=== PATIENT | female | born 1935 | race Caucasian/White ===

== ENCOUNTER 2020-08-14 08:55 | Emergency (ER) | payer MEDICARE, SELFPAY ==
[2020-08-14] VITALS (10 sets, daily range): BP systolic 125–174; BP diastolic 54–71; PULSE 57–78; RESP 16–18; TEMP 36.9; O2SAT 95–98; BMI 18.5
--- NOTE | 2020-08-14 | XR_ITS ---
EXAMINATION: XR CHEST CLINICAL INFORMATION: Weakness. COMPARISON: Chest x-ray dated 12/05/2019 and older exams. TECHNIQUE: 2 views of the chest were obtained. FINDINGS: EKG leads overlie the chest. The cardiomediastinal silhouette is within normal limits in size. Lungs bilaterally are symmetrically hyperinflated. No focal consolidation, effusion or pneumothorax is seen. Density calcified granuloma in the left lower lung is again noted. S-shaped thoracolumbar scoliosis and multilevel vertebral spondylosis seen. Osteopenia noted. IMPRESSION: No acute cardiopulmonary process. Chronic left lower lobe granuloma.
--- NOTE | 2020-08-14 | ECG_ITS ---
Test Reason : DIZZINESS Blood Pressure : / mmHG Vent. Rate : 071 BPM Atrial Rate : 071 BPM P-R Int : 180 ms QRS Dur : 082 ms QT Int : 384 ms P-R-T Axes : 070 018 -17 degrees QTc Int : 417 ms Sinus rhythm with marked sinus arrhythmia with occasional Premature ventricular complexes Nonspecific T wave abnormality Abnormal ECG When compared with ECG of 05-DEC-2019 12:32, Sinus rhythm has replaced Junctional rhythm Referred By: Mike Alvarado Electronically Signed By:RENA CISNEROS
--- NOTE | 2020-08-14 10:51 | ED_ITS ---
HPI - General Adult General Chief complaint: Dizziness <Mike Alvarado NP - Last Filed: 08/14/20 17:11> Stated complaint: syncope <Mike Alvarado NP - Last Filed: 08/14/20 17:11> Time Seen by Provider: 08/14/20 10:08 <Mike Alvarado NP - Last Filed: 08/14/20 17:11> Source: patient and family <Mike Alvarado NP - Last Filed: 08/14/20 17:11> History of Present Illness HPI narrative: 85-year-old female primarily Kyrgyz-speaking presents via EMS from home she has a history of hypertension, asthma, gastroesophageal reflux disease, nephrolithiasis and surgical history of cholecystectomy, back surgery and lith otripsy for kidney stones presents with complaint of feeling generalized weak today. States she took her medications as she usually does and did not get a chance to eat today and was feeling weak and like she is going to pass out. She denies any falling episodes. No dizziness. Per daughter she has had similar complaints in the past when she is generally not feeling well. Patient denies any pain complaints. No chest pain, headache, shortness of breath. No lower extremity pain or discomfort. No falls. <Mike Alvarado NP - Last Filed: 08/14/20 17:11> Onset (ago): day(s) (1) <Mike Alvarado NP - Last Filed: 08/14/20 17:11> Treatments prior to arrival: none <Mike Alvarado NP - Last Filed: 08/14/20 17:11> Related Data Allergies/adverse reactions: Allergies Allergy/AdvReac Type Severity Reaction Status Date / Time lisinopril [LISINOPRIL] Allergy Mild CHEST PAIN Verified 08/14/20 08:55 codeine [CODEINE] AdvReac Unknown AGITATION Verified 08/14/20 08:55 <Mike Alvarado NP - Last Filed: 08/14/20 17:11> Review of Systems Review of Systems: Constitutional: No Weight loss, No Fever, No Chills, No Night Sweats, No Fatigue, No Malaise ENT/Mouth: No Hearing loss, No Ear Pain, No Nasal Congestion, No Sinus Pain, No Hoarseness, No sore throat, No Rhinorrhea, No Swallowing Difficulty Eyes: No Eye Pain, No Swelling, No Redness, No Foreign Body, No Discharge, No Vision Changes Cardiovascular: No Chest Pain, No SOB, No Dyspnea on Exertion, No Orthopnea, No Edema, No Palpitations Respiratory: No Cough, No Sputum, No Wheezing, No Smoke Exposure, No Dyspnea Gastrointestinal: No Nausea, No Vomiting, No Diarrhea, No Constipation, No abdominal Pain, No Hematochezia, No Melena Genitourinary: no irregular bleeding, No Dysuria, No Urinary Frequency, No Hematuria, No Urinary Incontinence, No Urgency, No Flank Pain, No Urinary Flow Changes, No Hesitancy Musculoskeletal: No joint pain, No Myalgias, No Joint Swelling Skin: No Skin Lesions, No rash Neuro: No Weakness, No Numbness, No Paresthesias, No Loss of Consciousness, No Dizziness, No Headache Psych: No Anxiety/Panic, No Depression, No SI/HI/AH/VH, No Social Issues, Heme/Lymph: No Bruising, No Bleeding,No Lymphadenopathy Endocrine: No Polyuria, No Polydipsia, No Temperature Intolerance <Mike Alvarado NP - Last Filed: 08/14/20 17:11> [facility] Social History Social History: Social History Smoked in Last 30 Days: No Use of substances other than those prescribed or required for medical reasons: No Advance Directives: No Advance Directives Information Provided: No <Mike Alvarado NP - Last Filed: 08/14/20 17:11> Physical Exam Vital Signs and I&O and Narrative: Vital Signs and I&O: Vital Signs Temp 98.5 F 08/14/20 17:04 Pulse 62 08/14/20 17:10 Resp 17 08/14/20 17:04 BP 149/62 H 08/14/20 17:10 Pulse Ox 97 08/14/20 17:04 Intake & Output 08/14/20 08/14/20 08/15/20 06:59 18:59 06:59 Weight 46 kg Body Mass Index 18.5 <Mike Alvarado NP - Last Filed: 08/14/20 17:11> Vital Signs and I&O: Vital Signs Temp 98.5 F 08/14/20 17:04 Pulse 62 08/14/20 17:10 Resp 17 08/14/20 17:04 BP 149/62 H 08/14/20 17:10 Pulse Ox 97 08/14/20 17:04 Intake & Output 08/14/20 08/14/20 08/15/20 06:59 18:59 06:59 Weight 46 kg Body Mass Index 18.5 <Lopez Bhardwaj DO - Last Filed: 08/14/20 22:18> Const: General: cooperative and healthy appearing; No acute distress or intoxicated appearing <[facility] CODIE Alvarado - Last Filed: 08/14/20 17:11> Nutritional Appearance: average body habitus <[facility] CODIE Alvarado - Last Filed: 08/14/20 17:11> Orientation/consciousness: patient oriented x3 <[facility] CODIE Alvarado - Last Filed: 08/14/20 17:11> Limitations: language barrier ( Kyrgyz-speaking, prefer daughters cleaner and polisher who is present) <[facility] CODIE Alvarado - Last Filed: 08/14/20 17:11> HENMT: Head: Yes normal to inspection <[facility] CODIE Alvarado - Last Filed: 01/29 17:11> Ears: hearing grossly normal bilaterally <[facility] CODIE Alvarado - Last Filed: 08/14/20 17:11> Eyes: General: appearance normal, both eyes and all related structures <[facility] CODIE Alvarado - Last Filed: 08/14/20 17:11> Visual Velasco: normal visual velasco by confrontation <[facility] CODIE Alvarado - Last Filed: 08/14/20 17:11> Neck: Neck: Yes normal visual inspection, Yes no meningeal signs, No positive Brudzinski's sign, No positive Kernig's sign and No tender <[facility] CODIE Alvarado - Last Filed: 08/14/20 17:11> Thyroid: Thyroid normal <[facility] CODIE Alvarado - Last Filed: 08/14/20 17:11> Chest: Chest palpation & inspection: normal inspection of the chest <[facility] CODIE Alvarado - Last Filed: 08/14/20 17:11> Resp: Effort & Inspection: normal respiratory effort <[facility] CODIE Alvarado - Last Filed: 08/14/20 17:11> Cardio: Jugular venous distension: no JVD <[facility] CODIE Alvarado - Last Filed: 08/14/20 17:11> GI: Inspection: Yes normal to inspection <Mike FernandesCODIE fischer - Last Filed: 08/14/20 17:11> Percussion: Yes normal to percussion <Mike CODIE Alvarado - Last Filed: 08/14/20 17:11> Auscultation: normal bowel sounds <Mike FernandesCODIE fischer - Last Filed: 08/14/20 17:11> : General: Yes no CVA tenderness <Mike CODIE Alvarado - Last Filed: 08/14/20 17:11> Back/Spine/Pelvis: Back: no CVA tenderness <Mike CODIE Alvarado - Last Filed: 08/14/20 17:11> Skin: General skin exam: no rashes or lesions noted <Mike CODIE Alvarado - Last Filed: 08/14/20 17:11> Neuro: General: patient oriented x3, moves all extremities, Normal light touch and pain sensation, no meningeal signs and no focal motor deficits <Mike CODIE Alvarado - Last Filed: 08/14/20 17:11> Cranial nerves: Yes CN's II-XII intact bilaterally and Yes Normal accommodation reflex present <Mike CODIE Alvarado - Last Filed: 08/14/20 17:11> Gait exam (Neuro): Normal gait present <Mike CODIE Alvarado - Last Filed: 08/14/20 17:11> Extrem: General: Yes normal to inspection <Mike CODIE Alvarado - Last Filed: 08/14/20 17:11> Left upper extremity: full ROM <Mike CODIE Alvarado - Last Filed: 08/14/20 17:11> Course Course Hospital Course: In review a 5-year-old female with above history presenting with nonspecific generalized weakness since this morning. No chest pain or shortness of breath. No headache. Very vague historian history limited by the fact that she is primarily Kyrgyz-speaking senior interior designer present as well as her daughter who is interpreting. She goes to [facility] pharmacy and has seen primary care as well as Cardiology there and has been on blood pressure medication for some time now with poor control. plan for labs, EKG chest x-ray rapid COVID. will treat with gradual IV fluids. Did not eat break fast will go ahead and let her eat. <Mike Alvarado NP - Last Filed: 08/14/20 17:11> Reevaluation(s) Reevaluation #1: Labs overall stable EKG normal sinus rhythm at 71 beats per minute with occasional PVC. Nonspecific T-wave changes in the lateral leads more pronounced on this EKG. This was compared to 12/05/2019. Initial troponin 7.3- Given the nonspecific symptoms plan for repeat troponin to make sure is no delta and re-evaluate. Her daughter does question some component of anxiety has an appointment coming up with her primary care doctor for recheck on her blood pressure in 1 week. <Mike Alvarado NP - Last Filed: 08/14/20 17:11> Reevaluation #2: repeat troponin shows positive delta> 7.3 to 13.6. Page placed to Cardiology Dr. Gracia; She remains pain and discomfort free. Resting comfortably. Did eat lunch. <Mike Alvarado NP - Last Filed: 08/14/20 17:11> Reevaluation #3: Awaiting consultation from Cardiology. in the meantime called over to bedside by patient daughter feeling anxious wanting to leave. I did have discussion with her and aware that I will follow cardiology recommendations. She initially wanted to leave and now agreeable to staying to follow cardiology recommendation. <Mike Alvarado NP - Last Filed: 08/14/20 17:11> Additional Reevaluation(s): Case discussed with cardiology Dr. Gracia -- Findings nonspecific given that she has no pain or discomfort to repeat troponin at 03:00 hours and if no delta can be discharged home. repeat troponin at 3 hours from 13.6 to now 16. No delta. Patient remains pain discomfort free. Has appointment with her primary care doctor and Cardiology. Requesting discharge. Does not want to stay in hospital. She will be disch arged with clear precaution return follow-up instructions. Stable for discharge. <Mike Alvarado NP - Last Filed: 08/14/20 17:11> Consultations Consultation #1: Dr. Gracia cardiology <Mike Alvarado NP - Last Filed: 08/14/20 17:11> Medical Decision Making MDM Narrative Medical decision making narrative: has been here several times for this same. She is admission here in 2016 specifically 03/06/2016 for abdominal pain. Prior to this she was admitted 2012. She has had a visit in November 2019 with similar complaint of general weakness and malaise. Per daughter she typically states this when she does not feel well. Unsure if it is related to the fact that she took her routine medication without eating breakfast. <Mike Alvarado NP - Last Filed: 08/14/20 17:11> Differential Diagnosis Differential Diagnosis: Hypoglycemia,electrolyte derangement,infectious pathology, viral syndrome <Mike Alvarado NP - Last Filed: 08/14/20 17:11> Lab Data Result diagrams: : 08/14/20 10:33 08/14/20 10:32 <Mike Alvarado NP - Last Filed: 08/14/20 17:11> Labs: Lab Results 08/14/20 08/14/20 08/14/20 Range/Units 10:28 10:32 10:33 WBC 7.4 (4.8-10.8) X10*3/uL RBC 4.50 (4.20-5.50) X10*6/uL Hgb 12.5 (12.0-16.0) g/dl Hct 38.3 (37-47) % MCV 85.1 (80-98) fL MCH 27.8 (27.0-33.0) pg MCHC 32.6 (31.0-35.0) g/dl RDW 14.3 (11.0-16.0) % Plt Count 262 (160-400) X10*3/uL MPV 10.8 (9.4-12.3) fL Immature Gran % (Auto) 0.4 (0.0-0.4) % Neut % (Auto) 77.8 H (45-73) % Lymph % (Auto) 12.8 L (20-40) % [place] % (Auto) 7.7 (2-11) % Eos % (Auto) 0.5 (0-4) % Baso % (Auto) 0.8 (0-2) % Neut # (Auto) 5.7 (2.0-8.3) X10*3/uL Lymph # (Auto) 0.9 L (1.2-4.9) X10*3/uL [place] # (Auto) 0.6 (0.1-1.2) X10*3/uL Eos # (Auto) 0.0 (0.0-0.4) X10*3/uL Baso # (Auto) 0.1 (0.0-0.2) X10*3/uL Abs Immat Gran (auto) 0.03 (0.00-0.03) X10*3/uL Absolute Nucleated RBC 0.000 (0.0-0.012) X10*3/uL Nucleated RBC % (auto) 0.0 (0.0-0.2) /100WBC PT (10.8-13.0) SEC INR (0.9-1.1) APTT (24.1-38.0) SEC Sodium 137 (135-145) mmol/L Potassium 3.9 (3.3-5.1) mmol/l Chloride 102 (96-108) mmol/L Carbon Dioxide 28 (22-29) mmol/L Anion Gap 11 L (12-20) BUN 21 H (9-16) mg/dL Creatinine 0.80 (0.5-1.4) mg/dL Estim Creat Clear Calc 37.3 Estimated GFR > 60 Random Glucose 126 H (60-115) mg/dL Calcium 9.8 (8.4-10.2) mg/dL Total Bilirubin 0.4 (0.0-1.0) mg/dL Direct Bilirubin 0.2 (0.0-0.5) mg/dL AST 25 (5-31) U/L ALT 18 (0-31) U/L Alkaline Phosphatase 61 (39-117) U/L Troponin I High Sens (<3.5-17.0) ng/L B-Natriuretic Peptide (<100) pg/mL Total Protein 7.8 (6.5-8.0) g/dL Albumin 4.0 (3.5-5.0) g/dL Lipase 33 (8-78) U/L Urine Color YELLOW Urine Appearance CLEAR Urine pH 7.5 (5.0-8.0) Ur Specific [place] 1.015 (1.005-1.025) Urine Protein NEG (NEG-TRACE) MG/DL Urine Glucose (UA) NEG (NEG) MG/DL Urine Ketones NEG (NEG) MG/DL Urine Blood 1+ H (NEG) Urine Nitrite NEG (NEG) Ur Leukocyte Esterase NEG (NEG) Urine RBC 1-4 (0) /HPF Urine WBC 0 (0-4) /HPF Ur Squamous Epith Cells NONE /LPF Ur Renal Epithelial Cell TRACE /LPF Urine Bacteria NONE /LPF Coronavirus (PCR) (Negative) 08/14/20 08/14/20 08/14/20 Range/Units 10:33 10:33 10:33 WBC (4.8-10.8) X10*3/uL RBC (4.20-5.50) X10*6/uL Hgb (12.0-16.0) g/dl Hct (37-47) % MCV (80-98) fL MCH (27.0-33.0) pg MCHC (31.0-35.0) g/dl RDW (11.0-16.0) % Plt Count (160-400) X10*3/uL MPV (9.4-12.3) fL Immature Gran % (Auto) (0.0-0.4) % Neut % (Auto) (45-73) % Lymph % (Auto) (20-40) % [place] % (Auto) (2-11) % Eos % (Auto) (0-4) % Baso % (Auto) (0-2) % Neut # (Auto) (2.0-8.3) X10*3/uL Lymph # (Auto) (1.2-4.9) X10*3/uL [place] # (Auto) (0.1-1.2) X10*3/uL Eos # (Auto) (0.0-0.4) X10*3/uL Baso # (Auto) (0.0-0.2) X10*3/uL Abs Immat Gran (auto) (0.00-0.03) X10*3/uL Absolute Nucleated RBC (0.0-0.012) X10*3/uL Nucleated RBC % (auto) (0.0-0.2) /100WBC PT 12.4 (10.8-13.0) SEC INR 1.0 (0.9-1.1) APTT 32.9 (24.1-38.0) SEC Sodium (135-145) mmol/L Potassium (3.3-5.1) mmol/l Chloride (96-108) mmol/L Carbon Dioxide (22-29) mmol/L Anion Gap (12-20) BUN (9-16) mg/dL Creatinine (0.5-1.4) mg/dL Estim Creat Clear Calc Estimated GFR Random Glucose (60-115) mg/dL Calcium (8.4-10.2) mg/dL Total Bilirubin (0.0-1.0) mg/dL Direct Bilirubin (0.0-0.5) mg/dL AST (5-31) U/L ALT (0-31) U/L Alkaline Phosphatase (39-117) U/L Troponin I High Sens 7.3 (<3.5-17.0) ng/L B-Natriuretic Peptide 78 (<100) pg/mL Total Protein (6.5-8.0) g/dL Albumin (3.5-5.0) g/dL Lipase (8-78) U/L Urine Color Urine Appearance Urine pH (5.0-8.0) Ur Specific [place] (1.005-1.025) Urine Protein (NEG-TRACE) MG/DL Urine Glucose (UA) (NEG) MG/DL Urine Ketones (NEG) MG/DL Urine Blood (NEG) Urine Nitrite (NEG) Ur Leukocyte Esterase (NEG) Urine RBC (0) /HPF Urine WBC (0-4) /HPF Ur Squamous Epith Cells /LPF Ur Renal Epithelial Cell /LPF Urine Bacteria /LPF Coronavirus (PCR) NEGATIVE (Negative) 08/14/20 08/14/20 Range/Units 12:33 16:22 WBC (4.8-10.8) X10*3/uL RBC (4.20-5.50) X10*6/uL Hgb (12.0-16.0) g/dl Hct (37-47) % MCV (80-98) fL MCH (27.0-33.0) pg MCHC (31.0-35.0) g/dl RDW (11.0-16.0) % Plt Count (160-400) X10*3/uL MPV (9.4-12.3) fL Immature Gran % (Auto) (0.0-0.4) % Neut % (Auto) (45-73) % Lymph % (Auto) (20-40) % [place] % (Auto) (2-11) % Eos % (Auto) (0-4) % Baso % (Auto) (0-2) % Neut # (Auto) (2.0-8.3) X10*3/uL Lymph # (Auto) (1.2-4.9) X10*3/uL [place] # (Auto) (0.1-1.2) X10*3/uL Eos # (Auto) (0.0-0.4) X10*3/uL Baso # (Auto) (0.0-0.2) X10*3/uL Abs Immat Gran (auto) (0.00-0.03) X10*3/uL Absolute Nucleated RBC (0.0-0.012) X10*3/uL Nucleated RBC % (auto) (0.0-0.2) /100WBC PT (10.8-13.0) SEC INR (0.9-1.1) APTT (24.1-38.0) SEC Sodium (135-145) mmol/L Potassium (3.3-5.1) mmol/l Chloride (96-108) mmol/L Carbon Dioxide (22-29) mmol/L Anion Gap (12-20) BUN (9-16) mg/dL Creatinine (0.5-1.4) mg/dL Estim Creat Clear Calc Estimated GFR Random Glucose (60-115) mg/dL Calcium (8.4-10.2) mg/dL Total Bilirubin (0.0-1.0) mg/dL Direct Bilirubin (0.0-0.5) mg/dL AST (5-31) U/L ALT (0-31) U/L Alkaline Phosphatase (39-117) U/L Troponin I High Sens 13.6 D 16.0 (<3.5-17.0) ng/L B-Natriuretic Peptide (<100) pg/mL Total Protein (6.5-8.0) g/dL Albumin (3.5-5.0) g/dL Lipase (8-78) U/L Urine Color Urine Appearance Urine pH (5.0-8.0) Ur Specific [place] (1.005-1.025) Urine Protein (NEG-TRACE) MG/DL Urine Glucose (UA) (NEG) MG/DL Urine Ketones (NEG) MG/DL Urine Blood (NEG) Urine Nitrite (NEG) Ur Leukocyte Esterase (NEG) Urine RBC (0) /HPF Urine WBC (0-4) /HPF Ur Squamous Epith Cells /LPF Ur Renal Epithelial Cell /LPF Urine Bacteria /LPF Coronavirus (PCR) (Negative) <Mike AlvaradoCODIE - Last Filed: 08/14/20 17:11> Lab Results 08/14/20 08/14/20 08/14/20 Range/Units 10:28 10:32 10:33 WBC 7.4 (4.8-10.8) X10*3/uL RBC 4.50 (4.20-5.50) X10*6/uL Hgb 12.5 (12.0-16.0) g/dl Hct 38.3 (37-47) % MCV 85.1 (80-98) fL MCH 27.8 (27.0-33.0) pg MCHC 32.6 (31.0-35.0) g/dl RDW 14.3 (11.0-16.0) % Plt Count 262 (160-400) X10*3/uL MPV 10.8 (9.4-12.3) fL Immature Gran % (Auto) 0.4 (0.0-0.4) % Neut % (Auto) 77.8 H (45-73) % Lymph % (Auto) 12.8 L (20-40) % [place] % (Auto) 7.7 (2-11) % Eos % (Auto) 0.5 (0-4) % Baso % (Auto) 0.8 (0-2) % Neut # (Auto) 5.7 (2.0-8.3) X10*3/uL Lymph # (Auto) 0.9 L (1.2-4.9) X10*3/uL [place] # (Auto) 0.6 (0.1-1.2) X10*3/uL Eos # (Auto) 0.0 (0.0-0.4) X10*3/uL Baso # (Auto) 0.1 (0.0-0.2) X10*3/uL Abs Immat Gran (auto) 0.03 (0.00-0.03) X10*3/uL Absolute Nucleated RBC 0.000 (0.0-0.012) X10*3/uL Nucleated RBC % (auto) 0.0 (0.0-0.2) /100WBC PT (10.8-13.0) SEC INR (0.9-1.1) APTT (24.1-38.0) SEC Sodium 137 (135-145) mmol/L Potassium 3.9 (3.3-5.1) mmol/l Chloride 102 (96-108) mmol/L Carbon Dioxide 28 (22-29) mmol/L Anion Gap 11 L (12-20) BUN 21 H (9-16) mg/dL Creatinine 0.80 (0.5-1.4) mg/dL Estim Creat Clear Calc 37.3 Estimated GFR > 60 Random Glucose 126 H (60-115) mg/dL Calcium 9.8 (8.4-10.2) mg/dL Total Bilirubin 0.4 (0.0-1.0) mg/dL Direct Bilirubin 0.2 (0.0-0.5) mg/dL AST 25 (5-31) U/L ALT 18 (0-31) U/L Alkaline Phosphatase 61 (39-117) U/L Troponin I High Sens (<3.5-17.0) ng/L B-Natriuretic Peptide (<100) pg/mL Total Protein 7.8 (6.5-8.0) g/dL Albumin 4.0 (3.5-5.0) g/dL Lipase 33 (8-78) U/L Urine Color YELLOW Urine Appearance CLEAR Urine pH 7.5 (5.0-8.0) Ur Specific [place] 1.015 (1.005-1.025) Urine Protein NEG (NEG-TRACE) MG/DL Urine Glucose (UA) NEG (NEG) MG/DL Urine Ketones NEG (NEG) MG/DL Urine Blood 1+ H (NEG) Urine Nitrite NEG (NEG) Ur Leukocyte Esterase NEG (NEG) Urine RBC 1-4 (0) /HPF Urine WBC 0 (0-4) /HPF Ur Squamous Epith Cells NONE /LPF Ur Renal Epithelial Cell TRACE /LPF Urine Bacteria NONE /LPF Coronavirus (PCR) (Negative) 08/14/20 08/14/20 08/14/20 Range/Units 10:33 10:33 10:33 WBC (4.8-10.8) X10*3/uL RBC (4.20-5.50) X10*6/uL Hgb (12.0-16.0) g/dl Hct (37-47) % MCV (80-98) fL MCH (27.0-33.0) pg MCHC (31.0-35.0) g/dl RDW (11.0-16.0) % Plt Count (160-400) X10*3/uL MPV (9.4-12.3) fL Immature Gran % (Auto) (0.0-0.4) % Neut % (Auto) (45-73) % Lymph % (Auto) (20-40) % [place] % (Auto) (2-11) % Eos % (Auto) (0-4) % Baso % (Auto) (0-2) % Neut # (Auto) (2.0-8.3) X10*3/uL Lymph # (Auto) (1.2-4.9) X10*3/uL [place] # (Auto) (0.1-1.2) X10*3/uL Eos # (Auto) (0.0-0.4) X10*3/uL Baso # (Auto) (0.0-0.2) X10*3/uL Abs Immat Gran (auto) (0.00-0.03) X10*3/uL Absolute Nucleated RBC (0.0-0.012) X10*3/uL Nucleated RBC % (auto) (0.0-0.2) /100WBC PT 12.4 (10.8-13.0) SEC INR 1.0 (0.9-1.1) APTT 32.9 (24.1-38.0) SEC Sodium (135-145) mmol/L Potassium (3.3-5.1) mmol/l Chloride (96-108) mmol/L Carbon Dioxide (22-29) mmol/L Anion Gap (12-20) BUN (9-16) mg/dL Creatinine (0.5-1.4) mg/dL Estim Creat Clear Calc Estimated GFR Random Glucose (60-115) mg/dL Calcium (8.4-10.2) mg/dL Total Bilirubin (0.0-1.0) mg/dL Direct Bilirubin (0.0-0.5) mg/dL AST (5-31) U/L ALT (0-31) U/L Alkaline Phosphatase (39-117) U/L Troponin I High Sens 7.3 (<3.5-17.0) ng/L B-Natriuretic Peptide 78 (<100) pg/mL Total Protein (6.5-8.0) g/dL Albumin (3.5-5.0) g/dL Lipase (8-78) U/L Urine Color Urine Appearance Urine pH (5.0-8.0) Ur Specific [place] (1.005-1.025) Urine Protein (NEG-TRACE) MG/DL Urine Glucose (UA) (NEG) MG/DL Urine Ketones (NEG) MG/DL Urine Blood (NEG) Urine Nitrite (NEG) Ur Leukocyte Esterase (NEG) Urine RBC (0) /HPF Urine WBC (0-4) /HPF Ur Squamous Epith Cells /LPF Ur Renal Epithelial Cell /LPF Urine Bacteria /LPF Coronavirus (PCR) NEGATIVE (Negative) 08/14/20 08/14/20 Range/Units 12:33 16:22 WBC (4.8-10.8) X10*3/uL RBC (4.20-5.50) X10*6/uL Hgb (12.0-16.0) g/dl Hct (37-47) % MCV (80-98) fL MCH (27.0-33.0) pg MCHC (31.0-35.0) g/dl RDW (11.0-16.0) % Plt Count (160-400) X10*3/uL MPV (9.4-12.3) fL Immature Gran % (Auto) (0.0-0.4) % Neut % (Auto) (45-73) % Lymph % (Auto) (20-40) % [place] % (Auto) (2-11) % Eos % (Auto) (0-4) % Baso % (Auto) (0-2) % Neut # (Auto) (2.0-8.3) X10*3/uL Lymph # (Auto) (1.2-4.9) X10*3/uL [place] # (Auto) (0.1-1.2) X10*3/uL Eos # (Auto) (0.0-0.4) X10*3/uL Baso # (Auto) (0.0-0.2) X10*3/uL Abs Immat Gran (auto) (0.00-0.03) X10*3/uL Absolute Nucleated RBC (0.0-0.012) X10*3/uL Nucleated RBC % (auto) (0.0-0.2) /100WBC PT (10.8-13.0) SEC INR (0.9-1.1) APTT (24.1-38.0) SEC Sodium (135-145) mmol/L Potassium (3.3-5.1) mmol/l Chloride (96-108) mmol/L Carbon Dioxide (22-29) mmol/L Anion Gap (12-20) BUN (9-16) mg/dL Creatinine (0.5-1.4) mg/dL Estim Creat Clear Calc Estimated GFR Random Glucose (60-115) mg/dL Calcium (8.4-10.2) mg/dL Total Bilirubin (0.0-1.0) mg/dL Direct Bilirubin (0.0-0.5) mg/dL AST (5-31) U/L ALT (0-31) U/L Alkaline Phosphatase (39-117) U/L Troponin I High Sens 13.6 D 16.0 (<3.5-17.0) ng/L B-Natriuretic Peptide (<100) pg/mL Total Protein (6.5-8.0) g/dL Albumin (3.5-5.0) g/dL Lipase (8-78) U/L Urine Color Urine Appearance Urine pH (5.0-8.0) Ur Specific [place] (1.005-1.025) Urine Protein (NEG-TRACE) MG/DL Urine Glucose (UA) (NEG) MG/DL Urine Ketones (NEG) MG/DL Urine Blood (NEG) Urine Nitrite (NEG) Ur Leukocyte Esterase (NEG) Urine RBC (0) /HPF Urine WBC (0-4) /HPF Ur Squamous Epith Cells /LPF Ur Renal Epithelial Cell /LPF Urine Bacteria /LPF Coronavirus (PCR) (Negative) <Lopez Bhardwaj, DO - Last Filed: 08/14/20 22:18> Imaging Data [place] [address] XRay Report Signed Patient: Margaret NoadMR#: [id number] : 5Acct:[id number] Age/Sex: 85 / FADM Date: 08/14/20 Loc: HO.ED Attending Dr: Ordering Physician: Mike Alvarado [employer] Date of Service: 08/14/20 Procedure(s): XR chest 2V Accession Number(s): [id number] cc: ~ EXAMINATION: XR CHEST CLINICAL INFORMATION: Weakness. COMPARISON: Chest x-ray dated 12/05/2019 and older exams. TECHNIQUE: 2 views of the chest were obtained. FINDINGS: EKG leads overlie the chest. The cardiomediastinal silhouette is within normal limits in size. Lungs bilaterally are symmetrically hyperinflated. No focal consolidation, effusion or pneumothorax is seen. Density calcified granuloma in the left lower lung is again noted. S-shaped thoracolumbar scoliosis and multilevel vertebral spondylosis seen. Osteopenia noted. IMPRESSION: No acute cardiopulmonary pr ocess. Chronic left lower lobe granuloma. Dictated By:RUSTY ACUÑA MD Signed By:<Electronically signed by RUSTY ACUÑA MD in [place]>08/14/20 1106 DD/ 0944 TD/TT: Global Marketing Intern: LUZ MARIA: My impression: [address] [address] XRay Report Signed Patient: Margaret NoadMR#: [id number] : 5Acct:[id number] Age/Sex: 85 / FADM Date: 08/14/20 Loc: HO.ED Attending Dr: Ordering Physician: Mike Alvarado [employer] Date of Service: 08/14/20 Procedure(s): XR chest 2V Accession Number(s): [id number] cc: ~ EXAMINATION: XR CHEST CLINICAL INFORMATION: Weakness. COMPARISON: Chest x-ray dated 12/05/2019 and older exams. TECHNIQUE: 2 views of the chest were obtained. FINDINGS: EKG leads overlie the chest. The cardiomediastinal silhouette is within normal limits in size. Lungs bilaterally are symmetrically hyperinflated. No focal consolidation, effusion or pneumothorax is seen. Density calcified granuloma in the left lower lung is again noted. S-shaped thoracolumbar scoliosis and multilevel vertebral spondylosis seen. Osteopenia noted. IMPRESSION: No acute cardiopulmonary process. Chronic left lower lobe granuloma. Dictated By:RUSTY ACUÑA MD Signed By:<Electronically signed by RUSTY ACUÑA MD in [place]>08/14/20 1106 DD/ 0944 TD/TT: Global Marketing Intern: LUZ MARIA <Mike Alvarado NP - Last Filed: 08/14/20 17:11> ECG Data Attestation: I personally reviewed and interpreted this ECG as follows: <Mike Alvarado NP - Last Filed: 08/14/20 17:11> Prior ECG tracings: available for review <Mike Alvarado NP - Last Filed: 08/14/20 17:11> Interpretation: Normal sinus rhythm, rate 71, no ST elevation, nonspecific changes in the T-wave in lead 4 5 and 6. EKG compared to 12/05/2019. <Mike Alvarado NP - Last Filed: 08/14/20 17:11> Discharge Plan Discharge Clinical Impression: Weakness generalized <Mike Alvarado NP - Last Filed: 08/14/20 17:11> Patient Disposition: Home, Self-Care <Mike Alvarado NP - Last Filed: 08/14/20 17:11> Instructions: Weakness (ED) <Mike Alvarado NP - Last Filed: 08/14/20 17:11> Additional Instructions: Please follow up with her primary care doctor as planned Please follow up with Cardiology as discussed A copy of your workup was provided to you today Return if any concerns or worsening symptoms otherwise follow up as planned and taking medication prescribed Thank you <Mike Alvarado NP - Last Filed: 08/14/20 17:11> Referrals: Guillermina Vann MD [Primary Care Provider] - 2 days <Mike Alvarado NP - Last Filed: 08/14/20 17:11> Interventions: ED Discharge Assessment Last Done: 08/14/20 17:29 <Mike Alvarado NP - Last Filed: 08/14/20 17:11> Discharge Date/Time: 08/14/20 17:30 <Mike Alvarado, [employer] - Last Filed: 08/14/20 17:11>
[2020-08-14 10:54] LABS: MANUAL DIFF FLAG NO
[2020-08-14 10:55] LABS: Basophils Absolute Auto 0.1 X10*3/uL (0.0-0.2); Basophils Percent Auto 0.8 % (0-2); Eosinophils Percent Auto 0.5 % (0-4); Hematocrit 38.3 % (37-47); Hemoglobin 12.5 g/dl (12.0-16.0); Imm Gran Abs Auto 0.03 X10*3/uL (0.00-0.03); Imm Gran Pct Auto 0.4 % (0.0-0.4); Lymphocytes Absolute Auto 0.9 X10*3/uL (1.2-4.9); Lymphocytes Percent Auto 12.8 % (20-40); Mean Corpuscular HGB Conc 32.6 g/dl (31.0-35.0); Mean Corpuscular Hemoglobin 27.8 pg (27.0-33.0); Mean Corpuscular Volume 85.1 fL (80-98); Mean Platelet Volume 10.8 fL (9.4-12.3); Monocytes Absolute Auto 0.6 X10*3/uL (0.1-1.2); Monocytes Percent Auto 7.7 % (2-11); Neutrophils Absolute Auto 5.7 X10*3/uL (2.0-8.3); Neutrophils Percent Auto 77.8 % (45-73); Platelet Count 262 X10*3/uL (160-400); Red Cell Distribution Width 14.3 % (11.0-16.0); White Blood Count 7.4 X10*3/uL (4.8-10.8)
[2020-08-14 11:08] LABS: Glucose Urine UA NEG (NEG); Leukocyte Esterase Urine NEG (NEG); Nitrite Urine NEG (NEG); PH 7.5 (5.0-8.0); Specific Gravity - Urine 1.015 (1.005-1.025); Urine Blood 1+ (NEG); Urine Ketones NEG (NEG); Urine Protein NEG (NEG-TRACE)
[2020-08-14 11:11] LABS: Appearance Urine CLEAR; Color Urine YELLOW
[2020-08-14 11:17] LABS: Alanine Aminotransferase 18 U/L (0-31); Alkaline Phosphatase 61 U/L (39-117); Anion Gap 11 (12-20); Aspartate Amino Transferase 25 U/L (5-31); Bilirubin Direct 0.2 mg/dL (0.0-0.5); Bilirubin Total 0.4 mg/dL (0.0-1.0); Blood Urea Nitrogen 21 mg/dL (9-16); Calcium 9.8 mg/dL (8.4-10.2); Carbon Dioxide 28 mmol/L (22-29); Chloride 102 mmol/L (96-108); Creatinine Clr Calc Pharmacy 37.3; Estimated Glomerular Filt Rate > 60; Glucose Random 126 mg/dL (60-115); Lipase 33 U/L (8-78); Potassium 3.9 mmol/l (3.3-5.1); Sodium 137 mmol/L (135-145); Total Protein 7.8 g/dL (6.5-8.0)
[2020-08-14 11:17] LABS: Prothrombin Time 12.4 SEC (10.8-13.0)
[2020-08-14 11:19] LABS: Partial Thromboplastin Time 32.9 SEC (24.1-38.0)
[2020-08-14 11:20] LABS: B Type Natriuretic Peptide 78 pg/mL (<100); Troponin-I High Sensitivity 7.3 ng/L (<3.5-17.0)
[2020-08-14 11:39] LABS: Renal Epithelial Cells Urine TRACE /LPF; WBC Urine 0 /HPF (0-4)
[2020-08-14 12:02] LABS: SARS COV2 PCR INHOUSE NEGATIVE (Negative)
[2020-08-14 13:26] LABS: Troponin-I High Sensitivity 13.6 ng/L (<3.5-17.0)
== END 2020-08-14 17:30 | disposition home or self-care (01) ==
PROVIDERS: Nurse Practitioner Primary Care; Emergency Provider Emergency Medicine; PCP Internal Medicine
DX: R53.1 Weakness (principal); Z20.828 Contact with and (suspected) exposure to other viral communicable diseases
CPT/HCPCS: 36415; 71046; 80053; 80076; 81001; 81003; 83690; 83880; 84484; 85025; 85610; 85730; 87635; 93005; 93010; 99283; 99284

== ENCOUNTER 2020-12-19 11:21 | Inpatient (IN) | payer MEDICARE, SELFPAY ==
--- NOTE | ~2020-12-19 | CT_ITS ---
EXAMINATION: CT HEAD WITHOUT CONTRAST CLINICAL INFORMATION: Generalized weakness, rule out intracranial abnormality. COMPARISON: 05/08/[address] scan. TECHNIQUE: Contiguous axial imaging was performed from the skull base to vertex without intravenous administration of contrast. Coronal and sagittal reformatted images were obtained. This CT examination was performed using dose optimization techniques as appropriate, variously including the following: *Automated exposure control *Adjustment of mA and/or kV according to patient size (this includes techniques or standardized protocols for targeted exams where dose is matched to indication/reason for exam; i.e. extremities or head) *Use of iterative reconstruction technique DLP: 587 mGy-cm FINDINGS: There is no evidence of acute intracranial hemorrhage or territorial infarction. No abnormal mass effect or midline shift is seen. Rand to white matter differentiation is well preserved. No extra-axial fluid collections are identified. The ventricles are normal in size. There is no abnormal attenuation within the brain parenchyma. The osseous structures and soft tissues are normal. The mastoid air cells and visualized portions of the paranasal sinuses are well aerated. CT/CT head/brain wo con IMPRESSION: No acute intracranial pathology.
--- NOTE | ~2020-12-19 | XR_ITS ---
EXAMINATION: XR CHEST CLINICAL INFORMATION: Generalized weakness. COMPARISON: 08/14/2020 chest radiographs. TECHNIQUE: 2 views of the chest were obtained. FINDINGS: The lungs are clear. A calcified granuloma in the left lower lobe is stable. The heart and mediastinal structures are unremarkable. XR/XR chest 2V IMPRESSION: Stable chest. No acute cardiopulmonary process.
[2020-12-19 11:37] VITALS: BP 171/72; PULSE 62; RESP 16; TEMP 36.8; O2SAT 98; BMI 26.4
--- NOTE | 2020-12-19 11:59 | ECG_ITS ---
Test Reason : WEAKNESS Blood Pressure : / mmHG Vent. Rate : 048 BPM Atrial Rate : 048 BPM P-R Int : 178 ms QRS Dur : 080 ms QT Int : 404 ms P-R-T Axes : 081 041 074 degrees QTc Int : 360 ms Sinus bradycardia with sinus arrhythmia Nonspecific ST and T wave abnormality Abnormal ECG When compared with ECG of 14-AUG-2020 09:18, No significant changes seen Referred By: Nicolasa Huffman Electronically Signed By:ALPESH FERRIS
--- NOTE | 2020-12-19 12:34 | ED_ITS ---
HPI - General Adult General Chief complaint: General Medical Stated complaint: anxiety Time Seen by Provider: 12/19/20 11:47 Source: patient and EMS Mode of arrival: EMS Limitations: language barrier (Congolese-speaking) History of Present Illness HPI narrative: 85-year-old female who is Congolese-speaking c PMHx of hyp ertension, hyperlipidemia, renal failure, pancreatitis, asthma and GERD presenting to the ED via EMS with complaints of generalized weakness that started after eating a cracker and drinking some coffee this morning therefore she had to lie down due to she reports she felt like she was going to pass out. Her neighbor who comes over every day called EMS and patient was brought here. Patient reports generalized weakness ?not feeling well. Denies any dizziness, headaches, lightheadedness, changes in vision, nausea/vomiting, jaw pain, nasal congestion, cough, shortness of breath, dyspnea on exertion, orthopnea, back pain, palpitations, extremity edema, chest pain, abdominal pain, diarrhea, con stipation, dysuria, hematuria or any other symptoms complaints or concerns at this time. Denies recent travel or sick contacts. MD complaint: Generalized weakness Onset (ago): hour(s) (Started around 11:30 prior to arrival) Pain Consistency: constant Relieving factors: none Exacerbating factors: none Associated symptoms: denies other symptoms Treatments prior to arrival: none Related Data Allergies Allergy/AdvReac Type Severity Reaction Status Date / Time lisinopril [LISINOPRIL] Allergy Mild CHEST PAIN Verified 08/14/20 08:55 codeine [CODEINE] AdvReac Unknown AGITATION Verified 08/14/20 08:55 Review of Systems Review of Systems: Constitutional : No Weight loss, No Fever, No Chills, No Night Sweats, No Fatigue, No Malaise ENT/Mouth : No Hearing loss, No Ear Pain, No Nasal Congestion, No Sinus Pain, No Hoarseness, No sore throat, No Rhinorrhea, No Swallowing Difficulty Eyes: No Eye Pain, No Swelling, No Redness, No Foreign Body, No Discharge, No Vision Changes Cardiovascular : No Chest Pain, No SOB, No Dyspnea on Exertion, No Orthopnea, No Edema, No Palpitations Respiratory : No Cough, No Sputum, No Wheezing, No Smoke Exposure, No Dyspnea Gastrointestinal : No Nausea, No Vomiting, No Diarrhea, No Constipation, No abdominal Pain, No Hematochezia, No Melena Genitourinary : no irregular bleeding, No Dysuria, No Urinary Frequency, No Hematuria, No Urinary Incontinence, No Urgency, No Flank Pain, No Urinary Flow Changes, No Hesitancy Musculoskeletal : No joint pain, No Myalgias, No Joint Swelling Skin : No Skin Lesions, No rash Neuro : + Weakness, No Numbness, No Paresthesias, No Loss of Consciousness, No Dizziness, No Headache Psych : No Anxiety/Panic, No Depression, No SI/HI/AH/VH, No Social Issues, Heme/Lymph: No Bruising, No Bleeding,No Lymphadenopathy Endocrine : No Polyuria, No Polydipsia, No Temperature Intolerance Yes all other systems are reviewed and are negative [facility] Past Medical History Attestation statement: The following information was validated with the patient. Social History Social History Alcohol intake: never Smoking Status: Never smoker Use of substances other than those prescribed or required for medical reasons: No Advance Directives: No Advance Directives Information Provided: No Physical Exam Vital Signs: Vital Signs: Last Vital Signs Temp 98.0 F 12/19/20 15:50 Pulse 52 12/19/20 15:50 Resp 16 12/19/20 15:50 BP 155/65 H 12/19/20 15:50 Pulse Ox 99 12/19/20 15:50 Body Mass Index 26.4 Vital signs have been reviewed as normal and appeared to be correct. Blood pr essure hypertensive. Heart rate normal. Respiration rate normal. Temperature normal. Oxygen saturation normal. Appearance: Alert. Oriented X3. No acute distress. Head: Normal external exam. Normocephalic. Atraumatic. Able to rotate head bilaterally. Eyes: PERRLA. EOMI. No nystagmus noted. Conjunctiva and sclera normal. Eyelids normal. Corneal reflex normal. ENT: EAC normal. TM's Normal. Hearing normal. Pharynx normal. Uvula midline. tongue midline. Moist mucous membranes. No trismus noted. No drooling noted. No muffled voice noted. No nystagmus noted. Neck: Normal inspection. Neck supple. FROM. No adenopathy. Trachea midline. Thyroid Normal. No meningeal signs. No neck mass noted. CVS: Normal heart rate and rhythm. Heart sound normal. No murmurs noted. Pulses normal throughout. Respiratory: No respiratory distress. Painless inspiration. Breath sounds normal. No wheezes/rales/rhonchi noted. Chest nontender. No accessory muscle usage noted or decreased air movement noted. Abdomen: Soft and nontender. Bowel sounds normal in all 4 quadrants. No dist ention noted. No organomegaly noted. No visible injury noted. Back: No CVA tenderness. Full range of motion noted. Skin: Skin warm and dry. Normal skin color. Normal skin turgor. No rashes/lesion s/lacerations noted. Extremities: No lower extremity edema. Extremities exhibit normal range of checo on. Extremities nontender. Able to shrug shoulders bilaterally and keep up against resistance. Neuro: Oriented X 3. No motor deficit. No sensory deficit. Reflexes normal. Moving all extremities. No focal motor deficits. Cranial nerves II-XI intact bilaterally. Facial strength normal. Normal cognition. Speech normal. Gait normal. Strength 5/5 throughout. No pronator drift. No tremor noted. No fasciculations noted. No rigidity noted. Muscle tone normal throughout. No asterixis noted. Yhynne-iq-uhnu test normal. Heel to pozo test normal. Tandem gait normal. Does not sway with eyes open. Romberg test negative. Rapid alternating movement upper extremity normal. Rapid alternating movement lower extremity normal. Hand drop from overhead Misses face. NIHSS score 0. NIH Stroke Scale Internal: Initial- Upon Arrival Time: 12:00 Level of Consciousness: Alert Level of Consciousness Questions: Answers both questions correctly Level of Consciousness Commands: Performs both tasks correctly Best Gaze: Normal Visual: No visual loss Facial Palsy: Normal Motor Arm (Right): No drift Motor Arm (Left): No drift Motor Leg (Right): No drift Motor Leg (Left): No drift Limb Ataxia: Absent Sensory: Normal Best Language: No aphasia Dysarthia: Normal Extinction and Inattention: No abnormality Score: 0 Course Course Course Narrative: 12pm - 85-year-old female who is Congolese-speaking c PMHx of hypertension, hyperlipidemia, renal failure, pancreatitis, asthma and GERD presenting to the ED via EMS with complaints of generalized weakness that started after eating a cracker and drinking some coffee this morning therefore she had to lie down due to she reports she felt like she was going to pass out. - on exam patient is alert and oriented x3. Not in any acute distress. Patient noted to be hypertensive otherwise all other vitals are within normal limits. No focal neuro deficits noted. Patient has a normal steady gait. NIH SS score is 0 at this time no tPA indicated as patient has non disabling symptoms at this time. - Concern fro CVA vs ACS vs electrolyte abnormality - Plan: Labs, CXR, EKG, CT scan of brain, COVID/RSV/flu swab. Provide a L of IV fluids then re-evaluate Reevaluation(s) Reevaluation #1: - magnesium 1.5 - CRP 0.85 - troponin 7.7 - all other labs are within normal limits. - UA within normal limits no evidence of UTI patient only noted to have some blood - ETOH level negative. - COVID/flu/RSV negative. - CT scan of brain WNL no acute processes noted.. - CXR WNL no acute processes noted. - EKG sinus bradycardia with sinus arrhythmia with nonspecific ST and T-wave abnormality similar when compared to prior EKG on 08/14/2020 no acute ischemic changes noted. - patient has been up walking with a normal steady gait to the bathroom multiple times without any acute distress and no focal neuro deficits. - patient receiving IV magnesium 2 g at this time due to hypo magnesium. Will repeat the patient's troponin. Patient reports she is hungry and is requesting to go home I told her that I will order her a tray although we need a repeat troponin and if the repeat troponin is negative I will discharge her. Patient understands agrees the plan. Time: 15:10 Reevaluation #2: - Repeat Trop 26.5 therefore it has almost tripled therefore a 3rd repeat troponin ordered and pending at this time - repeat EKG sinus bradycardia with ventricular rate of [address] abnormalities no acute ischemic changes noted and similar compared to prior EKG earlier today. - patient reports she feels much better denies any symptoms at this time including chest pain, shortness of breath, palpitations, dizziness or any symptoms is actually requesting to be discharged. - awaiting repeat troponin. - Sign out to MAZIN [place] at this time pending 3rd Trop ? admit vs DC Time: 18:55 Medical Decision Making Medical Records Medical records reviewed: Yes I reviewed the patient's medical records. Lab Data Lab results reviewed: Yes I reviewed the patient's lab results. Result diagrams: 12/19/20 13:21 12/19/20 13:21 Labs: Lab Results 12/19/20 12/19/20 12/19/20 Range/Units 12:41 13:21 13:21 WBC 8.1 (4.8-10.8) X10*3/uL RBC 4.28 (4.20-5.50) X10*6/uL Hgb 11.7 L (12.0-16.0) g/dl Hct 36.4 L (37-47) % MCV 85.0 (80-98) fL MCH 27.3 (27.0-33.0) pg MCHC 32.1 (31.0-35.0) g/dl RDW 14.3 (11.0-16.0) % Plt Count 231 (160-400) X10*3/uL MPV 10.8 (9.4-12.3) fL Immature Gran % (Auto) 0.1 (0.0-0.4) % Neut % (Auto) 65.3 (45-73) % Lymph % (Auto) 24.5 (20-40) % [place] % (Auto) 8.8 (2-11) % Eos % (Auto) 0.6 (0-4) % Baso % (Auto) 0.7 (0-2) % Lymph # (Auto) 2.0 (1.2-4.9) X10*3/uL [place] # (Auto) 0.7 (0.1-1.2) X10*3/uL Eos # (Auto) 0.1 (0.0-0.4) X10*3/uL Baso # (Auto) 0.1 (0.0-0.2) X10*3/uL Abs Immat Gran (auto) 0.01 (0.00-0.03) X10*3/uL Absolute Neuts (auto) 5.3 (2.0-8.3) X10*3/uL Absolute Nucleated RBC 0.000 (0.0-0.012) X10*3/uL Nucleated RBC % (auto) 0.0 (0.0-0.2) /100WBC PT 13.7 H (10.8-13.0) SEC INR 1.2 H (0.9-1.1) APTT 36.9 (24.1-38.0) SEC Sodium (135-145) mmol/L Potassium (3.3-5.1) mmol/L Chloride (96-108) mmol/L Carbon Dioxide (22-29) mmol/L Anion Gap (12-20) BUN (9-16) mg/dL Creatinine (0.5-1.4) mg/dL Estim Creat Clear Calc Estimated GFR Random Glucose (60-115) mg/dL Calcium (8.4-10.2) mg/dL Magnesium (1.6-2.6) mg/dL Ferritin (10-250) ng/mL Total Bilirubin (0.0-1.0) mg/dL Direct Bilirubin (0.0-0.5) mg/dL AST (5-31) U/L ALT (0-31) U/L Alkaline Phosphatase (39-117) U/L Lactate Dehydrogenase (122-220) U/L Troponin I High Sens (<3.5-17.0) ng/L C-Reactive Protein (< or = 0.50) mg/dL B-Natriuretic Peptide (<100) pg/mL Total Protein (6.5-8.0) g/dL Albumin (3.5-5.0) g/dL Lipase (8-78) U/L Procalcitonin ng/mL Urine Color YELLOW Urine Appearance CLEAR Urine pH 7.0 (5.0-8.0) Ur Specific [place] 1.010 (1.005-1.025) Urine Protein NEG (NEG-TRACE) MG/DL Urine Glucose (UA) NEG (NEG) MG/DL Urine Ketones NEG (NEG) MG/DL Urine Blood 2+ H (NEG) Urine Nitrite NEG (NEG) Ur Leukocyte Esterase NEG (NEG) Urine RBC 10-14 H (0) /HPF Urine WBC 0 (0-4) /HPF Ur Squamous Epith Cells TRACE /LPF Urine Bacteria NONE /LPF Urine Opiates Screen (Not Detect) Ur Barbiturates Screen (Not Detect) Ur Phencyclidine Scrn (Not Detect) Ur Amphetamines Screen (Not Detect) U Benzodiazepines Scrn (Not Detect) Urine Cocaine Screen (Not Detect) U Marijuana (THC) Screen (Not Detect) Ethyl Alcohol mg/dL Coronavirus (PCR) (Negative) Influenza Type A (PCR) (Negative) Influenza Type B (PCR) (Negative) RSV RNA Qual (PCR) (Negative) 12/19/20 12/19/20 12/19/20 Range/Units 13:21 13:21 13:21 WBC (4.8-10.8) X10*3/uL RBC (4.20-5.50) X10*6/uL Hgb (12.0-16.0) g/dl Hct (37-47) % MCV (80-98) fL MCH (27.0-33.0) pg MCHC (31.0-35.0) g/dl RDW (11.0-16.0) % Plt Count (160-400) X10*3/uL MPV (9.4-12.3) fL Immature Gran % (Auto) (0.0-0.4) % Neut % (Auto) (45-73) % Lymph % (Auto) (20-40) % [place] % (Auto) (2-11) % Eos % (Auto) (0-4) % Baso % (Auto) (0-2) % Lymph # (Auto) (1.2-4.9) X10*3/uL [place] # (Auto) (0.1-1.2) X10*3/uL Eos # (Auto) (0.0-0.4) X10*3/uL Baso # (Auto) (0.0-0.2) X10*3/uL Abs Immat Gran (auto) (0.00-0.03) X10*3/uL Absolute Neuts (auto) (2.0-8.3) X10*3/uL Absolute Nucleated RBC (0.0-0.012) X10*3/uL Nucleated RBC % (auto) (0.0-0.2) /100WBC PT (10.8-13.0) SEC INR (0.9-1.1) APTT (24.1-38.0) SEC Sodium 140 (135-145) mmol/L Potassium 3.7 (3.3-5.1) mmol/L Chloride 103 (96-108) mmol/L Carbon Dioxide 28 (22-29) mmol/L Anion Gap 13 (12-20) BUN 14 (9-16) mg/dL Creatinine 0.76 (0.5-1.4) mg/dL Estim Creat Clear Calc 53.8 Estimated GFR > 60 Random Glucose 113 (60-115) mg/dL Calcium 9.7 (8.4-10.2) mg/dL Magnesium 1.5 L (1.6-2.6) mg/dL Ferritin (10-250) ng/mL Total Bilirubin 0.3 (0.0-1.0) mg/dL Direct Bilirubin < 0.2 (0.0-0.5) mg/dL AST 21 (5-31) U/L ALT 13 (0-31) U/L Alkaline Phosphatase 61 (39-117) U/L Lactate Dehydrogenase 130 (122-220) U/L Troponin I High Sens 7.7 D (<3.5-17.0) ng/L C-Reactive Protein 0.85 H (< or = 0.50) mg/dL B-Natriuretic Peptide 77 (<100) pg/mL Total Protein 7.6 (6.5-8.0) g/dL Albumin 3.6 (3.5-5.0) g/dL Lipase (8-78) U/L Procalcitonin ng/mL Urine Color Urine Appearance Urine pH (5.0-8.0) Ur Specific [place] (1.005-1.025) Urine Protein (NEG-TRACE) MG/DL Urine Glucose (UA) (NEG) MG/DL Urine Ketones (NEG) MG/DL Urine Blood (NEG) Urine Nitrite (NEG) Ur Leukocyte Esterase (NEG) Urine RBC (0) /HPF Urine WBC (0-4) /HPF Ur Squamous Epith Cells /LPF Urine Bacteria /LPF Urine Opiates Screen (Not Detect) Ur Barbiturates Screen (Not Detect) Ur Phencyclidine Scrn (Not Detect) Ur Amphetamines Screen (Not Detect) U Benzodiazepines Scrn (Not Detect) Urine Cocaine Screen (Not Detect) U Marijuana (THC) Screen (Not Detect) Ethyl Alcohol < 10 mg/dL Coronavirus (PCR) (Negative) Influenza Type A (PCR) (Negative) Influenza Type B (PCR) (Negative) RSV RNA Qual (PCR) (Negative) 12/19/20 12/19/20 12/19/20 Range/Units 13:21 13:21 13:23 WBC (4.8-10.8) X10*3/uL RBC (4.20-5.50) X10*6/uL Hgb (12.0-16.0) g/dl Hct (37-47) % MCV (80-98) fL MCH (27.0-33.0) pg MCHC (31.0-35.0) g/dl RDW (11.0-16.0) % Plt Count (160-400) X10*3/uL MPV (9.4-12.3) fL Immature Gran % (Auto) (0.0-0.4) % Neut % (Auto) (45-73) % Lymph % (Auto) (20-40) % [place] % (Auto) (2-11) % Eos % (Auto) (0-4) % Baso % (Auto) (0-2) % Lymph # (Auto) (1.2-4.9) X10*3/uL [place] # (Auto) (0.1-1.2) X10*3/uL Eos # (Auto) (0.0-0.4) X10*3/uL Baso # (Auto) (0.0-0.2) X10*3/uL Abs Immat Gran (auto) (0.00-0.03) X10*3/uL Absolute Neuts (auto) (2.0-8.3) X10*3/uL Absolute Nucleated RBC (0.0-0.012) X10*3/uL Nucleated RBC % (auto) (0.0-0.2) /100WBC PT (10.8-13.0) SEC INR (0.9-1.1) APTT (24.1-38.0) SEC Sodium (135-145) mmol/L Potassium (3.3-5.1) mmol/L Chloride (96-108) mmol/L Carbon Dioxide (22-29) mmol/L Anion Gap (12-20) BUN (9-16) mg/dL Creatinine (0.5-1.4) mg/dL Estim Creat Clear Calc Estimated GFR Random Glucose (60-115) mg/dL Calcium (8.4-10.2) mg/dL Magnesium (1.6-2.6) mg/dL Ferritin 101 (10-250) ng/mL Total Bilirubin (0.0-1.0) mg/dL Direct Bilirubin (0.0-0.5) mg/dL AST (5-31) U/L ALT (0-31) U/L Alkaline Phosphatase (39-117) U/L Lactate Dehydrogenase (122-220) U/L Troponin I High Sens (<3.5-17.0) ng/L C-Reactive Protein (< or = 0.50) mg/dL B-Natriuretic Peptide (<100) pg/mL Total Protein (6.5-8.0) g/dL Albumin (3.5-5.0) g/dL Lipase 28 (8-78) U/L Procalcitonin 0.02 ng/mL Urine Color Urine Appearance Urine pH (5.0-8.0) Ur Specific [place] (1.005-1.025) Urine Protein (NEG-TRACE) MG/DL Urine Glucose (UA) (NEG) MG/DL Urine Ketones (NEG) MG/DL Urine Blood (NEG) Urine Nitrite (NEG) Ur Leukocyte Esterase (NEG) Urine RBC (0) /HPF Urine WBC (0-4) /HPF Ur Squamous Epith Cells /LPF Urine Bacteria /LPF Urine Opiates Screen (Not Detect) Ur Barbiturates Screen (Not Detect) Ur Phencyclidine Scrn (Not Detect) Ur Amphetamines Screen (Not Detect) U Benzodiazepines Scrn (Not Detect) Urine Cocaine Screen (Not Detect) U Marijuana (THC) Screen (Not Detect) Ethyl Alcohol mg/dL Coronavirus (PCR) NEGATIVE (Negative) Influenza Type A (PCR) NEGATIVE (Negative) Influenza Type B (PCR) NEGATIVE (Negative) RSV RNA Qual (PCR) NEGATIVE (Negative) 12/19/20 12/19/20 Range/Units 15:42 15:45 WBC (4.8-10.8) X10*3/uL RBC (4.20-5.50) X10*6/uL Hgb (12.0-16.0) g/dl Hct (37-47) % MCV (80-98) fL MCH (27.0-33.0) pg MCHC (31.0-35.0) g/dl RDW (11.0-16.0) % Plt Count (160-400) X10*3/uL MPV (9.4-12.3) fL Immature Gran % (Auto) (0.0-0.4) % Neut % (Auto) (45-73) % Lymph % (Auto) (20-40) % [place] % (Auto) (2-11) % Eos % (Auto) (0-4) % Baso % (Auto) (0-2) % Lymph # (Auto) (1.2-4.9) X10*3/uL [place] # (Auto) (0.1-1.2) X10*3/uL Eos # (Auto) (0.0-0.4) X10*3/uL Baso # (Auto) (0.0-0.2) X10*3/uL Abs Immat Gran (auto) (0.00-0.03) X10*3/uL Absolute Neuts (auto) (2.0-8.3) X10*3/uL Absolute Nucleated RBC (0.0-0.012) X10*3/uL Nucleated RBC % (auto) (0.0-0.2) /100WBC PT (10.8-13.0) SEC INR (0.9-1.1) APTT (24.1-38.0) SEC Sodium (135-145) mmol/L Potassium (3.3-5.1) mmol/L Chloride (96-108) mmol/L Carbon Dioxide (22-29) mmol/L Anion Gap (12-20) BUN (9-16) mg/dL Creatinine (0.5-1.4) mg/dL Estim Creat Clear Calc Estimated GFR Random Glucose (60-115) mg/dL Calcium (8.4-10.2) mg/dL Magnesium (1.6-2.6) mg/dL Ferritin (10-250) ng/mL Total Bilirubin (0.0-1.0) mg/dL Direct Bilirubin (0.0-0.5) mg/dL AST (5-31) U/L ALT (0-31) U/L Alkaline Phosphatase (39-117) U/L Lactate Dehydrogenase (122-220) U/L Troponin I High Sens 26.5 H D (<3.5-17.0) ng/L C-Reactive Protein (< or = 0.50) mg/dL B-Natriuretic Peptide (<100) pg/mL Total Protein (6.5-8.0) g/dL Albumin (3.5-5.0) g/dL Lipase (8-78) U/L Procalcitonin ng/mL Urine Color Urine Appearance Urine pH (5.0-8.0) Ur Specific [place] (1.005-1.025) Urine Protein (NEG-TRACE) MG/DL Urine Glucose (UA) (NEG) MG/DL Urine Ketones (NEG) MG/DL Urine Blood (NEG) Urine Nitrite (NEG) Ur Leukocyte Esterase (NEG) Urine RBC (0) /HPF Urine WBC (0-4) /HPF Ur Squamous Epith Cells /LPF Urine Bacteria /LPF Urine Opiates Screen Not Detected (Not Detect) Ur Barbiturates Screen Not Detected (Not Detect) Ur Phencyclidine Scrn Not Detected (Not Detect) Ur Amphetamines Screen Not Detected (Not Detect) U Benzodiazepines Scrn Not Detected (Not Detect) Urine Cocaine Screen Not Detected (Not Detect) U Marijuana (THC) Screen Not Detected (Not Detect) Ethyl Alcohol mg/dL Coronavirus (PCR) (Negative) Influenza Type A (PCR) (Negative) Influenza Type B (PCR) (Negative) RSV RNA Qual (PCR) (Negative) Imaging Data Chest x-ray: Attestation: I personally reviewed and interpreted this imaging study as follows: Radiologist's impression: FINDINGS: EKG leads overlie the chest. The cardiomediastinal silhouette is within normal limits in size. Lungs bilaterally are symmetrically hyperinflated. No focal consolidation, effusion or pneumothorax is seen. Density calcified granuloma in the left lower lung is again noted. S-shaped thoracolumbar scoliosis and multilevel vertebral spondylosis seen. Osteopenia noted. IMPRESSION: No acute cardiopulmonary process. Chronic left lower lobe granuloma. CT scan of brain: Attestation: I personally reviewed and interpreted this imaging study as follows: Radiologist's impression: FINDINGS: There is no evidence of acute intracranial hemorrhage or territorial infarction. No abnormal mass effect or midline shift is seen. Rand to white matter differentiation is well preserved. No extra-axial fluid collections are identified. The ventricles are normal in size. There is no abnormal attenuation within the brain parenchyma. The osseous structures and soft tissues are normal. The mastoid air cells and visualized portions of the paranasal sinuses are well aerated. CT/CT head/brain wo con IMPRESSION: No acute intracranial pathology. ECG Data Attestation: I personally reviewed and interpreted this ECG as follows: Prior ECG tracings: available for review Interpretation: - 1st EKG at 12:23 Sinus bradycardia with sinus arrhythmia with ventricular rate of [address] and T-wave abnormalities no acute ischemic changes noted.Compared to prior EKG on 08/14/2020 - 2nd EKG at 18:41 revealed sinus bradycardia with a ventricular rate of [address] abnormalities no acute ischemic changes noted and similar when compared to prior EKG earlier today. Pacemaker function: other Critical Care Time Critical Care Time Critical Care Time: Yes Total Critical Care Time: 60 Attestation: I personally attest to this time spent taking care of the patient Discharge Plan Discharge Clinical Impression: Hypertension, Elevated troponin, Generalized weakness, Low blood magnesium Instructions: Hypomagnesemia (ED) Referrals: Guillermina Vann MD [Primary Care Provider] - 2 days Print Language: Congolese
[2020-12-19 12:50] LABS: Glucose Urine UA NEG (NEG); Leukocyte Esterase Urine NEG (NEG); Nitrite Urine NEG (NEG); Urine Blood 2+ (NEG); Urine Ketones NEG (NEG); Urine Protein NEG (NEG-TRACE)
[2020-12-19 12:51] LABS: Appearance Urine CLEAR; Color Urine YELLOW
[2020-12-19 12:57] LABS: Squamous Epithelial Cell Urine TRACE /LPF; WBC Urine 0 /HPF (0-4)
[2020-12-19] MEDS: 0.9 % Sodium Chloride 1,000 ML 999 ML IVCONT (13:15)
[2020-12-19 13:30] VITALS: BP 180/61; PULSE 52; RESP 16; TEMP 36.8; O2SAT 99
[2020-12-19 13:31] LABS: MANUAL DIFF FLAG NO
[2020-12-19 13:42] LABS: Basophils Absolute Auto 0.1 X10*3/uL (0.0-0.2); Basophils Percent Auto 0.7 % (0-2); Eosinophils Absolute Auto 0.1 X10*3/uL (0.0-0.4); Eosinophils Percent Auto 0.6 % (0-4); Hematocrit 36.4 % (37-47); Hemoglobin 11.7 g/dl (12.0-16.0); Imm Gran Abs Auto 0.01 X10*3/uL (0.00-0.03); Imm Gran Pct Auto 0.1 % (0.0-0.4); Lymphocytes Percent Auto 24.5 % (20-40); Mean Corpuscular HGB Conc 32.1 g/dl (31.0-35.0); Mean Corpuscular Hemoglobin 27.3 pg (27.0-33.0); Mean Platelet Volume 10.8 fL (9.4-12.3); Monocytes Absolute Auto 0.7 X10*3/uL (0.1-1.2); Monocytes Percent Auto 8.8 % (2-11); Neutrophils Absolute Auto 5.3 X10*3/uL (2.0-8.3); Neutrophils Percent Auto 65.3 % (45-73); Platelet Count 231 X10*3/uL (160-400); Red Blood Count 4.28 X10*6/uL (4.20-5.50); Red Cell Distribution Width 14.3 % (11.0-16.0); White Blood Count 8.1 X10*3/uL (4.8-10.8)
[2020-12-19 13:54] LABS: Ethanol < 10 mg/dL
[2020-12-19 13:56] LABS: Lipase 28 U/L (8-78)
[2020-12-19 13:58] LABS: Alanine Aminotransferase 13 U/L (0-31); Albumin Level 3.6 g/dL (3.5-5.0); Alkaline Phosphatase 61 U/L (39-117); Anion Gap 13 (12-20); Aspartate Amino Transferase 21 U/L (5-31); Bilirubin Direct < 0.2 mg/dL (0.0-0.5); Bilirubin Total 0.3 mg/dL (0.0-1.0); Blood Urea Nitrogen 14 mg/dL (9-16); C Reactive Protein 0.85 mg/dL (< or = 0.50); Calcium 9.7 mg/dL (8.4-10.2); Carbon Dioxide 28 mmol/L (22-29); Chloride 103 mmol/L (96-108); Creatinine Clr Calc Pharmacy 53.8; Estimated Glomerular Filt Rate > 60; Glucose Random 113 mg/dL (60-115); Lactate Dehydrogenase 130 U/L (122-220); Magnesium 1.5 mg/dL (1.6-2.6); Potassium 3.7 mmol/L (3.3-5.1); Sodium 140 mmol/L (135-145); Total Protein 7.6 g/dL (6.5-8.0)
[2020-12-19 14:03] LABS: B Type Natriuretic Peptide 77 pg/mL (<100); Troponin-I High Sensitivity 7.7 ng/L (<3.5-17.0)
[2020-12-19 14:09] LABS: INTERNATIONAL NORM RATIO 1.2 (0.9-1.1); Prothrombin Time 13.7 SEC (10.8-13.0)
[2020-12-19 14:12] LABS: Partial Thromboplastin Time 36.9 SEC (24.1-38.0)
[2020-12-19 14:16] LABS: Procalcitonin 0.02 ng/mL
[2020-12-19 14:17] LABS: Ferritin 101 ng/mL (10-250)
[2020-12-19] MEDS: Magnesium Sulfate/H2O 2 GM/50 ML PIGGYBACK IV (14:56)
[2020-12-19 15:08] LABS: Influenza A PCR NEGATIVE (Negative); Influenza B PCR NEGATIVE (Negative); Resp Syncy Virus RNA Qual PCR NEGATIVE (Negative); SARS COV2 PCR INHOUSE NEGATIVE (Negative)
[2020-12-19 15:50] VITALS: BP 155/65; PULSE 52; RESP 16; TEMP 36.7; O2SAT 99
--- NOTE | 2020-12-19 15:54 | PC.NURSE ---
pt is a/o x 3. states no pain, but is very hungry. Resp even, NAD. VS as charted. Abdomen soft, nontender, with (+) BS x 4.
[2020-12-19 16:24] LABS: Amphetamine Screen Urine Not Detected (Not Detect); Barbiturates, Urine Not Detected (Not Detect); Benzodiazepines Screen Urine Not Detected (Not Detect); Cannabinoid Screen Urine Not Detected (Not Detect); Cocaine Screen Urine Not Detected (Not Detect); Opiate Screen Urine Not Detected (Not Detect); Phencyclidine Screen Urine Not Detected (Not Detect)
[2020-12-19 16:47] LABS: Troponin-I High Sensitivity 26.5 ng/L (<3.5-17.0)
--- NOTE | 2020-12-19 16:59 | ECG_ITS ---
Test Reason : REPEAT Blood Pressure : / mmHG Vent. Rate : 056 BPM Atrial Rate : 056 BPM P-R Int : 188 ms QRS Dur : 080 ms QT Int : 438 ms P-R-T Axes : 066 040 056 degrees QTc Int : 422 ms Sinus bradycardia Nonspecific ST abnormality Abnormal ECG When compared with ECG of 19-DEC-2020 12:23, No significant changes seen Referred By: Nicolasa Huffman Electronically Signed By:ALPESH FERRIS
[2020-12-19 19:58] LABS: D Dimer 200 NG/ML
[2020-12-19 20:35] VITALS: BP 164/61; PULSE 70; RESP 16; TEMP 36.6; O2SAT 95
--- NOTE | 2020-12-19 20:39 | PM.IMHP ---
History of Present Illness Date of Service: 12/19/20 Chief Complaint: Gen Weakness 85-year-old female with a past medical history of hypertension, hyperlipidemia, asthma, GERD presented to the hospital with a chief complaint of generalized weakness. Mentions that she felt dizzy and lightheaded and she is going to pass out but did not lose consciousness. Mentioned that she was not feeling right. Subsequently her neighbor came in and called the EMS. Denies any falls. Denies any chest pain palpitations. Denies any fever chills cough. Denies any GI or symptoms. Review of all other systems is negative except mentioned above ER course: For ER team patient's exam was nonfocal, EKG was nonischemic, troponins are elevated 7.7 followed by 26.5 followed by 70; this spoke to on-call pail bailer who suggested admission to [facility] and no heparin drip. [facility] Social History Alcohol intake: never Smoking Status: Never smoker Use of substances other than those prescribed or required for medical reasons: No Advance Directives: No Advance Directives Information Provided: No Meds Allergies Allergy/AdvReac Type Severity Reaction Status Date / Time lisinopril [LISINOPRIL] Allergy Mild CHEST PAIN Verified 08/14/20 08:55 codeine [CODEINE] AdvReac Unknown AGITATION Verified 08/14/20 08:55 Home Medications Medication Instructions Recorded Confirmed Type aspirin 81 mg PO DAILY 12/19/20 12/19/20 History calcium carbonate-vitamin D3 1 tab PO DAILY 12/19/20 12/19/20 History [Oyster Shell + D3] cetirizine 10 mg PO DAILY 12/19/20 12/19/20 History famotidine 20 mg PO DAILY 12/19/20 12/19/20 History valsartan [Diovan] 12/19/20 History Physical Exam Vital Signs and Narrative: Vital Signs: Last Vital Signs Temp 97.8 F 12/19/20 20:35 Pulse 70 12/19/20 20:35 Resp 16 12/19/20 20:35 BP 164/61 H 12/19/20 20:35 Pulse Ox 95 12/19/20 20:35 Body Mass Index 26.4 Gen: Appears be in no acute distress HEENT: NCAT, Moist mucosa. Pulmonary: Vesicular breath sounds, fair air entry CVS: Normal S1-S2 Abdomen: BS+, Soft, Nontender Extremities: Warm well perfused Neuro: Alert and awake. Results Labs CBC and Chem 7: 12/19/20 13:21 12/19/20 13:21 Labs: Laboratory Results - last 24 hr 12/19/20 12/19/20 12/19/20 12:41 13:21 13:21 MCV 85.0 MCH 27.3 MCHC 32.1 RDW 14.3 Plt Count 231 MPV 10.8 Immature Gran % (Auto) 0.1 Neut % (Auto) 65.3 Lymph % (Auto) 24.5 [place] % (Auto) 8.8 Eos % (Auto) 0.6 Baso % (Auto) 0.7 Lymph # (Auto) 2.0 [place] # (Auto) 0.7 Eos # (Auto) 0.1 Baso # (Auto) 0.1 Abs Immat Gran (auto) 0.01 Absolute Neuts (auto) 5.3 Absolute Nucleated RBC 0.000 Nucleated RBC % (auto) 0.0 PT 13.7 H INR 1.2 H APTT 36.9 D-Dimer 200 Anion Gap Estim Creat Clear Calc Estimated GFR Random Glucose Calcium Magnesium Ferritin Total Bilirubin Direct Bilirubin AST ALT Alkaline Phosphatase Lactate Dehydrogenase Total Creatine Kinase Troponin I High Sens C-Reactive Protein B-Natriuretic Peptide Total Protein Albumin Lipase Procalcitonin Urine Color YELLOW Urine Appearance CLEAR Urine pH 7.0 Ur Specific [place] 1.010 Urine Protein NEG Urine Glucose (UA) NEG Urine Ketones NEG Urine Blood 2+ H Urine Nitrite NEG Ur Leukocyte Esterase NEG Urine RBC 10-14 H Urine WBC 0 Ur Squamous Epith Cells TRACE Urine Bacteria NONE Urine Opiates Screen Ur Barbiturates Screen Ur Phencyclidine Scrn Ur Amphetamines Screen U Benzodiazepines Scrn Urine Cocaine Screen U Marijuana (THC) Screen Ethyl Alcohol Coronavirus (PCR) Influenza Type A (PCR) Influenza Type B (PCR) RSV RNA Qual (PCR) 12/19/20 12/19/20 12/19/20 13:21 13:21 13:21 MCV MCH MCHC RDW Plt Count MPV Immature Gran % (Auto) Neut % (Auto) Lymph % (Auto) [place] % (Auto) Eos % (Auto) Baso % (Auto) Lymph # (Auto) [place] # (Auto) Eos # (Auto) Baso # (Auto) Abs Immat Gran (auto) Absolute Neuts (auto) Absolute Nucleated RBC Nucleated RBC % (auto) PT INR APTT D-Dimer Anion Gap 13 Estim Creat Clear Calc 53.8 Estimated GFR > 60 Random Glucose 113 Calcium 9.7 Magnesium 1.5 L Ferritin Total Bilirubin 0.3 Direct Bilirubin < 0.2 AST 21 ALT 13 Alkaline Phosphatase 61 Lactate Dehydrogenase 130 Total Creatine Kinase 41 Troponin I High Sens 7.7 D C-Reactive Protein 0.85 H B-Natriuretic Peptide 77 Total Protein 7.6 Albumin 3.6 Lipase Procalcitonin Urine Color Urine Appearance Urine pH Ur Specific [place] Urine Protein Urine Glucose (UA) Urine Ketones Urine Blood Urine Nitrite Ur Leukocyte Esterase Urine RBC Urine WBC Ur Squamous Epith Cells Urine Bacteria Urine Opiates Screen Ur Barbiturates Screen Ur Phencyclidine Scrn Ur Amphetamines Screen U Benzodiazepines Scrn Urine Cocaine Screen U Marijuana (THC) Screen Ethyl Alcohol < 10 Coronavirus (PCR) Influenza Type A (PCR) Influenza Type B (PCR) RSV RNA Qual (PCR) 12/19/20 12/19/20 12/19/20 13:21 13:21 13:23 MCV MCH MCHC RDW Plt Count MPV Immature Gran % (Auto) Neut % (Auto) Lymph % (Auto) [place] % (Auto) Eos % (Auto) Baso % (Auto) Lymph # (Auto) [place] # (Auto) Eos # (Auto) Baso # (Auto) Abs Immat Gran (auto) Absolute Neuts (auto) Absolute Nucleated RBC Nucleated RBC % (auto) PT INR APTT D-Dimer Anion Gap Estim Creat Clear Calc Estimated GFR Random Glucose Calcium Magnesium Ferritin 101 Total Bilirubin Direct Bilirubin AST ALT Alkaline Phosphatase Lactate Dehydrogenase Total Creatine Kinase Troponin I High Sens C-Reactive Protein B-Natriuretic Peptide Total Protein Albumin Lipase 28 Procalcitonin 0.02 Urine Color Urine Appearance Urine pH Ur Specific [place] Urine Protein Urine Glucose (UA) Urine Ketones Urine Blood Urine Nitrite Ur Leukocyte Esterase Urine RBC Urine WBC Ur Squamous Epith Cells Urine Bacteria Urine Opiates Screen Ur Barbiturates Screen Ur Phencyclidine Scrn Ur Amphetamines Screen U Benzodiazepines Scrn Urine Cocaine Screen U Marijuana (THC) Screen Ethyl Alcohol Coronavirus (PCR) NEGATIVE Influenza Type A (PCR) NEGATIVE Influenza Type B (PCR) NEGATIVE RSV RNA Qual (PCR) NEGATIVE 12/19/20 12/19/20 12/19/20 15:42 15:45 18:35 MCV MCH MCHC RDW Plt Count MPV Immature Gran % (Auto) Neut % (Auto) Lymph % (Auto) [place] % (Auto) Eos % (Auto) Baso % (Auto) Lymph # (Auto) [place] # (Auto) Eos # (Auto) Baso # (Auto) Abs Immat Gran (auto) Absolute Neuts (auto) Absolute Nucleated RBC Nucleated RBC % (auto) PT INR APTT D-Dimer Anion Gap Estim Creat Clear Calc Estimated GFR Random Glucose Calcium Magnesium Ferritin Total Bilirubin Direct Bilirubin AST ALT Alkaline Phosphatase Lactate Dehydrogenase Total Creatine Kinase Troponin I High Sens 26.5 H D 70.0 H D C-Reactive Protein B-Natriuretic Peptide Total Protein Albumin Lipase Procalcitonin Urine Color Urine Appearance Urine pH Ur Specific [place] Urine Protein Urine Glucose (UA) Urine Ketones Urine Blood Urine Nitrite Ur Leukocyte Esterase Urine RBC Urine WBC Ur Squamous Epith Cells Urine Bacteria Urine Opiates Screen Not Detected Ur Barbiturates Screen Not Detected Ur Phencyclidine Scrn Not Detected Ur Amphetamines Screen Not Detected U Benzodiazepines Scrn Not Detected Urine Cocaine Screen Not Detected U Marijuana (THC) Screen Not Detected Ethyl Alcohol Coronavirus (PCR) Influenza Type A (PCR) Influenza Type B (PCR) RSV RNA Qual (PCR) Imaging Radiologist's Impressions: Impressions Chest X-Ray 12/19/20 11:59 IMPRESSION: Stable chest. No acute cardiopulmonary process. Head CT 12/19/20 11:59 IMPRESSION: No acute intracranial pathology. Assessment and Plan (1) Elevated troponin: Status: Acute 85-year-old female with past medical history of hypertension, hyperlipidemia, GERD presented to the hospital with a chief complaint of generalized weakness/do lightheadedness. Improved symptomatically. EKG nonischemic. But noted elevated troponin. Admitted to the hospital for further management. Elevated troponin: Patient denies any chest pain. EKG nonischemic. On-call cardiology was notified who mentioned no heparin drip and can be admitted to [facility] as per the ER team. Monitor on telemetry Continue aspirin statin Cardiology consult for further recommendations Echocardiogram Hypertension/hyperlipidemia: Continue home medications Generalized weakness: Exam nonfocal; CT head showed no acute findings. Fall precautions. PT/OT.. Urinalysis negative for infection. COVID-19 negative at a Microscopic hematuria: Noted incidentally on the urinalysis. Patient had similar microscopic hematuria in November of 2019. Recommended outpatient follow-up with Urology. DVT prophylaxis: Lovenox Full code
--- NOTE | 2020-12-19 20:48 | PC.NURSE ---
report from hernán judd at 19:00. pt is awake and alert, pending admission for elevated trop. pt currently denies pain. both pt and daughter aware of plans for admission. daughters number [phone]. pt offered soda and crackers.
--- NOTE | 2020-12-19 21:04 | PC.NURSE ---
pt given meal, understands that she may not have room assignment until tmrw.
[2020-12-19 21:14] LABS: COVID-19 Test Negative (Negative); IDNOW Serial# 9DD0AD1C
[2020-12-19] MEDS: Aspirin 81 MG TAB.CHEW 162 MG PO (21:31)
[2020-12-19] MEDS: Enoxaparin Sodium 40 MG/0.4 ML SYRINGE SUBCUT (21:31)
--- NOTE | 2020-12-19 22:29 | PC.NURSE ---
spoke with hospitalist about labetalol, which was ordered 8 hours ago on previous shift. hospitalist does not want medication administered.
[2020-12-20] VITALS (8 sets, daily range): BP systolic 128–171; BP diastolic 51–81; PULSE 51–61; RESP 15–20; TEMP 36–37.1; O2SAT 96–99
[2020-12-20] MEDS: 0.9 % Sodium Chloride Flush 3 ML SYRINGE IVFLUSH ×4 (01:23→23:11)
--- NOTE | 2020-12-20 03:31 | PC.NURSE ---
Pt ambulatory to bathroom with steady gait. Pt denies pain when prompted. pt offers no complaints/concerns.
[2020-12-20 06:04] LABS: Basophils Absolute Auto 0.1 X10*3/uL (0.0-0.2); Basophils Percent Auto 0.7 % (0-2); Eosinophils Absolute Auto 0.3 X10*3/uL (0.0-0.4); Eosinophils Percent Auto 3.4 % (0-4); Hematocrit 36.8 % (37-47); Imm Gran Abs Auto 0.02 X10*3/uL (0.00-0.03); Imm Gran Pct Auto 0.2 % (0.0-0.4); Lymphocytes Absolute Auto 2.9 X10*3/uL (1.2-4.9); Lymphocytes Percent Auto 33.9 % (20-40); MANUAL DIFF FLAG NO; Mean Corpuscular HGB Conc 32.6 g/dl (31.0-35.0); Mean Corpuscular Hemoglobin 27.6 pg (27.0-33.0); Mean Corpuscular Volume 84.6 fL (80-98); Mean Platelet Volume 10.8 fL (9.4-12.3); Monocytes Absolute Auto 0.9 X10*3/uL (0.1-1.2); Monocytes Percent Auto 10.1 % (2-11); Neutrophils Absolute Auto 4.4 X10*3/uL (2.0-8.3); Neutrophils Percent Auto 51.7 % (45-73); Platelet Count 217 X10*3/uL (160-400); Red Blood Count 4.35 X10*6/uL (4.20-5.50); Red Cell Distribution Width 14.2 % (11.0-16.0); White Blood Count 8.4 X10*3/uL (4.8-10.8)
[2020-12-20 06:39] LABS: Anion Gap 14 (12-20); Blood Urea Nitrogen 16 mg/dL (9-16); Calcium 8.7 mg/dL (8.4-10.2); Carbon Dioxide 25 mmol/L (22-29); Chloride 106 mmol/L (96-108); Creatinine Clr Calc Pharmacy 54.5; Estimated Glomerular Filt Rate > 60; Glucose Random 112 mg/dL (60-115); Potassium 3.6 mmol/L (3.3-5.1); Sodium 141 mmol/L (135-145)
--- NOTE | 2020-12-20 07:35 | CA_ITS ---
Transthoracic Echocardiogram Patient (Last, First, Middle): Evette No, Gender: Female Date of : 1935 Age: 85 Procedure Date: 12/20/2020 Procedure Type: Transthoracic Echocardiogram Location[place] [facility] [place] Height: 165.1 cm Weight: 71.67 kg BSA: 1.79 m2 Heart Rate: bpm BP: 160 / 51 mmHg Candy Roller: Referring MD: Nash Paulson MD Symptoms: high troponin Study Quality: Good ECG Rhythm: Sinus Conclusions: - The left ventricular systolic function is normal. The visually estimated ejection fraction is between 55-60%. - E/E prime ratio is >15, consistent with elevated filling pressures. Evidence suggests grade I (mild) diastolic dysfunction. - There is mild mitral valve regurgitation. - There is mild tricuspid valve regurgitation. - Small plaque is seen in the ascending aorta. Findings Left Ventricle Normal left ventricular cavity size. There is mildly increased left ventricular wall thickness. The left ventricular systolic function is normal. The visually estimated ejection fraction is between 55-60%. There is no evidence of regional wall motion abnormalities. E/E prime ratio is >15, consistent with elevated filling pressures. Evidence suggests grade I (mild) diastolic dysfunction. Right Ventricle Normal right ventricular cavity size and systolic function. Atria The left atrium is normal in size. The right atrium is normal in size. Aortic Valve There is a normal trileaflet aortic valve. There is mild calcification of the aortic valve. There is no aortic valve stenosis. There is no aortic valve regurgitation. Mitral Valve The mitral valve appears normal. There is mild mitral valve regurgitation. There is no mitral valve stenosis. Pulmonic Valve The pulmonic valve was not well visualized. Tricuspid Valve Normal tricuspid valve structure. There is mild tricuspid valve regurgitation. The pulmonary artery systolic pressure is normal. Great Vessels The aortic annulus, sinuses of valsalva, and asc aorta are normal in size. Small plaque is seen in the ascending aorta. Venous The inferior vena cava is normal in size and collapses greater than 50% with inspiration. Pericardium/Pleural There is no evidence of pericardial effusion. Prior Study Comparison No prior study available for comparison. Measurements 2D Linear Measurements IVSd: 1.12 0.6-0.9/0.6-1.0 cm LVIDd: 4.16 3.9-5.3/4.2-5.9 cm LVIDd Index: 2.32 2.4-3.2/2.2-3.1 cm/m2 LVIDs: 2.97 2.0-3.6 cm LVPWd: 1.11 0.7-1.1 cm Ao Root: 3.00 2.1-3.5 cm LA Diam: 3.60 2.7-3.8/3.0-4.0 cm LAIDs Index: 2.01 1.5-2.3 cm/m2 LV Mass: 196.48 67-162/88-224 g LV Mass Index: 109.77 43-95/49-115 g/m2 LVOT Diam: 2.00 3.0+(-)1.3 cm 2D Systolic Function EF 4C: 48.90 >55% EF 2C: 55.30 >55% Mitral Valve MV Pk E: 0.91 MV PK A: 0.91 MV Decel Time: 296.00 E/A: 1.00 E'Lateral: 7.06 E'Medial: 5.13 E/E' Med: 17.70 E/E' Lat: 12.80 PHT: 87.00 MVA PHT: 2.53 Decel Patrick: 3.07 Aortic Valve AoV Pk Mike: 1.70 AoV Mn Mike: 1.09 AoV VTI: 0.42 AoV Pk Grad: 12.00 Aov Mn Grad: 6.00 DESIRAE Cont.VTI: 2.24 LVOT LVOT Pk Mike: 1.08 LVOT Mn Mike: 0.76 LVOT VTI: 0.30 LVOT Pk Grad: 5.00 LVOT Mn Grad: 3.00 LVOT Diam: 2.00 LVOT Area: 3.14 Diastolic Function MV Pk E: 0.91 MV Pk A: 0.91 E/A: 1.00 E'Medial: 5.13 E/E' Med: 17.70 E' Laterial: 7.06 E/E' Lat: 12.80 Tricuspid Valve TR Pk Mike: 2.36 TR Pk Grad: 22.00 Great Vessels Aorta Ao Root-2D: 3.00 2.0-3.7 cm Ao Asc: 3.20 2.1-3.4 cm Pulmonary Valve PV Pk Mike: 1.10 Peak PV Grad: 5.00 Updated in Other Vendor System with Status of Final Sanjay Garduno MD electronically signed on 12/20/2020 5:00:25 PM with status of Final
--- NOTE | 2020-12-20 09:59 | MHC.CM.PN ---
IMM 12/20/20, EMR reviewed, pt admitted with generalized weakness/dizziness and elevated troponin, CM met with patient who is alert and oriented, pt reports she lives alone and denies use of any DME, pt does report she has a [employer] for four hours a week for help with cooking and cleaning, pt does reports she does her own bathing/ADL's. Pt reports her PCP is Anders Erickson and her pharmacy is [facility] or [facility]. Pt denies having HCP, CM offered to assist, pt reports CM may contact daughter Kathy Garcia at [phone]. Pt does not anticipate increased need for services at home and is asking to discharge today, pt was reminded she was inpatient even though she is still in ED.
--- NOTE | 2020-12-20 10:14 | MHC.CM.PN ---
CM called daughter Kathy Garcia [phone] to verify information and pt's daughter Fariba reported pt has [employer] and meals on wheels through [facility], pt's daughter reports pt's [employer] is only twice weekly on Tuesdays and and assists pt with cleaning only. Daughter does verify pt does her all of her own ADL's/bathing, pt's daughter brings her to do her grocery shopping and to doctors appointments, medications are packed together for am and pm meds by [facility] pharmacy. Pt's daughter has no current concerns about pt living alone other than she gets a little forgetful at times and will call her to find out the date or time, pt does have cell phone but does not know how to use it. Loong term plan for pt is to move in with eldest daughter Juliette Suarez in [facility]. Discharge PLan: Home w/resump of [employer] vs Home w/[facility] for med management and resump of [employer].
[2020-12-20] MEDS: Famotidine 20 MG TABLET PO (10:15)
[2020-12-20] MEDS: Atorvastatin Calcium 80 MG TABLET PO ×2 (10:15→23:11)
[2020-12-20] MEDS: Aspirin Enteric Coated 81 MG TABLET.DR PO (10:16)
[2020-12-20] MEDS: Loratadine 10 MG TABLET PO (10:16)
--- NOTE | 2020-12-20 11:08 | P.CONCA_ITS ---
History of Present Illness History of Present Illness Date of Service: 12/20/20 Consult reason: troponin elevation Chief complaint: Generalized weakness Narrative: This is a cardiology consultation regarding elevated troponins. Patient herself denies any specific cardiac symptoms like angina or shortness of breath or palpitations. She states that she was just feeling weak and that led to the hospitalization. In this setting, she had elevated troponins and hence we have been asked to see her. Patient denies any history of coronary disease, myocardial infarction any other cardiac issues in the past. Otherwise, she is not able to say much. Review of Systems Review of Systems: Yes all other systems are reviewed and are negative Constitutional: Constitutional: Reports fatigue, Reports malaise and Reports weakness Cardiovascular: Cardiovascular: Reports as per HPI, Reports no additional cardiovascular complaints, Denies acrocyanosis, Denies cool extremities, Denies painful fingertips, Denies chest pain, Denies chest pain at rest, Denies diaphoresis, Denies syncope, Denies irregular heart rhythm, Denies claudication, Denies leg edema, Denies lightheadedness, Denies palpitations and Denies dyspnea Respiratory: Respiratory: Denies dyspnea Neurologic: Denies syncope and Reports weakness Endocrine: Endocrine: Reports fatigue and Denies palpitations [facility] Past Medical History Medical History (Updated 12/20/20 @ 11:16 by Sanjay Garduno MD) Essential hypertension Family History Pertinent family history: Patient unable to provide information. Social History Social History Alcohol intake: never Smoking Status: Never smoker Use of substances other than those prescribed or required for medical reasons: No Advance Directives: No Advance Directives Information Provided: No service: No Current occupational status: unemployed Meds Allergies Allergy/AdvReac Type Severity Reaction Status Date / Time lisinopril [LISINOPRIL] Allergy Mild CHEST PAIN Verified 08/14/20 08:55 codeine [CODEINE] AdvReac Unknown AGITATION Verified 08/14/20 08:55 Home Medications Medication Instructions Recorded Confirmed Type cetirizine 10 mg PO DAILY 12/19/20 12/19/20 History famotidine 20 mg PO BID 12/19/20 12/20/20 History albuterol sulfate 2 puff INHALATION Q4-6H PRN 12/20/20 12/20/20 History aspirin 81 mg PO DAILY 12/20/20 12/20/20 History calcium carbonate-vitamin D3 1 tab PO BID 12/20/20 12/20/20 History [Oyster Shell Calcium-Vit D3] fluticasone propionate [Flonase] 2 spray INTRANASAL DAILY PRN 12/20/20 12/20/20 History fluticasone propionate [Flovent] 2 puff INHALATION BID 12/20/20 12/20/20 History valsartan-hydrochlorothiazide 1 tab PO DAILY 12/20/20 12/20/20 History Physical Exam Vital Signs: Vital Signs: Last Vital Signs Temp 97.8 F 12/19/20 20:35 Pulse 61 12/20/20 05:47 Resp 19 12/20/20 05:47 BP 160/51 H 12/20/20 05:47 Pulse Ox 96 12/20/20 05:47 Body Mass Index 26.4 Const: General: cooperative, comfortable and no acute distress Orientation/consciousness: patient oriented x3 HENMT: Other: Unremarkable Neck: Neck: Yes normal visual inspection Chest: Chest palpation & inspection: normal inspection of the chest Resp: Auscultation: clear to auscultation bilaterally, no crackles and no wheezes Cardio: Jugular venous distension: no JVD Palpation: normal PMI Heart sounds: S1 normal heart sound present, S2 normal heart sound present, no gallops, Murmur heart sound present systolic II/ and at the right sternal border and no rubs GI: Palpation (GI): Soft to palpation Back/Spine/Pelvis: Other: unremarkable Skin: General skin exam: no rashes or lesions noted Neuro: General: patient oriented x3 Extrem: General: Yes no clubbing, cyanosis or edema Psych: Mental Status: mental status grossly normal Results Labs and Meds Result diagrams: 12/20/20 05:59 12/20/20 05:59 Lab results: Laboratory Results - last 24 hr 12/19/20 12/19/20 12/19/20 12:41 13:21 13:21 WBC 8.1 RBC 4.28 Hgb 11.7 L Hct 36.4 L MCV 85.0 MCH 27.3 MCHC 32.1 RDW 14.3 Plt Count 231 MPV 10.8 Immature Gran % (Auto) 0.1 Neut % (Auto) 65.3 Lymph % (Auto) 24.5 [place] % (Auto) 8.8 Eos % (Auto) 0.6 Baso % (Auto) 0.7 Lymph # (Auto) 2.0 [place] # (Auto) 0.7 Eos # (Auto) 0.1 Baso # (Auto) 0.1 Abs Immat Gran (auto) 0.01 Absolute Neuts (auto) 5.3 Absolute Nucleated RBC 0.000 Nucleated RBC % (auto) 0.0 PT 13.7 H INR 1.2 H APTT 36.9 D-Dimer 200 Sodium Potassium Chloride Carbon Dioxide Anion Gap BUN Creatinine Estim Creat Clear Calc Estimated GFR Random Glucose Calcium Magnesium Ferritin Total Bilirubin Direct Bilirubin AST ALT Alkaline Phosphatase Lactate Dehydrogenase Total Creatine Kinase Troponin I High Sens C-Reactive Protein B-Natriuretic Peptide Total Protein Albumin Lipase Procalcitonin Urine Color YELLOW Urine Appearance CLEAR Urine pH 7.0 Ur Specific [place] 1.010 Urine Protein NEG Urine Glucose (UA) NEG Urine Ketones NEG Urine Blood 2+ H Urine Nitrite NEG Ur Leukocyte Esterase NEG Urine RBC 10-14 H Urine WBC 0 Ur Squamous Epith Cells TRACE Urine Bacteria NONE Urine Opiates Screen Ur Barbiturates Screen Ur Phencyclidine Scrn Ur Amphetamines Screen U Benzodiazepines Scrn Urine Cocaine Screen U Marijuana (THC) Screen Ethyl Alcohol Coronavirus (PCR) COVID-19 (LOVE) COVID-19 Clin Com Influenza Type A (PCR) Influenza Type B (PCR) RSV RNA Qual (PCR) 12/19/20 12/19/20 12/19/20 13:21 13:21 13:21 WBC RBC Hgb Hct MCV MCH MCHC RDW Plt Count MPV Immature Gran % (Auto) Neut % (Auto) Lymph % (Auto) [place] % (Auto) Eos % (Auto) Baso % (Auto) Lymph # (Auto) [place] # (Auto) Eos # (Auto) Baso # (Auto) Abs Immat Gran (auto) Absolute Neuts (auto) Absolute Nucleated RBC Nucleated RBC % (auto) PT INR APTT D-Dimer Sodium 140 Potassium 3.7 Chloride 103 Carbon Dioxide 28 Anion Gap 13 BUN 14 Creatinine 0.76 Estim Creat Clear Calc 53.8 Estimated GFR > 60 Random Glucose 113 Calcium 9.7 Magnesium 1.5 L Ferritin Total Bilirubin 0.3 Direct Bilirubin < 0.2 AST 21 ALT 13 Alkaline Phosphatase 61 Lactate Dehydrogenase 130 Total Creatine Kinase 41 Troponin I High Sens 7.7 D C-Reactive Protein 0.85 H B-Natriuretic Peptide 77 Total Protein 7.6 Albumin 3.6 Lipase Procalcitonin Urine Color Urine Appearance Urine pH Ur Specific [place] Urine Protein Urine Glucose (UA) Urine Ketones Urine Blood Urine Nitrite Ur Leukocyte Esterase Urine RBC Urine WBC Ur Squamous Epith Cells Urine Bacteria Urine Opiates Screen Ur Barbiturates Screen Ur Phencyclidine Scrn Ur Amphetamines Screen U Benzodiazepines Scrn Urine Cocaine Screen U Marijuana (THC) Screen Ethyl Alcohol < 10 Coronavirus (PCR) COVID-19 (LOVE) COVID-19 Clin Com Influenza Type A (PCR) Influenza Type B (PCR) RSV RNA Qual (PCR) 12/19/20 12/19/20 12/19/20 13:21 13:21 13:23 WBC RBC Hgb Hct MCV MCH MCHC RDW Plt Count MPV Immature Gran % (Auto) Neut % (Auto) Lymph % (Auto) [place] % (Auto) Eos % (Auto) Baso % (Auto) Lymph # (Auto) [place] # (Auto) Eos # (Auto) Baso # (Auto) Abs Immat Gran (auto) Absolute Neuts (auto) Absolute Nucleated RBC Nucleated RBC % (auto) PT INR APTT D-Dimer Sodium Potassium Chloride Carbon Dioxide Anion Gap BUN Creatinine Estim Creat Clear Calc Estimated GFR Random Glucose Calcium Magnesium Ferritin 101 Total Bilirubin Direct Bilirubin AST ALT Alkaline Phosphatase Lactate Dehydrogenase Total Creatine Kinase Troponin I High Sens C-Reactive Protein B-Natriuretic Peptide Total Protein Albumin Lipase 28 Procalcitonin 0.02 Urine Color Urine Appearance Urine pH Ur Specific [place] Urine Protein Urine Glucose (UA) Urine Ketones Urine Blood Urine Nitrite Ur Leukocyte Esterase Urine RBC Urine WBC Ur Squamous Epith Cells Urine Bacteria Urine Opiates Screen Ur Barbiturates Screen Ur Phencyclidine Scrn Ur Amphetamines Screen U Benzodiazepines Scrn Urine Cocaine Screen U Marijuana (THC) Screen Ethyl Alcohol Coronavirus (PCR) NEGATIVE COVID-19 (LOVE) COVID-19 Clin Com Influenza Type A (PCR) NEGATIVE Influenza Type B (PCR) NEGATIVE RSV RNA Qual (PCR) NEGATIVE 12/19/20 12/19/20 12/19/20 15:42 15:45 18:35 WBC RBC Hgb Hct MCV MCH MCHC RDW Plt Count MPV Immature Gran % (Auto) Neut % (Auto) Lymph % (Auto) [place] % (Auto) Eos % (Auto) Baso % (Auto) Lymph # (Auto) [place] # (Auto) Eos # (Auto) Baso # (Auto) Abs Immat Gran (auto) Absolute Neuts (auto) Absolute Nucleated RBC Nucleated RBC % (auto) PT INR APTT D-Dimer Sodium Potassium Chloride Carbon Dioxide Anion Gap BUN Creatinine Estim Creat Clear Calc Estimated GFR Random Glucose Calcium Magnesium Ferritin Total Bilirubin Direct Bilirubin AST ALT Alkaline Phosphatase Lactate Dehydrogenase Total Creatine Kinase Troponin I High Sens 26.5 H D 70.0 H D C-Reactive Protein B-Natriuretic Peptide Total Protein Albumin Lipase Procalcitonin Urine Color Urine Appearance Urine pH Ur Specific [place] Urine Protein Urine Glucose (UA) Urine Ketones Urine Blood Urine Nitrite Ur Leukocyte Esterase Urine RBC Urine WBC Ur Squamous Epith Cells Urine Bacteria Urine Opiates Screen Not Detected Ur Barbiturates Screen Not Detected Ur Phencyclidine Scrn Not Detected Ur Amphetamines Screen Not Detected U Benzodiazepines Scrn Not Detected Urine Cocaine Screen Not Detected U Marijuana (THC) Screen Not Detected Ethyl Alcohol Coronavirus (PCR) COVID-19 (LOVE) COVID-19 Clin Com Influenza Type A (PCR) Influenza Type B (PCR) RSV RNA Qual (PCR) 12/19/20 12/20/20 12/20/20 20:53 05:59 05:59 WBC 8.4 RBC 4.35 Hgb 12.0 Hct 36.8 L MCV 84.6 MCH 27.6 MCHC 32.6 RDW 14.2 Plt Count 217 MPV 10.8 Immature Gran % (Auto) 0.2 Neut % (Auto) 51.7 Lymph % (Auto) 33.9 [place] % (Auto) 10.1 Eos % (Auto) 3.4 Baso % (Auto) 0.7 Lymph # (Auto) 2.9 [place] # (Auto) 0.9 Eos # (Auto) 0.3 Baso # (Auto) 0.1 Abs Immat Gran (auto) 0.02 Absolute Neuts (auto) 4.4 Absolute Nucleated RBC 0.000 Nucleated RBC % (auto) 0.0 PT INR APTT D-Dimer Sodium 141 Potassium 3.6 Chloride 106 Carbon Dioxide 25 Anion Gap 14 BUN 16 Creatinine 0.75 Estim Creat Clear Calc 54.5 Estimated GFR > 60 Random Glucose 112 Calcium 8.7 D Magnesium Ferritin Total Bilirubin Direct Bilirubin AST ALT Alkaline Phosphatase Lactate Dehydrogenase Total Creatine Kinase Troponin I High Sens C-Reactive Protein B-Natriuretic Peptide Total Protein Albumin Lipase Procalcitonin Urine Color Urine Appearance Urine pH Ur Specific [place] Urine Protein Urine Glucose (UA) Urine Ketones Urine Blood Urine Nitrite Ur Leukocyte Esterase Urine RBC Urine WBC Ur Squamous Epith Cells Urine Bacteria Urine Opiates Screen Ur Barbiturates Screen Ur Phencyclidine Scrn Ur Amphetamines Screen U Benzodiazepines Scrn Urine Cocaine Screen U Marijuana (THC) Screen Ethyl Alcohol Coronavirus (PCR) COVID-19 ([facility]OVE) Negative COVID-19 Clin Com See Note Influenza Type A (PCR) Influenza Type B (PCR) RSV RNA Qual (PCR) ECG Attestation: I personally reviewed and interpreted this ECG as follows: Interpretation: EKG with sinus bradycardia at 56/Min with nonspecific ST-T changes. Overall unchanged from prior. Imaging Radiologist's impression: Impressions Chest X-Ray 12/19/20 11:59 IMPRESSION: Stable chest. No acute cardiopulmonary process. Head CT 12/19/20 11:59 IMPRESSION: No acute intracranial pathology. Assessment and Plan (1) NSTEMI (non-ST elevated myocardial infarction): Status: Acute (2) Essential hypertension: Status: Acute (3) Generalized weakness: Status: Acute She has nonspecific symptoms but no angina. EKG is not showing anything acute. Low-grade troponin elevation noted. Could have underlying CAD but this does not look like an ACS presentation. ? Type 2 NSTEMI. We can start with an e chocardiogram for LVEF and wall motion. Otherwise need to see if there is anything like a systemic infection. Her blood pressure is running on the higher side. May remain on valsartan/HCTZ. If the blood pressure is still high, then may add amlodipine. As she is relatively bradycardic, hold beta-blockers. Continue aspirin and statins. No need for heparin drip. Will discuss with hospitalist. Laboratory Tests 12/19/20 12/19/20 12/19/20 13:21 15:45 18:35 Troponin I High Sens 7.7 D 26.5 H D 70.0 H D
[2020-12-20 12:07] LABS: Magnesium 1.9 mg/dL (1.6-2.6)
--- NOTE | 2020-12-20 12:10 | PC.NURSE ---
report given to [facility] RN
[2020-12-20] MEDS: Valsartan 320 MG TABLET PO (13:19)
--- NOTE | 2020-12-20 13:50 | HO.PM.IMPN ---
Subjective Subjective Date of Service: 12/20/20 Interval History: denies chest pain, palpitations, lightheadedness, or dizziness she's not sure why she came to the hospital Physical Exam Vital Signs: Vital Signs: Last Vital Signs Temp 98.0 F 12/20/20 12:00 Pulse 51 12/20/20 13:19 Resp 18 12/20/20 12:00 BP 167/72 H 12/20/20 13:19 Pulse Ox 99 12/20/20 12:00 Body Mass Index 26.4 Gen: in no acute distress HEENT: sclera anicteric, moist mucus membranes Neck: supple Lungs: clear to auscultation bilaterally Heart: regular rate and rhythm, no murmurs Abd: soft, non-tender, non-distended Ext: no edema Skin: warm/well-perfused Neuro: alert and oriented x3, no focal findings Psych: appropriate affect Objective Data Current Medications Generic Name Dose Route Start Last Admin Trade Name Freq PRN Reason Stop Dose Admin Albuterol Sulfate 2 puff 12/20/20 11:53 Albuterol Sulfate 90 Mcg 8 Gm Inhaler INHALE Q4H PRN Shortness Of Breath Aspirin 81 mg 12/20/20 09:00 12/20/20 10:16 Aspirin Enteric Coated 81 Mg Tablet.Dr PO 81 mg DAILY BARBY Administration Atorvastatin Calcium 80 mg 12/20/20 08:30 12/20/20 10:15 Atorvastatin Calcium 80 Mg Tablet PO 80 mg BEDTIME BARBY Administration Enoxaparin Sodium 40 mg 12/19/20 21:00 12/19/20 21:31 Enoxaparin Sodium 40 Mg/0.4 Ml Syringe SUBCUT 40 mg Q24H BARBY Administration Famotidine 20 mg 12/20/20 09:00 12/20/20 10:15 Famotidine 20 Mg Tablet PO 20 mg DAILY BARBY Administration Fluticasone Propionate 2 spray 12/20/20 11:53 Fluticasone Propionate Nasal 16 Gm [place] NOSTRIL-B DAILY PRN Allergic Symptoms Fluticasone Propionate 1 puff 12/20/20 20:00 Fluticasone Propionate 100 Mcg Blst.W.Dev INHALE RBID [facility] Hydrochlorothiazide 25 mg 12/21/20 09:00 Hydrochlorothiazide 25 Mg Tablet PO DAILY [facility] Protocol Loratadine 10 mg 12/20/20 09:00 12/20/20 10:16 Loratadine 10 Mg Tablet PO 10 mg DAILY BARBY Administration Nitroglycerin 0.4 mg 12/20/20 08:34 Nitroglycerin 0.4 Mg Tab.Subl SUBLINGUAL Q5M PRN Chest Pain Pharmacy Consult 1 each 12/19/20 19:19 Consult Rx Perform Med Rec MISCELLANE ONCE PRN Consult order Sodium Chloride 3 ml 12/20/20 00:00 12/20/20 10:16 0.9 % Sodium Chloride Flush 3 Ml Syringe IVFLUSH 3 ml QSHIFT BARBY Administration Valsartan 320 mg 12/20/20 12:00 12/20/20 13:19 Valsartan 320 Mg Tablet PO 320 mg DAILY BARBY Administration Protocol Labs CBC & Chem 7: 12/20/20 05:59 12/20/20 05:59 Labs: Laboratory Results - last 24 hr 12/19/20 12/19/20 12/19/20 13:21 13:21 13:21 WBC RBC Hgb Hct MCV MCH MCHC RDW Plt Count MPV Immature Gran % (Auto) Neut % (Auto) Lymph % (Auto) [place] % (Auto) Eos % (Auto) Baso % (Auto) Lymph # (Auto) [place] # (Auto) Eos # (Auto) Baso # (Auto) Abs Immat Gran (auto) Absolute Neuts (auto) Absolute Nucleated RBC Nucleated RBC % (auto) PT 13.7 H INR 1.2 H APTT 36.9 D-Dimer 200 Sodium 140 Potassium 3.7 Chloride 103 Carbon Dioxide 28 Anion Gap 13 BUN 14 Creatinine 0.76 Estim Creat Clear Calc 53.8 Estimated GFR > 60 Random Glucose 113 Calcium 9.7 Magnesium 1.5 L Ferritin Total Bilirubin 0.3 Direct Bilirubin < 0.2 AST 21 ALT 13 Alkaline Phosphatase 61 Lactate Dehydrogenase 130 Total Creatine Kinase 41 Troponin I High Sens 7.7 D C-Reactive Protein 0.85 H B-Natriuretic Peptide 77 Total Protein 7.6 Albumin 3.6 Lipase Procalcitonin Urine Opiates Screen Ur Barbiturates Screen Ur Phencyclidine Scrn Ur Amphetamines Screen U Benzodiazepines Scrn Urine Cocaine Screen U Marijuana (THC) Screen Ethyl Alcohol Coronavirus (PCR) COVID-19 ([facility]) COVID-19 Clin Com Influenza Type A (PCR) Influenza Type B (PCR) RSV RNA Qual (PCR) 12/19/20 12/19/20 12/19/20 13:21 13:21 13:21 WBC RBC Hgb Hct MCV MCH MCHC RDW Plt Count MPV Immature Gran % (Auto) Neut % (Auto) Lymph % (Auto) [place] % (Auto) Eos % (Auto) Baso % (Auto) Lymph # (Auto) [place] # (Auto) Eos # (Auto) Baso # (Auto) Abs Immat Gran (auto) Absolute Neuts (auto) Absolute Nucleated RBC Nucleated RBC % (auto) PT INR APTT D-Dimer Sodium Potassium Chloride Carbon Dioxide Anion Gap BUN Creatinine Estim Creat Clear Calc Estimated GFR Random Glucose Calcium Magnesium Ferritin 101 Total Bilirubin Direct Bilirubin AST ALT Alkaline Phosphatase Lactate Dehydrogenase Total Creatine Kinase Troponin I High Sens C-Reactive Protein B-Natriuretic Peptide Total Protein Albumin Lipase 28 Procalcitonin 0.02 Urine Opiates Screen Ur Barbiturates Screen Ur Phencyclidine Scrn Ur Amphetamines Screen U Benzodiazepines Scrn Urine Cocaine Screen U Marijuana (THC) Screen Ethyl Alcohol < 10 Coronavirus (PCR) COVID-19 ([facility]OVE) COVID-19 Clin Com Influenza Type A (PCR) Influenza Type B (PCR) RSV RNA Qual (PCR) 12/19/20 12/19/20 12/19/20 13:23 15:42 15:45 WBC RBC Hgb Hct MCV MCH MCHC RDW Plt Count MPV Immature Gran % (Auto) Neut % (Auto) Lymph % (Auto) [place] % (Auto) Eos % (Auto) Baso % (Auto) Lymph # (Auto) [place] # (Auto) Eos # (Auto) Baso # (Auto) Abs Immat Gran (auto) Absolute Neuts (auto) Absolute Nucleated RBC Nucleated RBC % (auto) PT INR APTT D-Dimer Sodium Potassium Chloride Carbon Dioxide Anion Gap BUN Creatinine Estim Creat Clear Calc Estimated GFR Random Glucose Calcium Magnesium Ferritin Total Bilirubin Direct Bilirubin AST ALT Alkaline Phosphatase Lactate Dehydrogenase Total Creatine Kinase Troponin I High Sens 26.5 H D C-Reactive Protein B-Natriuretic Peptide Total Protein Albumin Lipase Procalcitonin Urine Opiates Screen Not Detected Ur Barbiturates Screen Not Detected Ur Phencyclidine Scrn Not Detected Ur Amphetamines Screen Not Detected U Benzodiazepines Scrn Not Detected Urine Cocaine Screen Not Detected U Marijuana (THC) Screen Not Detected Ethyl Alcohol Coronavirus (PCR) NEGATIVE COVID-19 ([facility]OVE) COVID-19 Clin Com Influenza Type A (PCR) NEGATIVE Influenza Type B (PCR) NEGATIVE RSV RNA Qual (PCR) NEGATIVE 12/19/20 12/19/20 12/20/20 18:35 20:53 05:59 WBC 8.4 RBC 4.35 Hgb 12.0 Hct 36.8 L MCV 84.6 MCH 27.6 MCHC 32.6 RDW 14.2 Plt Count 217 MPV 10.8 Immature Gran % (Auto) 0.2 Neut % (Auto) 51.7 Lymph % (Auto) 33.9 [place] % (Auto) 10.1 Eos % (Auto) 3.4 Baso % (Auto) 0.7 Lymph # (Auto) 2.9 [place] # (Auto) 0.9 Eos # (Auto) 0.3 Baso # (Auto) 0.1 Abs Immat Gran (auto) 0.02 Absolute Neuts (auto) 4.4 Absolute Nucleated RBC 0.000 Nucleated RBC % (auto) 0.0 PT INR APTT D-Dimer Sodium Potassium Chloride Carbon Dioxide Anion Gap BUN Creatinine Estim Creat Clear Calc Estimated GFR Random Glucose Calcium Magnesium Ferritin Total Bilirubin Direct Bilirubin AST ALT Alkaline Phosphatase Lactate Dehydrogenase Total Creatine Kinase Troponin I High Sens 70.0 H D C-Reactive Protein B-Natriuretic Peptide Total Protein Albumin Lipase Procalcitonin Urine Opiates Screen Ur Barbiturates Screen Ur Phencyclidine Scrn Ur Amphetamines Screen U Benzodiazepines Scrn Urine Cocaine Screen U Marijuana (THC) Screen Ethyl Alcohol Coronavirus (PCR) COVID-19 ([facility]OVE) Negative COVID-19 Clin Com See Note Influenza Type A (PCR) Influenza Type B (PCR) RSV RNA Qual (PCR) 12/20/20 05:59 WBC RBC Hgb Hct MCV MCH MCHC RDW Plt Count MPV Immature Gran % (Auto) Neut % (Auto) Lymph % (Auto) [place] % (Auto) Eos % (Auto) Baso % (Auto) Lymph # (Auto) [place] # (Auto) Eos # (Auto) Baso # (Auto) Abs Immat Gran (auto) Absolute Neuts (auto) Absolute Nucleated RBC Nucleated RBC % (auto) PT INR APTT D-Dimer Sodium 141 Potassium 3.6 Chloride 106 Carbon Dioxide 25 Anion Gap 14 BUN 16 Creatinine 0.75 Estim Creat Clear Calc 54.5 Estimated GFR > 60 Random Glucose 112 Calcium 8.7 D Magnesium 1.9 Ferritin Total Bilirubin Direct Bilirubin AST ALT Alkaline Phosphatase Lactate Dehydrogenase Total Creatine Kinase Troponin I High Sens C-Reactive Protein B-Natriuretic Peptide Total Protein Albumin Lipase Procalcitonin Urine Opiates Screen Ur Barbiturates Screen Ur Phencyclidine Scrn Ur Amphetamines Screen U Benzodiazepines Scrn Urine Cocaine Screen U Marijuana (THC) Screen Ethyl Alcohol Coronavirus (PCR) COVID-19 ([facility]OVE) COVID-19 Clin Com Influenza Type A (PCR) Influenza Type B (PCR) RSV RNA Qual (PCR) Assessment and Plan (1) NSTEMI (non-ST elevated myocardial infarction): Status: Acute (2) Elevated troponin: Status: Acute (3) Generalized weakness: Status: Acute (4) Low blood magnesium: Status: Acute Assessment and Plan: 85yo F with PMHx HTN, HLD, asthma admitted for troponin elevation # troponin elevation - doubt ACS: no symptoms or EKG changes. Cardiology consulted, TTE pending. continue ASA/statin. # hypoMg, mild - repleted # HTN - continue valsartan + HCTZ # asthma, not in acute exacerbation - continue ICS + prn INDIRA # GERD - continue H2RA # VTE ppx - LMWH # dispo - anticipate home with VNA after workup complete updated pt's Kathy by telephone
[2020-12-20] MEDS: Enoxaparin Sodium 40 MG/0.4 ML SYRINGE SUBCUT (23:11)
[2020-12-21 03:47] VITALS: BP 110/58; PULSE 57; RESP 18; TEMP 36.1; O2SAT 97
[2020-12-21 07:43] VITALS: BP 143/80; PULSE 62; RESP 18; TEMP 36.7; O2SAT 100
[2020-12-21] MEDS: Fluticasone Propionate 100 MCG BLST.W.DEV 1 PUFF INHALE (08:09)
[2020-12-21 08:10] VITALS: PULSE 80; O2SAT 96
[2020-12-21] MEDS: Famotidine 20 MG TABLET PO (08:11)
[2020-12-21] MEDS: Loratadine 10 MG TABLET PO (08:11)
[2020-12-21] MEDS: hydroCHLOROthiazide 25 MG TABLET PO (08:11)
[2020-12-21] MEDS: 0.9 % Sodium Chloride Flush 3 ML SYRINGE IVFLUSH (08:11)
[2020-12-21] MEDS: Valsartan 320 MG TABLET PO (08:11)
[2020-12-21] MEDS: Aspirin Enteric Coated 81 MG TABLET.DR PO (08:11)
--- NOTE | 2020-12-21 10:43 | PM.PNCARD ---
Subjective Subjective Date of Service: 12/21/20 Interval history: She does not have any anginal-type complaints. She really does not know why she is even here. Review of Systems Review of Systems Yes all other systems are reviewed and are negative Constitutional: Reports fatigue, Reports malaise and Reports weakness Cardiovascular: Reports as per HPI, Reports no additional cardiovascular complaints, Denies acrocyanosis, Denies cool extremities, Denies painful fingertips, Denies chest pain, Denies chest pain at rest, Denies diaphoresis, Denies syncope, Denies irregular heart rhythm, Denies claudication, Denies leg edema, Denies lightheadedness, Denies palpitations and Denies dyspnea Respiratory: Denies dyspnea Denies syncope and Reports weakness Endocrine: Reports fatigue and Denies palpitations Physical Exam Vital Signs: Last Vital Signs Temp 98.0 F 12/21/20 07:43 Pulse 80 12/21/20 08:10 Resp 18 12/21/20 07:43 BP 143/80 H 12/21/20 07:43 Pulse Ox 100 12/21/20 07:43 Body Mass Index 26.4 Const General: cooperative, comfortable and no acute distress Orientation/consciousness: patient oriented x3 HENMT Other: Unremarkable Neck Neck: Yes normal visual inspection Chest Chest palpation & inspection: normal inspection of the chest Resp Auscultation: clear to auscultation bilaterally, no crackles and no wheezes Cardio Jugular venous distension: no JVD Palpation: normal PMI Heart sounds: S1 normal heart sound present, S2 normal heart sound present, no gallops, Murmur heart sound present systolic II/ and at the right sternal border and no rubs GI Palpation (GI): Soft to palpation Back/Spine/Pelvis Other: unremarkable Skin General skin exam: no rashes or lesions noted Neuro General: patient oriented x3 Extrem General: Yes no clubbing, cyanosis or edema Psych Mental Status: mental status grossly normal Results Labs and Meds Result diagrams: 12/20/20 05:59 12/20/20 05:59 Lab results: Laboratory Results - last 24 hr 12/20/20 12/20/20 05:59 13:33 Magnesium 1.9 Troponin I High Sens 32.0 H D Progress Note: A&P Assessment and plan (1) NSTEMI (non-ST elevated myocardial infarction): Status: Acute (2) Essential hypertension: Status: Acute (3) Generalized weakness: Status: Acute Assessment and Plan: She has nonspecific symptoms but no angina. EKG is not showing anything acute. Low-grade troponin elevation noted. Echocardiogram with normal LVEF and wall motion. Could have underlying CAD but this does not look like an ACS presentation. ? Type 2 NSTEMI. ?related to infection but nothing obvious. Aspirin/statins. Continue BP meds. At her age and with probably underlying dementia and poor comprehension, would not recommend any further workup at this time. May be discharged home. Laboratory Tests 12/19/20 12/19/20 12/19/20 13:21 15:45 18:35 Troponin I High Sens 7.7 D 26.5 H D 70.0 H D Fall Risk Details Current Medications: Current Medications Generic Name Dose Route Start Last Admin Trade Name Freq PRN Reason Stop Dose Admin Albuterol Sulfate 2 puff 12/20/20 11:53 Albuterol Sulfate 90 Mcg 8 Gm Inhaler INHALE Q4H PRN Shortness Of Breath Aspirin 81 mg 12/20/20 09:00 12/21/20 08:11 Aspirin Enteric Coated 81 Mg Tablet.Dr PO 81 mg DAILY BARBY Administration Atorvastatin Calcium 80 mg 12/20/20 08:30 12/20/20 23:11 Atorvastatin Calcium 80 Mg Tablet PO 80 mg BEDTIME BARBY Administration Enoxaparin Sodium 40 mg 12/19/20 21:00 12/20/20 23:11 Enoxaparin Sodium 40 Mg/0.4 Ml Syringe SUBCUT 40 mg Q24H BARBY Administration Famotidine 20 mg 12/20/20 09:00 12/21/20 08:11 Famotidine 20 Mg Tablet PO 20 mg DAILY BARBY Administration Fluticasone Propionate 2 spray 12/20/20 11:53 Fluticasone Propionate Nasal 16 Gm [place] NOSTRIL-B DAILY PRN Allergic Symptoms Fluticasone Propionate 1 puff 12/20/20 20:00 12/21/20 08:09 Fluticasone Propionate 100 Mcg Blst.W.Dev INHALE 1 puff RBID BARBY Administration Hydrochlorothiazide 25 mg 12/21/20 09:00 12/21/20 08:11 Hydrochlorothiazide 25 Mg Tablet PO 25 mg DAILY BARBY Administration Protocol Loratadine 10 mg 12/20/20 09:00 12/21/20 08:11 Loratadine 10 Mg Tablet PO 10 mg DAILY BARBY Administration Nitroglycerin 0.4 mg 12/20/20 08:34 Nitroglycerin 0.4 Mg Tab.Subl SUBLINGUAL Q5M PRN Chest Pain Pharmacy Consult 1 each 12/19/20 19:19 Consult Rx Perform Med Rec MISCELLANE ONCE PRN Consult order Sodium Chloride 3 ml 12/20/20 00:00 12/21/20 08:11 0.9 % Sodium Chloride Flush 3 Ml Syringe IVFLUSH 3 ml QSHIFT BARBY Administration Valsartan 320 mg 12/20/20 12:00 12/21/20 08:11 Valsartan 320 Mg Tablet PO 320 mg DAILY BARBY Administration Protocol Time Spent With Patient Time: Total time spent is greater than 50% in coordination of care (as documented) at patient's floor/unit and/or counseling patient: Time with patient: less than 15 minutes
[2020-12-21 11:29] VITALS: BP 117/62; PULSE 59; RESP 18; TEMP 36.6; O2SAT 98
--- NOTE | 2020-12-21 13:03 | MHC.CM.PN ---
Patient has been medically cleared for dc to home today, no services.IMM addressed yesterday.
--- NOTE | 2020-12-21 13:39 | P.DS_ITS ---
DS: Providers Provider Date of Service: 12/21/20 Date of admission: 12/19/20 20:33 Primary care physician: Guillermina Vann MD Consults: 12/19/20 20:33 Consult to Cardiology Stat Consulting Provider: aSnjay Garduno Reason for consultation: elevated troponin DS: Diagnosis Discharge Diagnosis (1) Essential hypertension: Status: Acute (2) Generalized weakness: Status: Acute (3) Elevated troponin: Status: Acute (4) Low blood magnesium: Status: Acute DS: Medications Discharge Medications Home Medications: Home Medications Medication Instructions Recorded Confirmed cetirizine 10 mg PO DAILY 12/19/20 12/19/20 famotidine 20 mg PO BID 12/19/20 12/20/20 albuterol sulfate 2 puff INHALATION Q4-6H PRN 12/20/20 12/20/20 aspirin 81 mg PO DAILY 12/20/20 12/20/20 calcium carbonate-vitamin D3 1 tab PO BID 12/20/20 12/20/20 [[place]yster Shell Calcium-Vit D3] fluticasone propionate 2 puff INHALATION BID 12/20/20 12/20/20 fluticasone propionate 2 spray INTRANASAL DAILY PRN 12/20/20 12/20/20 valsartan-hydrochlorothiazide 1 tab PO DAILY 12/20/20 12/20/20 Previous Rx's Medication Instructions Recorded aspirin 81 mg PO DAILY #30 tab 12/21/20 atorvastatin 80 mg PO BEDTIME #30 tab 12/21/20 DS: Summary Hospital Course Hospital Course: From the admission history and physical by hospitalist Nash Paulson, 12/19/20: 85-year-old female with a past medical history of hypertension, hyperlipidemia, asthma, GERD presented to the hospital with a chief complaint of generalized weakness. Mentions that she felt dizzy and lightheaded and she is going to pass out but did not lose consciousness. Mentioned that she was not feeling right. Subsequently her neighbor came in and called the EMS. Denies any falls. Denies any chest pain palpitations. Denies any fever chills cough. Denies any GI or symptoms. Review of all other systems is negative except mentioned above ER course: For ER team patient's exam was nonfocal, EKG was nonischemic, troponins are elevated 7.7 followed by 26.5 followed by 70; this spoke to on- call sales merchandiser who suggested admission to [facility] and no heparin drip. The patient was admitted to the [facility]. Troponin came down. She had no EKG changes of ischemia and no chest pain or equivocal in anginal symptoms. Cardiology was consulted and echocardiogram performed. No regional wall motion abnormalities. She was treated with aspirin and statin. Mild hypomagnesemia was repleted. She was not septic and she tested negative for COVID by molecular test twice. Further invasive workup for underlying coronary artery disease was not recommended by Cardiology due to her advanced age. She was discharged home in good condition and should follow up with her primary care doctor in 1-2 weeks and could consider following up with Cardiology in 2-4 weeks. Time Spent with Patient Time attestation: Total time spent providing and/or coordinating discharge services: 30 Discharge coordination time: Less than 30 minutes Physical Exam Vital Signs: Vital Signs: Last Vital Signs Temp 97.9 F 12/21/20 11:29 Pulse 59 12/21/20 11:29 Resp 18 12/21/20 11:29 BP 117/62 12/21/20 11:29 Pulse Ox 98 12/21/20 11:29 Body Mass Index 26.4 Gen: in no acute distress HEENT: sclera anicteric, moist mucus membranes Neck: supple Lungs: clear to auscultation bilaterally Heart: regular rate and rhythm, no murmurs Abd: soft, non-tender, non-distended Ext: no edema Skin: warm/well-perfused Neuro: alert and oriented x3, no focal findings Psych: appropriate affect DS: Data Data Completed and Pending Labs on day of discharge: Laboratory Tests 12/19/20 12/19/20 12/19/20 12:41 13:21 13:21 WBC 8.1 RBC 4.28 Hgb 11.7 L Hct 36.4 L MCV 85.0 MCH 27.3 MCHC 32.1 RDW 14.3 Plt Count 231 MPV 10.8 Immature Gran % (Auto) 0.1 Neut % (Auto) 65.3 Lymph % (Auto) 24.5 [place] % (Auto) 8.8 Eos % (Auto) 0.6 Baso % (Auto) 0.7 Lymph # (Auto) 2.0 [place] # (Auto) 0.7 Eos # (Auto) 0.1 Baso # (Auto) 0.1 Abs Immat Gran (auto) 0.01 Absolute Neuts (auto) 5.3 Absolute Nucleated RBC 0.000 Nucleated RBC % (auto) 0.0 PT 13.7 H INR 1.2 H APTT 36.9 D-Dimer 200 Sodium Potassium Chloride Carbon Dioxide Anion Gap BUN Creatinine Estim Creat Clear Calc Estimated GFR Random Glucose Calcium Magnesium Ferritin Total Bilirubin Direct Bilirubin AST ALT Alkaline Phosphatase Lactate Dehydrogenase Total Creatine Kinase Troponin I High Sens C-Reactive Protein B-Natriuretic Peptide Total Protein Albumin Lipase Procalcitonin Urine Color YELLOW Urine Appearance CLEAR Urine pH 7.0 Ur Specific [place] 1.010 Urine Protein NEG Urine Glucose (UA) NEG Urine Ketones NEG Urine Blood 2+ H Urine Nitrite NEG Ur Leukocyte Esterase NEG Urine RBC 10-14 H Urine WBC 0 Ur Squamous Epith Cells TRACE Urine Bacteria NONE Urine Opiates Screen Ur Barbiturates Screen Ur Phencyclidine Scrn Ur Amphetamines Screen U Benzodiazepines Scrn Urine Cocaine Screen U Marijuana (THC) Screen Ethyl Alcohol Coronavirus (PCR) COVID-19 (LOVE) COVID-19 Clin Com Influenza Type A (PCR) Influenza Type B (PCR) RSV RNA Qual (PCR) 12/19/20 12/19/20 12/19/20 13:21 13:21 13:21 WBC RBC Hgb Hct MCV MCH MCHC RDW Plt Count MPV Immature Gran % (Auto) Neut % (Auto) Lymph % (Auto) [place] % (Auto) Eos % (Auto) Baso % (Auto) Lymph # (Auto) [place] # (Auto) Eos # (Auto) Baso # (Auto) Abs Immat Gran (auto) Absolute Neuts (auto) Absolute Nucleated RBC Nucleated RBC % (auto) PT INR APTT D-Dimer Sodium 140 Potassium 3.7 Chloride 103 Carbon Dioxide 28 Anion Gap 13 BUN 14 Creatinine 0.76 Estim Creat Clear Calc 53.8 Estimated GFR > 60 Random Glucose 113 Calcium 9.7 Magnesium 1.5 L Ferritin Total Bilirubin 0.3 Direct Bilirubin < 0.2 AST 21 ALT 13 Alkaline Phosphatase 61 Lactate Dehydrogenase 130 Total Creatine Kinase 41 Troponin I High Sens 7.7 D C-Reactive Protein 0.85 H B-Natriuretic Peptide 77 Total Protein 7.6 Albumin 3.6 Lipase Procalcitonin Urine Color Urine Appearance Urine pH Ur Specific [place] Urine Protein Urine Glucose (UA) Urine Ketones Urine Blood Urine Nitrite Ur Leukocyte Esterase Urine RBC Urine WBC Ur Squamous Epith Cells Urine Bacteria Urine Opiates Screen Ur Barbiturates Screen Ur Phencyclidine Scrn Ur Amphetamines Screen U Benzodiazepines Scrn Urine Cocaine Screen U Marijuana (THC) Screen Ethyl Alcohol < 10 Coronavirus (PCR) COVID-19 (LOVE) COVID-19 Clin Com Influenza Type A (PCR) Influenza Type B (PCR) RSV RNA Qual (PCR) 12/19/20 12/19/20 12/19/20 13:21 13:21 13:23 WBC RBC Hgb Hct MCV MCH MCHC RDW Plt Count MPV Immature Gran % (Auto) Neut % (Auto) Lymph % (Auto) [place] % (Auto) Eos % (Auto) Baso % (Auto) Lymph # (Auto) [place] # (Auto) Eos # (Auto) Baso # (Auto) Abs Immat Gran (auto) Absolute Neuts (auto) Absolute Nucleated RBC Nucleated RBC % (auto) PT INR APTT D-Dimer Sodium Potassium Chloride Carbon Dioxide Anion Gap BUN Creatinine Estim Creat Clear Calc Estimated GFR Random Glucose Calcium Magnesium Ferritin 101 Total Bilirubin Direct Bilirubin AST ALT Alkaline Phosphatase Lactate Dehydrogenase Total Creatine Kinase Troponin I High Sens C-Reactive Protein B-Natriuretic Peptide Total Protein Albumin Lipase 28 Procalcitonin 0.02 Urine Color Urine Appearance Urine pH Ur Specific [place] Urine Protein Urine Glucose (UA) Urine Ketones Urine Blood Urine Nitrite Ur Leukocyte Esterase Urine RBC Urine WBC Ur Squamous Epith Cells Urine Bacteria Urine Opiates Screen Ur Barbiturates Screen Ur Phencyclidine Scrn Ur Amphetamines Screen U Benzodiazepines Scrn Urine Cocaine Screen U Marijuana (THC) Screen Ethyl Alcohol Coronavirus (PCR) NEGATIVE COVID-19 (LOVE) COVID-19 Clin Com Influenza Type A (PCR) NEGATIVE Influenza Type B (PCR) NEGATIVE RSV RNA Qual (PCR) NEGATIVE 12/19/20 12/19/20 12/19/20 15:42 15:45 18:35 WBC RBC Hgb Hct MCV MCH MCHC RDW Plt Count MPV Immature Gran % (Auto) Neut % (Auto) Lymph % (Auto) [place] % (Auto) Eos % (Auto) Baso % (Auto) Lymph # (Auto) [place] # (Auto) Eos # (Auto) Baso # (Auto) Abs Immat Gran (auto) Absolute Neuts (auto) Absolute Nucleated RBC Nucleated RBC % (auto) PT INR APTT D-Dimer Sodium Potassium Chloride Carbon Dioxide Anion Gap BUN Creatinine Estim Creat Clear Calc Estimated GFR Random Glucose Calcium Magnesium Ferritin Total Bilirubin Direct Bilirubin AST ALT Alkaline Phosphatase Lactate Dehydrogenase Total Creatine Kinase Troponin I High Sens 26.5 H D 70.0 H D C-Reactive Protein B-Natriuretic Peptide Total Protein Albumin Lipase Procalcitonin Urine Color Urine Appearance Urine pH Ur Specific [place] Urine Protein Urine Glucose (UA) Urine Ketones Urine Blood Urine Nitrite Ur Leukocyte Esterase Urine RBC Urine WBC Ur Squamous Epith Cells Urine Bacteria Urine Opiates Screen Not Detected Ur Barbiturates Screen Not Detected Ur Phencyclidine Scrn Not Detected Ur Amphetamines Screen Not Detected U Benzodiazepines Scrn Not Detected Urine Cocaine Screen Not Detected U Marijuana (THC) Screen Not Detected Ethyl Alcohol Coronavirus (PCR) COVID-19 (LOVE) COVID-19 Clin Com Influenza Type A (PCR) Influenza Type B (PCR) RSV RNA Qual (PCR) 12/19/20 12/20/20 12/20/20 20:53 05:59 05:59 WBC 8.4 RBC 4.35 Hgb 12.0 Hct 36.8 L MCV 84.6 MCH 27.6 MCHC 32.6 RDW 14.2 Plt Count 217 MPV 10.8 Immature Gran % (Auto) 0.2 Neut % (Auto) 51.7 Lymph % (Auto) 33.9 [place] % (Auto) 10.1 Eos % (Auto) 3.4 Baso % (Auto) 0.7 Lymph # (Auto) 2.9 [place] # (Auto) 0.9 Eos # (Auto) 0.3 Baso # (Auto) 0.1 Abs Immat Gran (auto) 0.02 Absolute Neuts (auto) 4.4 Absolute Nucleated RBC 0.000 Nucleated RBC % (auto) 0.0 PT INR APTT D-Dimer Sodium 141 Potassium 3.6 Chloride 106 Carbon Dioxide 25 Anion Gap 14 BUN 16 Creatinine 0.75 Estim Creat Clear Calc 54.5 Estimated GFR > 60 Random Glucose 112 Calcium 8.7 D Magnesium 1.9 Ferritin Total Bilirubin Direct Bilirubin AST ALT Alkaline Phosphatase Lactate Dehydrogenase Total Creatine Kinase Troponin I High Sens C-Reactive Protein B-Natriuretic Peptide Total Protein Albumin Lipase Procalcitonin Urine Color Urine Appearance Urine pH Ur Specific [place] Urine Protein Urine Glucose (UA) Urine Ketones Urine Blood Urine Nitrite Ur Leukocyte Esterase Urine RBC Urine WBC Ur Squamous Epith Cells Urine Bacteria Urine Opiates Screen Ur Barbiturates Screen Ur Phencyclidine Scrn Ur Amphetamines Screen U Benzodiazepines Scrn Urine Cocaine Screen U Marijuana (THC) Screen Ethyl Alcohol Coronavirus (PCR) COVID-19 (LOVE) Negative COVID-19 Clin Com See Note Influenza Type A (PCR) Influenza Type B (PCR) RSV RNA Qual (PCR) 12/20/20 13:33 WBC RBC Hgb Hct MCV MCH MCHC RDW Plt Count MPV Immature Gran % (Auto) Neut % (Auto) Lymph % (Auto) [place] % (Auto) Eos % (Auto) Baso % (Auto) Lymph # (Auto) [place] # (Auto) Eos # (Auto) Baso # (Auto) Abs Immat Gran (auto) Absolute Neuts (auto) Absolute Nucleated RBC Nucleated RBC % (auto) PT INR APTT D-Dimer Sodium Potassium Chloride Carbon Dioxide Anion Gap BUN Creatinine Estim Creat Clear Calc Estimated GFR Random Glucose Calcium Magnesium Ferritin Total Bilirubin Direct Bilirubin AST ALT Alkaline Phosphatase Lactate Dehydrogenase Total Creatine Kinase Troponin I High Sens 32.0 H D C-Reactive Protein B-Natriuretic Peptide Total Protein Albumin Lipase Procalcitonin Urine Color Urine Appearance Urine pH Ur Specific [place] Urine Protein Urine Glucose (UA) Urine Ketones Urine Blood Urine Nitrite Ur Leukocyte Esterase Urine RBC Urine WBC Ur Squamous Epith Cells Urine Bacteria Urine Opiates Screen Ur Barbiturates Screen Ur Phencyclidine Scrn Ur Amphetamines Screen U Benzodiazepines Scrn Urine Cocaine Screen U Marijuana (THC) Screen Ethyl Alcohol Coronavirus (PCR) COVID-19 (LOVE) COVID-19 Clin Com Influenza Type A (PCR) Influenza Type B (PCR) RSV RNA Qual (PCR) ITS Impressions Chest X-Ray 12/19/20 11:59 IMPRESSION: Stable chest. No acute cardiopulmonary process. Head CT 12/19/20 11:59 IMPRESSION: No acute intracranial pathology. TTE 12/20/20 - The left ventricular systolic function is normal. The visually estimated ejection fraction is between 55-60%. - E/E prime ratio is >15, consistent with elevated filling pressures. Evidence suggests grade I (mild) diastolic dysfunction. - There is mild mitral valve regurgitation. - There is mild tricuspid valve regurgitation. - Small plaque is seen in the ascending aorta. Discharge Plan Discharge Patient Disposition: Home, Self-Care Referrals: Guillermina Vann MD [Primary Care Provider] - 2 days Sanjay Garduno MD [Physician] - Discharge Medications: New atorvastatin 80 mg Tablet 80 mg PO BEDTIME Qty: 30 RF: 0 aspirin 81 mg Tablet,Delayed Release (Dr/Ec) 81 mg PO DAILY Qty: 30 RF: 0 Continued cetirizine 10 mg Tablet 10 mg PO DAILY RF: 0 famotidine 20 mg Tablet 20 mg PO BID RF: 0 aspirin 81 mg Tablet,Delayed Release (Dr/Ec) 81 mg PO DAILY RF: 0 albuterol sulfate 90 mcg/actuation Hfa Aerosol Inhaler 2 puff INHALATION Q4-6H PRN (Reason: Shortness Of Breath) RF: 0 fluticasone propionate 50 mcg/actuation [place],Suspension 2 spray INTRANASAL DAILY PRN (Reason: Allergic Symptoms) RF: 0 fluticasone propionate 110 mcg/actuation Hfa Aerosol Inhaler 2 puff INHALATION BID RF: 0 calcium carbonate-vitamin D3 [[place]yster [place] Calcium-Vit D3] 500 mg(1,250mg) - 200 unit Tablet 1 tab PO BID RF: 0 valsartan-hydrochlorothiazide 320-25 mg Tablet 1 tab PO DAILY RF: 0 Discharge Orders: Discharge Order (Routine); Ordered 12/21/20 Ordered By: Yolis Montes Activity on Discharge: As tolerated Stand Alone Forms: Patient Portal Discharge page Print Language: Luxembourger Visit Report Forms: Patient Portal Discharge page Care Plan Goals: prevention of heart attacks/strokes Health Concerns: elevated troponin generalized weakness Plan of Treatment: take aspirin 81 mg daily plus atorvastatin 80 mg daily follow up with your primary care doctor and with cardiology [facility] [address] [place] [address], [facility] [address] [place] [address] Patient Instructions: Hypomagnesemia (ED)
== END 2020-12-21 14:11 | disposition home or self-care (01) | DRG 641 ==
LOC: HO.ED 11:58 → HO.EDOVER 20:47 → HO.IMC 12-20 11:22
PROVIDERS: Physician Assistant; Physician Assistant Medical; Admitting Provider Hospitalist; Emergency Provider Emergency Medicine; PCP Internal Medicine; Visit Provider Family Medicine
DX: E83.42 Hypomagnesemia (principal); E78.5 Hyperlipidemia, unspecified; K21.9 Gastro-esophageal reflux disease without esophagitis; I10 Essential (primary) hypertension; R31.29 Other microscopic hematuria; Z20.822 Contact with and (suspected) exposure to COVID-19; Z88.5 Allergy status to narcotic agent; Z79.51 Long term (current) use of inhaled steroids; Z79.82 Long term (current) use of aspirin; Z79.899 Other long term (current) drug therapy
CPT/HCPCS: 0241U; 36415; 70450; 71046; 80048; 80076; 80307; 80320; 81001; 82550; 82728; 83615; 83690; 83735; 83880; 84145; 84484; 85025; 85379; 85610; 85730; 86140; 87635; 93005; 93306; 96361; 96365; 96367; 96375; 97161; 97165; 99285; 99291; J1650; J3475

== ENCOUNTER 2021-06-19 17:39 | Emergency (ER) | payer MEDICARE, SELFPAY ==
--- NOTE | ~2021-06-19 | XR_ITS ---
EXAMINATION: XR ANKLE, RIGHT CLINICAL INFORMATION: Pain COMPARISON: X-ray the left foot June 2017 TECHNIQUE: AP, lateral, and mortise views of the right ankle. FINDINGS: There are small calcaneal spurs. There is arterial calcification. The bone and joints appear intact without fracture. XR/XR ankle RT min 3V IMPRESSION: No acute abnormality
[2021-06-19 19:37] VITALS: BP 148/50; PULSE 62; RESP 18; TEMP 37.2; O2SAT 98; BMI 25.7
--- NOTE | 2021-06-19 20:26 | PC.NURSE ---
XRay at bedside.
--- NOTE | 2021-06-19 20:34 | PC.NURSE ---
control technician at bedside for labs.
--- NOTE | 2021-06-19 20:40 | PC.NURSE ---
Venous U/S ordered. U/S calling this RN. U/S stated Per Nigel, we were told we would not be called in for anything other than testicular torsion. U/S states, Per Nigel, to start Lovenox if DVT is suspected and schedule U/S @ 0800. squaring shear operator aware.
--- NOTE | 2021-06-19 21:03 | ED_ITS ---
HPI - Extremity Problem General Chief complaint: Extremity Problem Stated complaint: ankle swelling Time Seen by Provider: 06/19/21 20:20 Source: patient and family Mode of arrival: ambulatory Limitations: no limitations and language barrier History of Present Illness HPI Narrative: Patient with no prior history of gout no skin breakdown noticed pain in the right ankle right leg area for last 2 days slightly erythematous and tender to touch no fever or chills no nausea no vomiting no shortness of breath no history of cellulitis in the past Related Data Home Medications Medication Instructions Recorded Confirmed cetirizine 10 mg tablet 10 mg PO DAILY 12/19/20 12/19/20 famotidine 20 mg tablet 20 mg PO BID 12/19/20 12/20/20 albuterol sulfate 90 mcg/actuation 2 puff INHALATION Q4-6H PRN 12/20/20 12/20/20 aerosol inhaler aspirin 81 mg tablet,delayed 81 mg PO DAILY 12/20/20 12/20/20 release calcium carbonate 500 mg (1,250 1 tab PO BID 12/20/20 12/20/20 mg)-vitamin D3 200 unit tablet (Oyster Shell Calcium-Vit D3) fluticasone propionate 110 2 puff INHALATION BID 12/20/20 12/20/20 mcg/actuation HFA aerosol inhaler fluticasone propionate 50 2 spray INTRANASAL DAILY PRN 12/20/20 12/20/20 mcg/actuation nasal spray,suspension valsartan 320 1 tab PO DAILY 12/20/20 12/20/20 mg-hydrochlorothiazide 25 mg tablet Previous Rx's Medication Instructions Recorded aspirin 81 mg tablet,delayed 81 mg PO DAILY #30 tab 12/21/20 release atorvastatin 80 mg tablet 80 mg PO BEDTIME #30 tab 12/21/20 cephalexin 500 mg capsule 500 mg PO QID 10 Days #40 cap 06/19/21 doxycycline hyclate 100 mg tablet 100 mg PO BID #20 tab 06/19/21 ibuprofen 600 mg tablet 600 mg PO Q6H PRN #20 tab 06/19/21 Allergies Allergy/AdvReac Type Severity Reaction Status Date / Time lisinopril [LISINOPRIL] Allergy Mild CHEST PAIN Verified 06/19/21 19:37 codeine [CODEINE] AdvReac Unknown AGITATION Verified 06/19/21 19:37 Review of Systems Review of Systems: Yes all other systems are reviewed and are negative PMFSH Past Medical History Medical History Essential hypertension Hypertension Social History Social History Household Members: None Housing: Apartment 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 Oriented X3. No acute distress. Eyes: PERRLA, No Nystagmus ENT: Pharynx normal. Oral Mucosa moist Neck: Normal inspection. Neck supple. CVS: Normal heart rate and rhythm. Pulses normal. Respiratory: No respiratory distress. Equal air entry bilateral, no wheezing/rales/rhonchi Abdomen: Soft and nontender. Bowel sounds are present, no mass palpable, no CVA tenderness Skin: Skin warm and dry. Normal skin color. Normal skin turgor. Extremities: Right leg is erythematous lower 2/3 with ankle swelling skin is intact good range of movement of the joint but is painful No calf tenderness Neuro: Oriented X 3. MDM - Extremity (Nontraumatic) Lab Data Result diagrams: 06/19/21 21:51 06/19/21 20:48 Labs: Lab Results 06/19/21 06/19/21 06/19/21 Range/Units 20:48 20:48 21:16 WBC (4.8-10.8) X10*3/uL RBC (4.20-5.50) X10*6/uL Hgb (12.0-16.0) g/dl Hct (37-47) % MCV (80-98) fL MCH (27.0-33.0) pg MCHC (31.0-35.0) g/dl RDW (11.0-16.0) % Plt Count (160-400) X10*3/uL MPV (9.4-12.3) fL Absolute Nucleated RBC (0.0-0.012) X10*3/uL Nucleated RBC % (auto) (0.0-0.2) /100WBC PT 12.5 (9.9-13.0) SEC INR 1.1 (0.9-1.1) D-Dimer 270 NG/ML Sodium 138 (135-145) mmol/L Potassium 4.0 (3.3-5.1) mmol/L Chloride 102 (96-108) mmol/L Carbon Dioxide 28 (22-29) mmol/L Anion Gap 12 (12-20) BUN 14 (9-16) mg/dL Creatinine 0.86 (0.5-1.4) mg/dL Estim Creat Clear Calc 45.3 Estimated GFR > 60 Random Glucose 110 (60-115) mg/dL Lactic Acid 0.9 (0.5-2.0) mmol/L Calcium 9.7 D (8.4-10.2) mg/dL Total Bilirubin 0.5 (0.0-1.0) mg/dL AST 28 (5-31) U/L ALT 22 (0-31) U/L Alkaline Phosphatase 66 (39-117) U/L Total Protein 8.0 (6.5-8.0) g/dL Albumin 3.8 (3.5-5.0) g/dL /07/02 Range/Units 21:51 WBC 12.9 H (4.8-10.8) X10*3/uL RBC 4.26 (4.20-5.50) X10*6/uL Hgb 11.8 L (12.0-16.0) g/dl Hct 36.2 L (37-47) % MCV 85.0 (80-98) fL MCH 27.7 (27.0-33.0) pg MCHC 32.6 (31.0-35.0) g/dl RDW 14.3 (11.0-16.0) % Plt Count 212 (160-400) X10*3/uL MPV 10.3 (9.4-12.3) fL Absolute Nucleated RBC 0.000 (0.0-0.012) X10*3/uL Nucleated RBC % (auto) 0.0 (0.0-0.2) /100WBC PT (9.9-13.0) SEC INR (0.9-1.1) D-Dimer NG/ML Sodium (135-145) mmol/L Potassium (3.3-5.1) mmol/L Chloride (96-108) mmol/L Carbon Dioxide (22-29) mmol/L Anion Gap (12-20) BUN (9-16) mg/dL Creatinine (0.5-1.4) mg/dL Estim Creat Clear Calc Estimated GFR Random Glucose (60-115) mg/dL Lactic Acid (0.5-2.0) mmol/L Calcium (8.4-10.2) mg/dL Total Bilirubin (0.0-1.0) mg/dL AST (5-31) U/L ALT (0-31) U/L Alkaline Phosphatase (39-117) U/L Total Protein (6.5-8.0) g/dL Albumin (3.5-5.0) g/dL Discharge Plan Discharge Clinical Impression: Cellulitis Qualifiers: Site of cellulitis: extremity Site of cellulitis of extremity: lower extremity Laterality: right Qualified Code(s): L03.115 - Cellulitis of right lower limb Patient Disposition: Home, Self-Care Instructions: Cellulitis (ED) Additional Instructions: Keep right foot elevated Take antibiotic as prescribed, ibuprofen for pain Report to the ER/PCP if increased redness or fever or pain Prescriptions: New cephalexin 500 mg capsule 500 mg PO QID 10 Days Qty: 40 RF: 0 ibuprofen 600 mg tablet 600 mg PO Q6H PRN (Reason: pain) Qty: 20 RF: 0 doxycycline hyclate 100 mg tablet 100 mg PO BID Qty: 20 RF: 0 No Action cetirizine 10 mg Tablet 10 mg PO DAILY RF: 0 famotidine 20 mg Tablet 20 mg PO BID RF: 0 aspirin 81 mg Tablet,Delayed Release (Dr/Ec) 81 mg PO DAILY RF: 0 albuterol sulfate 90 mcg/actuation Hfa Aerosol Inhaler 2 puff INHALATION Q4-6H PRN (Reason: Shortness Of Breath) RF: 0 fluticasone propionate 50 mcg/actuation [place],Suspension 2 spray INTRANASAL DAILY PRN (Reason: Allergic Symptoms) RF: 0 fluticasone propionate 110 mcg/actuation Hfa Aerosol Inhaler 2 puff INHALATION BID RF: 0 calcium carbonate-vitamin D3 [Oyster Shell Calcium-Vit D3] 500 mg(1,250mg) - 200 unit Tablet 1 tab PO BID RF: 0 valsartan-hydrochlorothiazide 320-25 mg Tablet 1 tab PO DAILY RF: 0 atorvastatin 80 mg Tablet 80 mg PO BEDTIME Qty: 30 RF: 0 aspirin 81 mg Tablet,Delayed Release (Dr/Ec) 81 mg PO DAILY Qty: 30 RF: 0
[2021-06-19 21:05] LABS: INTERNATIONAL NORM RATIO 1.1 (0.9-1.1); Prothrombin Time 12.5 SEC (9.9-13.0)
[2021-06-19 21:16] LABS: Alanine Aminotransferase 22 U/L (0-31); Albumin Level 3.8 g/dL (3.5-5.0); Alkaline Phosphatase 66 U/L (39-117); Anion Gap 12 (12-20); Aspartate Amino Transferase 28 U/L (5-31); Bilirubin Total 0.5 mg/dL (0.0-1.0); Blood Urea Nitrogen 14 mg/dL (9-16); Calcium 9.7 mg/dL (8.4-10.2); Carbon Dioxide 28 mmol/L (22-29); Chloride 102 mmol/L (96-108); Creatinine Clr Calc Pharmacy 45.3; Estimated Glomerular Filt Rate > 60; Glucose Random 110 mg/dL (60-115); Sodium 138 mmol/L (135-145)
[2021-06-19 21:40] LABS: Lactic Acid 0.9 mmol/L (0.5-2.0)
[2021-06-19 21:52] LABS: D Dimer 270 NG/ML
[2021-06-19 21:56] LABS: Hematocrit 36.2 % (37-47); Hemoglobin 11.8 g/dl (12.0-16.0); Mean Corpuscular HGB Conc 32.6 g/dl (31.0-35.0); Mean Corpuscular Hemoglobin 27.7 pg (27.0-33.0); Mean Platelet Volume 10.3 fL (9.4-12.3); Platelet Count 212 X10*3/uL (160-400); Red Blood Count 4.26 X10*6/uL (4.20-5.50); Red Cell Distribution Width 14.3 % (11.0-16.0); White Blood Count 12.9 X10*3/uL (4.8-10.8)
--- NOTE | 2021-06-19 22:00 | PC.NURSE ---
BCX x 2 and lactic obtained and sent. Pt medicated per JAN. Continue to monitor.
[2021-06-19 22:59] VITALS: BP 129/51; PULSE 56; RESP 18; TEMP 37.3; O2SAT 97
[2021-06-19] MEDS: Ketorolac Tromethamine 15 MG/ML VIAL IVPUSH (23:22)
--- NOTE | 2021-06-19 23:22 | PC.NURSE ---
Pt was medicated with Toradol but float MILTON Garcia.
== END 2021-06-20 | disposition home or self-care (01) ==
PROVIDERS: Emergency Provider Internal Medicine
DX: L03.115 Cellulitis of right lower limb (principal); M25.579 Pain in unspecified ankle and joints of unspecified foot; I10 Essential (primary) hypertension; Z90.49 Acquired absence of other specified parts of digestive tract; Z87.440 Personal history of urinary (tract) infections; Z79.899 Other long term (current) drug therapy
CPT/HCPCS: 36415; 73610; 80053; 83605; 85027; 85379; 85610; 87040; 96365; 96375; 99284; J0690; J1885

== ENCOUNTER 2021-07-19 16:07 | Outpatient (REF) | payer MEDICARE, SELFPAY ==
[2021-07-19 17:18] LABS: Alanine Aminotransferase 27 U/L (0-31); Albumin Level 3.7 g/dL (3.5-5.0); Alkaline Phosphatase 60 U/L (39-117); Anion Gap 11 (12-20); Aspartate Amino Transferase 30 U/L (5-31); Bilirubin Total 0.3 mg/dL (0.0-1.0); Blood Urea Nitrogen 24 mg/dL (9-16); Calcium 10.3 mg/dL (8.4-10.2); Carbon Dioxide 29 mmol/L (22-29); Chloride 102 mmol/L (96-108); Estimated Glomerular Filt Rate > 60; Glucose Random 110 mg/dL (60-115); Potassium 4.2 mmol/L (3.3-5.1); Sodium 138 mmol/L (135-145)
[2021-07-19 17:40] LABS: T4 Thyroxine 7.4 ug/dL (4.5-12.0); Thyroid Stimulating Hormone 0.41 uIU/mL (0.32-4.0)
[2021-07-19 17:52] LABS: Folate > 20.0 ng/mL (> or = 4.0); Vitamin B12 690 pg/mL (200-900)
== END 2021-07-19 16:08 | disposition home or self-care (01) ==
LOC: HO.LAB 16:07
PROVIDERS: PCP Internal Medicine; Visit Provider Psychiatry & Neurology Neurology
DX: G31.84 Mild cognitive impairment of uncertain or unknown etiology (principal)
CPT/HCPCS: 36415; 80053; 82607; 82746; 84436; 84443

== ENCOUNTER 2021-07-28 10:06 | Outpatient (REF) | payer MEDICARE, SELFPAY ==
--- NOTE | ~2021-07-28 | CT_ITS ---
EXAMINATION: CT HEAD WITHOUT CONTRAST CLINICAL INFORMATION: [facility]. COMPARISON: CT brain 12/19/2020 TECHNIQUE: Contiguous axial imaging was performed from the skull base to vertex without intravenous administration of contrast. This CT examination was performed using dose optimization techniques as appropriate, variously including the following: *Automated exposure control *Adjustment of mA and/or kV according to patient size (this includes techniques or standardized protocols for targeted exams where dose is matched to indication/reason for exam; i.e. extremities or head) *Use of iterative reconstruction technique DLP: 700 mGy-cm FINDINGS: There is no evidence of acute intracranial hemorrhage or territorial infarction. No abnormal mass effect or midline shift is seen. There is a small hypodensity in the right basal ganglia and internal capsule suggesting a lacunar infarct of indeterminate age. Rand to white matter differentiation is well preserved. No extra-axial fluid collections are identified. The ventricles are normal in size. There is no abnormal attenuation within the brain parenchyma. The osseous structures and soft tissues are normal. The mastoid air cells and visualized portions of the paranasal sinuses are well aerated. CT/CT head/brain wo con IMPRESSION: No acute intracranial process is seen. 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
== END 2021-07-28 10:07 | disposition home or self-care (01) ==
LOC: HO.CT 10:06
PROVIDERS: PCP Internal Medicine; Visit Provider Psychiatry & Neurology Neurology
DX: G31.84 Mild cognitive impairment of uncertain or unknown etiology (principal)
CPT/HCPCS: 70450

== ENCOUNTER 2021-07-29 01:30 | Emergency (ER) | payer MEDICARE, SELFPAY ==
--- NOTE | 2021-07-29 | ECG_ITS ---
Test Reason : CHEST PAIN Blood Pressure : / mmHG Vent. Rate : 051 BPM Atrial Rate : 051 BPM P-R Int : 184 ms QRS Dur : 082 ms QT Int : 424 ms P-R-T Axes : 033 028 047 degrees QTc Int : 390 ms Sinus bradycardia Otherwise normal ECG When compared with ECG of 19-DEC-2020 18:41, Nonspecific ST abnormality is no longer Present Referred By: Fabiano Romeo Electronically Signed By:RENA CISNEROS
--- NOTE | ~2021-07-29 | XR_ITS ---
EXAMINATION: XR CHEST CLINICAL INFORMATION: Chest pain COMPARISON: 12/19/2020 TECHNIQUE: Frontal view of the chest was obtained. FINDINGS: There is slight elevation of the left hemidiaphragm. No focal consolidation is seen bilaterally. Redemonstrated calcified granuloma at the left lung base. No evidence of pneumothorax, pleural effusion, or pulmonary edema. The cardiomediastinal contour is unremarkable. No acute osseous findings are seen. XR/XR chest 1V IMPRESSION: No acute cardiopulmonary findings.
[2021-07-29 01:46] VITALS: BP 164/80; PULSE 58; RESP 14; TEMP 35.9; O2SAT 100; BMI 20.1
--- NOTE | 2021-07-29 01:56 | PC.NURSE ---
pt alert but confused at times. Daughter at the bedside and report this is new for her. pt changed over to hospital attire. pt placed on monitor, ekg completed at this time.
[2021-07-29 02:02] VITALS: BP 154/57; PULSE 51; RESP 15; O2SAT 97
--- NOTE | 2021-07-29 02:06 | ED.CHESTPAIN ---
HPI - Chest Pain General Chief Complaint: Chest Pain Stated Complaint: chest pain Time Seen by Provider: 07/29/21 02:06 Source: patient Mode of arrival: ambulatory Limitations: no limitations History of Present Illness HPI narrative: Patient with history of pancreatitis several years ago , came here for lower chest and upper abdominal pain started about 40 minutes prior to arrival pain was in the lower sternum area going to the back associated with nausea no vomiting no diaphoresis no shortness of breath Related Data Home Medications Medication Instructions Recorded Confirmed cetirizine 10 mg tablet 10 mg PO DAILY 12/19/20 12/19/20 famotidine 20 mg tablet 20 mg PO BID 12/19/20 12/20/20 albuterol sulfate 90 mcg/actuation 2 puff INHALATION Q4-6H PRN 12/20/20 12/20/20 aerosol inhaler aspirin 81 mg tablet,delayed 81 mg PO DAILY 12/20/20 12/20/20 release calcium carbonate 500 mg (1,250 1 tab PO BID 12/20/20 12/20/20 mg)-vitamin D3 200 unit tablet (Oyster Shell Calcium-Vit D3) fluticasone propionate 110 2 puff INHALATION BID 12/20/20 12/20/20 mcg/actuation HFA aerosol inhaler fluticasone propionate 50 2 spray INTRANASAL DAILY PRN 12/20/20 12/20/20 mcg/actuation nasal spray,suspension valsartan 320 1 tab PO DAILY 12/20/20 12/20/20 mg-hydrochlorothiazide 25 mg tablet Previous Rx's Medication Instructions Recorded aspirin 81 mg tablet,delayed 81 mg PO DAILY #30 tab 12/21/20 release atorvastatin 80 mg tablet 80 mg PO BEDTIME #30 tab 12/21/20 cephalexin 500 mg capsule 500 mg PO QID 10 Days #40 cap 06/19/21 doxycycline hyclate 100 mg tablet 100 mg PO BID #20 tab 06/19/21 ibuprofen 600 mg tablet 600 mg PO Q6H PRN #20 tab 06/19/21 omeprazole 40 mg capsule,delayed 40 mg PO DAILY #30 cap 07/29/21 release Allergies Allergy/AdvReac Type Severity Reaction Status Date / Time lisinopril [LISINOPRIL] Allergy Mild CHEST PAIN Verified 06/19/21 19:37 codeine [CODEINE] AdvReac Unknown AGITATION Verified 06/19/21 19:37 Review of Systems Review of Systems: Yes all other systems are reviewed and are negative [facility] Past Medical History Medical History Essential hypertension Hypertension Social History Social History Household Members: None Housing: Apartment 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 Oriented X3. No acute distress. Eyes: No pallor/icterus ENT: Pharynx normal. Oral Mucosa moist Neck: Normal inspection. Neck supple. CVS: Normal heart rate and rhythm. Pulses normal. Respiratory: No respiratory distress. Equal air entry bilateral, no wheezing/rales/rhonchi Abdomen: Soft , tenderness in the epigastric area Bowel sounds are present, no mass palpable, no CVA tenderness Skin: Skin warm and dry. Normal skin color. Normal skin turgor. Extremities: No lower extremity edema. No calf tenderness Neuro: Oriented X 3. No motor deficit. MDM - Chest Pain MDM Narrative Medical decision making narrative: Patient has epigastric pain likely GI in origin normal EKG is normal 1st initial high sensitive troponin negative, with repeat troponin. Patient without any epigastric pain at this time feeling much better Lab Data Attestation: I reviewed the patient's lab results. Result diagrams: 07/29/21 02:31 07/29/21 02:31 Labs: Lab Results 07/29/21 07/29/21 07/29/21 Range/Units 02:31 02:31 02:31 WBC 8.1 (4.8-10.8) X10*3/uL RBC 3.80 L (4.20-5.50) X10*6/uL Hgb 10.4 L (12.0-16.0) g/dl Hct 32.0 L (37-47) % MCV 84.2 (80-98) fL MCH 27.4 (27.0-33.0) pg MCHC 32.5 (31.0-35.0) g/dl RDW 13.8 (11.0-16.0) % Plt Count 286 D (160-400) X10*3/uL MPV 9.9 (9.4-12.3) fL Immature Gran % (Auto) 0.4 (0.0-0.4) % Neut % (Auto) 48.2 (45-73) % Lymph % (Auto) 31.9 (20-40) % [place] % (Auto) 9.6 (2-11) % Eos % (Auto) 9.4 H (0-4) % Baso % (Auto) 0.5 (0-2) % Lymph # (Auto) 2.6 (1.2-4.9) X10*3/uL [place] # (Auto) 0.8 (0.1-1.2) X10*3/uL Eos # (Auto) 0.8 H (0.0-0.4) X10*3/uL Baso # (Auto) 0.0 (0.0-0.2) X10*3/uL Abs Immat Gran (auto) 0.03 (0.00-0.03) X10*3/uL Absolute Neuts (auto) 3.9 (2.0-8.3) X10*3/uL Absolute Nucleated RBC 0.000 (0.0-0.012) X10*3/uL Nucleated RBC % (auto) 0.0 (0.0-0.2) /100WBC PT 12.2 (9.9-13.0) SEC INR 1.1 (0.9-1.1) APTT 27.4 (24.1-38.0) SEC Sodium 138 (135-145) mmol/L Potassium 4.1 (3.3-5.1) mmol/L Chloride 104 (96-108) mmol/L Carbon Dioxide 27 (22-29) mmol/L Anion Gap 11 L (12-20) BUN 20 H (9-16) mg/dL Creatinine 0.87 (0.5-1.4) mg/dL Estim Creat Clear Calc 46.6 Estimated GFR > 60 Random Glucose 118 H (60-115) mg/dL Calcium 9.7 (8.4-10.2) mg/dL Total Bilirubin 0.3 (0.0-1.0) mg/dL Direct Bilirubin < 0.2 (0.0-0.5) mg/dL AST 23 (5-31) U/L ALT 16 (0-31) U/L Alkaline Phosphatase 69 (39-117) U/L Troponin I High Sens (<3.5-17.0) ng/L Total Protein 6.8 (6.5-8.0) g/dL Albumin 3.3 L (3.5-5.0) g/dL Lipase 43 (8-78) U/L Urine Color Urine Appearance Urine pH (5.0-8.0) Ur Specific [place] (1.005-1.025) Urine Protein (NEG-TRACE) MG/DL Urine Glucose (UA) (NEG) MG/DL Urine Ketones (NEG) MG/DL Urine Blood (NEG) Urine Nitrite (NEG) Ur Leukocyte Esterase (NEG) Urine RBC (0) /HPF Urine WBC (0-4) /HPF Ur Squamous Epith Cells /LPF Urine Bacteria /LPF COVID-19 ([facility]OVE) (Negative) COVID-19 Clin Com 07/29/21 07/29/21 07/29/21 Range/Units 02:31 02:31 02:59 WBC (4.8-10.8) X10*3/uL RBC (4.20-5.50) X10*6/uL Hgb (12.0-16.0) g/dl Hct (37-47) % MCV (80-98) fL MCH (27.0-33.0) pg MCHC (31.0-35.0) g/dl RDW (11.0-16.0) % Plt Count (160-400) X10*3/uL MPV (9.4-12.3) fL Immature Gran % (Auto) (0.0-0.4) % Neut % (Auto) (45-73) % Lymph % (Auto) (20-40) % [place] % (Auto) (2-11) % Eos % (Auto) (0-4) % Baso % (Auto) (0-2) % Lymph # (Auto) (1.2-4.9) X10*3/uL [place] # (Auto) (0.1-1.2) X10*3/uL Eos # (Auto) (0.0-0.4) X10*3/uL Baso # (Auto) (0.0-0.2) X10*3/uL Abs Immat Gran (auto) (0.00-0.03) X10*3/uL Absolute Neuts (auto) (2.0-8.3) X10*3/uL Absolute Nucleated RBC (0.0-0.012) X10*3/uL Nucleated RBC % (auto) (0.0-0.2) /100WBC PT (9.9-13.0) SEC INR (0.9-1.1) APTT (24.1-38.0) SEC Sodium (135-145) mmol/L Potassium (3.3-5.1) mmol/L Chloride (96-108) mmol/L Carbon Dioxide (22-29) mmol/L Anion Gap (12-20) BUN (9-16) mg/dL Creatinine (0.5-1.4) mg/dL Estim Creat Clear Calc Estimated GFR Random Glucose (60-115) mg/dL Calcium (8.4-10.2) mg/dL Total Bilirubin (0.0-1.0) mg/dL Direct Bilirubin (0.0-0.5) mg/dL AST (5-31) U/L ALT (0-31) U/L Alkaline Phosphatase (39-117) U/L Troponin I High Sens 6.9 (<3.5-17.0) ng/L Total Protein (6.5-8.0) g/dL Albumin (3.5-5.0) g/dL Lipase (8-78) U/L Urine Color YELLOW Urine Appearance CLEAR Urine pH 7.0 (5.0-8.0) Ur Specific [place] 1.010 (1.005-1.025) Urine Protein NEG (NEG-TRACE) MG/DL Urine Glucose (UA) NEG (NEG) MG/DL Urine Ketones NEG (NEG) MG/DL Urine Blood 1+ H (NEG) Urine Nitrite NEG (NEG) Ur Leukocyte Esterase TRACE H (NEG) Urine RBC 1-4 (0) /HPF Urine WBC 1-4 (0-4) /HPF Ur Squamous Epith Cells 1+ /LPF Urine Bacteria 1+ /LPF COVID-19 ([facility]OVE) Negative (Negative) COVID-19 Clin Com See Note 07/29/21 Range/Units 04:33 WBC (4.8-10.8) X10*3/uL RBC (4.20-5.50) X10*6/uL Hgb (12.0-16.0) g/dl Hct (37-47) % MCV (80-98) fL MCH (27.0-33.0) pg MCHC (31.0-35.0) g/dl RDW (11.0-16.0) % Plt Count (160-400) X10*3/uL MPV (9.4-12.3) fL Immature Gran % (Auto) (0.0-0.4) % Neut % (Auto) (45-73) % Lymph % (Auto) (20-40) % [place] % (Auto) (2-11) % Eos % (Auto) (0-4) % Baso % (Auto) (0-2) % Lymph # (Auto) (1.2-4.9) X10*3/uL [place] # (Auto) (0.1-1.2) X10*3/uL Eos # (Auto) (0.0-0.4) X10*3/uL Baso # (Auto) (0.0-0.2) X10*3/uL Abs Immat Gran (auto) (0.00-0.03) X10*3/uL Absolute Neuts (auto) (2.0-8.3) X10*3/uL Absolute Nucleated RBC (0.0-0.012) X10*3/uL Nucleated RBC % (auto) (0.0-0.2) /100WBC PT (9.9-13.0) SEC INR (0.9-1.1) APTT (24.1-38.0) SEC Sodium (135-145) mmol/L Potassium (3.3-5.1) mmol/L Chloride (96-108) mmol/L Carbon Dioxide (22-29) mmol/L Anion Gap (12-20) BUN (9-16) mg/dL Creatinine (0.5-1.4) mg/dL Estim Creat Clear Calc Estimated GFR Random Glucose (60-115) mg/dL Calcium (8.4-10.2) mg/dL Total Bilirubin (0.0-1.0) mg/dL Direct Bilirubin (0.0-0.5) mg/dL AST (5-31) U/L ALT (0-31) U/L Alkaline Phosphatase (39-117) U/L Troponin I High Sens 7.0 (<3.5-17.0) ng/L Total Protein (6.5-8.0) g/dL Albumin (3.5-5.0) g/dL Lipase (8-78) U/L Urine Color Urine Appearance Urine pH (5.0-8.0) Ur Specific [place] (1.005-1.025) Urine Protein (NEG-TRACE) MG/DL Urine Glucose (UA) (NEG) MG/DL Urine Ketones (NEG) MG/DL Urine Blood (NEG) Urine Nitrite (NEG) Ur Leukocyte Esterase (NEG) Urine RBC (0) /HPF Urine WBC (0-4) /HPF Ur Squamous Epith Cells /LPF Urine Bacteria /LPF COVID-19 ([facility]) (Negative) COVID-19 Clin Com ECG Data ECG #1: Attestation: I personally reviewed and interpreted this ECG as follows: Interpretation: Sinus bradycardia heart rate 51 beats per minute normal intervals normal axis no acute ischemic changes Discharge Plan Discharge Clinical Impression: Atypical chest pain GERD (gastroesophageal reflux disease) Qualifiers: Esophagitis presence: with esophagitis Esophagitis bleeding: without hemorrhage Qualified Code(s): K21.00 - Gastro-esophageal reflux disease with esophagitis, without bleeding Patient Disposition: Home, Self-Care Instructions: Chest Pain (ED), Gastroesophageal Reflux Disease (ED) Additional Instructions: Continue aspirin Start taking Prilosec Report to ER/PCP if chest pain recurs Prescriptions: New omeprazole 40 mg capsule,delayed release(DR/EC) 40 mg PO DAILY Qty: 30 RF: 0 No Action cetirizine 10 mg Tablet 10 mg PO DAILY RF: 0 famotidine 20 mg Tablet 20 mg PO BID RF: 0 aspirin 81 mg Tablet,Delayed Release (Dr/Ec) 81 mg PO DAILY RF: 0 albuterol sulfate 90 mcg/actuation Hfa Aerosol Inhaler 2 puff INHALATION Q4-6H PRN (Reason: Shortness Of Breath) RF: 0 fluticasone propionate 50 mcg/actuation [place],Suspension 2 spray INTRANASAL DAILY PRN (Reason: Allergic Symptoms) RF: 0 fluticasone propionate 110 mcg/actuation Hfa Aerosol Inhaler 2 puff INHALATION BID RF: 0 calcium carbonate-vitamin D3 [Oyster Shell Calcium-Vit D3] 500 mg(1,250mg) -200 unit Tablet 1 tab PO BID RF: 0 valsartan-hydrochlorothiazide 320-25 mg Tablet 1 tab PO DAILY RF: 0 atorvastatin 80 mg Tablet 80 mg PO BEDTIME Qty: 30 RF: 0 aspirin 81 mg Tablet,Delayed Release (Dr/Ec) 81 mg PO DAILY Qty: 30 RF: 0 cephalexin 500 mg capsule 500 mg PO QID 10 Days Qty: 40 RF: 0 ibuprofen 600 mg tablet 600 mg PO Q6H PRN (Reason: pain) Qty: 20 RF: 0 doxycycline hyclate 100 mg tablet 100 mg PO BID Qty: 20 RF: 0 Interventions: ED Discharge Assessment Last Done: 07/29/21 06:00
[2021-07-29 02:36] LABS: MANUAL DIFF FLAG NO
[2021-07-29 02:37] LABS: Basophils Percent Auto 0.5 % (0-2); Eosinophils Absolute Auto 0.8 X10*3/uL (0.0-0.4); Eosinophils Percent Auto 9.4 % (0-4); Hemoglobin 10.4 g/dl (12.0-16.0); Imm Gran Abs Auto 0.03 X10*3/uL (0.00-0.03); Imm Gran Pct Auto 0.4 % (0.0-0.4); Lymphocytes Absolute Auto 2.6 X10*3/uL (1.2-4.9); Lymphocytes Percent Auto 31.9 % (20-40); Mean Corpuscular HGB Conc 32.5 g/dl (31.0-35.0); Mean Corpuscular Hemoglobin 27.4 pg (27.0-33.0); Mean Corpuscular Volume 84.2 fL (80-98); Mean Platelet Volume 9.9 fL (9.4-12.3); Monocytes Absolute Auto 0.8 X10*3/uL (0.1-1.2); Monocytes Percent Auto 9.6 % (2-11); Neutrophils Absolute Auto 3.9 X10*3/uL (2.0-8.3); Neutrophils Percent Auto 48.2 % (45-73); Platelet Count 286 X10*3/uL (160-400); Red Cell Distribution Width 13.8 % (11.0-16.0); White Blood Count 8.1 X10*3/uL (4.8-10.8)
[2021-07-29 02:45] LABS: INTERNATIONAL NORM RATIO 1.1 (0.9-1.1); Prothrombin Time 12.2 SEC (9.9-13.0)
[2021-07-29 02:48] LABS: Partial Thromboplastin Time 27.4 SEC (24.1-38.0)
[2021-07-29 02:54] LABS: COVID-19 Test Negative (Negative)
[2021-07-29] MEDS: 0.9 % Sodium Chloride 1,000 ML 999 ML IVCONT (02:55)
[2021-07-29 03:03] LABS: Alanine Aminotransferase 16 U/L (0-31); Albumin Level 3.3 g/dL (3.5-5.0); Alkaline Phosphatase 69 U/L (39-117); Anion Gap 11 (12-20); Aspartate Amino Transferase 23 U/L (5-31); Bilirubin Direct < 0.2 mg/dL (0.0-0.5); Bilirubin Total 0.3 mg/dL (0.0-1.0); Blood Urea Nitrogen 20 mg/dL (9-16); Calcium 9.7 mg/dL (8.4-10.2); Carbon Dioxide 27 mmol/L (22-29); Chloride 104 mmol/L (96-108); Creatinine Clr Calc Pharmacy 46.6; Estimated Glomerular Filt Rate > 60; Glucose Random 118 mg/dL (60-115); Lipase 43 U/L (8-78); Potassium 4.1 mmol/L (3.3-5.1); Sodium 138 mmol/L (135-145); Total Protein 6.8 g/dL (6.5-8.0)
[2021-07-29 03:09] LABS: Troponin-I High Sensitivity 6.9 ng/L (<3.5-17.0)
[2021-07-29 03:13] LABS: Appearance Urine CLEAR; Color Urine YELLOW; Glucose Urine UA NEG (NEG); Leukocyte Esterase Urine TRACE (NEG); Nitrite Urine NEG (NEG); UACC Culture Trigger YES; Urine Blood 1+ (NEG); Urine Ketones NEG (NEG); Urine Protein NEG (NEG-TRACE)
[2021-07-29 03:37] LABS: Bacteria Urine 1+ /LPF; Squamous Epithelial Cell Urine 1+ /LPF
[2021-07-29 04:09] VITALS: BP 152/65; PULSE 53; RESP 15; O2SAT 97
--- NOTE | 2021-07-29 04:17 | PC.NURSE ---
pt oob with assist. pt had steady gait, no dizziness or lightheadedness. pt denies any pain at this time.
[2021-07-29 05:53] VITALS: BP 128/52; PULSE 84; RESP 16; TEMP 36.6; O2SAT 100
[2021-07-29] MEDS: Famotidine/PF 20 MG/2 ML VIAL IVPUSH (05:53)
== END 2021-07-29 06:14 | disposition home or self-care (01) ==
PROVIDERS: Emergency Provider Internal Medicine
DX: K21.00 Gastro-esophageal reflux disease with esophagitis, without bleeding (principal); R07.9 Chest pain, unspecified; Z20.822 Contact with and (suspected) exposure to COVID-19; Z79.899 Other long term (current) drug therapy
CPT/HCPCS: 36415; 71045; 80048; 80076; 81001; 83690; 84484; 85025; 85610; 85730; 87086; 87635; 93005; 96361; 96374; 99284; 99285

== ENCOUNTER 2021-08-05 22:39 | Emergency (ER) | payer MEDICARE, SELFPAY ==
--- NOTE | 2021-08-05 | ECG_ITS ---
Test Reason : FALL Blood Pressure : / mmHG Vent. Rate : 050 BPM Atrial Rate : 050 BPM P-R Int : 176 ms QRS Dur : 090 ms QT Int : 416 ms P-R-T Axes : 026 031 059 degrees QTc Int : 379 ms Sinus bradycardia Nonspecific T wave abnormality Abnormal ECG When compared with ECG of 29-JUL-2021 01:53, No significant change was found Referred By: Generic ED Physician Electronically Signed By:RENA CISNEROS
--- NOTE | ~2021-08-05 | CT_ITS ---
EXAMINATION: CT HEAD WITHOUT CONTRAST CLINICAL INFORMATION: Fall COMPARISON: 07/28/2021 TECHNIQUE: Contiguous axial imaging was performed from the skull base to vertex without intravenous administration of contrast. This CT examination was performed using dose optimization techniques as appropriate, variously including the following: *Automated exposure control *Adjustment of mA and/or kV according to patient size (this includes techniques or standardized protocols for targeted exams where dose is matched to indication/reason for exam; i.e. extremities or head) *Use of iterative reconstruction technique DLP: 624 mGy-cm FINDINGS: There is no evidence of acute intracranial hemorrhage or territorial infarction. No abnormal mass effect or midline shift is seen. Rand to white matter differentiation is well preserved. No extra-axial fluid collections are identified. The ventricles are normal in size. There is mild periventricular white matter hypoattenuation consistent with chronic small vessel ischemic disease. The osseous structures and soft tissues are normal. The mastoid air cells and visualized portions of the paranasal sinuses are well aerated. CT/CT head/brain wo con IMPRESSION: No acute intracranial pathology.
[2021-08-05 22:40] VITALS: BP 166/70; PULSE 55; RESP 16; TEMP 36.4; O2SAT 98; BMI 28.3
--- NOTE | 2021-08-05 23:38 | PC.NURSE ---
x ray technologist at bedside for EKG and labs.
[2021-08-06 00:05] LABS: Basophils Percent Auto 0.5 % (0-2); Eosinophils Absolute Auto 0.8 X10*3/uL (0.0-0.4); Eosinophils Percent Auto 9.7 % (0-4); Hematocrit 32.5 % (37-47); Hemoglobin 10.6 g/dl (12.0-16.0); Imm Gran Abs Auto 0.02 X10*3/uL (0.00-0.03); Imm Gran Pct Auto 0.3 % (0.0-0.4); Lymphocytes Absolute Auto 1.6 X10*3/uL (1.2-4.9); Lymphocytes Percent Auto 20.1 % (20-40); MANUAL DIFF FLAG NO; Mean Corpuscular HGB Conc 32.6 g/dl (31.0-35.0); Mean Corpuscular Hemoglobin 27.7 pg (27.0-33.0); Mean Corpuscular Volume 84.9 fL (80-98); Mean Platelet Volume 10.1 fL (9.4-12.3); Monocytes Percent Auto 12.3 % (2-11); Neutrophils Absolute Auto 4.5 X10*3/uL (2.0-8.3); Neutrophils Percent Auto 57.1 % (45-73); Platelet Count 221 X10*3/uL (160-400); Red Blood Count 3.83 X10*6/uL (4.20-5.50); Red Cell Distribution Width 14.3 % (11.0-16.0)
[2021-08-06 00:27] LABS: Alanine Aminotransferase 15 U/L (0-31); Albumin Level 3.4 g/dL (3.5-5.0); Alkaline Phosphatase 69 U/L (39-117); Anion Gap 10 (12-20); Aspartate Amino Transferase 22 U/L (5-31); Bilirubin Total 0.2 mg/dL (0.0-1.0); Blood Urea Nitrogen 19 mg/dL (9-16); Calcium 9.7 mg/dL (8.4-10.2); Carbon Dioxide 28 mmol/L (22-29); Chloride 105 mmol/L (96-108); Estimated Glomerular Filt Rate > 60; Glucose Random 111 mg/dL (60-115); Potassium 3.8 mmol/L (3.3-5.1); Sodium 139 mmol/L (135-145); Total Protein 7.1 g/dL (6.5-8.0)
[2021-08-06 00:30] LABS: Troponin-I High Sensitivity 8.6 ng/L (<3.5-17.0)
[2021-08-06 01:52] VITALS: BP 146/45; PULSE 52; RESP 18; O2SAT 97
--- NOTE | 2021-08-06 02:38 | ED.FALL ---
HPI - Fall General Chief Complaint: Fall Stated Complaint: fall Time Seen by Provider: 08/06/21 01:55 Source: patient and family (Daughter) Mode of arrival: ambulatory Limitations: language barrier (Mongolian speaking only) History of Present Illness HPI Narrative: 86-year-old female who presents emergency department for evaluation of head injury/scalp laceration from a fall. Patient lives alone. The patient states that she was walking and may have tripped over back falling forward. She is uncertain if she passed out. She did notice bleeding from a scalp wound and she called her daughter who then picked her up and brought her to the emergency department. She is complaining of a mild, frontal headache. She denied nausea, vomiting, numbness or weakness. The daughter states the patient has been more confused recently but does not appear to be any different from her baseline this morning.. Related Data Home Medications Medication Instructions Recorded Confirmed cetirizine 10 mg tablet 10 mg PO DAILY 12/19/20 12/19/20 famotidine 20 mg tablet 20 mg PO BID 12/19/20 12/20/20 albuterol sulfate 90 mcg/actuation 2 puff INHALATION Q4-6H PRN 12/20/20 12/20/20 aerosol inhaler aspirin 81 mg tablet,delayed 81 mg PO DAILY 12/20/20 12/20/20 release calcium carbonate 500 mg (1,250 1 tab PO BID 12/20/20 12/20/20 mg)-vitamin D3 200 unit tablet (Oyster Shell Calcium-Vit D3) fluticasone propionate 110 2 puff INHALATION BID 12/20/20 12/20/20 mcg/actuation HFA aerosol inhaler fluticasone propionate 50 2 spray INTRANASAL DAILY PRN 12/20/20 12/20/20 mcg/actuation nasal spray,suspension valsartan 320 1 tab PO DAILY 12/20/20 12/20/20 mg-hydrochlorothiazide 25 mg tablet Previous Rx's Medication Instructions Recorded aspirin 81 mg tablet,delayed 81 mg PO DAILY #30 tab 12/21/20 release atorvastatin 80 mg tablet 80 mg PO BEDTIME #30 tab 12/21/20 cephalexin 500 mg capsule 500 mg PO QID 10 Days #40 cap 06/19/21 doxycycline hyclate 100 mg tablet 100 mg PO BID #20 tab 06/19/21 ibuprofen 600 mg tablet 600 mg PO Q6H PRN #20 tab 06/19/21 omeprazole 40 mg capsule,delayed 40 mg PO DAILY #30 cap 07/29/21 release Allergies Allergy/AdvReac Type Severity Reaction Status Date / Time lisinopril [LISINOPRIL] Allergy Mild CHEST PAIN Verified 06/19/21 19:37 codeine [CODEINE] AdvReac Unknown AGITATION Verified 06/19/21 19:37 Review of Systems Review of Systems: Yes all other systems are reviewed and are negative [facility] Past Medical History [facility] Narrative: Social history: The patient lives at home by herself. She does have family in the area that checks in on her and she is here with her daughter. She denies tobacco, alcohol and drug use. Medical History Essential hypertension Hypertension Social History Social History Household Members: None Housing: Apartment Do you presently have visiting nurse or other home services: Yes ([employer]) Alcohol intake: never Patient Tobacco Use Status: Never used Tobacco Advance Directives: No Advance Directives Information Provided: No service: No Current occupational status: unemployed Physical Exam Vital Signs: Vital Signs: Last Vital Signs Temp 97.6 F 08/05/21 22:40 Pulse 52 08/06/21 01:52 Resp 18 08/06/21 01:52 BP 146/45 H 08/06/21 01:52 Pulse Ox 97 08/06/21 01:52 Body Mass Index 28.3 Const: Other: Very pleasant and cooperative female patient, does not appear to be in distress, answers all questions appropriately, does have a laceration to her scalp which is actively bleeding. HENMT: Other: 4.0 cm linear laceration to frontal parietal scalp, full skin thickness, actively bleeding. Head: Yes normal to inspection and Yes normocephalic Ears: external ears normal General nose exam: Normal external nose present Face and sinus: Yes normal facial exam Mouth: Normal oral and palatal mucosa present Throat: Yes posterior oropharynx normal Eyes: General: appearance normal, both eyes and all related structures Pupils: Equal, round and reactive pupils present Neck: Neck: Yes normal visual inspection, Yes no lymphadenopathy, Yes trachea midline and Yes supple Chest: Chest palpation & inspection: normal inspection of the chest and normal palpation of entire chest wall Resp: Effort & Inspection: normal respiratory effort and able to speak in complete sentences Auscultation: clear to auscultation bilaterally Cardio: Rate: regular rate Rhythm: regular rhythm Heart sounds: S1 normal heart sound present, S2 normal heart sound present and no murmurs GI: Inspection: Yes normal to inspection Palpation (GI): Soft to palpation, nontender and no guarding Auscultation: normal bowel sounds : General: Yes no CVA tenderness Back/Spine/Pelvis: Back: no CVA tenderness Skin: General skin exam: no rashes or lesions noted Neuro: Cranial nerves: Yes CN's II-XII intact bilaterally and Yes Equal, round and reactive pupils present Cognition (Neuro): normal cognition Motor exam (neuro): 5/5 motor strength present throughout Extrem: General: Yes normal to inspection Psych: Appearance: grossly normal Speech and movement: Normal speech and movement present Affect: normal affect Attitude: cooperative Thought process: Normal thought process present Thought content: Normal thought content present Course Course Course Narrative: 86-year-old female who presents emergency department for evaluation of trip and fall with head injury and scalp laceration. Physical examination did reveal a 4.0 cm laceration which did stable repair with 10 shannan. The patient had a CT scan of the brain which was unremarkable. Laboratory evaluation revealed anemia with an H&H of 10 and 32 but this is chronic. Patient's high sensitivity troponin was detectable but not elevated at 8.6. She has had similar elevations in the past. The daughter believes that the patient's tetanus shot was more than 5 years prior therefore she was given a Tdap here in the emergency department. The patient was discharged home with printed instructions on head injuries, and I did review these with the patient's daughter. Procedures Laceration Laceration 1: Site: scalp Size (cm): 4.0 Local Anesthetic: lidocaine 1% and with epi Amount of anesthesia used (mL): 10 Pre-repair: wound explored Skin layer closed with: other ([place]) Number of sutures: 10 Technique: simple, interrupted MDM - Fall Lab Data Result diagrams: 08/05/21 23:59 08/05/21 23:59 Labs: Lab Results 08/05/21 08/05/21 08/05/21 Range/Units 23:59 23:59 23:59 WBC 8.0 (4.8-10.8) X10*3/uL RBC 3.83 L (4.20-5.50) X10*6/uL Hgb 10.6 L (12.0-16.0) g/dl Hct 32.5 L (37-47) % MCV 84.9 (80-98) fL MCH 27.7 (27.0-33.0) pg MCHC 32.6 (31.0-35.0) g/dl RDW 14.3 (11.0-16.0) % Plt Count 221 (160-400) X10*3/uL MPV 10.1 (9.4-12.3) fL Immature Gran % (Auto) 0.3 (0.0-0.4) % Neut % (Auto) 57.1 (45-73) % Lymph % (Auto) 20.1 (20-40) % Ware % (Auto) 12.3 H (2-11) % Eos % (Auto) 9.7 H (0-4) % Baso % (Auto) 0.5 (0-2) % Lymph # (Auto) 1.6 (1.2-4.9) X10*3/uL Ware # (Auto) 1.0 (0.1-1.2) X10*3/uL Eos # (Auto) 0.8 H (0.0-0.4) X10*3/uL Baso # (Auto) 0.0 (0.0-0.2) X10*3/uL Abs Immat Gran (auto) 0.02 (0.00-0.03) X10*3/uL Absolute Neuts (auto) 4.5 (2.0-8.3) X10*3/uL Absolute Nucleated RBC 0.000 (0.0-0.012) X10*3/uL Nucleated RBC % (auto) 0.0 (0.0-0.2) /100WBC Sodium 139 (135-145) mmol/L Potassium 3.8 (3.3-5.1) mmol/L Chloride 105 (96-108) mmol/L Carbon Dioxide 28 (22-29) mmol/L Anion Gap 10 L (12-20) BUN 19 H (9-16) mg/dL Creatinine 0.89 (0.5-1.4) mg/dL Estim Creat Clear Calc 40.0 Estimated GFR > 60 Random Glucose 111 (60-115) mg/dL Calcium 9.7 (8.4-10.2) mg/dL Total Bilirubin 0.2 (0.0-1.0) mg/dL AST 22 (5-31) U/L ALT 15 (0-31) U/L Alkaline Phosphatase 69 (39-117) U/L Troponin I High Sens 8.6 (<3.5-17.0) ng/L Total Protein 7.1 (6.5-8.0) g/dL Albumin 3.4 L (3.5-5.0) g/dL Discharge Plan Discharge Clinical Impression: Closed head injury, Fall, Laceration of scalp, Need for Tdap vaccination Patient Disposition: Home, Self-Care Instructions: Head Injury (ED), Head Laceration (ED) Additional Instructions: The CT scan of your head revealed no skull fracture or bleeding in the brain. Your laboratory evaluation was unremarkable. Your laceration was closed with 10 shannan. Apply bacitracin twice a day for 1 week. The shannan need to be removed in 7-10 days by your doctor. Take Tylenol (acetaminophen) 500 mg pills, 2 pills every 4 to 6 hours as needed for pain. You received a tetanus, diptheria and Pertussin vaccination (Tdap). This is good for 5-10 years. Follow-up with your doctor in 2 days. Please return to the emergency department if your symptoms get worse or if you develop any symptoms that are concerning to you. Prescriptions: No Action cetirizine 10 mg Tablet 10 mg PO DAILY RF: 0 famotidine 20 mg Tablet 20 mg PO BID RF: 0 aspirin 81 mg Tablet,Delayed Release (Dr/Ec) 81 mg PO DAILY RF: 0 albuterol sulfate 90 mcg/actuation Hfa Aerosol Inhaler 2 puff INHALATION Q4-6H PRN (Reason: Shortness Of Breath) RF: 0 fluticasone propionate 50 mcg/actuation [place],Suspension 2 spray INTRANASAL DAILY PRN (Reason: Allergic Symptoms) RF: 0 fluticasone propionate 110 mcg/actuation Hfa Aerosol Inhaler 2 puff INHALATION BID RF: 0 calcium carbonate-vitamin D3 [Oyster Shell Calcium-Vit D3] 500 mg(1,250mg) -200 unit Tablet 1 tab PO BID RF: 0 valsartan-hydrochlorothiazide 320-25 mg Tablet 1 tab PO DAILY RF: 0 atorvastatin 80 mg Tablet 80 mg PO BEDTIME Qty: 30 RF: 0 aspirin 81 mg Tablet,Delayed Release (Dr/Ec) 81 mg PO DAILY Qty: 30 RF: 0 cephalexin 500 mg capsule 500 mg PO QID 10 Days Qty: 40 RF: 0 ibuprofen 600 mg tablet 600 mg PO Q6H PRN (Reason: pain) Qty: 20 RF: 0 doxycycline hyclate 100 mg tablet 100 mg PO BID Qty: 20 RF: 0 omeprazole 40 mg capsule,delayed release(DR/EC) 40 mg PO DAILY Qty: 30 RF: 0
[2021-08-06] MEDS: Lidocaine HCl 2% PF/Epi 1:200 20 ML VIAL INFILTRATI (02:40)
--- NOTE | 2021-08-06 02:40 | PC.NURSE ---
ED Pyxis not stocked with lido with epi in volume that was ordered by MD. Per bailey Baer to pull 5mL vial x 2 of same med/same concentration. This RN pulled med. Unable to scan meds as vial size pulled vs ordered are not the same. Med administered by MD at bedside.
[2021-08-06] MEDS: Acetaminophen 325 MG TABLET 975 MG PO (02:50)
[2021-08-06] MEDS: Diphth,Pertus(ACell),Tet Adult 0.5 ML SYRINGE IM (02:51)
--- NOTE | 2021-08-06 02:58 | PC.NURSE ---
Pt alert and oriented x4, calm and cooperative. Pt states 4/10 head pain at laceration site. Pt received 10 stales to laceration and tolerated well. Site noted to be clean dry and intact. No IV in place. Vitals stable. Pt ready for dc, pt and daughter educated on dc teaching.
[2021-08-06 03:00] VITALS: BP 170/84; PULSE 72; RESP 15; TEMP 37; O2SAT 97
== END 2021-08-06 03:23 | disposition home or self-care (01) ==
PROVIDERS: Emergency Provider Emergency Medicine Emergency Medical Services; PCP Internal Medicine
DX: S01.01XA Laceration without foreign body of scalp, initial encounter (principal); G44.309 Post-traumatic headache, unspecified, not intractable; W01.10XA Fall on same level from slipping, tripping and stumbling with subsequent striking against unspecified object, initial encounter; Y93.9 Activity, unspecified; Y92.9 Unspecified place or not applicable; Y99.9 Unspecified external cause status
CPT/HCPCS: 12002; 36415; 70450; 80053; 84484; 85025; 90471; 90715; 93005; 99284; 99285

== ENCOUNTER 2021-09-19 11:50 | Outpatient (REF) | payer MEDICARE, SELFPAY ==
[2021-09-19 12:51] LABS: Cholesterol 162 mg/dL; HDL Cholesterol 45 mg/dL; LDL Cholesterol Calculated 97 mg/dl; Triglycerides 102 mg/dL
== END 2021-09-19 11:51 | disposition home or self-care (01) ==
LOC: HO.LAB 11:50
PROVIDERS: PCP Internal Medicine; Visit Provider Physician Assistant Medical
DX: E78.2 Mixed hyperlipidemia (principal)
CPT/HCPCS: 36415; 80061

== ENCOUNTER 2021-11-03 09:44 | Outpatient (REF) | payer MEDICARE, SELFPAY ==
--- NOTE | ~2021-11-03 | XR_ITS ---
EXAMINATION: XR SHOULDER, RIGHT CLINICAL INFORMATION: Right shoulder pain. Pruritis. COMPARISON: None TECHNIQUE: AP external rotation, Grashey, scapular Y, and axillary views of the right shoulder. FINDINGS: Mild acromioclavicular osteoarthritis. Glenohumeral joint appears relatively well preserved. Prominent anterior subacromial spur. Bones are osteopenic. No acute fractures. Degenerative spondylosis is present in the thoracic spine. XR/XR shoulder RT min 2V IMPRESSION: Mild acromioclavicular osteoarthritis. Anterior subacromial spurs, predisposing to subacromial impingement.
--- NOTE | ~2021-11-03 | XR_ITS ---
EXAMINATION: XR CHEST CLINICAL INFORMATION: Pain in the right shoulder. COMPARISON: 07/29/2021 TECHNIQUE: PA and lateral views of the chest were obtained. FINDINGS: Granuloma is present in the left lower lobe. No consolidation, pneumothorax, or pleural effusion. Cardiac silhouette is borderline enlarged. Mediastinal contour is normal. Pulmonary vasculature is unremarkable. Trachea is midline. Degenerative disc disease is present in the upper thoracic spine with slight prominence of the kyphosis. XR/XR chest 2V IMPRESSION: No acute cardiopulmonary findings. 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
== END 2021-11-03 09:45 | disposition home or self-care (01) ==
LOC: HO.XRAY 09:44
PROVIDERS: PCP Internal Medicine; Visit Provider Internal Medicine
DX: M25.511 Pain in right shoulder (principal); L29.9 Pruritus, unspecified; D64.9 Anemia, unspecified
CPT/HCPCS: 71046; 73030

== ENCOUNTER 2021-11-25 12:54 | Emergency (ER) | payer MEDICARE, SELFPAY ==
[2021-11-25] VITALS (20 sets, daily range): BP systolic 83–190; BP diastolic 47–114; PULSE 53–67; RESP 16–21; TEMP 28.1–36.4; O2SAT 95–100; BMI 27.1
--- NOTE | ~2021-11-25 | XR_ITS ---
EXAMINATION: XR CHEST CLINICAL INFORMATION: Check ET tube placement COMPARISON: Previous chest x-ray most recent October 2021 TECHNIQUE: Frontal view of the chest was obtained. FINDINGS: The cardiac and mediastinal contours are stable. There is an endotracheal tube. The burt is not well visualized due to overlying chest lead. Endotracheal tube is probably 2 cm or less above the burt. Repeat imaging recommended. There is a nasogastric tube that projects over the stomach. The tip is not seen. There is loss of the left hemidiaphragm suggestive of left lower lobe atelectasis or consolidation. There may be a 5 mm left lower lobe nodule. The right lung is clear. There is no pleural effusion or pneumothorax. There are degenerative changes of the spine. XR/XR chest 1V IMPRESSION: Endotracheal tube in place. The burt not well visualized due to overlying chest lead. Follow-up chest x-ray with repositioning of the lead recommended. Nasogastric tube projects over stomach, tip not seen. Left lower lobe atelectasis or elevation/pneumonia.
--- NOTE | ~2021-11-25 | CT_ITS ---
EXAMINATION: CT HEAD WITHOUT CONTRAST CLINICAL INFORMATION: Hypertension. Patient is unresponsive. COMPARISON: Previous head CT most recent July 2021 TECHNIQUE: Contiguous axial imaging was performed from the skull base to vertex without intravenous administration of contrast. This CT examination was performed using dose optimization techniques as appropriate, variously including the following: *Automated exposure control *Adjustment of mA and/or kV according to patient size (this includes techniques or standardized protocols for targeted exams where dose is matched to indication/reason for exam; i.e. extremities or head) *Use of iterative reconstruction technique DLP: 663 mGy-cm FINDINGS: There is a large amount of subarachnoid hemorrhage seen adjacent to the brainstem, suprasellar cistern and quadrigeminal plate, left sylvian fissure, adjacent to the right anterior parietal lobe and small amount in the posteroinferior posterior fossa. The ventricles and extra-axial CSF spaces are appropriate. There is nonspecific periventricular white matter disease. 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 No mass or mass effect or acute infarct is seen. Review at bone windows is normal. No skull fracture is seen. Visualized paranasal sinuses, mastoid air cells and middle ears are clear. CT/CT head/brain wo con IMPRESSION: Large amount of subarachnoid hemorrhage. Findings are communicated to Lucia Apple by telephone on 11/25/2021 at 1:39 PM.
--- NOTE | 2021-11-25 12:50 | PC.NURSE ---
1250 patient arrived to ED via EMS. EMS states patients caregiver was with patient and she was normal, caregiver then when outside to take out trash and when they came back patient was unresponsive on floor. EMS states they found patient supine on the floor, unresponsive with agonal breathing, 2 IV's started by EMS, narcan and zofran given, Patient arrived being bagged by EMS. EMS states last known well time was approx 1215 today. HTN with EMS 1258 HR 62, O2 100% via BVM w/ 100% 02, RR 15 1259 POC 117 1300 etomidate 20mg IVP, Rocc 80mg IVP. 176/66 hr 78, physician attempting intubation 1301 patient intubated 24 at the lip size 7.5 tube, positive color change. 1302 hr 80, 100% O2 w/ 100% o2 via vent
--- NOTE | 2021-11-25 12:59 | ECG_ITS ---
Test Reason : UNRESPONSIVE Blood Pressure : / mmHG Vent. Rate : 084 BPM Atrial Rate : 174 BPM P-R Int : 170 ms QRS Dur : 088 ms QT Int : 282 ms P-R-T Axes : 080 046 221 degrees QTc Int : 333 ms Sinus rhtyhm Nonspecific T wave changes Abnormal ECG When compared with ECG of 05-AUG-2021 23:41, nonspecific T wave changes present Referred By: Lucia Apple Electronically Signed By:Wyatt Méndez
[2021-11-25] MEDS: Rocuronium Bromide 50 MG/5 ML VIAL 80 MG IVPUSH (13:00)
[2021-11-25] MEDS: Etomidate 20 MG/10 ML VIAL IVPUSH (13:00)
[2021-11-25 13:06] LABS: Glucose, Whole Blood 117 mg/dL (60-115)
--- NOTE | 2021-11-25 13:32 | ED_ITS ---
HPI - General Adult General Chief complaint: Neuro Symptoms/Deficit Stated complaint: unresponsive Time Seen by Provider: 11/25/21 13:04 Source: EMS Mode of arrival: EMS Limitations: other History of Present Illness HPI narrative: Patient comes to the emergency room via EMS. The nurse aide reports that the patient was doing very well this morning. A few minutes prior to calling 911, the administrative nursing supervisor reports that she stepped outside of the house to throw trash away. When she returned, she found the patient face down, unresponsive. When EMS arrived, blood pressure was close to 200 systolic, patient having agonal breathing. Patient was ventilated with an Ambu bag. On arrival to the emergency room, patient did not have any reflexes present, patient was clenched at the jaw. Patient was given 20 mg of etomidate and 80 of rocuronium and patient was intubated Related Data Home Medications Medication Instructions Recorded Confirmed cetirizine 10 mg tablet 10 mg PO DAILY 12/19/20 11/25/21 famotidine 20 mg tablet 20 mg PO BID 12/19/20 11/25/21 albuterol sulfate 90 mcg/actuation 2 puff INHALATION Q4-6H PRN 12/20/20 11/25/21 aerosol inhaler calcium carbonate 500 mg-vitamin 1 tab PO BID 12/20/20 11/25/21 D3 5 mcg (200 unit) tablet (Oyster Shell Calcium-Vitamin D3) fluticasone propionate 110 2 puff INHALATION BID 12/20/20 11/25/21 mcg/actuation HFA aerosol inhaler fluticasone propionate 50 2 spray INTRANASAL DAILY PRN 12/20/20 11/25/21 mcg/actuation nasal spray,suspension valsartan 320 1 tab PO DAILY 12/20/20 11/25/21 mg-hydrochlorothiazide 25 mg tablet clobetasol 0.05 % topical cream 1 applic TOPICAL BID 11/25/21 11/25/21 rosuvastatin 10 mg tablet 1 tab PO QPM 11/25/21 11/25/21 Previous Rx's Medication Instructions Recorded aspirin 81 mg tablet,delayed 81 mg PO DAILY #30 tab 12/21/20 release Allergies Allergy/AdvReac Type Severity Reaction Status Date / Time lisinopril [LISINOPRIL] Allergy Mild CHEST PAIN Verified 06/19/21 19:37 codeine [CODEINE] AdvReac Unknown AGITATION Verified 06/19/21 19:37 Review of Systems Review of Systems: Yes Unobtainable due to mental condition and Unobtainable due to mental status PMFSH Past Medical History Medical History Essential hypertension Hypertension Social History Social History Household Members: None Housing: Apartment Do you presently have visiting nurse or other home services: 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 Neck: Normal inspection. Neck supple. No lymph nodes noted. No crepitus CVS: Normal heart rate and rhythm. Pulses normal. Normal S1 and S2 Respiratory: Agonal breathing, patient needed to be ventilated with an Ambu bag Abdomen: Soft Skin: Skin warm, cool to touch Extremities: No lower extremity edema. Neuro: Unresponsive Course Course Course Narrative: I discussed the patient with Dr. Quiroz from Neurosurgery at [facility]. The image transfer has been ordered but is is pending. At this time, given the description of the subarachnoid hemorrhage, it seems that this may not be survival. Dr. Quiroz will consult her colleague once they reviewed the images, and then they will give us advise. At this time, patient has already received 1 L of normal saline, patient is on esmolol for blood pressure control. 1500 mg of Keppra were given prophylactically. 14:30 Dr. Quiroz from neurosurgery reviewed the images with her colleague. At this time, no neurosurgery intervention is indicated. The prognosis is poor. Recommendations are to keep the patient in the ICU, if patient shows any neur ological improvement they will go ahead and [facility]. However, patient has no improvements in her neurological exam over the next 24 hours, withdrawal of care is advised. At this time, given the severity and the extents of the bleed, neurosurgery attendings do not thing that the patient will improve. We discussed starting mannitol, at this time it was advised not to start mannitol. Patient remains intubated, blood pressure 156/57, heart rate 57. Patient does not have any sedation medication on board, patient remains unresponsive, not fighting the vent. 14:49. I was called at bedside. Patient's granddaughter is in the room. Patient is waking up, patient opens her eyes when asked to do so, patient is able to squeeze with her right hand, strength 1/5, the patient is a to move her feet, patient does so, shakes her right foot, patient is barely able to move her left foot. This was checked multiple times, patient is following directions. I discussed the patient again with Dr. 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 I discussed with our ICU physician the possibility of extubating the patient. At this time, not advised to do so since the patient may have a 2nd bleed. Instead, we will give a 20mg push of propofol. we are trying to keep pt comfortable but not too sedated for ongoing neurochecks. EMS arrival pending. Sign out given to Dr. Mitchell Medical Decision Making Lab Data Result diagrams: 11/25/21 13:58 11/25/21 13:53 Labs: Lab Results 11/25/21 11/25/21 11/25/21 Range/Units 12:57 13:53 13:53 WBC (4.8-10.8) X10*3/uL RBC (4.20-5.50) X10*6/uL Hgb (12.0-16.0) g/dl Hct (37.0-47.0) % MCV (80.0-98.0) fL MCH (27.0-33.0) pg MCHC (31.0-35.0) g/dl RDW (11.0-16.0) % Plt Count (160-400) X10*3/uL MPV (9.4-12.3) fL Immature Gran % (Auto) (0.0-0.4) % Neut % (Auto) (45-73) % Lymph % (Auto) (20-40) % [place] % (Auto) (2-11) % Eos % (Auto) (0-4) % Baso % (Auto) (0-2) % Lymph # (Auto) (1.2-4.9) X10*3/uL [place] # (Auto) (0.1-1.2) X10*3/uL Eos # (Auto) (0.0-0.4) X10*3/uL Baso # (Auto) (0.0-0.2) X10*3/uL Abs Immat Gran (auto) (0.00-0.03) X10*3/uL Absolute Neuts (auto) (2.0-8.3) x10*3/uL Absolute Nucleated RBC (0.0-0.012) X10*3/uL Nucleated RBC % (auto) (0.0-0.2) /100WBC PT (9.9-13.0) SEC INR (0.9-1.1) Sodium 140 (135-145) mmol/L Potassium 3.8 (3.3-5.1) mmol/L Chloride 106 (96-108) mmol/L Carbon Dioxide 20 L (22-29) mmol/L Anion Gap 18 (12-20) BUN 17 H (9-16) mg/dL Creatinine 0.81 (0.5-1.4) mg/dL Estim Creat Clear Calc 43.1 Estimated GFR > 60 POC Glucose 117 H (60-115) mg/dL Random Glucose 156 H (60-115) mg/dL Lactic Acid (0.5-2.0) mmol/L Calcium 9.6 (8.4-10.2) mg/dL Magnesium 1.6 (1.6-2.6) mg/dL Total Bilirubin 0.4 (0.0-1.0) mg/dL Direct Bilirubin 0.2 (0.0-0.5) mg/dL AST 36 H D (5-31) U/L ALT 19 (0-31) U/L Alkaline Phosphatase 57 (39-117) U/L Troponin I High Sens (<3.5-17.0) ng/L B-Natriuretic Peptide (<100) pg/mL Total Protein 7.8 (6.5-8.0) g/dL Albumin 3.4 L (3.5-5.0) g/dL Lipase 34 (8-78) U/L Urine Color Urine Appearance Urine pH (5.0-8.0) Ur Specific [place] (1.005-1.025) Urine Protein (NEG-TRACE) MG/DL Urine Glucose (UA) (NEG) MG/DL Urine Ketones (NEG) MG/DL Urine Blood (NEG) Urine Nitrite (NEG) Ur Leukocyte Esterase (NEG) Urine RBC (0) /HPF Urine WBC (0-4) /HPF Ur Squamous Epith Cells /LPF Urine Bacteria Urine Opiates Screen (Not Detect) Urine Fentanyl Screen (Not Detect) Ur Barbiturates Screen (Not Detect) Ur Phencyclidine Scrn (Not Detect) Ur Amphetamines Screen (Not Detect) U Benzodiazepines Scrn (Not Detect) Urine Cocaine Screen (Not Detect) U Marijuana (THC) Screen (Not Detect) Ethyl Alcohol < 10 mg/dL COVID-19 (LOVE) (Negative) COVID-19 Clin Com 11/25/21 11/25/21 11/25/21 Range/Units 13:53 13:58 13:58 WBC 11.4 H (4.8-10.8) X10*3/uL RBC 3.90 L (4.20-5.50) X10*6/uL Hgb 10.6 L (12.0-16.0) g/dl Hct 32.9 L (37.0-47.0) % MCV 84.4 (80.0-98.0) fL MCH 27.2 (27.0-33.0) pg MCHC 32.2 (31.0-35.0) g/dl RDW 14.5 (11.0-16.0) % Plt Count 205 (160-400) X10*3/uL MPV 11.1 (9.4-12.3) fL Immature Gran % (Auto) 1.8 H (0.0-0.4) % Neut % (Auto) 67.1 (45-73) % Lymph % (Auto) 20.8 (20-40) % [place] % (Auto) 6.7 (2-11) % Eos % (Auto) 3.2 (0-4) % Baso % (Auto) 0.4 (0-2) % Lymph # (Auto) 2.4 (1.2-4.9) X10*3/uL [place] # (Auto) 0.8 (0.1-1.2) X10*3/uL Eos # (Auto) 0.4 (0.0-0.4) X10*3/uL Baso # (Auto) 0.0 (0.0-0.2) X10*3/uL Abs Immat Gran (auto) 0.20 H (0.00-0.03) X10*3/uL Absolute Neuts (auto) 7.7 (2.0-8.3) x10*3/uL Absolute Nucleated RBC 0.000 (0.0-0.012) X10*3/uL Nucleated RBC % (auto) 0.0 (0.0-0.2) /100WBC PT (9.9-13.0) SEC INR (0.9-1.1) Sodium (135-145) mmol/L Potassium (3.3-5.1) mmol/L Chloride (96-108) mmol/L Carbon Dioxide (22-29) mmol/L Anion Gap (12-20) BUN (9-16) mg/dL Creatinine (0.5-1.4) mg/dL Estim Creat Clear Calc Estimated GFR POC Glucose (60-115) mg/dL Random Glucose (60-115) mg/dL Lactic Acid (0.5-2.0) mmol/L Calcium (8.4-10.2) mg/dL Magnesium (1.6-2.6) mg/dL Total Bilirubin (0.0-1.0) mg/dL Direct Bilirubin (0.0-0.5) mg/dL AST (5-31) U/L ALT (0-31) U/L Alkaline Phosphatase (39-117) U/L Troponin I High Sens 8.5 (<3.5-17.0) ng/L B-Natriuretic Peptide (<100) pg/mL Total Protein (6.5-8.0) g/dL Albumin (3.5-5.0) g/dL Lipase (8-78) U/L Urine Color YELLOW Urine Appearance HAZY Urine pH 6.5 (5.0-8.0) Ur Specific [place] 1.020 (1.005-1.025) Urine Protein 1+ H (NEG-TRACE) MG/DL Urine Glucose (UA) NEG (NEG) MG/DL Urine Ketones NEG (NEG) MG/DL Urine Blood 2+ H (NEG) Urine Nitrite NEG (NEG) Ur Leukocyte Esterase NEG (NEG) Urine RBC 10-14 H (0) /HPF Urine WBC 0-2 (0-4) /HPF Ur Squamous Epith Cells TRACE /LPF Urine Bacteria Not Reportable Urine Opiates Screen (Not Detect) Urine Fentanyl Screen (Not Detect) Ur Barbiturates Screen (Not Detect) Ur Phencyclidine Scrn (Not Detect) Ur Amphetamines Screen (Not Detect) U Benzodiazepines Scrn (Not Detect) Urine Cocaine Screen (Not Detect) U Marijuana (THC) Screen (Not Detect) Ethyl Alcohol mg/dL COVID-19 (LOVE) (Negative) COVID-19 Clin Com 11/25/21 11/25/21 11/25/21 Range/Units 13:58 13:58 13:58 WBC (4.8-10.8) X10*3/uL RBC (4.20-5.50) X10*6/uL Hgb (12.0-16.0) g/dl Hct (37.0-47.0) % MCV (80.0-98.0) fL MCH (27.0-33.0) pg MCHC (31.0-35.0) g/dl RDW (11.0-16.0) % Plt Count (160-400) X10*3/uL MPV (9.4-12.3) fL Immature Gran % (Auto) (0.0-0.4) % Neut % (Auto) (45-73) % Lymph % (Auto) (20-40) % [place] % (Auto) (2-11) % Eos % (Auto) (0-4) % Baso % (Auto) (0-2) % Lymph # (Auto) (1.2-4.9) X10*3/uL [place] # (Auto) (0.1-1.2) X10*3/uL Eos # (Auto) (0.0-0.4) X10*3/uL Baso # (Auto) (0.0-0.2) X10*3/uL Abs Immat Gran (auto) (0.00-0.03) X10*3/uL Absolute Neuts (auto) (2.0-8.3) x10*3/uL Absolute Nucleated RBC (0.0-0.012) X10*3/uL Nucleated RBC % (auto) (0.0-0.2) /100WBC PT 12.9 (9.9-13.0) SEC INR 1.1 (0.9-1.1) Sodium (135-145) mmol/L Potassium (3.3-5.1) mmol/L Chloride (96-108) mmol/L Carbon Dioxide (22-29) mmol/L Anion Gap (12-20) BUN (9-16) mg/dL Creatinine (0.5-1.4) mg/dL Estim Creat Clear Calc Estimated GFR POC Glucose (60-115) mg/dL Random Glucose (60-115) mg/dL Lactic Acid (0.5-2.0) mmol/L Calcium (8.4-10.2) mg/dL Magnesium (1.6-2.6) mg/dL Total Bilirubin (0.0-1.0) mg/dL Direct Bilirubin (0.0-0.5) mg/dL AST (5-31) U/L ALT (0-31) U/L Alkaline Phosphatase (39-117) U/L Troponin I High Sens (<3.5-17.0) ng/L B-Natriuretic Peptide 104 H (<100) pg/mL Total Protein (6.5-8.0) g/dL Albumin (3.5-5.0) g/dL Lipase (8-78) U/L Urine Color Urine Appearance Urine pH (5.0-8.0) Ur Specific [place] (1.005-1.025) Urine Protein (NEG-TRACE) MG/DL Urine Glucose (UA) (NEG) MG/DL Urine Ketones (NEG) MG/DL Urine Blood (NEG) Urine Nitrite (NEG) Ur Leukocyte Esterase (NEG) Urine RBC (0) /HPF Urine WBC (0-4) /HPF Ur Squamous Epith Cells /LPF Urine Bacteria Urine Opiates Screen Not Detected (Not Detect) Urine Fentanyl Screen Not Detected (Not Detect) Ur Barbiturates Screen Not Detected (Not Detect) Ur Phencyclidine Scrn Not Detected (Not Detect) Ur Amphetamines Screen Not Detected (Not Detect) U Benzodiazepines Scrn Not Detected (Not Detect) Urine Cocaine Screen Not Detected (Not Detect) U Marijuana (THC) Screen Not Detected (Not Detect) Ethyl Alcohol mg/dL COVID-19 (LOVE) (Negative) COVID-19 Clin Com 11/25/21 11/25/21 Range/Units 13:59 14:01 WBC (4.8-10.8) X10*3/uL RBC (4.20-5.50) X10*6/uL Hgb (12.0-16.0) g/dl Hct (37.0-47.0) % MCV (80.0-98.0) fL MCH (27.0-33.0) pg MCHC (31.0-35.0) g/dl RDW (11.0-16.0) % Plt Count (160-400) X10*3/uL MPV (9.4-12.3) fL Immature Gran % (Auto) (0.0-0.4) % Neut % (Auto) (45-73) % Lymph % (Auto) (20-40) % [place] % (Auto) (2-11) % Eos % (Auto) (0-4) % Baso % (Auto) (0-2) % Lymph # (Auto) (1.2-4.9) X10*3/uL [place] # (Auto) (0.1-1.2) X10*3/uL Eos # (Auto) (0.0-0.4) X10*3/uL Baso # (Auto) (0.0-0.2) X10*3/uL Abs Immat Gran (auto) (0.00-0.03) X10*3/uL Absolute Neuts (auto) (2.0-8.3) x10*3/uL Absolute Nucleated RBC (0.0-0.012) X10*3/uL Nucleated RBC % (auto) (0.0-0.2) /100WBC PT (9.9-13.0) SEC INR (0.9-1.1) Sodium (135-145) mmol/L Potassium (3.3-5.1) mmol/L Chloride (96-108) mmol/L Carbon Dioxide (22-29) mmol/L Anion Gap (12-20) BUN (9-16) mg/dL Creatinine (0.5-1.4) mg/dL Estim Creat Clear Calc Estimated GFR POC Glucose (60-115) mg/dL Random Glucose (60-115) mg/dL Lactic Acid 3.5 H* (0.5-2.0) mmol/L Calcium (8.4-10.2) mg/dL Magnesium (1.6-2.6) mg/dL Total Bilirubin (0.0-1.0) mg/dL Direct Bilirubin (0.0-0.5) mg/dL AST (5-31) U/L ALT (0-31) U/L Alkaline Phosphatase (39-117) U/L Troponin I High Sens (<3.5-17.0) ng/L B-Natriuretic Peptide (<100) pg/mL Total Protein (6.5-8.0) g/dL Albumin (3.5-5.0) g/dL Lipase (8-78) U/L Urine Color Urine Appearance Urine pH (5.0-8.0) Ur Specific [place] (1.005-1.025) Urine Protein (NEG-TRACE) MG/DL Urine Glucose (UA) (NEG) MG/DL Urine Ketones (NEG) MG/DL Urine Blood (NEG) Urine Nitrite (NEG) Ur Leukocyte Esterase (NEG) Urine RBC (0) /HPF Urine WBC (0-4) /HPF Ur Squamous Epith Cells /LPF Urine Bacteria Urine Opiates Screen (Not Detect) Urine Fentanyl Screen (Not Detect) Ur Barbiturates Screen (Not Detect) Ur Phencyclidine Scrn (Not Detect) Ur Amphetamines Screen (Not Detect) U Benzodiazepines Scrn (Not Detect) Urine Cocaine Screen (Not Detect) U Marijuana (THC) Screen (Not Detect) Ethyl Alcohol mg/dL COVID-19 (LOVE) Negative (Negative) COVID-19 Clin Com See Note Imaging Data CT scan - head: Radiologist's impression: FINDINGS: There is a large amount of subarachnoid hemorrhage seen adjacent to the brainstem, suprasellar cistern and quadrigeminal plate, left sylvian fissure, adjacent to the right anterior parietal lobe and small amount in the posteroinferior posterior fossa. The ventricles and extra-axial CSF spaces are appropriate. There is nonspecific periventricular white matter disease. 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 No mass or mass effect or acute infarct is seen. Review at bone windows is normal. No skull fracture is seen. Visualized paranasal sinuses, mastoid air cells and middle ears are clear. ? CT/CT head/brain wo con IMPRESSION: Large amount of subarachnoid hemorrhage. Discharge Plan Discharge Clinical Impression: Subarachnoid hemorrhage Patient Disposition: [facility] Transfer Details: [facility] Neurology ICU Prescriptions: No Action cetirizine 10 mg Tablet 10 mg PO DAILY RF: 0 famotidine 20 mg Tablet 20 mg PO BID RF: 0 albuterol sulfate 90 mcg/actuation Hfa Aerosol Inhaler 2 puff INHALATION Q4-6H PRN (Reason: Shortness Of Breath) RF: 0 fluticasone propionate 50 mcg/actuation [place],Suspension 2 spray INTRANASAL DAILY PRN (Reason: Allergic Symptoms) RF: 0 fluticasone propionate 110 mcg/actuation Hfa Aerosol Inhaler 2 puff INHALATION BID RF: 0 calcium carbonate-vitamin D3 [Oyster Shell Calcium-Vit D3] 500 mg(1,250mg) - 200 unit Tablet 1 tab PO BID RF: 0 valsartan-hydrochlorothiazide 320-25 mg Tablet 1 tab PO DAILY RF: 0 aspirin 81 mg Tablet,Delayed Release (Dr/Ec) 81 mg PO DAILY Qty: 30 RF: 0 clobetasol 0.05 % cream 1 applic topical BID RF: 0 rosuvastatin 10 mg tablet 1 tab PO QPM RF: 0
[2021-11-25] MEDS: levETIRAcetam in NaCl (iso-os) 1,500 MG/100 ML PIGGYBACK 400 MG IV (13:37)
[2021-11-25] MEDS: 0.9 % Sodium Chloride 1,000 ML 999 ML IVCONT (13:38)
[2021-11-25 14:07] LABS: MANUAL DIFF FLAG NO
[2021-11-25 14:15] LABS: Basophils Percent Auto 0.4 % (0-2); Eosinophils Absolute Auto 0.4 X10*3/uL (0.0-0.4); Eosinophils Percent Auto 3.2 % (0-4); Hematocrit 32.9 % (37.0-47.0); Hemoglobin 10.6 g/dl (12.0-16.0); Imm Gran Pct Auto 1.8 % (0.0-0.4); Lymphocytes Absolute Auto 2.4 X10*3/uL (1.2-4.9); Lymphocytes Percent Auto 20.8 % (20-40); Mean Corpuscular HGB Conc 32.2 g/dl (31.0-35.0); Mean Corpuscular Hemoglobin 27.2 pg (27.0-33.0); Mean Corpuscular Volume 84.4 fL (80.0-98.0); Mean Platelet Volume 11.1 fL (9.4-12.3); Monocytes Absolute Auto 0.8 X10*3/uL (0.1-1.2); Monocytes Percent Auto 6.7 % (2-11); Neutrophils Absolute Auto 7.7 x10*3/uL (2.0-8.3); Neutrophils Percent Auto 67.1 % (45-73); Platelet Count 205 X10*3/uL (160-400); Red Cell Distribution Width 14.5 % (11.0-16.0); White Blood Count 11.4 X10*3/uL (4.8-10.8)
[2021-11-25 14:16] LABS: Appearance Urine HAZY; Color Urine YELLOW; Glucose Urine UA NEG (NEG); Leukocyte Esterase Urine NEG (NEG); Nitrite Urine NEG (NEG); PH 6.5 (5.0-8.0); UACC Culture Trigger NO; Urine Blood 2+ (NEG); Urine Ketones NEG (NEG); Urine Protein 1+ MG/DL (NEG-TRACE)
[2021-11-25 14:17] LABS: INTERNATIONAL NORM RATIO 1.1 (0.9-1.1); Prothrombin Time 12.9 SEC (9.9-13.0)
--- NOTE | 2021-11-25 14:17 | PHA.MEDREC ---
Pharmacy Consult ? Medication Reconciliation Pharmacy has completed the medication reconciliation. Patient is intubated. Uses medboxes at [facility] Pharmacy. Contacted the pharmacy for updated med list. Tammi Garcia, FidencioD
[2021-11-25] MEDS: Esmolol HCl/NaCl Iso 2,500 MG/250 ML IV.SOLN 19.59 MG IVCONT (14:19)
[2021-11-25 14:28] LABS: COVID-19 Test Negative (Negative); IDNOW Serial# 55D5AD1C
[2021-11-25 14:30] LABS: Ethanol < 10 mg/dL
[2021-11-25 14:31] LABS: Amphetamine Screen Urine Not Detected (Not Detect); Barbiturates, Urine Not Detected (Not Detect); Benzodiazepines Screen Urine Not Detected (Not Detect); Cannabinoid Screen Urine Not Detected (Not Detect); Cocaine Screen Urine Not Detected (Not Detect); Fentanyl, urine Not Detected (Not Detect); Opiate Screen Urine Not Detected (Not Detect); Phencyclidine Screen Urine Not Detected (Not Detect)
[2021-11-25 14:31] LABS: Lactic Acid 3.5 mmol/L (0.5-2.0)
[2021-11-25 14:32] LABS: WBC Urine 0-2 /HPF (0-4)
[2021-11-25 14:32] LABS: Troponin-I High Sensitivity 8.5 ng/L (<3.5-17.0)
[2021-11-25 14:33] LABS: Alanine Aminotransferase 19 U/L (0-31); Albumin Level 3.4 g/dL (3.5-5.0); Alkaline Phosphatase 57 U/L (39-117); Anion Gap 18 (12-20); Aspartate Amino Transferase 36 U/L (5-31); Bilirubin Direct 0.2 mg/dL (0.0-0.5); Bilirubin Total 0.4 mg/dL (0.0-1.0); Blood Urea Nitrogen 17 mg/dL (9-16); Calcium 9.6 mg/dL (8.4-10.2); Carbon Dioxide 20 mmol/L (22-29); Chloride 106 mmol/L (96-108); Creatinine Clr Calc Pharmacy 43.1; Estimated Glomerular Filt Rate > 60; Glucose Random 156 mg/dL (60-115); Lipase 34 U/L (8-78); Magnesium 1.6 mg/dL (1.6-2.6); Potassium 3.8 mmol/L (3.3-5.1); Sodium 140 mmol/L (135-145); Squamous Epithelial Cell Urine TRACE /LPF; Total Protein 7.8 g/dL (6.5-8.0)
[2021-11-25 14:33] LABS: B Type Natriuretic Peptide 104 pg/mL (<100)
--- NOTE | 2021-11-25 14:46 | PC.NURSE ---
Patient moving right foot, swallowing, move right hand when chanelle asked her to squeeze hand. physician at bedside. physician aware of BP and esmolol dose
--- NOTE | 2021-11-25 16:03 | PC.NURSE ---
patient is more awake, trying to talk, attemping to grab ET tube with right hand. Physician and RT aware
[2021-11-25 16:04] LABS: Reflex Lactate? Lactic Acid Added
[2021-11-25] MEDS: propofoL 200 MG/20 ML VIAL 20 MG IVPUSH (16:22)
--- NOTE | 2021-11-25 16:31 | PC.NURSE ---
current vent settings rate 16, TV 400, o2 400%, peep 5
--- NOTE | 2021-11-25 16:53 | PC.NURSE ---
patient starting to wake up again, opening eyes and moving right extremities. medicated as ordered. esmolol drip currently paused for low BP
[2021-11-25] MEDS: propofoL 1,000 MG/100 ML VIAL 7.84 MG IVCONT (17:05)
--- NOTE | 2021-11-25 17:19 | PC.NURSE ---
patient on EMS stretcher ready for transport, patient waking up despite increase in propofol, per DR. robles increased propofol to 50mcg/kg
== END 2021-11-25 17:30 | disposition short-term general hospital (02) ==
PROVIDERS: Emergency Provider Emergency Medicine; PCP Internal Medicine
DX: I60.9 Nontraumatic subarachnoid hemorrhage, unspecified (principal); R06.02 Shortness of breath; Z20.822 Contact with and (suspected) exposure to COVID-19; R40.4 Transient alteration of awareness; I10 Essential (primary) hypertension; Z79.899 Other long term (current) drug therapy
CPT/HCPCS: 31500; 36415; 70450; 71045; 80048; 80076; 80307; 81001; 82077; 82947; 83605; 83690; 83735; 83880; 84484; 85025; 85610; 87040; 87635; 93005; 94002; 94003; 96361; 96365; 96366; 96375; 99285; J0171; J1953

== ENCOUNTER 2022-01-30 10:17 | Inpatient (IN) | payer MEDICARE, SELFPAY ==
--- NOTE | ~2022-01-30 | XR_ITS ---
EXAMINATION: LEFT HAND CLINICAL INFORMATION: Pain. History of stroke COMPARISON: None TECHNIQUE: 3 views. FINDINGS: There is no visible fracture, dislocation or subluxation. The MCP, PIP and DIP joints are normal. The soft tissues are normal. XR/XR hand wrist LT IMPRESSION: Unremarkable left hand/wrist exam.
--- NOTE | ~2022-01-30 | XR_ITS ---
EXAMINATION: XR CHEST CLINICAL INFORMATION: Fever. Hypoxia. COMPARISON: Previous chest x-ray most recent November 2021 TECHNIQUE: 2 views of the chest were obtained. FINDINGS: The cardiac and mediastinal contours are normal. There is new bilateral airspace disease in the perihilar regions and right upper lobe suggestive of pneumonia. There is a 7 mm calcified left lower lobe pulmonary nodule probably representing a calcified granuloma. There is no pleural effusion or pneumothorax. There are degenerative changes of the spine. XR/XR chest 2V IMPRESSION: New bilateral perihilar and right upper lobe airspace disease probably representing pneumonia.
--- NOTE | 2022-01-30 10:32 | ECG_ITS ---
Test Reason : WEAKNESSS Blood Pressure : / mmHG Vent. Rate : 079 BPM Atrial Rate : 079 BPM P-R Int : 194 ms QRS Dur : 076 ms QT Int : 366 ms P-R-T Axes : 065 018 042 degrees QTc Int : 419 ms Normal sinus rhythm Nonspecific ST and T wave abnormality Abnormal ECG When compared with ECG of 25-NOV-2021 12:59, Previous ECG has undetermined rhythm, needs review T wave inversion no longer evident in Inferior leads T wave inversion more evident in Anterior leads Nonspecific T wave abnormality, improved in Lateral leads QT has lengthened Referred By: Diana Jones Electronically Signed By:Wyatt Méndez
[2022-01-30 10:39] VITALS: BP 123/61; BP 148/42; PULSE 82; PULSE 83; RESP 20; TEMP 37.9; O2SAT 89; O2SAT 94; BMI 21.6
[2022-01-30 11:01] LABS: MANUAL DIFF FLAG NO
[2022-01-30 11:02] LABS: Basophils Absolute Auto 0.1 X10*3/uL (0.0-0.2); Basophils Percent Auto 0.5 % (0-2); Eosinophils Absolute Auto 0.6 X10*3/uL (0.0-0.4); Hematocrit 26.2 % (37.0-47.0); Hemoglobin 8.3 g/dl (12.0-16.0); Imm Gran Abs Auto 0.18 X10*3/uL (0.00-0.03); Imm Gran Pct Auto 1.5 % (0.0-0.4); Lymphocytes Absolute Auto 2.3 X10*3/uL (1.2-4.9); Lymphocytes Percent Auto 18.8 % (20-40); Mean Corpuscular HGB Conc 31.7 g/dl (31.0-35.0); Mean Corpuscular Hemoglobin 26.1 pg (27.0-33.0); Mean Corpuscular Volume 82.4 fL (80.0-98.0); Mean Platelet Volume 8.8 fL (9.4-12.3); Monocytes Absolute Auto 1.4 X10*3/uL (0.1-1.2); Monocytes Percent Auto 11.2 % (2-11); Neutrophils Absolute Auto 7.7 x10*3/uL (2.0-8.3); Platelet Count 422 X10*3/uL (160-400); Red Blood Count 3.18 X10*6/uL (4.20-5.50); Red Cell Distribution Width 17.4 % (11.0-16.0); White Blood Count 12.2 X10*3/uL (4.8-10.8)
--- NOTE | 2022-01-30 11:02 | ED.FEVER ---
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 Spoke with her sister who cares for her at home. She reports that patient developed a fever of 101 yesterday. This improved with Tylenol. She reports to the patient was treated with 1 weeks worth of antibiotics for possible UTI last week as the patient was complaining of sensation to urinate and fullness in her bladder despite the Berman. Her last dose of antibiotics was last night. Her Berman was changed a couple of weeks ago. The sister also reports that the patient has had some intermittent cough and difficulty breathing at home, which they attributed to her history of asthma. No one at home else at home is ill. She has 24 hour care at home with her family, she is nonambulatory but is verbal. Sister denies any vomiting or diarrhea. No known sick contacts. MD elicited complaint: fever Onset (ago): day(s) (1) Context: recent hospitalization Exacerbating factors: nothing Relieving factors: acetaminophen Associated symptoms: shortness of breath Treatments prior to arrival fever: none Related Data Home Medications Medication Instructions Recorded Confirmed cetirizine 10 mg tablet 10 mg PO DAILY 12/19/20 01/30/22 famotidine 20 mg tablet 20 mg PO BID 12/19/20 01/30/22 albuterol sulfate 90 mcg/actuation 2 puff INHALATION Q4-6H PRN 12/20/20 01/30/22 aerosol inhaler calcium carbonate 500 mg-vitamin 1 tab PO BID 12/20/20 01/30/22 D3 5 mcg (200 unit) tablet (Oyster Shell Calcium-Vitamin D3) fluticasone propionate 50 2 spray INTRANASAL DAILY PRN 12/20/20 01/30/22 mcg/actuation nasal spray,suspension valsartan 320 1 tab PO DAILY 12/20/20 01/30/22 mg-hydrochlorothiazide 25 mg tablet clobetasol 0.05 % topical cream 1 applic TOPICAL BID 11/25/21 01/30/22 rosuvastatin 10 mg tablet 1 tab PO QPM 11/25/21 01/30/22 albuterol sulfate 1 amp INHALATION TID PRN 01/30/22 01/30/22 amantadine HCl 50 mg/5 mL oral 10 ml G-TUBE DAILY 01/30/22 01/30/22 solution cephalexin 500 mg capsule 500 mg PO QID 01/30/22 01/30/22 clopidogrel 75 mg tablet 1 tab BEDTIME 01/30/22 01/30/22 duloxetine 30 mg capsule,delayed 1 cap PO DAILY 01/30/22 01/30/22 release levetiracetam 100 mg/mL oral 5 ml G-TUBE BID 01/30/22 01/30/22 solution melatonin 5 mg tablet 1 tab PO BEDTIME PRN 01/30/22 01/30/22 modafinil 200 mg tablet 1 tab DAILY 01/30/22 01/30/22 Previous Rx's Medication Instructions Recorded aspirin 81 mg tablet,delayed 81 mg PO DAILY #30 tab 12/21/20 release Allergies Allergy/AdvReac Type Severity Reaction Status Date / Time lisinopril [LISINOPRIL] Allergy Mild CHEST PAIN Verified 06/19/21 19:37 codeine [CODEINE] AdvReac Unknown AGITATION Verified 06/19/21 19:37 Review of Systems Review of Systems: Constitutional: + Fever, No Chills ENT/Mouth: No sore throat, No Rhinorrhea, No Swallowing Difficulty Eyes: No Eye Pain, No Swelling, No Redness Cardiovascular: No Chest Pain, + SOB, No Orthopnea, No Edema Respiratory: + Cough, No Sputum, No Wheezing, No dyspnea Gastrointestinal: No Nausea, No Vomiting, No Diarrhea, No abdominal Pain, No Hematochezia, No Melena Genitourinary: No Dysuria, No Urinary Frequency, No Hematuria Musculoskeletal: No joint pain, No Myalgias Skin: No Skin Lesions, No rash Neuro: + Weakness, No Numbness, No Dizziness, No Headache Psych: No Anxiety/Panic, No Depression Heme/Lymph: + Bruising, No Lymphadenopathy Endocrine: No Polyuria, No Polydipsia [facility] Past Medical History Medical History (Updated 01/30/22 @ 15:17 by ARNOLD Amin) CVA (cerebral vascular accident) Dementia Essential hypertension Hypertension Social History Social History Household Members: None Housing: Apartment Do you presently have visiting nurse 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 Oriented X1. No acute distress. Eyes: Pupils equal, round and reactive to light. ENT: Pharynx normal. Neck: Normal inspection. Neck supple. CVS: Normal heart rate and rhythm. Pulses normal. Respiratory: No respiratory distress. Breath sounds normal. Abdomen: Soft and nontender. G tube in place. +BS x4. Skin: Skin warm and dry. Normal skin color. Normal skin turgor. No rashes. Extremities: No lower extremity edema. left upper Neuro: Oriented X 1. Left sided weakness w/ minimal movement of LUE, left leg unable to move. Speech is at times difficult to understand. Course Course Course Narrative: 86-year-old female with hx dementia, recent subarachnoid hemorrhage secondary to a left ICA aneurysm status post stent and prolonged hospitalization from November to December 2021 who is now status post G-tube, nonambulatory presents to the ER for evaluation of fever and intermittent shortness of breath. She was recently treated with antibiotics for 7 days for a probable UTI given some urinary symptoms she was having last week. Urinalysis was never sent, her PCP called them empirically. On arrival to the ED she is taking alert, answering questions appropriately, although difficult to understand at times. She has significant left-sided weakness which is chronic. Rectal temp is 100.3 degrees. Otherwise hemodynamically stable. She remains on 2 L nasal cannula for reports of hypoxia at home 89% on room air. On room air here she is 94%, placed on 2 L and sats are 98% no respiratory distress. Will get septic workup including urinalysis and chest x-ray. Reevaluation(s) Reevaluation #1: Chest x-ray is showing a right upper lobe pneumonia. This is consistent with aspiration given her history. She had a modified barium swallow which she failed and has been on 24 hour tube feeds. IV Zosyn has been ordered. Will also need vancomycin given her recent hospitalization to treat for Hcap. Her labs are showing a mild leukocytosis 12.2. She is also anemic with an H&H of 8.3/26.2 from a baseline of 10.6/32.9. She is on dual antiplatelet therapy but no full anticoagulation. Her stool is brown. Will heme check it. Family denies any history of melena or bright red blood per rectum. She was having some pink urine this week in the setting of a probable UTI but this has resolved. Reevaluation #2: Heme-positive brown stool. Her sodium is 128, most likely due to her HCTZ that she is on. Will plan to trend after she was given 1 L of IV fluids. Will plan for admission for further management of her pneumonia as well as possible GI bleed with acute on chronic anemia and heme-positive stools. MDM - Fever Lab Data Attestation: I reviewed the patient's lab results. Result diagrams: 01/30/22 10:56 01/30/22 10:56 Labs: Lab Results 01/30/22 01/30/22 01/30/22 Range/Units 10:56 10:56 10:56 WBC 12.2 H (4.8-10.8) X10*3/uL RBC 3.18 L (4.20-5.50) X10*6/uL Hgb 8.3 L D (12.0-16.0) g/dl Hct 26.2 L D (37.0-47.0) % MCV 82.4 (80.0-98.0) fL MCH 26.1 L (27.0-33.0) pg MCHC 31.7 (31.0-35.0) g/dl RDW 17.4 H (11.0-16.0) % Plt Count 422 H D (160-400) X10*3/uL MPV 8.8 L (9.4-12.3) fL Immature Gran % (Auto) 1.5 H (0.0-0.4) % Neut % (Auto) 63.0 (45-73) % Lymph % (Auto) 18.8 L (20-40) % Gage % (Auto) 11.2 H (2-11) % Eos % (Auto) 5.0 H (0-4) % Baso % (Auto) 0.5 (0-2) % Lymph # (Auto) 2.3 (1.2-4.9) X10*3/uL Gage # (Auto) 1.4 H (0.1-1.2) X10*3/uL Eos # (Auto) 0.6 H (0.0-0.4) X10*3/uL Baso # (Auto) 0.1 (0.0-0.2) X10*3/uL Abs Immat Gran (auto) 0.18 H (0.00-0.03) X10*3/uL Absolute Neuts (auto) 7.7 (2.0-8.3) x10*3/uL Absolute Nucleated RBC 0.000 (0.0-0.012) X10*3/uL Nucleated RBC % (auto) 0.0 (0.0-0.2) /100WBC PT 13.8 H (9.9-13.0) SEC INR 1.2 H (0.9-1.1) APTT 31.7 (24.1-38.0) SEC Sodium 128 L (135-145) mmol/L Potassium 4.4 (3.3-5.1) mmol/L Chloride 96 (96-108) mmol/L Carbon Dioxide 25 (22-29) mmol/L Anion Gap 11 L (12-20) BUN 14 (9-16) mg/dL Creatinine 0.54 (0.5-1.4) mg/dL Estim Creat Clear Calc 67.2 Estimated GFR > 60 Random Glucose 137 H (60-115) mg/dL Lactic Acid (0.5-2.0) mmol/L Calcium 9.0 D (8.4-10.2) mg/dL Magnesium 1.8 (1.6-2.6) mg/dL Total Bilirubin 0.2 (0.0-1.0) mg/dL Direct Bilirubin < 0.2 (0.0-0.5) mg/dL AST 31 (5-31) U/L ALT 30 (0-31) U/L Alkaline Phosphatase 126 H D (39-117) U/L Total Protein 7.4 (6.5-8.0) g/dL Albumin 2.8 L (3.5-5.0) g/dL Urine Color Urine Appearance Urine pH (5.0-8.0) Ur Specific [place] (1.005-1.025) Urine Protein (NEG-TRACE) MG/DL Urine Glucose (UA) (NEG) MG/DL Urine Ketones (NEG) MG/DL Urine Blood (NEG) Urine Nitrite (NEG) Ur Leukocyte Esterase (NEG) Urine RBC (0) /HPF Urine WBC (0-4) /HPF Ur Squamous Epith Cells /LPF Urine Bacteria /LPF Stool Occult Blood (NEGATIVE) COVID-19 (LOVE) (Negative) COVID-19 Clin Com Influenza Type A (DELVIS) (Negative) Influenza Type B (DELVIS) (Negative) Influenza A & B Note 01/30/22 01/30/22 01/30/22 Range/Units 10:56 11:07 11:07 WBC (4.8-10.8) X10*3/uL RBC (4.20-5.50) X10*6/uL Hgb (12.0-16.0) g/dl Hct (37.0-47.0) % MCV (80.0-98.0) fL MCH (27.0-33.0) pg MCHC (31.0-35.0) g/dl RDW (11.0-16.0) % Plt Count (160-400) X10*3/uL MPV (9.4-12.3) fL Immature Gran % (Auto) (0.0-0.4) % Neut % (Auto) (45-73) % Lymph % (Auto) (20-40) % Gage % (Auto) (2-11) % Eos % (Auto) (0-4) % Baso % (Auto) (0-2) % Lymph # (Auto) (1.2-4.9) X10*3/uL Gage # (Auto) (0.1-1.2) X10*3/uL Eos # (Auto) (0.0-0.4) X10*3/uL Baso # (Auto) (0.0-0.2) X10*3/uL Abs Immat Gran (auto) (0.00-0.03) X10*3/uL Absolute Neuts (auto) (2.0-8.3) x10*3/uL Absolute Nucleated RBC (0.0-0.012) X10*3/uL Nucleated RBC % (auto) (0.0-0.2) /100WBC PT (9.9-13.0) SEC INR (0.9-1.1) APTT (24.1-38.0) SEC Sodium (135-145) mmol/L Potassium (3.3-5.1) mmol/L Chloride (96-108) mmol/L Carbon Dioxide (22-29) mmol/L Anion Gap (12-20) BUN (9-16) mg/dL Creatinine (0.5-1.4) mg/dL Estim Creat Clear Calc Estimated GFR Random Glucose (60-115) mg/dL Lactic Acid 1.3 (0.5-2.0) mmol/L Calcium (8.4-10.2) mg/dL Magnesium (1.6-2.6) mg/dL Total Bilirubin (0.0-1.0) mg/dL Direct Bilirubin (0.0-0.5) mg/dL AST (5-31) U/L ALT (0-31) U/L Alkaline Phosphatase (39-117) U/L Total Protein (6.5-8.0) g/dL Albumin (3.5-5.0) g/dL Urine Color Urine Appearance Urine pH (5.0-8.0) Ur Specific [place] (1.005-1.025) Urine Protein (NEG-TRACE) MG/DL Urine Glucose (UA) (NEG) MG/DL Urine Ketones (NEG) MG/DL Urine Blood (NEG) Urine Nitrite (NEG) Ur Leukocyte Esterase (NEG) Urine RBC (0) /HPF Urine WBC (0-4) /HPF Ur Squamous Epith Cells /LPF Urine Bacteria /LPF Stool Occult Blood (NEGATIVE) COVID-19 (LOVE) Negative (Negative) COVID-19 Clin Com See Note Influenza Type A (DELVIS) Negative (Negative) Influenza Type B (DELVIS) Negative (Negative) Influenza A & B Note See Note 01/30/22 01/30/22 Range/Units 14:09 14:09 WBC (4.8-10.8) X10*3/uL RBC (4.20-5.50) X10*6/uL Hgb (12.0-16.0) g/dl Hct (37.0-47.0) % MCV (80.0-98.0) fL MCH (27.0-33.0) pg MCHC (31.0-35.0) g/dl RDW (11.0-16.0) % Plt Count (160-400) X10*3/uL MPV (9.4-12.3) fL Immature Gran % (Auto) (0.0-0.4) % Neut % (Auto) (45-73) % Lymph % (Auto) (20-40) % Gage % (Auto) (2-11) % Eos % (Auto) (0-4) % Baso % (Auto) (0-2) % Lymph # (Auto) (1.2-4.9) X10*3/uL Gage # (Auto) (0.1-1.2) X10*3/uL Eos # (Auto) (0.0-0.4) X10*3/uL Baso # (Auto) (0.0-0.2) X10*3/uL Abs Immat Gran (auto) (0.00-0.03) X10*3/uL Absolute Neuts (auto) (2.0-8.3) x10*3/uL Absolute Nucleated RBC (0.0-0.012) X10*3/uL Nucleated RBC % (auto) (0.0-0.2) /100WBC PT (9.9-13.0) SEC INR (0.9-1.1) APTT (24.1-38.0) SEC Sodium (135-145) mmol/L Potassium (3.3-5.1) mmol/L Chloride (96-108) mmol/L Carbon Dioxide (22-29) mmol/L Anion Gap (12-20) BUN (9-16) mg/dL Creatinine (0.5-1.4) mg/dL Estim Creat Clear Calc Estimated GFR Random Glucose (60-115) mg/dL Lactic Acid (0.5-2.0) mmol/L Calcium (8.4-10.2) mg/dL Magnesium (1.6-2.6) mg/dL Total Bilirubin (0.0-1.0) mg/dL Direct Bilirubin (0.0-0.5) mg/dL AST (5-31) U/L ALT (0-31) U/L Alkaline Phosphatase (39-117) U/L Total Protein (6.5-8.0) g/dL Albumin (3.5-5.0) g/dL Urine Color YELLOW Urine Appearance CLOUDY Urine pH 5.5 (5.0-8.0) Ur Specific [place] 1.015 (1.005-1.025) Urine Protein TRACE (NEG-TRACE) MG/DL Urine Glucose (UA) NEG (NEG) MG/DL Urine Ketones NEG (NEG) MG/DL Urine Blood 3+ H (NEG) Urine Nitrite NEG (NEG) Ur Leukocyte Esterase 3+ H (NEG) Urine RBC 76-150 H (0) /HPF Urine WBC 76-150 H (0-4) /HPF Ur Squamous Epith Cells NONE /LPF Urine Bacteria NONE /LPF Stool Occult Blood POSITIVE (NEGATIVE) COVID-19 (LOVE) (Negative) COVID-19 Clin Com Influenza Type A (DELVIS) (Negative) Influenza Type B (DELVIS) (Negative) Influenza A & B Note ECG Data ECG #1: Attestation: I personally reviewed and interpreted this ECG as follows: ECG interpretation date: 01/30/22 Prior ECG tracings: available for review Interpretation: Normal sinus rhythm, heart rate 79 beats per minute, nonspecific ST and T-wave abnormality. Normal NE interval. Normal QTC. Improved from prior, no longer having T-wave inversions. Critical Care Time Critical Care Time Critical Care Time: Yes Total Critical Care Time: 38 Attestation: I have personally provided critical care time exclusive of time spent on separately billable procedures. Time includes review of lab data, radiology results, discussion with consultants, and monitoring for potential decompensation. Intervention performed as documented. Discharge Plan Discharge Clinical Impression: Aspiration pneumonia, Acute anemia, Acute hyponatremia Patient Disposition: Admitted As Inpatient Prescriptions: No Action cetirizine 10 mg Tablet 10 mg PO DAILY 0RF famotidine 20 mg Tablet 20 mg PO BID 0RF albuterol sulfate 90 mcg/actuation Hfa Aerosol Inhaler 2 puff INHALATION Q4-6H PRN (Reason: Shortness Of Breath) 0RF fluticasone propionate 50 mcg/actuation [place]et,Suspension 2 spray INTRANASAL DAILY PRN (Reason: Allergic Symptoms) 0RF calcium carbonate-vitamin D3 [Oyster Shell Calcium-Vit D3] 500 mg(1,250mg) -200 unit Tablet 1 tab PO BID 0RF valsartan-hydrochlorothiazide 320-25 mg Tablet 1 tab PO DAILY 0RF aspirin 81 mg Tablet,Delayed Release (Dr/Ec) 81 mg PO DAILY Qty: 30 0RF amantadine HCl 50 mg/5 mL solution 10 ml G-tube DAILY 0RF albuterol sulfate 2.5 mg /3 mL (0.083 %) solution for nebulization 1 amp inhalation TID PRN (Reason: Shortness Of Breath) 0RF clopidogrel 75 mg tablet 1 tab BEDTIME 0RF modafinil 200 mg tablet 1 tab DAILY 0RF levetiracetam 100 mg/mL solution 5 ml G-tube BID 0RF duloxetine 30 mg capsule,delayed release(DR/EC) 1 cap PO DAILY 0RF melatonin 5 mg tablet 1 tab PO BEDTIME PRN (Reason: insomnia) 0RF cephalexin 500 mg Capsule 500 mg PO QID 0RF Rx Instructions: PATIENT COMPLETED TODAY STARTED 01/23 X 6 DAYS clobetasol 0.05 % cream 1 applic topical BID 0RF rosuvastatin 10 mg tablet 1 tab PO QPM 0RF
[2022-01-30 11:10] LABS: INTERNATIONAL NORM RATIO 1.2 (0.9-1.1); Prothrombin Time 13.8 SEC (9.9-13.0)
[2022-01-30 11:12] LABS: Lactic Acid 1.3 mmol/L (0.5-2.0)
[2022-01-30 11:13] LABS: Partial Thromboplastin Time 31.7 SEC (24.1-38.0)
[2022-01-30 11:18] LABS: Alanine Aminotransferase 30 U/L (0-31); Albumin Level 2.8 g/dL (3.5-5.0); Alkaline Phosphatase 126 U/L (39-117); Anion Gap 11 (12-20); Aspartate Amino Transferase 31 U/L (5-31); Bilirubin Direct < 0.2 mg/dL (0.0-0.5); Bilirubin Total 0.2 mg/dL (0.0-1.0); Blood Urea Nitrogen 14 mg/dL (9-16); Carbon Dioxide 25 mmol/L (22-29); Chloride 96 mmol/L (96-108); Creatinine Clr Calc Pharmacy 67.2; Estimated Glomerular Filt Rate > 60; Glucose Random 137 mg/dL (60-115); Magnesium 1.8 mg/dL (1.6-2.6); Potassium 4.4 mmol/L (3.3-5.1); Sodium 128 mmol/L (135-145); Total Protein 7.4 g/dL (6.5-8.0)
--- NOTE | 2022-01-30 11:22 | PHA.MEDREC ---
Pharmacy Consult ? Medication Reconciliation Pharmacy has completed the medication reconciliation.
[2022-01-30 11:36] LABS: COVID-19 Test Negative (Negative); IDNOW Serial# 08D9AD1C; Influenza A Negative (Negative); Influenza B2 Negative (Negative)
[2022-01-30] MEDS: Acetaminophen Oral Liquid 650 MG/20.3 ML SOLUTION G-TUBE (12:01)
[2022-01-30 12:09] VITALS: BP 126/61; PULSE 80; RESP 16; O2SAT 98
--- NOTE | 2022-01-30 12:10 | PC.NURSE ---
Tylenol via Gtube for fever control. +placement for Gtube via auscultation. Flushes well by gravity. No diff breathing or SOB with rest in bed. Pt confused at baseline per daughter at bedside. NSR on tele. Cath changed last week per daughter, new drainage bag applied
[2022-01-30] MEDS: Piperacillin Sodium/Tazobactam 4.5 GM in 0.9 % Sodium Chloride 100 ML IV ×2 (12:27→20:53)
[2022-01-30] MEDS: QUEtiapine Fumarate 25 MG TABLET 12.5 MG PO (12:50)
[2022-01-30 14:23] LABS: OBS Int Ctl Valid YES; OBS1 POSITIVE (NEGATIVE)
[2022-01-30 14:29] LABS: Appearance Urine CLOUDY; Color Urine YELLOW; Glucose Urine UA NEG (NEG); Leukocyte Esterase Urine 3+ (NEG); Nitrite Urine NEG (NEG); PH 5.5 (5.0-8.0); Specific Gravity - Urine 1.015 (1.005-1.025); UACC Culture Trigger YES; Urine Blood 3+ (NEG); Urine Ketones NEG (NEG); Urine Protein TRACE MG/DL (NEG-TRACE)
[2022-01-30] MEDS: vancomycin HCL 750 MG in 0.9 % Sodium Chloride 250 ML 265 MG IV (15:16)
[2022-01-30 15:17] VITALS: BP 102/44; PULSE 75; RESP 16; O2SAT 96
--- NOTE | 2022-01-30 16:11 | P.HPHOSP_ITS ---
History of Present Illness Date of Service: 01/30/22 Chief Complaint: fever, cough, dyspnea History from pt's daughter Joellen, as the patient is current nonverbal due to encephalopathy, along with review of the [facility] EHR. 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 She underwent stenting on 11/27/21 and had a prolonged hospitalization course complicated by reintubation for hypoxic respiratory failure and hypotension requiring pressors. She was left with L-sided hemiplegia, dysphagia requiring G-tube for feeds and medications [running Glucerna @ 75 mL/hr due to prediabetes], and chronic Berman catheter. She was discharged on 12/27/21. She is on DAPT. She has been cared for at home by her 2 daughters. Just over 1 week ago, she developed cough, dyspnea, cloudy/bloody urine in Berman, and worsening abdominal discomfort. She was prescribed a 7-day course of empiric cephalexin for UTI, which she just completed. She has not improved and ended up spiking fever as high as 102.3F and becoming more delirious. At baseline, she does not ambulate but is verbal. In the ED, she was found to have low-grade fever to 100.3 but normal pulse and respiratory rate. She was hypoxic to 89% on room air and placed on 2L of O2 via NA. WBCs were 12.2. Hemoglobin was 8.3, compared to 10.6 on 11/25/21 at [facility] but 7.9 upon discharge from [facility] on 12/27/21. FOBT was positive. Na was 128. CXR showed RUL infiltrate. She was given 1L NS, vancomycin and piperacillin- tazobactam. 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) Alcohol intake: never Patient Tobacco Use Status: Never used Tobacco Use of substances other than those prescribed or required for medical reasons: No Advance Directives: No Advance Directives Information Provided: No service: No Current occupational status: unemployed Meds Allergies Allergy/AdvReac Type Severity Reaction Status Date / Time lisinopril [LISINOPRIL] Allergy Mild CHEST PAIN Verified 06/19/21 19:37 codeine [CODEINE] AdvReac Unknown AGITATION Verified 06/19/21 19:37 Active Medications: Current Medications Albuterol Sulfate (Albuterol Sulfate (0.083%) 2.5 Mg/3 Ml Vial.Neb) 2.5 mg INHALE Q4H PRN PRN Reason: Shortness Of Breath Atorvastatin Calcium (Atorvastatin Calcium 40 Mg Tablet) 40 mg PO BEDTIME BARBY Betamethasone Dipropion Augmented (Betamethasone Dip Aug 0.05% Cr 15 Gm Tube) 1 appl TOPICAL BID BARBY Calcium Carbonate/Cholecalciferol (Calcium + Vitamin D 250 Mg Tablet) 500 mg PO BID BARBY Duloxetine HCl (Duloxetine Hcl 30 Mg Capsule.Dr) 30 mg PO DAILY [facility] Fluticasone Propionate (Fluticasone Propionate Nasal 16 Gm [place]) 2 spray NOSTRIL-B DAILY PRN PRN Reason: Allergic Symptoms Hydrochlorothiazide (Hydrochlorothiazide 25 Mg Tablet) 25 mg PO DAILY BARBY; Protocol Piperacillin Sod/Tazobactam (Sod 4.5 gm/ Sodium Chloride) 100 mls @ 200 mls/hr IV Q6H [facility] Levetiracetam (Levetiracetam Oral Soln 500 Mg/5 Ml) 5 mg G-TUBE BID [facility] Loratadine (Loratadine 10 Mg Tablet) 10 mg PO DAILY [facility] Modafinil (Modafinil 100 Mg Tablet) 200 mg G-TUBE DAILY [facility] Non-Formulary Medication (Amantadine Hcl) 10 ml G-TUBE DAILY [facility] Non-Formulary Medication (Melatonin) 1 tab PO BEDTIME PRN PRN Reason: insomnia Pantoprazole Sodium (Pantoprazole Sodium 40 Mg/10 Ml Vial) 40 mg IVPUSH BID@ 30,1630 [facility] Pharmacy Consult (Consult Rx Perform Med Rec) 1 each MISCELLANE ONCE PRN PRN Reason: Consult order Pharmacy Consult (Consult Rx Vancomycin Dosing) 1 each MISCELLANE DAILY PRN PRN Reason: Consult order Valsartan (Valsartan 320 Mg Tablet) 320 mg PO DAILY BARBY Home Medications Medication Instructions Recorded Confirmed Last Taken Type cetirizine 10 mg tablet 10 mg PO DAILY 12/19/20 01/30/22 01/29/22 History famotidine 20 mg tablet 20 mg PO BID 12/19/20 01/30/22 01/29/22 History albuterol sulfate 90 mcg/actuation 2 puff INHALATION Q4-6H PRN 12/20/20 01/30/22 01/29/22 History aerosol inhaler calcium carbonate 500 mg-vitamin 1 tab PO BID 12/20/20 01/30/22 01/29/22 History D3 5 mcg (200 unit) tablet (Oyster [place] Calcium-Vitamin D3) fluticasone propionate 50 2 spray INTRANASAL DAILY PRN 12/20/20 01/30/22 01/29/22 History mcg/actuation nasal spray,suspension valsartan 320 1 tab PO DAILY 12/20/20 01/30/22 01/29/22 History mg-hydrochlorothiazide 25 mg tablet clobetasol 0.05 % topical cream 1 applic TOPICAL BID 11/25/21 01/30/22 01/29/22 History rosuvastatin 10 mg tablet 1 tab PO QPM 11/25/21 01/30/22 01/29/22 History albuterol sulfate 1 amp INHALATION TID PRN 01/30/22 01/30/22 01/29/22 History amantadine HCl 50 mg/5 mL oral 10 ml G-TUBE DAILY 01/30/22 01/30/22 01/29/22 History solution cephalexin 500 mg capsule 500 mg PO QID 01/30/22 01/30/22 01/29/22 History clopidogrel 75 mg tablet 1 tab BEDTIME 01/30/22 01/30/22 01/29/22 History duloxetine 30 mg capsule,delayed 1 cap PO DAILY 01/30/22 01/30/22 01/29/22 History release levetiracetam 100 mg/mL oral 5 ml G-TUBE BID 01/30/22 01/30/22 01/29/22 History solution melatonin 5 mg tablet 1 tab PO BEDTIME PRN 01/30/22 01/30/22 01/29/22 History modafinil 200 mg tablet 1 tab DAILY 01/30/22 01/30/22 01/29/22 History Physical Exam Vital Signs and Narrative: Vital Signs: Last Vital Signs Temp 100.3 F 01/30/22 10:39 Pulse 75 01/30/22 15:17 Resp 16 01/30/22 15:17 BP 102/44 L 01/30/22 15:17 Pulse Ox 96 01/30/22 15:17 BMI result Body Mass Index 21.6 Gen: confused HEENT: bitemporal wasting, sclera anicteric, moist mucus membranes, edentulous Neck: supple Lungs: diminished Heart: regular rate and rhythm, no murmurs Abd: soft, mildly tender without rebound, non-distended, G tube in place, normal bowel sounds : Berman draining clear urine Ext: no edema Skin: warm/well-perfused Neuro: alert, confused, L hemiplegia Psych: impaired insight Results Labs CBC and Chem 7: 01/30/22 10:56 01/30/22 10:56 Labs: Laboratory Results - last 24 hr 01/30/22 01/30/22 01/30/22 10:56 10:56 10:56 MCV 82.4 MCH 26.1 L MCHC 31.7 RDW 17.4 H Plt Count 422 H D MPV 8.8 L Immature Gran % (Auto) 1.5 H Neut % (Auto) 63.0 Lymph % (Auto) 18.8 L [place] % (Auto) 11.2 H Eos % (Auto) 5.0 H Baso % (Auto) 0.5 Lymph # (Auto) 2.3 [place] # (Auto) 1.4 H Eos # (Auto) 0.6 H Baso # (Auto) 0.1 Abs Immat Gran (auto) 0.18 H Absolute Neuts (auto) 7.7 Absolute Nucleated RBC 0.000 Nucleated RBC % (auto) 0.0 PT 13.8 H INR 1.2 H APTT 31.7 Anion Gap 11 L Estim Creat Clear Calc 67.2 Estimated GFR > 60 Random Glucose 137 H Lactic Acid Calcium 9.0 D Magnesium 1.8 Total Bilirubin 0.2 Direct Bilirubin < 0.2 AST 31 ALT 30 Alkaline Phosphatase 126 H D Total Protein 7.4 Albumin 2.8 L Urine Color Urine Appearance Urine pH Ur Specific [place] Urine Protein Urine Glucose (UA) Urine Ketones Urine Blood Urine Nitrite Ur Leukocyte Esterase Urine RBC Urine WBC Ur Squamous Epith Cells Urine Bacteria Stool Occult Blood COVID-19 (LOVE) COVID-19 Clin Com Influenza Type A (DELVIS) Influenza Type B (DELVIS) Influenza A & B Note 01/30/22 01/30/22 01/30/22 10:56 11:07 11:07 MCV MCH MCHC RDW Plt Count MPV Immature Gran % (Auto) Neut % (Auto) Lymph % (Auto) [place] % (Auto) Eos % (Auto) Baso % (Auto) Lymph # (Auto) [place] # (Auto) Eos # (Auto) Baso # (Auto) Abs Immat Gran (auto) Absolute Neuts (auto) Absolute Nucleated RBC Nucleated RBC % (auto) PT INR APTT Anion Gap Estim Creat Clear Calc Estimated GFR Random Glucose Lactic Acid 1.3 Calcium Magnesium Total Bilirubin Direct Bilirubin AST ALT Alkaline Phosphatase Total Protein Albumin Urine Color Urine Appearance Urine pH Ur Specific [place] Urine Protein Urine Glucose (UA) Urine Ketones Urine Blood Urine Nitrite Ur Leukocyte Esterase Urine RBC Urine WBC Ur Squamous Epith Cells Urine Bacteria Stool Occult Blood COVID-19 (LOVE) Negative COVID-19 Clin Com See Note Influenza Type A (DELVIS) Negative Influenza Type B (DELVIS) Negative Influenza A & B Note See Note 01/30/22 01/30/22 14:09 14:09 MCV MCH MCHC RDW Plt Count MPV Immature Gran % (Auto) Neut % (Auto) Lymph % (Auto) [place] % (Auto) Eos % (Auto) Baso % (Auto) Lymph # (Auto) [place] # (Auto) Eos # (Auto) Baso # (Auto) Abs Immat Gran (auto) Absolute Neuts (auto) Absolute Nucleated RBC Nucleated RBC % (auto) PT INR APTT Anion Gap Estim Creat Clear Calc Estimated GFR Random Glucose Lactic Acid Calcium Magnesium Total Bilirubin Direct Bilirubin AST ALT Alkaline Phosphatase Total Protein Albumin Urine Color YELLOW Urine Appearance CLOUDY Urine pH 5.5 Ur Specific [place] 1.015 Urine Protein TRACE Urine Glucose (UA) NEG Urine Ketones NEG Urine Blood 3+ H Urine Nitrite NEG Ur Leukocyte Esterase 3+ H Urine RBC 76-150 H Urine WBC 76-150 H Ur Squamous Epith Cells NONE Urine Bacteria NONE Stool Occult Blood POSITIVE COVID-19 (LOVE) COVID-19 Clin Com Influenza Type A (DELVIS) Influenza Type B (DELVIS) Influenza A & B Note Impressions Chest X-Ray 01/30/22 11:35 IMPRESSION: New bilateral perihilar and right upper lobe airspace disease probably representing pneumonia. Imaging Radiologist's Impressions: Impressions Chest X-Ray 01/30/22 11:35 IMPRESSION: New bilateral perihilar and right upper lobe airspace disease probably representing pneumonia. Assessment and Plan (1) Pneumonia: Status: Acute (2) Hypoxia: Status: Acute (3) Hyponatremia: Status: Acute Plan 86yo F with history of dementia, HTN, nephrolithiasis, GERD, and asthma; recently hospitalized at [facility] 11/25/21-12/27/21 for SAH from ruptured L ICA aneursym that was stented on 11/27/21; hospitalization complicated by reintubation for hypoxic respiratory failure and hypotension requiring pressors; sequelae of L-sided hemiplegia and G-tube and Berman dependence. Cared for at home by daughters 04/06. Developed cough, dyspnea, cloudy urine, and abdominal discomfort and treated empirically for UTI with cephalexin but became febrile and confused and had worsening respiratory symptoms. Presenting with leukocytosis, low-grade fever and hypoxia; found to have pneumonia, hyponatremia, and FOBT+ stool. # HCAP - admit to M/S, give piperacillin/tazobactam + vancomycin, check MRSA swab, follow BCx, trend PCT # acute hypoxic respiratory failure - supplemental O2 via NC, wean as tolerated # anemia of chronic disease with FOBT+ - IV PPI, GI consultation # encephalopathy - likely due to infection; treat as above # hypoNa - likely hypovolemic + HCTZ effect. HCTZ on hold and given NS # HTN - continue valsartan, hold HCTZ # recent SAH s/p stenting - needs to be back on DAPT [ASA + clopidogrel] GLENROY but will hold for now pending Hb trend and GI consultation - continue levetiracteam for sz ppx # asthma, intermittent - prn albuterol # tube feeding # malnutrition, moderate - Nutrition consult for Jevity + free water calculation # VTE ppx - SCDs, hold heparinoids given FOBT+ Quality Stroke Does the patient have a stroke diagnosis?: No VTE Prior VTE?: No VTE Risk Level:: Medical - moderate - high VTE Device Contraindication: N/A - Device Ordered VTE Drug Contraindication: Treatment Not Tolerated
[2022-01-30] MEDS: Pantoprazole Sodium 40 MG/10 ML VIAL IVPUSH (17:19)
[2022-01-30] MEDS: vancomycin HCL 500 MG in 0.9 % Sodium Chloride 100 ML 110 MG IV (17:22)
--- NOTE | 2022-01-30 17:23 | PC.NURSE ---
Cath secure placed to reza (present on admission) Pt noted with stage 2 to coccyx region, new dsg applied, positioned off coccyx. Family at bedside.
[2022-01-30 17:27] VITALS: BP 119/53; PULSE 69; RESP 16; TEMP 36.6; O2SAT 100
--- NOTE | 2022-01-30 17:30 | PC.NURSE ---
Second IV start to left wrist, right ac IV positional
[2022-01-30] MEDS: Calcium + Vitamin D 250 MG TABLET 500 MG PO (20:42)
[2022-01-30] MEDS: Atorvastatin Calcium 40 MG TABLET PO (20:42)
[2022-01-30] MEDS: Acetaminophen 325 MG TABLET 650 MG G-TUBE (20:49)
[2022-01-30 20:50] VITALS: RESP 22
[2022-01-30] MEDS: Morphine Sulfate 4 MG/ML CARTRIDGE 1 MG IVPUSH (20:50)
[2022-01-30] MEDS: levETIRAcetam Oral Soln 500 MG/5 ML G-TUBE (20:54)
[2022-01-30 23:36] VITALS: BP 117/53; PULSE 71; RESP 16; TEMP 36.6; O2SAT 95
--- NOTE | 2022-01-31 00:35 | PC.NURSE ---
arrived with daughter who is helping interpret, and also communicated with patient in Qatari. Patient is disoriented, only oriented to self. Clear speech, moves all extremities, follows commands, no apparent distress. Daughter said patient in pain, patient denied pain, then when moving patient, she reported pain 8/10 low back, and was medicated with tylenol and morphine PRN. Patient is on TF diet normally glucerna 75 cc/ hour 1.0, per daughter. MD notified. Patient with 2x incontinence of stool, 1 x incontinent of urine.
[2022-01-31] MEDS: 0.9 % Sodium Chloride Flush 3 ML SYRINGE IVFLUSH ×3 (00:39→15:34)
[2022-01-31] MEDS: Piperacillin Sodium/Tazobactam 4.5 GM in 0.9 % Sodium Chloride 100 ML IV ×4 (00:46→18:33)
[2022-01-31] MEDS: Morphine Sulfate 4 MG/ML CARTRIDGE 1 MG IVPUSH (03:12)
[2022-01-31] MEDS: Pantoprazole Sodium 40 MG/10 ML VIAL IVPUSH ×2 (05:56→15:34)
[2022-01-31 07:11] LABS: Hematocrit 24.5 % (37.0-47.0); Hemoglobin 7.6 g/dl (12.0-16.0); Mean Corpuscular Hemoglobin 26.5 pg (27.0-33.0); Mean Corpuscular Volume 85.4 fL (80.0-98.0); Mean Platelet Volume 9.3 fL (9.4-12.3); Platelet Count 417 X10*3/uL (160-400); Red Blood Count 2.87 X10*6/uL (4.20-5.50); Red Cell Distribution Width 17.7 % (11.0-16.0); White Blood Count 9.7 X10*3/uL (4.8-10.8)
[2022-01-31 07:40] LABS: Anion Gap 14 (12-20); Blood Urea Nitrogen 14 mg/dL (9-16); Calcium 9.1 mg/dL (8.4-10.2); Carbon Dioxide 24 mmol/L (22-29); Chloride 103 mmol/L (96-108); Creatinine Clr Calc Pharmacy 60.5; Estimated Glomerular Filt Rate > 60; Glucose Random 103 mg/dL (60-115); Sodium 136 mmol/L (135-145)
[2022-01-31 08:11] LABS: Glucose, Whole Blood 105 mg/dL (60-115)
[2022-01-31 08:21] VITALS: BP 109/55; PULSE 68; RESP 15; TEMP 36.6; O2SAT 96
--- NOTE | 2022-01-31 09:31 | PHA.PROG ---
Admission Date/Time: January 30, 2022 16:06 Indication: HCAP Weight in k.967 kg Adjusted body weight in K.8 kg [place]ner body weight in K kg Obesity Dosing Indication % IBW: 101% Serum Creatinine - Last 168 Hours 01/30/22 01/31/22 10:56 06:49 Creatinine 0.54 0.60 Estimated CrCl and GFR - Last 168 Hours 01/30/22 01/31/22 10:56 06:49 Estim Creat Clear Calc 67.2 60.5 Estimated GFR > 60 > 60 Vancomycin Loading Dose: 750 mg + 500 mg Current Vancomycin Dosing Regimen: 1000 mg Q24H Date and Time for next Vancomycin Level to be drawn: 02/01 @ 1500 Pharmacist Comments on Vancomycin Plan: Current regimen is expected to be subtheraputic with an AUC of 358. Will increase dose to vancomycin 1250 mg Q24H. Expected AUC 458 with a trough of 12.5 Pharmacy will continue to monitor renal function daily. Vancomycin dosing will take advantage of [employer] as a clinical decision support tool that uses Bayesian modeling to calculate individual patient's pharmacokinetic parameters and forecast the patient's drug concentration time course with the target goal AUC 24 range of 400 - 600 mg/L/hr.
[2022-01-31] MEDS: Acetaminophen 325 MG TABLET 650 MG G-TUBE (10:23)
[2022-01-31] MEDS: DULoxetine HCl 30 MG CAPSULE.DR PO (10:23)
[2022-01-31] MEDS: levETIRAcetam Oral Soln 500 MG/5 ML G-TUBE ×2 (10:23→21:06)
[2022-01-31] MEDS: Valsartan 320 MG TABLET PO (10:23)
[2022-01-31] MEDS: Calcium + Vitamin D 250 MG TABLET 500 MG PO ×2 (10:23→21:06)
[2022-01-31] MEDS: Loratadine 10 MG TABLET PO (10:23)
[2022-01-31] MEDS: Betamethasone Dip Aug 0.05% Cr 15 GM TUBE 1 APPL TOPICAL ×2 (10:25→21:07)
--- NOTE | 2022-01-31 10:47 | MHC.CM.PN ---
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 IMM DELIVERED, COPY SENT TO [facility] CURRENT DC PLAN IS HOME WITH RESUMPTION OF SERVICES PT WILL NEED BLS TRANSPORT
[2022-01-31] MEDS: Albuterol Sulfate (0.083%) 2.5 MG/3 ML VIAL.NEB INHALE (11:48)
[2022-01-31 11:50] VITALS: PULSE 73; RESP 20; O2SAT 96
--- NOTE | 2022-01-31 13:11 | P.CNGI_ITS ---
History of Present Illness Data of Consult Service Date: 01/31/22 Primary Care Provider: Anders Frey MD HPI Reason for consult: anemia 86yo F with history of dementia, HTN, nephrolithiasis, GERD, and asthma who I am seeing for assessment for anemia. She was actually admitted with 1 week of cough, and SOB as well as cloudy and bloody urine. 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 She underwent stenting on 11/27/21 and had a prolonged hospitalization course complicated by reintubation for hypoxic respiratory failure and hypotension requiring pressors.? She was left with L-sided hemiplegia, dysphagia requiring G-tube for feeds and medications [running Glucerna @ 75 mL/hr due to prediabetes], and chronic Berman catheter.? She was discharged on 12/27/21.? She is on DAPT.? She has been cared for at home by her 2 daughters.? Just over 1 week ago, she developed cough, dyspnea, cloudy/bloody urine in Berman, and worsening abdominal discomfort.? She was prescribed a 7-day course of empiric cephalexin for UTI, which she just completed.? She has not improved and ended up spiking fever as high as 102.3F and becoming more delirious.? At baseline, she does not ambulate but is verbal. In the ED, she was found to have low-grade fever to 100.3 but normal pulse and respiratory rate.? She was hypoxic to 89% on room air and placed on 2L of O2 via NA.? WBCs were 12.2.? Hemoglobin was 8.3, compared to 10.6 on 11/25/21 at [facility] [place] but 7.9 upon discharge from [facility] on 12/27/21.? FOBT was positive.? Na was 128.? CXR showed RUL infiltrate.? She was given 1L NS, vancomycin and piperacillin- tazobactam. [facility] Past Medical History Medical History (Updated 01/30/22 @ 16:30 by Yolis Montes MD) Cerebral aneurysm CVA (cerebral vascular accident) Dementia Essential hypertension Hypertension Surgical History Surgical History (Updated 01/30/22 @ 16:30 by Yolis Montes MD) H/O lithotripsy History of cholecystectomy Previous back surgery S/P endovascular aneurysm repair Social History Social History Household Members: None Housing: Apartment Do you presently have visiting nurse or other home services: Yes ([employer]) Alcohol intake: never Patient Tobacco Use Status: Never used Tobacco Use of substances other than those prescribed or required for medical reasons: No Advance Directives: No Advance Directives Information Provided: No service: No Current occupational status: unemployed Meds Allergies Allergy/AdvReac Type Severity Reaction Status Date / Time lisinopril [LISINOPRIL] Allergy Mild CHEST PAIN Verified 06/19/21 19:37 codeine [CODEINE] AdvReac Unknown AGITATION Verified 06/19/21 19:37 Active Medications: Current Medications Acetaminophen (Acetaminophen 325 Mg Tablet) 650 mg G-TUBE Q6H PRN PRN Reason: Pain, Mild (Pain Scale 1-3) Last Admin: 01/31/22 10:23 Dose: 650 mg Documented by: Albuterol Sulfate (Albuterol Sulfate (0.083%) 2.5 Mg/3 Ml Vial.Neb) 2.5 mg INHALE Q4H PRN PRN Reason: Shortness Of Breath Last Admin: 01/31/22 11:48 Dose: 2.5 mg Documented by: Atorvastatin Calcium (Atorvastatin Calcium 40 Mg Tablet) 40 mg PO BEDTIME [facility] Last Admin: 01/30/22 20:42 Dose: 40 mg Documented by: Betamethasone Dipropion Augmented (Betamethasone Dip Aug 0.05% Cr 15 Gm Tube) 1 appl TOPICAL BID [facility] Last Admin: 01/31/22 10:25 Dose: 1 appl Documented by: Calcium Carbonate/Cholecalciferol (Calcium + Vitamin D 250 Mg Tablet) 500 mg PO BID [facility] Last Admin: 01/31/22 10:23 Dose: 500 mg Documented by: Duloxetine HCl (Duloxetine Hcl 30 Mg Capsule.Dr) 30 mg PO DAILY [facility] Last Admin: 01/31/22 10:23 Dose: 30 mg Documented by: Fluticasone Propionate (Fluticasone Propionate Nasal 16 Gm [place]) 2 spray NOSTRIL-B DAILY PRN PRN Reason: Allergic Symptoms Piperacillin Sod/Tazobactam (Sod 4.5 gm/ Sodium Chloride) 100 mls @ 200 mls/hr IV Q6H [facility] Last Infusion: 01/31/22 06:33 Dose: Infused Documented by: Vancomycin HCl 1,250 mg/ (Sodium Chloride) 250 mls @ 166.667 mls/hr IV Q24H [facility] Levetiracetam (Levetiracetam Oral Soln 500 Mg/5 Ml) 500 mg G-TUBE BID [facility] Last Admin: 01/31/22 10:23 Dose: 500 mg Documented by: Loratadine (Loratadine 10 Mg Tablet) 10 mg PO DAILY [facility] Last Admin: 01/31/22 10:23 Dose: 10 mg Documented by: Melatonin (Melatonin 3 Mg Tablet) 6 mg PO BEDTIME PRN PRN Reason: insomnia Modafinil (Modafinil 100 Mg Tablet) 200 mg G-TUBE DAILY [facility] Morphine Sulfate (Morphine Sulfate 4 Mg/Ml Cartridge) 1 mg IVPUSH Q4H PRN; Pro tocol PRN Reason: Pain, Severe (Pain Scale 7-10) Last Admin: 01/31/22 03:12 Dose: 1 mg Documented by: Ondansetron HCl (Ondansetron Hcl 4 Mg/2 Ml Vial) 4 mg IVPUSH Q4H PRN PRN Reason: Nausea and Vomiting Pantoprazole Sodium (Pantoprazole Sodium 40 Mg/10 Ml Vial) 40 mg IVPUSH BID@0630,1630 [facility] Last Admin: 01/31/22 05:56 Dose: 40 mg Documented by: Pharmacy Consult (Consult Rx Perform Med Rec) 1 each MISCELLANE ONCE PRN PRN Reason: Consult order Pharmacy Consult (Consult Rx Vancomycin Dosing) 1 each MISCELLANE DAILY PRN PRN Reason: Consult order Sodium Chloride (0.9 % Sodium Chloride Flush 3 Ml Syringe) 3 ml IVFLUSH QSHIFT [facility] Last Admin: 01/31/22 00:39 Dose: 3 ml Documented by: Valsartan (Valsartan 320 Mg Tablet) 320 mg PO DAILY [facility] Last Admin: 01/31/22 10:23 Dose: 320 mg Documented by: Home Medications Medication Instructions Recorded Confirmed Last Taken Type cetirizine 10 mg tablet 10 mg PO DAILY 12/19/20 01/30/22 01/29/22 History famotidine 20 mg tablet 20 mg PO BID 12/19/20 01/30/22 01/29/22 History albuterol sulfate 90 mcg/actuation 2 puff INHALATION Q4-6H PRN 12/20/20 01/30/22 01/29/22 History aerosol inhaler calcium carbonate 500 mg-vitamin 1 tab PO BID 12/20/20 01/30/22 01/29/22 History D3 5 mcg (200 unit) tablet (Oyster Shell Calcium-Vitamin D3) fluticasone propionate 50 2 spray INTRANASAL DAILY PRN 12/20/20 01/30/22 01/29/22 History mcg/actuation nasal spray,suspension valsartan 320 1 tab PO DAILY 12/20/20 01/30/22 01/29/22 History mg-hydrochlorothiazide 25 mg tablet clobetasol 0.05 % topical cream 1 applic TOPICAL BID 11/25/21 01/30/22 01/29/22 History rosuvastatin 10 mg tablet 1 tab PO QPM 11/25/21 01/30/22 01/29/22 History albuterol sulfate 1 amp INHALATION TID PRN 01/30/22 01/30/22 01/29/22 History amantadine HCl 50 mg/5 mL oral 10 ml G-TUBE DAILY 01/30/22 01/30/22 01/29/22 History solution cephalexin 500 mg capsule 500 mg PO QID 01/30/22 01/30/22 01/29/22 History clopidogrel 75 mg tablet 1 tab BEDTIME 01/30/22 01/30/22 01/29/22 History duloxetine 30 mg capsule,delayed 1 cap PO DAILY 01/30/22 01/30/22 01/29/22 History release levetiracetam 100 mg/mL oral 5 ml G-TUBE BID 01/30/22 01/30/22 01/29/22 History solution melatonin 5 mg tablet 1 tab PO BEDTIME PRN 01/30/22 01/30/22 01/29/22 History modafinil 200 mg tablet 1 tab DAILY 01/30/22 01/30/22 01/29/22 History Physical Exam Vital Signs: Vital Signs: Last Vital Signs Temp 97.9 F 01/31/22 08:21 Pulse 73 01/31/22 11:50 Resp 20 01/31/22 11:50 BP 109/55 L 01/31/22 08:21 Pulse Ox 96 01/31/22 08:21 BMI result Body Mass Index 21.6 Results Labs CBC & Chem 7: 03/22/22 06:49 01/31/22 06:49 Labs: Short CBC 01/31/22 Range/Units 06:49 WBC 9.7 (4.8-10.8) X10*3/uL Hgb 7.6 L (12.0-16.0) g/dl Hct 24.5 L (37.0-47.0) % Plt Count 417 H (160-400) X10*3/uL BMP 01/31/22 06:49 Sodium 136 Potassium 5.0 Chloride 103 Carbon Dioxide 24 BUN 14 Creatinine 0.60 Calcium 9.1 Urine 01/30/22 Range/Units 14:09 Urine Color YELLOW Urine Appearance CLOUDY Urine pH 5.5 (5.0-8.0) Ur Specific [place] 1.015 (1.005-1.025) Urine Protein TRACE (NEG-TRACE) MG/DL Urine Glucose (UA) NEG (NEG) MG/DL Microbiology Microbiology Results: Microbiology 01/30/22 10:56 Blood - Venous Blood Culture - Preliminary No growth after 24 hours. 01/30/22 00:00 Urine Catheterized - Berman Catheter Urine Culture - Preliminary Culture in progress.
--- NOTE | 2022-01-31 13:49 | MHC.CLN ---
RE: CONSULT FOR TF RECOMMEND JEVITY 1.0 AT MAX GOAL RATE 60ML/HR WITH 240ML FREE WATER FLSUHES Q SHIFT TO PROVIDE 1526KCALS (26KCALS/KG), 64G PROTEIN (1.08G/KG), 1922ML TOTAL FROM FORMULA AND FLUSHES (32.6ML/KG) START TF AT 20ML/HR AND INCREASE BY 10ML Q 4 HRS UNTIL MAX GOAL IS ACHIEVED MONITOR TOLERANCE, RESIDUALS AND LYTES NOTED PT WAS RECEIVING GLUCERNA AT 75ML/HR AT HOME RECOMMEND CHECKING AIC LEVEL; CAN CHANGE FORMULA IF NEEDED
[2022-01-31] MEDS: QUEtiapine Fumarate 25 MG TABLET 12.5 MG PO ×2 (15:25→21:06)
[2022-01-31] MEDS: modafiniL 100 MG TABLET 200 MG G-TUBE (15:25)
--- NOTE | 2022-01-31 15:48 | PC.NURSE ---
PT ALERT/VAGUE. DAUGHTER AT BEDSIDE. TUBE FEEDING STARTED AT APPROX 0930. MEDS VIA PEG TUBE FLUSHED AND PATENT. THIS AFTERNOON PT RESTLESS. SEROQUEL ORDERED.
[2022-01-31 16:18] VITALS: BP 106/72; PULSE 83; RESP 14; O2SAT 94
--- NOTE | 2022-01-31 16:25 | P.PNIM_ITS ---
Subjective Subjective Date of Service: 01/31/22 Interval History: no acute issues overnight Review of Systems daughter interpreting; Denies chest pain Denies shortness of breath Denies nausea vomiting diarrhea Physical Exam Vital Signs: Vital Signs: Last Vital Signs Temp 97.9 F 01/31/22 08:21 Pulse 83 01/31/22 16:18 Resp 14 01/31/22 16:18 BP 106/72 01/31/22 16:18 Pulse Ox 94 01/31/22 16:18 BMI result Body Mass Index 21.6 Const: Other: no acute distress Resp: Other: clear to auscultation bilaterally no rales rhonchi wheezes Cardio: Other: no sore; positive S1-S2; no S3 murmurs or gallops GI: Other: soft nontender nondistended normoactive bowel sounds Extrem: Other: no edema Objective Data Active Medications Acetaminophen (Acetaminophen 325 Mg Tablet) 650 mg G-TUBE Q6H PRN PRN Reason: Pain, Mild (Pain Scale 1-3) Last Admin: 01/31/22 10:23 Dose: 650 mg Documented by: ESTHER Albuterol Sulfate (Albuterol Sulfate (0.083%) 2.5 Mg/3 Ml Vial.Neb) 2.5 mg INHALE Q4H PRN PRN Reason: Shortness Of Breath Last Admin: 01/31/22 11:48 Dose: 2.5 mg Documented by: DIMITRIS Atorvastatin Calcium (Atorvastatin Calcium 40 Mg Tablet) 40 mg PO BEDTIME [facility] Last Admin: 01/30/22 20:42 Dose: 40 mg Documented by: ESTHER Betamethasone Dipropion Augmented (Betamethasone Dip Aug 0.05% Cr 15 Gm Tube) 1 appl TOPICAL BID [facility] Last Admin: 01/31/22 10:25 Dose: 1 appl Documented by: ESTHER Calcium Carbonate/Cholecalciferol (Calcium + Vitamin D 250 Mg Tablet) 500 mg PO BID [facility] Last Admin: 01/31/22 10:23 Dose: 500 mg Documented by: ESTHER Duloxetine HCl (Duloxetine Hcl 30 Mg Capsule.Dr) 30 mg PO DAILY [facility] Last Admin: 01/31/22 10:23 Dose: 30 mg Documented by: ESTHER Fluticasone Propionate (Fluticasone Propionate Nasal 16 Gm [place]) 2 spray NOSTRIL-B DAILY PRN PRN Reason: Allergic Symptoms Piperacillin Sod/Tazobactam (Sod 4.5 gm/ Sodium Chloride) 100 mls @ 200 mls/hr IV Q6H [facility] Last Admin: 01/31/22 15:17 Dose: 200 mls/hr Documented by: ESTHER Vancomycin HCl 1,250 mg/ (Sodium Chloride) 250 mls @ 166.667 mls/hr IV Q24H [facility] Levetiracetam (Levetiracetam Oral Soln 500 Mg/5 Ml) 500 mg G-TUBE BID [facility] Last Admin: 01/31/22 10:23 Dose: 500 mg Documented by: ESTHER Loratadine (Loratadine 10 Mg Tablet) 10 mg PO DAILY [facility] Last Admin: 01/31/22 10:23 Dose: 10 mg Documented by: ESTHER Melatonin (Melatonin 3 Mg Tablet) 6 mg PO BEDTIME PRN PRN Reason: insomnia Modafinil (Modafinil 100 Mg Tablet) 200 mg G-TUBE DAILY [facility] Last Admin: 01/31/22 15:25 Dose: 200 mg Documented by: JOSE JUAN Morphine Sulfate (Morphine Sulfate 4 Mg/Ml Cartridge) 1 mg IVPUSH Q4H PRN; Protocol PRN Reason: Pain, Severe (Pain Scale 7-10) Last Admin: 01/31/22 03:12 Dose: 1 mg Documented by: HODA Ondansetron HCl (Ondansetron Hcl 4 Mg/2 Ml Vial) 4 mg IVPUSH Q4H PRN PRN Reason: Nausea and Vomiting Pantoprazole Sodium (Pantoprazole Sodium 40 Mg/10 Ml Vial) 40 mg IVPUSH BID@0630,1630 [facility] Last Admin: 01/31/22 15:34 Dose: 40 mg Documented by: JOSE JUAN Pharmacy Consult (Consult Rx Perform Med Rec) 1 each MISCELLANE ONCE PRN PRN Reason: Consult order Pharmacy Consult (Consult Rx Vancomycin Dosing) 1 each MISCELLANE DAILY PRN PRN Reason: Consult order Quetiapine Fumarate (Quetiapine Fumarate 25 Mg Tablet) 12.5 mg PO BID [facility] Last Admin: 01/31/22 15:25 Dose: 12.5 mg Documented by: JOSE JUAN Sodium Chloride (0.9 % Sodium Chloride Flush 3 Ml Syringe) 3 ml IVFLUSH QSHIFT [facility] Last Admin: 01/31/22 15:34 Dose: 3 ml Documented by: JOSE JUAN Valsartan (Valsartan 320 Mg Tablet) 320 mg PO DAILY [facility] Last Admin: 01/31/22 10:23 Dose: 320 mg Documented by: ESTHER Labs CBC & Chem 7: 01/31/22 06:49 01/31/22 06:49 Labs: Laboratory Results - last 24 hr 01/31/22 01/31/22 01/31/22 06:49 06:49 07:37 MCV 85.4 MCH 26.5 L MCHC 31.0 RDW 17.7 H Plt Count 417 H MPV 9.3 L Absolute Nucleated RBC 0.000 Nucleated RBC % (auto) 0.0 Anion Gap 14 Estim Creat Clear Calc 60.5 Estimated GFR > 60 POC Glucose 105 Random Glucose 103 Calcium 9.1 Microbiology Microbiology Results: Microbiology 01/30/22 11:06 Blood Culture - Preliminary Blood - Venous No growth after 24 hours. 01/30/22 10:56 Blood Culture - Preliminary Blood - Venous No growth after 24 hours. 01/30/22 00:00 Urine Culture - Preliminary Urine Catheterized - Berman Catheter Culture in progress. 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 Cared for at home by maida 04/06. Developed cough, dyspnea, cloudy urine, and abdominal discomfort and treated empirically for UTI with cephalexin but became febrile and confused and had worsening respiratory symptoms. Presenting with leukocytosis, low-grade fever and hypoxia; found to have pneumonia, hyponatremia, and FOBT+ stool. 1.HCAP -Zosyn/Vancomycin -titrate O2 - 2.Anemia(FOBT+) - IV PPI - follow CBC in am 3.HypoNatremia - resolved - can restart HCTZ as outpatient 4. HTN - continue valsartan, hold HCTZ 5.Hx SAH s/p stenting - needs to be back on DAPT [ASA + clopidogrel] GLENROY but will hold for now pending Hb trend and GI consultation - continue levetiracteam for sz ppx VTE ppx SCDs, hold heparinoids given FOBT+ will likely need 1-2 midnights going forward for further treatment of hospital- acquired pneumonia and to rule out GI bleed Quality Stroke Does the patient have a stroke diagnosis?: No VTE Prior VTE?: No VTE Risk Level:: Medical - moderate - high VTE Device Contraindication: N/A - Device Ordered VTE Drug Contraindication: Treatment Not Tolerated
--- NOTE | 2022-01-31 16:51 | PC.NURSE ---
Patient alert but pleasantly confused. Patient is Icelandic speaking daughter at bedside. Patient denies any pain. Patient has peg-tube Jevity feeding is running at 60cc/hr Patient has small open area on left buttock allevyn dressing on area applied extra protective cream all over the rest of her bottom had some diarrhea. Patient on zosyn and vancomycin. Will continue to monitor.
[2022-01-31 17:59] VITALS: BP 122/48; PULSE 71; TEMP 37; O2SAT 94
[2022-01-31] MEDS: vancomycin HCL 1,250 MG in 0.9 % Sodium Chloride 250 ML 166.67 MG IV (18:34)
[2022-01-31] MEDS: Atorvastatin Calcium 40 MG TABLET PO (21:06)
[2022-01-31] MEDS: Melatonin 3 MG TABLET 6 MG PO (21:06)
[2022-02-01] VITALS: BP 130/61; PULSE 84; RESP 17; TEMP 36.2; O2SAT 95
[2022-02-01] MEDS: Piperacillin Sodium/Tazobactam 4.5 GM in 0.9 % Sodium Chloride 100 ML IV ×5 (00:17→23:40)
[2022-02-01] MEDS: 0.9 % Sodium Chloride Flush 3 ML SYRINGE IVFLUSH ×4 (00:17→21:01)
[2022-02-01] MEDS: Morphine Sulfate 4 MG/ML CARTRIDGE 1 MG IVPUSH ×4 (00:24→18:19)
[2022-02-01] MEDS: Pantoprazole Sodium 40 MG/10 ML VIAL IVPUSH ×2 (05:34→15:40)
[2022-02-01 05:50] LABS: MANUAL DIFF FLAG NO
[2022-02-01 05:59] LABS: Basophils Absolute Auto 0.1 X10*3/uL (0.0-0.2); Basophils Percent Auto 0.6 % (0-2); Eosinophils Absolute Auto 1.3 X10*3/uL (0.0-0.4); Eosinophils Percent Auto 13.4 % (0-4); Hematocrit 25.2 % (37.0-47.0); Hemoglobin 7.7 g/dl (12.0-16.0); Lymphocytes Percent Auto 30.5 % (20-40); Mean Corpuscular HGB Conc 30.6 g/dl (31.0-35.0); Mean Corpuscular Hemoglobin 25.8 pg (27.0-33.0); Mean Corpuscular Volume 84.3 fL (80.0-98.0); Mean Platelet Volume 9.1 fL (9.4-12.3); Monocytes Absolute Auto 1.1 X10*3/uL (0.1-1.2); Monocytes Percent Auto 11.3 % (2-11); Neutrophils Absolute Auto 4.3 x10*3/uL (2.0-8.3); Neutrophils Percent Auto 43.2 % (45-73); Platelet Count 431 X10*3/uL (160-400); Red Blood Count 2.99 X10*6/uL (4.20-5.50); Red Cell Distribution Width 17.6 % (11.0-16.0); White Blood Count 9.9 X10*3/uL (4.8-10.8)
[2022-02-01 06:40] LABS: Alanine Aminotransferase 87 U/L (0-31); Albumin Level 2.6 g/dL (3.5-5.0); Alkaline Phosphatase 279 U/L (39-117); Anion Gap 13 (12-20); Aspartate Amino Transferase 113 U/L (5-31); Bilirubin Total 0.3 mg/dL (0.0-1.0); Blood Urea Nitrogen 16 mg/dL (9-16); Calcium 8.8 mg/dL (8.4-10.2); Carbon Dioxide 23 mmol/L (22-29); Chloride 104 mmol/L (96-108); Creatinine Clr Calc Pharmacy 59.5; Estimated Glomerular Filt Rate > 60; Glucose Fasting 125 mg/dL (60-99); Potassium 4.3 mmol/L (3.3-5.1); Sodium 136 mmol/L (135-145)
[2022-02-01 07:46] VITALS: BP 142/68; PULSE 83; RESP 18; TEMP 36.3; O2SAT 98
[2022-02-01] MEDS: levETIRAcetam Oral Soln 500 MG/5 ML G-TUBE ×2 (09:52→20:45)
[2022-02-01] MEDS: Valsartan 320 MG TABLET PO (09:52)
[2022-02-01] MEDS: modafiniL 100 MG TABLET 200 MG G-TUBE (09:53)
[2022-02-01] MEDS: Calcium + Vitamin D 250 MG TABLET 500 MG PO ×2 (09:53→20:45)
[2022-02-01] MEDS: Loratadine 10 MG TABLET PO (09:56)
[2022-02-01] MEDS: QUEtiapine Fumarate 25 MG TABLET 12.5 MG PO ×2 (09:56→20:45)
[2022-02-01] MEDS: DULoxetine HCl 30 MG CAPSULE.DR PO (09:57)
[2022-02-01 12:31] VITALS: BMI 21.6
--- NOTE | 2022-02-01 13:09 | MHC.CM.PN ---
[facility] REVIEWED, PER HOSPITALIST PT IMPROVING AND ANTIC D/C HOME TOMORROW W/RESUMP OF 24HR CARE, TRA[employer]ING [employer] [facility], PT WILL NEED BLS FOR TRANSPORT.
--- NOTE | 2022-02-01 14:30 | HO.PM.IMPN ---
Subjective Subjective Date of Service: 02/01/22 Interval History: no acute issues overnight. Family notes improvement with seroquel Review of Systems daughter interpreting; Denies chest pain Denies shortness of breath Denies nausea vomiting diarrhea Physical Exam Vital Signs: Vital Signs: Last Vital Signs Temp 97.4 F 02/01/22 07:46 Pulse 83 02/01/22 07:46 Resp 18 02/01/22 07:46 BP 142/68 H 02/01/22 07:46 Pulse Ox 98 02/01/22 07:46 BMI result Body Mass Index 21.6 Const: Other: no acute distress Resp: Other: clear to auscultation bilaterally no rales rhonchi wheezes Cardio: Other: no sore; positive S1-S2; no S3 murmurs or gallops GI: Other: soft nontender nondistended normoactive bowel sounds Extrem: Other: no edema Objective Data Active Medications Acetaminophen (Acetaminophen 325 Mg Tablet) 650 mg G-TUBE Q6H PRN PRN Reason: Pain, Mild (Pain Scale 1-3) Last Admin: 01/31/22 10:23 Dose: 650 mg Documented by: ESTHER Albuterol Sulfate (Albuterol Sulfate (0.083%) 2.5 Mg/3 Ml Vial.Neb) 2.5 mg INHALE Q4H PRN PRN Reason: Shortness Of Breath Last Admin: 01/31/22 11:48 Dose: 2.5 mg Documented by: DIMITRIS Atorvastatin Calcium (Atorvastatin Calcium 40 Mg Tablet) 40 mg PO BEDTIME [facility] Last Admin: 01/31/22 21:06 Dose: 40 mg Documented by: PAULA Betamethasone Dipropion Augmented (Betamethasone Dip Aug 0.05% Cr 15 Gm Tube) 1 appl TOPICAL BID [facility] Last Admin: 02/01/22 14:25 Dose: Not Given Documented by: HEAVEN Non-Admin Reason: See Note Calcium Carbonate/Cholecalciferol (Calcium + Vitamin D 250 Mg Tablet) 500 mg PO BID [facility] Last Admin: 02/01/22 09:53 Dose: 500 mg Documented by: HEAVEN Duloxetine HCl (Duloxetine Hcl 30 Mg Capsule.) 30 mg PO DAILY [facility] Last Admin: 02/01/22 09:57 Dose: 30 mg Documented by: HEAVEN Fluticasone Propionate (Fluticasone Propionate Nasal 16 Gm [place]) 2 spray NOSTRIL-B DAILY PRN PRN Reason: Allergic Symptoms Piperacillin Sod/Tazobactam (Sod 4.5 gm/ Sodium Chloride) 100 mls @ 200 mls/hr IV Q6H [facility] Last Admin: 02/01/22 14:00 Dose: 200 mls/hr Documented by: HEAVEN Vancomycin HCl 1,250 mg/ (Sodium Chloride) 250 mls @ 166.667 mls/hr IV Q24H [facility] Last Infusion: 01/31/22 21:01 Dose: 0 mls/hr Documented by: PAULA Levetiracetam (Levetiracetam Oral Soln 500 Mg/5 Ml) 500 mg G-TUBE BID [facility] Last Admin: 02/01/22 09:52 Dose: 500 mg Documented by: HEAVEN Loratadine (Loratadine 10 Mg Tablet) 10 mg PO DAILY [facility] Last Admin: 02/01/22 09:56 Dose: 10 mg Documented by: HEAVEN Melatonin (Melatonin 3 Mg Tablet) 6 mg PO BEDTIME PRN PRN Reason: insomnia Last Admin: 01/31/22 21:06 Dose: 6 mg Documented by: PAULA Modafinil (Modafinil 100 Mg Tablet) 200 mg G-TUBE DAILY [facility] Last Admin: 02/01/22 09:53 Dose: 200 mg Documented by: HEAVEN Morphine Sulfate (Morphine Sulfate 4 Mg/Ml Cartridge) 1 mg IVPUSH Q4H PRN; Protocol PRN Reason: Pain, Severe (Pain Scale 7-10) Last Admin: 02/01/22 13:59 Dose: 1 mg Documented by: HEAVEN Ondansetron HCl (Ondansetron Hcl 4 Mg/2 Ml Vial) 4 mg IVPUSH Q4H PRN PRN Reason: Nausea and Vomiting Pantoprazole Sodium (Pantoprazole Sodium 40 Mg/10 Ml Vial) 40 mg IVPUSH BID@0630,1630 [facility] Last Admin: 02/01/22 05:34 Dose: 40 mg Documented by: PAULA Pharmacy Consult (Consult Rx Perform Med Rec) 1 each MISCELLANE ONCE PRN PRN Reason: Consult order Pharmacy Consult (Consult Rx Vancomycin Dosing) 1 each MISCELLANE DAILY PRN PRN Reason: Consult order Quetiapine Fumarate (Quetiapine Fumarate 25 Mg Tablet) 12.5 mg PO BID [facility] Last Admin: 02/01/22 09:56 Dose: 12.5 mg Documented by: HEAVEN Sodium Chloride (0.9 % Sodium Chloride Flush 3 Ml Syringe) 3 ml IVFLUSH QSHIFT [facility] Last Admin: 02/01/22 09:51 Dose: 3 ml Documented by: HEAVEN Valsartan (Valsartan 320 Mg Tablet) 320 mg PO DAILY [facility] Last Admin: 02/01/22 09:52 Dose: 320 mg Documented by: HEAVEN Labs CBC & Chem 7: 02/01/22 05:26 02/01/22 05:26 Labs: Laboratory Results - last 24 hr 02/01/22 02/01/22 05:26 05:26 MCV 84.3 MCH 25.8 L MCHC 30.6 L RDW 17.6 H Plt Count 431 H MPV 9.1 L Immature Gran % (Auto) 1.0 H Neut % (Auto) 43.2 L Lymph % (Auto) 30.5 [place] % (Auto) 11.3 H Eos % (Auto) 13.4 H Baso % (Auto) 0.6 Lymph # (Auto) 3.0 [place] # (Auto) 1.1 Eos # (Auto) 1.3 H Baso # (Auto) 0.1 Abs Immat Gran (auto) 0.10 H Absolute Neuts (auto) 4.3 Absolute Nucleated RBC 0.000 Nucleated RBC % (auto) 0.0 Anion Gap 13 Estim Creat Clear Calc 59.5 Estimated GFR > 60 Fasting Glucose 125 H Calcium 8.8 Total Bilirubin 0.3 AST 113 H ALT 87 H Alkaline Phosphatase 279 H D Total Protein 7.0 Albumin 2.6 L Microbiology Microbiology Results: Microbiology 01/30/22 11:06 Blood Culture - Preliminary Blood - Venous No growth after 48 hours. 01/30/22 10:56 Blood Culture - Preliminary Blood - Venous No growth after 48 hours. 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 Cared for at home by maida 04/06. Developed cough, dyspnea, cloudy urine, and abdominal discomfort and treated empirically for UTI with cephalexin but became febrile and confused and had worsening respiratory symptoms. Presenting with leukocytosis, low-grade fever and hypoxia; found to have pneumonia, hyponatremia, and FOBT+ stool. 1.HCAP -Zosyn/Vancomycin -no further O2 requirement -if remains afebrile overnight...D/C home in am - 2.Anemia(FOBT+) - IV PPI - follow CBC in am...stable 3.HypoNatremia - resolved - can restart HCTZ as outpatient 4. HTN - continue valsartan, hold HCTZ 5.Hx SAH s/p stenting - needs to be back on DAPT [ASA + clopidogrel] GLENROY but will hold for now pending Hb trend and GI consultation - continue levetiracteam for sz ppx VTE ppx SCDs, hold heparinoids given FOBT+ will likely need 1midnights going forward for further treatment of hospital-acquired pneumonia likely D/C in am Quality Stroke Does the patient have a stroke diagnosis?: No VTE Prior VTE?: No VTE Risk Level:: Medical - moderate - high VTE Device Contraindication: N/A - Device Ordered VTE Drug Contraindication: Treatment Not Tolerated
[2022-02-01 15:14] VITALS: BP 133/60; PULSE 80; RESP 18; TEMP 36.7; O2SAT 91
[2022-02-01] MEDS: vancomycin HCL 1,250 MG in 0.9 % Sodium Chloride 250 ML 166.67 MG IV (16:40)
[2022-02-01] MEDS: Albuterol Sulfate (0.083%) 2.5 MG/3 ML VIAL.NEB INHALE (18:30)
[2022-02-01 18:31] VITALS: PULSE 72; RESP 18; O2SAT 95
[2022-02-01] MEDS: Betamethasone Dip Aug 0.05% Cr 15 GM TUBE 1 APPL TOPICAL (20:43)
[2022-02-01] MEDS: Atorvastatin Calcium 40 MG TABLET PO (20:45)
[2022-02-01 23:28] VITALS: BP 105/53; PULSE 70; RESP 17; TEMP 36.3; O2SAT 94
[2022-02-02] MEDS: Morphine Sulfate 4 MG/ML CARTRIDGE 1 MG IVPUSH ×4 (01:42→22:56)
[2022-02-02] MEDS: Pantoprazole Sodium 40 MG/10 ML VIAL IVPUSH (05:52)
[2022-02-02] MEDS: Piperacillin Sodium/Tazobactam 4.5 GM in 0.9 % Sodium Chloride 100 ML IV ×4 (05:53→23:05)
[2022-02-02 05:57] LABS: MANUAL DIFF FLAG NO
[2022-02-02 06:09] LABS: Basophils Absolute Auto 0.1 X10*3/uL (0.0-0.2); Basophils Percent Auto 0.7 % (0-2); Eosinophils Absolute Auto 1.3 X10*3/uL (0.0-0.4); Eosinophils Percent Auto 15.1 % (0-4); Hematocrit 24.8 % (37.0-47.0); Hemoglobin 7.6 g/dl (12.0-16.0); Imm Gran Abs Auto 0.05 X10*3/uL (0.00-0.03); Imm Gran Pct Auto 0.6 % (0.0-0.4); Lymphocytes Absolute Auto 2.6 X10*3/uL (1.2-4.9); Lymphocytes Percent Auto 28.8 % (20-40); Mean Corpuscular HGB Conc 30.6 g/dl (31.0-35.0); Mean Corpuscular Hemoglobin 25.9 pg (27.0-33.0); Mean Corpuscular Volume 84.6 fL (80.0-98.0); Mean Platelet Volume 8.8 fL (9.4-12.3); Monocytes Percent Auto 11.6 % (2-11); Neutrophils Absolute Auto 3.8 x10*3/uL (2.0-8.3); Neutrophils Percent Auto 43.2 % (45-73); Platelet Count 388 X10*3/uL (160-400); Red Blood Count 2.93 X10*6/uL (4.20-5.50); Red Cell Distribution Width 17.6 % (11.0-16.0); White Blood Count 8.9 X10*3/uL (4.8-10.8)
[2022-02-02 06:53] LABS: Alanine Aminotransferase 109 U/L (0-31); Albumin Level 2.5 g/dL (3.5-5.0); Alkaline Phosphatase 489 U/L (39-117); Anion Gap 10 (12-20); Aspartate Amino Transferase 146 U/L (5-31); Bilirubin Total 0.2 mg/dL (0.0-1.0); Blood Urea Nitrogen 11 mg/dL (9-16); Calcium 8.7 mg/dL (8.4-10.2); Carbon Dioxide 26 mmol/L (22-29); Chloride 106 mmol/L (96-108); Creatinine Clr Calc Pharmacy 64.9; Estimated Glomerular Filt Rate > 60; Glucose Fasting 138 mg/dL (60-99); Potassium 3.9 mmol/L (3.3-5.1); Sodium 138 mmol/L (135-145); Total Protein 6.6 g/dL (6.5-8.0)
[2022-02-02 07:02] VITALS: BP 150/70; PULSE 77; RESP 20; TEMP 36.9; O2SAT 95
[2022-02-02] MEDS: hydroCHLOROthiazide 25 MG TABLET PO (08:40)
[2022-02-02] MEDS: DULoxetine HCl 30 MG CAPSULE.DR PO (08:40)
[2022-02-02] MEDS: QUEtiapine Fumarate 25 MG TABLET 12.5 MG PO ×2 (08:40→20:51)
[2022-02-02] MEDS: Calcium + Vitamin D 250 MG TABLET 500 MG PO ×2 (08:40→20:51)
[2022-02-02] MEDS: Loratadine 10 MG TABLET PO (08:40)
[2022-02-02] MEDS: Valsartan 320 MG TABLET PO (08:40)
[2022-02-02] MEDS: modafiniL 100 MG TABLET 200 MG G-TUBE (08:40)
[2022-02-02] MEDS: 0.9 % Sodium Chloride Flush 3 ML SYRINGE IVFLUSH ×3 (08:41→22:58)
[2022-02-02] MEDS: levETIRAcetam Oral Soln 500 MG/5 ML G-TUBE ×2 (08:41→20:50)
[2022-02-02] MEDS: Betamethasone Dip Aug 0.05% Cr 15 GM TUBE 1 APPL TOPICAL ×2 (08:41→22:44)
--- NOTE | 2022-02-02 11:31 | PM.DS ---
DS: Providers Provider Date of Service: 02/02/22 Date of admission: 01/30/22 16:06 Date of discharge: 02/02/22 Primary care physician: Anders Frey MD Consults: 01/30/22 16:10 Consult to Gastroenterology Routine Consulting Provider: Pioneer Darnell Alexander Reason for consultation: anemia FOBT+ on DAPT s/p CVA. 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 Cared for at home by daughters 04/06.? Developed cough, dyspnea, cloudy urine, and abdominal discomfort and treated empirically for UTI with cephalexin but became febrile and confused and had worsening respiratory symptoms.? Presenting with leukocytosis, low-grade fever and hypoxia; found to have pneumonia, hyponatremia, and FOBT+ stool. Hospital Course Patient admitted to general medical floor placed on Augmentin and ceftriaxone. Seen in consultation by GI for positive occult blood; no interventions indicated at this time. Patient was treated with IV fluids for her hyponatremia HEENT; was also noted to have LFTs and the that were elevated in the backdrop of a negative exam. Discussed with surgery likely secondary to antibiotics and can be followed clinically. She was started on Seroquel for anxiety and had an excellent response to this per family. At this point time she is medically acceptable for discharge home; this was discussed with her daughter Celena and all are in agreement with plan. Time Spent with Patient Time attestation: Total time spent providing and/or coordinating discharge services: Discharge coordination time: Greater than 30 minutes Quality: Stroke Does the patient have a stroke diagnosis?: No Physical Exam Vital Signs: Vital Signs: Last Vital Signs Temp 98.5 F 02/02/22 07:02 Pulse 77 02/02/22 07:02 Resp 20 02/02/22 07:02 BP 150/70 H 02/02/22 07:02 Pulse Ox 95 02/02/22 07:02 BMI result Body Mass Index 21.6 Const: Other: no acute distress Resp: Other: clear to auscultation bilaterally no rales rhonchi wheezes Cardio: Other: no sore; positive S1-S2; no S3 murmurs or gallops GI: Other: soft nontender nondistended normoactive bowel sounds Extrem: Other: no edema DS: Data Data Completed and Pending Labs on day of discharge: Laboratory Results - last 24 hr 02/01/22 02/02/22 02/02/22 14:53 05:47 05:47 WBC 8.9 RBC 2.93 L Hgb 7.6 L Hct 24.8 L MCV 84.6 MCH 25.9 L MCHC 30.6 L RDW 17.6 H Plt Count 388 MPV 8.8 L Immature Gran % (Auto) 0.6 H Neut % (Auto) 43.2 L Lymph % (Auto) 28.8 [place] % (Auto) 11.6 H Eos % (Auto) 15.1 H Baso % (Auto) 0.7 Lymph # (Auto) 2.6 [place] # (Auto) 1.0 Eos # (Auto) 1.3 H Baso # (Auto) 0.1 Abs Immat Gran (auto) 0.05 H Absolute Neuts (auto) 3.8 Absolute Nucleated RBC 0.000 Nucleated RBC % (auto) 0.0 Sodium 138 Potassium 3.9 Chloride 106 Carbon Dioxide 26 Anion Gap 10 L BUN 11 Creatinine 0.56 Estim Creat Clear Calc 64.9 Estimated GFR > 60 Fasting Glucose 138 H Calcium 8.7 Total Bilirubin 0.2 AST 146 H ALT 109 H Alkaline Phosphatase 489 H D Total Protein 6.6 Albumin 2.5 L Vancomycin Trough 11.0 Preliminary micro results at discharge 01/30/22 11:06 Blood Culture - Preliminary Blood - Venous No growth after 48 hours. 01/30/22 10:56 Blood Culture - Preliminary Blood - Venous No growth after 48 hours. Discharge Plan Discharge Patient Disposition: Home Health Service Discharge Diagnosis: Pneumonia Referrals: Anders Frey MD [Primary Care Provider] - 1 Week Discharge Medications: New quetiapine 25 mg Tablet 12.5 mg PO BID Qty: 60 0RF amoxicillin-pot clavulanate 875-125 mg tablet 1 tab PO BID Qty: 20 0RF Continued cetirizine 10 mg Tablet 10 mg PO DAILY 0RF famotidine 20 mg Tablet 20 mg PO BID 0RF albuterol sulfate 90 mcg/actuation Hfa Aerosol Inhaler 2 puff INHALATION Q4-6H PRN (Reason: Shortness Of Breath) 0RF fluticasone propionate 50 mcg/actuation [place],Suspension 2 spray INTRANASAL DAILY PRN (Reason: Allergic Symptoms) 0RF calcium carbonate-vitamin D3 [Oyster Shell Calcium-Vit D3] 500 mg(1,250mg) -200 unit Tablet 1 tab PO BID 0RF valsartan-hydrochlorothiazide 320-25 mg Tablet 1 tab PO DAILY 0RF aspirin 81 mg Tablet,Delayed Release (Dr/Ec) 81 mg PO DAILY Qty: 30 0RF amantadine HCl 50 mg/5 mL solution 10 ml G-tube DAILY 0RF albuterol sulfate 2.5 mg /3 mL (0.083 %) solution for nebulization 1 amp inhalation TID PRN (Reason: Shortness Of Breath) 0RF clopidogrel 75 mg tablet 1 tab BEDTIME 0RF modafinil 200 mg tablet 1 tab DAILY 0RF levetiracetam 100 mg/mL solution 5 ml G-tube BID 0RF duloxetine 30 mg capsule,delayed release(DR/EC) 1 cap PO DAILY 0RF melatonin 5 mg tablet 1 tab PO BEDTIME PRN (Reason: insomnia) 0RF clobetasol 0.05 % cream 1 applic topical BID 0RF rosuvastatin 10 mg tablet 1 tab PO QPM 0RF Discontinued cephalexin 500 mg Capsule 500 mg PO QID 0RF Rx Instructions: PATIENT COMPLETED TODAY STARTED 01/23 X 6 DAYS Discharge Orders: Discharge Order (Routine); Ordered 02/02/22 Ordered By: Delfino Mora Diet: advance to usual diet Activity on Discharge: As tolerated Stand Alone Forms: Patient Portal Discharge page Care Plan Goals: Resume plan of care as before hospital. Add Seroquel 12 and half twice a day to medical regimen Health Concerns: Complete course of Augmentin twice daily for 10 days. Plan of Treatment: Follow-up Dr. Erickson in 2 weeks Assessment: As per discharge summary
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
[2022-02-02] MEDS: Albuterol Sulfate (0.083%) 2.5 MG/3 ML VIAL.NEB INHALE (12:25)
[2022-02-02 12:27] VITALS: PULSE 74; O2SAT 95
[2022-02-02 15:19] VITALS: BP 137/64; PULSE 80; RESP 18; TEMP 36.6; O2SAT 95
[2022-02-02] MEDS: vancomycin HCL 1,250 MG in 0.9 % Sodium Chloride 250 ML 166.67 MG IV (16:50)
--- NOTE | 2022-02-02 18:03 | PC.NURSE ---
Addendum entered by Brenda Reis RN 02/02/22 18:12: Dr Mora aware throughout day and Nursing ward service supervisor made aware. Original Note: pts daughter at bedside all day with telesitter in room. pts daughter mildly agitated complaining that not enough is being done for her mother throughout the day. Pt was supposed to be discharged today but discharge was postponed until tomorrow 02/03 per the request of both daughters. Pts daughter demanded multiple times to speak to the doctor. Pts daughter in room taking notes on unknown subjects throughout the day. T room requested MAT CLEANING MACHINE OPERATOR call them. When MAT CLEANING MACHINE OPERATOR called T room reported that while the patient was dangling legs over side of bed pts daughter was recording pt, not helping pt or ringing call [employer] for assistance. T room did stat while pt was dangling legs over side of bed and alerted staff. will continue to monitor.
[2022-02-02] MEDS: Atorvastatin Calcium 40 MG TABLET PO (20:50)
[2022-02-02] MEDS: Melatonin 3 MG TABLET 6 MG PO (20:51)
[2022-02-03] VITALS: BP 132/64; PULSE 80; RESP 17; TEMP 36.4; O2SAT 95
[2022-02-03] MEDS: Morphine Sulfate 4 MG/ML CARTRIDGE 1 MG IVPUSH (04:54)
[2022-02-03] MEDS: Piperacillin Sodium/Tazobactam 4.5 GM in 0.9 % Sodium Chloride 100 ML IV (05:00)
[2022-02-03 06:36] LABS: MANUAL DIFF FLAG NO
[2022-02-03] MEDS: Albuterol/Iprat 2.5/0.5MG 3 ML AMPUL.NEB INHALE (06:46)
[2022-02-03 06:47] VITALS: PULSE 82; RESP 20; O2SAT 94
[2022-02-03 06:48] LABS: Basophils Percent Auto 0.5 % (0-2); Eosinophils Absolute Auto 1.3 X10*3/uL (0.0-0.4); Eosinophils Percent Auto 14.9 % (0-4); Hematocrit 24.2 % (37.0-47.0); Hemoglobin 7.4 g/dl (12.0-16.0); Imm Gran Abs Auto 0.07 X10*3/uL (0.00-0.03); Imm Gran Pct Auto 0.8 % (0.0-0.4); Lymphocytes Absolute Auto 2.5 X10*3/uL (1.2-4.9); Lymphocytes Percent Auto 29.4 % (20-40); Mean Corpuscular HGB Conc 30.6 g/dl (31.0-35.0); Mean Corpuscular Hemoglobin 26.2 pg (27.0-33.0); Mean Corpuscular Volume 85.8 fL (80.0-98.0); Mean Platelet Volume 9.1 fL (9.4-12.3); Monocytes Absolute Auto 1.1 X10*3/uL (0.1-1.2); Monocytes Percent Auto 12.4 % (2-11); Neutrophils Absolute Auto 3.6 x10*3/uL (2.0-8.3); Platelet Count 378 X10*3/uL (160-400); Red Blood Count 2.82 X10*6/uL (4.20-5.50); Red Cell Distribution Width 17.7 % (11.0-16.0); White Blood Count 8.6 X10*3/uL (4.8-10.8)
[2022-02-03 07:09] LABS: Alanine Aminotransferase 114 U/L (0-31); Albumin Level 2.5 g/dL (3.5-5.0); Alkaline Phosphatase 624 U/L (39-117); Anion Gap 13 (12-20); Aspartate Amino Transferase 147 U/L (5-31); Bilirubin Total 0.4 mg/dL (0.0-1.0); Blood Urea Nitrogen 9 mg/dL (9-16); Calcium 8.6 mg/dL (8.4-10.2); Carbon Dioxide 25 mmol/L (22-29); Chloride 102 mmol/L (96-108); Creatinine Clr Calc Pharmacy 67.2; Estimated Glomerular Filt Rate > 60; Glucose Fasting 113 mg/dL (60-99); Sodium 136 mmol/L (135-145); Total Protein 6.7 g/dL (6.5-8.0)
[2022-02-03 07:33] VITALS: BP 158/67; PULSE 80; RESP 20; TEMP 36.2; O2SAT 97
[2022-02-03] MEDS: levETIRAcetam Oral Soln 500 MG/5 ML G-TUBE (08:42)
[2022-02-03] MEDS: 0.9 % Sodium Chloride Flush 3 ML SYRINGE IVFLUSH (08:42)
[2022-02-03] MEDS: Valsartan 320 MG TABLET PO (08:42)
[2022-02-03] MEDS: modafiniL 100 MG TABLET 200 MG G-TUBE (08:42)
[2022-02-03] MEDS: hydroCHLOROthiazide 25 MG TABLET PO (08:42)
[2022-02-03] MEDS: Loratadine 10 MG TABLET PO (08:42)
[2022-02-03] MEDS: QUEtiapine Fumarate 25 MG TABLET 12.5 MG PO (08:43)
[2022-02-03] MEDS: Calcium + Vitamin D 250 MG TABLET 500 MG PO (08:43)
[2022-02-03] MEDS: Betamethasone Dip Aug 0.05% Cr 15 GM TUBE 1 APPL TOPICAL (08:43)
[2022-02-03] MEDS: DULoxetine HCl 30 MG CAPSULE.DR PO (08:43)
--- NOTE | 2022-02-03 13:38 | MHC.CM.PN ---
PT DISCHARGED HOME AT 10AM W/RESUMPTION OF [facility] [facility] AND [facility].
== END 2022-02-03 10:15 | disposition home health service (06) | DRG 194 ==
LOC: HO.ED 15:17 → HO.EDOVER 18:27 → HO.S3 01-31 16:32
PROVIDERS: Physician Assistant; Admitting Provider Family Medicine; Emergency Provider Emergency Medicine Emergency Medical Services; PCP Internal Medicine; Visit Provider Hospitalist
DX: J18.9 Pneumonia, unspecified organism (principal); E87.1 Hypo-osmolality and hyponatremia; G93.49 Other encephalopathy; E44.0 Moderate protein-calorie malnutrition; I69.054 Hemiplegia and hemiparesis following nontraumatic subarachnoid hemorrhage affecting left non-dominant side; K92.2 Gastrointestinal hemorrhage, unspecified; F03.90 Unspecified dementia, unspecified severity, without behavioral disturbance, psychotic disturbance, mood disturbance, and anxiety; D63.8 Anemia in other chronic diseases classified elsewhere; K21.9 Gastro-esophageal reflux disease without esophagitis; Z20.822 Contact with and (suspected) exposure to COVID-19; Z87.442 Personal history of urinary calculi; Z68.21 Body mass index [BMI] 21.0-21.9, adult; J45.20 Mild intermittent asthma, uncomplicated; Z87.01 Personal history of pneumonia (recurrent); Z88.5 Allergy status to narcotic agent; Z96.0 Presence of urogenital implants; Z93.1 Gastrostomy status; Z79.02 Long term (current) use of antithrombotics/antiplatelets; Z79.82 Long term (current) use of aspirin; Z79.51 Long term (current) use of inhaled steroids; Z79.899 Other long term (current) drug therapy
CPT/HCPCS: 36415; 71046; 73110; 73130; 80048; 80053; 80076; 80202; 81001; 82272; 82947; 83605; 83735; 84145; 85025; 85027; 85610; 85730; 87040; 87086; 87088; 87186; 87502; 87635; 93005; 94640; 96365; 96367; 99285; 99291; J2270; J2543; J3370

== ENCOUNTER 2022-02-05 09:33 | Inpatient (IN) | payer MEDICARE, SELFPAY ==
--- NOTE | ~2022-02-05 | XR_ITS ---
EXAMINATION: XR CHEST CLINICAL INFORMATION: Cough COMPARISON: Previous chest x-ray 01/30/2022 TECHNIQUE: 2 views of the chest were obtained. FINDINGS: The cardiac and mediastinal contours are stable. There are still increased hilar markings with bronchial wall thickening and increased increased airspace disease in the right upper lobe questionable for bronchopneumonia. This is similar appearing to recent exam. Neoplastic process cannot be excluded and chest x-ray follow-up following treatment is recommended. There is a stable pulmonary nodule the left lung base probably representing a calcified granuloma. The lungs are otherwise clear. There is no pleural effusion or pneumothorax. There are degenerative changes of the spine. XR/XR chest 2V IMPRESSION: Probable bronchial wall thickening and right upper lobe bronchopneumonia similar to recent exam. Neoplastic process cannot be excluded and chest x-ray follow-up following treatment is recommended.
[2022-02-05 09:57] VITALS: BP 120/70; BP 143/60; PULSE 80; PULSE 83; RESP 16; TEMP 37.4; O2SAT 95; O2SAT 96; BMI 23.1
--- NOTE | 2022-02-05 10:34 | ED_ITS ---
HPI - Nausea/Vomiting/Diarrhea General Chief complaint: Nausea/Vomiting/Diarrhea Stated complaint: DIARRHEA FOR DAYS Time Seen by Provider: 02/05/22 10:13 Source: patient Mode of arrival: ambulatory Limitations: no limitations History of Present Illness HPI Narrative: Patient is an 86 year old female presenting to the emergency department today with diarrhea. Patient is nonverbal. Patient's daughter states that the patient was recently admitted here for an infection and has been given a lot of antib iotics. Patient's daughter states that the patient has been home since a couple days ago and has been having explosive, foul smelling, diarrhea. Patient's daughter states that the patient is not complaining of anything else. Patient' daughter states that the stool is brown only. Patient's daughter states that the patient is under 24 hour care at home with her family. Patient's daughter states that the patient has also been coughing. Patient's daughter states that the patient has a history of asthma in [facility] and had pneumonia when she was admitted here last week. MD elicited complaint: diarrhea Onset (ago): day(s) Description of diarrhea: loose Associated nausea: No Associated abdominal pain: No Location of pain: none Related Data Home Medications Medication Instructions Recorded Confirmed cetirizine 10 mg tablet 10 mg PO DAILY 12/19/20 02/05/22 famotidine 20 mg tablet 20 mg PO BID 12/19/20 02/05/22 albuterol sulfate 90 mcg/actuation 2 puff INHALATION Q4-6H PRN 12/20/20 02/05/22 aerosol inhaler calcium carbonate 500 mg-vitamin 1 tab PO BID 12/20/20 02/05/22 D3 5 mcg (200 unit) tablet (Oyster Shell Calcium-Vitamin D3) fluticasone propionate 50 2 spray INTRANASAL DAILY PRN 12/20/20 02/05/22 mcg/actuation nasal spray,suspension valsartan 320 1 tab PO DAILY 12/20/20 02/05/22 mg-hydrochlorothiazide 25 mg tablet clobetasol 0.05 % topical cream 1 applic TOPICAL BID 11/25/21 02/05/22 rosuvastatin 10 mg tablet 1 tab PO QPM 11/25/21 02/05/22 albuterol sulfate 1 amp INHALATION TID PRN 01/30/22 02/05/22 amantadine HCl 50 mg/5 mL oral 10 ml G-TUBE DAILY 01/30/22 02/05/22 solution clopidogrel 75 mg tablet 1 tab BEDTIME 01/30/22 02/05/22 duloxetine 30 mg capsule,delayed 1 cap PO DAILY 01/30/22 02/05/22 release levetiracetam 100 mg/mL oral 5 ml G-TUBE BID 01/30/22 02/05/22 solution melatonin 5 mg tablet 1 tab PO BEDTIME PRN 01/30/22 02/05/22 modafinil 200 mg tablet 1 tab DAILY 01/30/22 02/05/22 Previous Rx's Medication Instructions Recorded aspirin 81 mg tablet,delayed 81 mg PO DAILY #30 tab 12/21/20 release amoxicillin 875 mg-potassium 1 tab PO BID #20 tab 02/02/22 clavulanate 125 mg tablet quetiapine 25 mg tablet 12.5 mg PO BID #60 tab 02/02/22 Allergies Allergy/AdvReac Type Severity Reaction Status Date / Time lisinopril [LISINOPRIL] Allergy Mild CHEST PAIN Verified 06/19/21 19:37 codeine [CODEINE] AdvReac Unknown AGITATION Verified 06/19/21 19:37 Review of Systems Constitutional: Constitutional: Reports no additional constitutional complaints, Denies chills, Denies fever(s) and Denies night sweats Eyes: Eyes: Reports no additional eye complaints, Denies blurry vision, Denies change in vision, Denies diplopia, Denies eye discharge, Denies loss of vision and Denies eye pain ENT: Denies dizziness Cardiovascular: Cardiovascular: Reports no additional cardiovascular complaints, Denies chest pain, Denies lightheadedness, Denies Loss of Consciousness and Denies dyspnea Respiratory: Respiratory: Reports no additional respiratory complaints, Reports cough and Denies dyspnea Gastrointestinal: Gastrointestinal: Reports diarrhea and Denies nausea Genitourinary: Genitourinary: Denies hematuria, Denies urinary frequency, Denies dysuria, Denies urinary incontinence, Denies urinary hesitancy and Denies urinary urgency Musculoskeletal: Musculoskeletal: Reports no additional musculoskeletal complaints, Denies numbness and Denies tingling Neurologic: Denies dizziness, Denies loss of vision, Denies numbness and Denies tingling Psychiatric: Psychiatric: Reports no additional psychiatric complaints Endocrine: Endocrine: Reports no additional endocrine complaints Hematologic/Lymphatic: Hematologic/Lymphatic: Reports no additional hematologic/lymphatic complaints Allergic/Immunologic: Allergic/Immunologic: Reports no additional allergic/immunologic complaints [facility] Past Medical History Attestation statement: The following information was validated with the patient. Source: old records reviewed and obtained from family (daughter) Medical History Cerebral aneurysm CVA (cerebral vascular accident) Dementia Essential hypertension Hypertension Surgical History H/O lithotripsy History of cholecystectomy Previous back surgery S/P endovascular aneurysm repair Social History Social History Household Members: Family Housing: House Do you presently have visiting nurse or other home services: Yes Alcohol intake: never Patient Tobacco Use Status: Never used Tobacco Use of substances other than those prescribed or required for medical reasons: No Advance Directives: No service: No Current occupational status: unemployed Physical Exam Vital Signs: Vital Signs: Last Vital Signs Temp 98.2 F 02/05/22 11:54 Pulse 87 02/05/22 14:03 Resp 17 02/05/22 14:03 BP 149/71 H 02/05/22 14:03 Pulse Ox 95 02/05/22 14:03 BMI result Body Mass Index 23.1 Const: General: cooperative, no acute distress, alert and awake Nutritional Appearance: well nourished Orientation/consciousness: patient oriented x3 Limitations: no limitations HEENT: Head: Yes normal to inspection and Yes atraumatic Ears: hearing grossly normal bilaterally and external ears normal General nose exam: Normal external nose present, no nasal discharge noted and no epistaxis Face and sinus: Yes normal facial exam, No abrasion and No laceration Mouth: Normal oral and palatal mucosa present, no drooling and no muffled voice Eyes: General: appearance normal, both eyes and all related structures Periorbital: periorbital findings normal Eyelids: Yes eyelids normal Conjunctivae: conjunctivae normal Pupils: Equal, round and reactive pupils present EOM: EOMs intact bilaterally Neck: Neck: Yes normal visual inspection, Yes full ROM and Yes no lymphaden opathy Chest: Chest palpation & inspection: normal inspection of the chest Resp: Effort & Inspection: normal respiratory effort and able to speak in complete sentences Auscultation: clear to auscultation bilaterally Cardio: Rate: regular rate Rhythm: regular rhythm GI: Inspection: Yes normal to inspection Palpation (GI): Soft to palpation, not firm, nontender, no guarding and not rigid Neuro: General: patient oriented x3 and moves all extremities Cranial nerves: Yes Equal, round and reactive pupils present Cognition (Neuro): normal cognition Motor exam (neuro): 5/5 motor strength present throughout Sensory Exam: Normal double simultaneous stimulation for sensation Coordination: [id number] test normal Extrem: General: Yes normal to inspection, Yes full ROM and Yes capillary refill normal Psych: Appearance: grossly normal Mental Status: mental status grossly normal Affect: normal affect Attitude: cooperative Thought process: Normal thought process present Thought content: Normal thought content present Insight: Good insight present (Psych) Course Course Course Narrative: 1100 this patient's clinical appearance is not consistent with sepsis. MDM - Nausea/Vomiting/Diarrhea MDM Narrative Medical decision making narrative: Patient is an 86 year old female presenting to the emergency department today with continuous diarrhea. Patient's physical exam showed a very raw buttock with soft, brown, stool. Additionally, the patient's G tube was observed in the abdomen as well as her reza catheter. Patient's blood work showed a slightly elevated white blood cell count and a mildly low sodium but was otherwise unremarkable. Patient's stool was positive for C.Diff. Patient's chest x-ray showed right sided bronchopneumonia. I explained my physical exam findings as well as all test results to the patient and the patient's daughter. I answered all questions asked by the patient and the patient's daughter. Patient's daraizae r stated that she would be unable to continually keep the patient clean due to the constant diarrhea and she would prefer if the patient was admitted. Patient had a rectal tube placed which she stated helped her buttock pain significantly. Patient received a duoneb which she stated helped with her cough. I spoke to Dr. Mora, who agreed to admission. Patient and the patient's daughter verbalized agreement and understanding with this treatment plan and admission. Differential Diagnosis Differential diagnosis: Likely clostridium difficile infection Medical Records Attestation: I reviewed the patient's medical records. Lab Data Attestation: I reviewed the patient's lab results. Result diagrams: 02/05/22 11:37 02/05/22 11:37 Labs: Lab Results 02/05/22 02/05/22 02/05/22 Range/Units 11:37 11:37 11:37 WBC 12.9 H (4.8-10.8) X10*3/uL RBC 3.34 L (4.20-5.50) X10*6/uL Hgb 8.6 L (12.0-16.0) g/dl Hct 27.6 L (37.0-47.0) % MCV 82.6 (80.0-98.0) fL MCH 25.7 L (27.0-33.0) pg MCHC 31.2 (31.0-35.0) g/dl RDW 17.6 H (11.0-16.0) % Plt Count 430 H (160-400) X10*3/uL MPV 8.7 L (9.4-12.3) fL Immature Gran % (Auto) 0.6 H (0.0-0.4) % Neut % (Auto) 67.0 (45-73) % Lymph % (Auto) 20.7 (20-40) % [place] % (Auto) 7.7 (2-11) % Eos % (Auto) 3.5 (0-4) % Baso % (Auto) 0.5 (0-2) % Lymph # (Auto) 2.7 (1.2-4.9) X10*3/uL [place] # (Auto) 1.0 (0.1-1.2) X10*3/uL Eos # (Auto) 0.5 H (0.0-0.4) X10*3/uL Baso # (Auto) 0.1 (0.0-0.2) X10*3/uL Abs Immat Gran (auto) 0.08 H (0.00-0.03) X10*3/uL Absolute Neuts (auto) 8.6 H (2.0-8.3) x10*3/uL Absolute Nucleated RBC 0.000 (0.0-0.012) X10*3/uL Nucleated RBC % (auto) 0.0 (0.0-0.2) /100WBC Sodium 134 L (135-145) mmol/L Potassium 4.2 (3.3-5.1) mmol/L Chloride 101 (96-108) mmol/L Carbon Dioxide 24 (22-29) mmol/L Anion Gap 13 (12-20) BUN 10 (9-16) mg/dL Creatinine 0.54 (0.5-1.4) mg/dL Estim Creat Clear Calc 67.2 Estimated GFR > 60 Fasting Glucose 117 H (60-99) mg/dL Lactic Acid (0.5-2.0) mmol/L Calcium 9.2 D (8.4-10.2) mg/dL Total Bilirubin 0.3 (0.0-1.0) mg/dL AST 50 H D (5-31) U/L ALT 68 H (0-31) U/L Alkaline Phosphatase 417 H D (39-117) U/L Total Protein 7.8 (6.5-8.0) g/dL Albumin 2.8 L (3.5-5.0) g/dL C. difficile Tox B Gene (Negative) C. difficile Toxin A&B (Negative) C. difficile Interpret COVID-19 (LOVE) (Negative) COVID-19 Clin Com Influenza Type A (DELVIS) Negative (Negative) Influenza Type B (DELVIS) Negative (Negative) Influenza A & B Note See Note 02/05/22 02/05/22 02/05/22 Range/Units 11:37 11:37 11:57 WBC (4.8-10.8) X10*3/uL RBC (4.20-5.50) X10*6/uL Hgb (12.0-16.0) g/dl Hct (37.0-47.0) % MCV (80.0-98.0) fL MCH (27.0-33.0) pg MCHC (31.0-35.0) g/dl RDW (11.0-16.0) % Plt Count (160-400) X10*3/uL MPV (9.4-12.3) fL Immature Gran % (Auto) (0.0-0.4) % Neut % (Auto) (45-73) % Lymph % (Auto) (20-40) % [place] % (Auto) (2-11) % Eos % (Auto) (0-4) % Baso % (Auto) (0-2) % Lymph # (Auto) (1.2-4.9) X10*3/uL [place] # (Auto) (0.1-1.2) X10*3/uL Eos # (Auto) (0.0-0.4) X10*3/uL Baso # (Auto) (0.0-0.2) X10*3/uL Abs Immat Gran (auto) (0.00-0.03) X10*3/uL Absolute Neuts (auto) (2.0-8.3) x10*3/uL Absolute Nucleated RBC (0.0-0.012) X10*3/uL Nucleated RBC % (auto) (0.0-0.2) /100WBC Sodium (135-145) mmol/L Potassium (3.3-5.1) mmol/L Chloride (96-108) mmol/L Carbon Dioxide (22-29) mmol/L Anion Gap (12-20) BUN (9-16) mg/dL Creatinine (0.5-1.4) mg/dL Estim Creat Clear Calc Estimated GFR Fasting Glucose (60-99) mg/dL Lactic Acid 0.9 (0.5-2.0) mmol/L Calcium (8.4-10.2) mg/dL Total Bilirubin (0.0-1.0) mg/dL AST (5-31) U/L ALT (0-31) U/L Alkaline Phosphatase (39-117) U/L Total Protein (6.5-8.0) g/dL Albumin (3.5-5.0) g/dL C. difficile Tox B Gene POSITIVE A* (Negative) C. difficile Toxin A&B Negative (Negative) C. difficile Interpret SEE NOTE COVID-19 (LOVE) Negative (Negative) COVID-19 Clin Com See Note Influenza Type A (DELVIS) (Negative) Influenza Type B (DELVIS) (Negative) Influenza A & B Note Imaging Data Chest x-ray: Attestation: I personally reviewed and interpreted this imaging study as follows: My impression: Right sided pneumonia Radiologist's impression: EXAMINATION: XR CHEST CLINICAL INFORMATION: Cough COMPARISON: Previous chest x-ray 01/30/2022 TECHNIQUE: 2 views of the chest were obtained. FINDINGS: The cardiac and mediastinal contours are stable. There are still increased hilar markings with bronchial wall thickening and increased increased airspace disease in the right upper lobe questionable for bronchopneumonia. This is similar appearing to recent exam. Neoplastic process cannot be excluded and chest x-ray follow-up following treatment is recommended. There is a stable pulmonary nodule the left lung base probably representing a calcified granuloma. The lungs are otherwise clear. There is no pleural effusion or pneumothorax. There are degenerative changes of the spine. XR/XR chest 2V IMPRESSION: Probable bronchial wall thickening and right upper lobe bronchopneumonia similar to recent exam. Neoplastic process cannot be excluded and chest x-ray follow-up following treatment is recommended. Dictated By: Eloise Marie MD Signed By: Electronically signed by Eloise Marie MD 02/05/22 115 Discharge Plan Discharge Clinical Impression: C. difficile colitis, Pneumonia, C. difficile diarrhea, Dementia Patient Disposition: Admitted As Inpatient
[2022-02-05 11:07] VITALS: BP 132/60; PULSE 83; RESP 18; O2SAT 94
[2022-02-05 11:46] LABS: MANUAL DIFF FLAG NO
[2022-02-05 11:47] LABS: Basophils Absolute Auto 0.1 X10*3/uL (0.0-0.2); Basophils Percent Auto 0.5 % (0-2); Eosinophils Absolute Auto 0.5 X10*3/uL (0.0-0.4); Eosinophils Percent Auto 3.5 % (0-4); Hematocrit 27.6 % (37.0-47.0); Hemoglobin 8.6 g/dl (12.0-16.0); Imm Gran Abs Auto 0.08 X10*3/uL (0.00-0.03); Imm Gran Pct Auto 0.6 % (0.0-0.4); Lymphocytes Absolute Auto 2.7 X10*3/uL (1.2-4.9); Lymphocytes Percent Auto 20.7 % (20-40); Mean Corpuscular HGB Conc 31.2 g/dl (31.0-35.0); Mean Corpuscular Hemoglobin 25.7 pg (27.0-33.0); Mean Corpuscular Volume 82.6 fL (80.0-98.0); Mean Platelet Volume 8.7 fL (9.4-12.3); Monocytes Percent Auto 7.7 % (2-11); Neutrophils Absolute Auto 8.6 x10*3/uL (2.0-8.3); Platelet Count 430 X10*3/uL (160-400); Red Blood Count 3.34 X10*6/uL (4.20-5.50); Red Cell Distribution Width 17.6 % (11.0-16.0); White Blood Count 12.9 X10*3/uL (4.8-10.8)
[2022-02-05] MEDS: Albuterol/Iprat 2.5/0.5MG 3 ML AMPUL.NEB INHALE (11:53)
[2022-02-05 11:54] VITALS: BP 155/68; PULSE 82; RESP 18; TEMP 36.8; O2SAT 96
--- NOTE | 2022-02-05 11:55 | PC.NURSE ---
pt cleansed of diarrhea for 2nd time since arrival. blanchable reddness throughout buttocks and groin. barrier cream applied. has 2 areas of breakdown, one dressed by this rn. pt is alert, deneis pain, last Gtube feed stopped at 9am. able to follow commands. reza and g tube in place. foey care as well.
[2022-02-05 11:56] LABS: Lactic Acid 0.9 mmol/L (0.5-2.0)
[2022-02-05 12:03] LABS: Alanine Aminotransferase 68 U/L (0-31); Albumin Level 2.8 g/dL (3.5-5.0); Alkaline Phosphatase 417 U/L (39-117); Anion Gap 13 (12-20); Aspartate Amino Transferase 50 U/L (5-31); Bilirubin Total 0.3 mg/dL (0.0-1.0); Blood Urea Nitrogen 10 mg/dL (9-16); Calcium 9.2 mg/dL (8.4-10.2); Carbon Dioxide 24 mmol/L (22-29); Chloride 101 mmol/L (96-108); Creatinine Clr Calc Pharmacy 67.2; Estimated Glomerular Filt Rate > 60; Glucose Fasting 117 mg/dL (60-99); Potassium 4.2 mmol/L (3.3-5.1); Sodium 134 mmol/L (135-145); Total Protein 7.8 g/dL (6.5-8.0)
[2022-02-05 12:10] LABS: Influenza A Negative (Negative); Influenza B2 Negative (Negative)
[2022-02-05 12:20] LABS: COVID-19 Test Negative (Negative); IDNOW Serial# 55D5AD1C
[2022-02-05 13:13] LABS: CDiff Gene PCR POSITIVE (Negative)
--- NOTE | 2022-02-05 13:45 | PHA.MEDREC ---
Pharmacy Consult ? Medication Reconciliation Pharmacy has completed the medication reconciliation.
[2022-02-05 14:03] VITALS: BP 149/71; PULSE 87; RESP 17; O2SAT 95
[2022-02-05 14:32] LABS: CDiff Toxin Negative (Negative)
[2022-02-05 14:33] LABS: CDIFF Internal ctrl Dots and bkg OK (V)
--- NOTE | 2022-02-05 14:41 | PM.IMHP ---
History of Present Illness Date of Service: 02/05/22 Chief Complaint: diarrhea 86-year-old female recently discharged from [facility] 02/02/2021 after receiving treatment for pneumonia in the backdrop of hyponatremia. She was placed on Augmentin and ceftriaxone for the 3 days that she was in house and she was discharged on Augmentin via G-tube. Family states over the course of the next several days she began to have foul smelling copious diarrhea; they were unable to keep up with that at home. Patient was brought to the emergency room where his stool was positive for C diff. family denies fever chills. She will be admitted for treatment of C diff and supplemental IV fluids until C diff resolves Review of Systems Review of Systems: Unable secondary to dementia however family denies complaints of chest pain shortness of breath nausea vomiting they do state copious diarrhea without blood PMFSH Medical History Cerebral aneurysm CVA (cerebral vascular accident) Dementia Essential hypertension Hypertension Surgical History H/O lithotripsy History of cholecystectomy Previous back surgery S/P endovascular aneurysm repair Social History Household Members: Family Housing: House Do you presently have visiting nurse or other home services: Yes Alcohol intake: never Patient Tobacco Use Status: Never used Tobacco Use of substances other than those prescribed or required for medical reasons: No Advance Directives: No service: No Current occupational status: unemployed Meds Allergies Allergy/AdvReac Type Severity Reaction Status Date / Time lisinopril [LISINOPRIL] Allergy Mild CHEST PAIN Verified 06/19/21 19:37 codeine [CODEINE] AdvReac Unknown AGITATION Verified 06/19/21 19:37 Active Medications: Current Medications Albuterol Sulfate (Albuterol Sulfate (0.083%) 2.5 Mg/3 Ml Vial.Neb) mg INHALE TID PRN PRN Reason: Shortness Of Breath Albuterol Sulfate (Albuterol Sulfate 90 Mcg 8 Gm Inhaler) 2 puff INHALE Q4-6H PRN PRN Reason: Shortness Of Breath Aspirin (Aspirin Enteric Coated 81 Mg Tablet.) 81 mg PO DAILY [facility] Clopidogrel Bisulfate (Clopidogrel Bisulfate 75 Mg Tablet) 75 mg G-TUBE BEDTIME [facility] Duloxetine HCl (Duloxetine Hcl 30 Mg Capsule.Dr) 30 mg PO DAILY [facility] Famotidine (Famotidine 20 Mg Tablet) 20 mg PO BID [facility] Fluticasone Propionate (Fluticasone Propionate Nasal 16 Gm [place]) 2 spray NOSTRIL-B DAILY PRN PRN Reason: Allergic Symptoms Dextrose/Sodium Chloride (D51/2ns) 1,000 mls @ 100 mls/hr IVCONT .Q10H [facility] Loratadine (Loratadine 10 Mg Tablet) 10 mg PO DAILY [facility] Modafinil (Modafinil 100 Mg Tablet) 200 mg G-TUBE DAILY [facility] Non-Formulary Medication (Amantadine Hcl) 10 ml G-TUBE DAILY [facility] Non-Formulary Medication (Calcium Carbonate-Vitamin D3 [Oyster Shell Calcium-Vit D3]) 1 tab PO BID [facility] Non-Formulary Medication (Clobetasol) 1 applic TOPICAL BID [facility] Non-Formulary Medication (Levetiracetam) 5 ml G-TUBE BID [facility] Non-Formulary Medication (Melatonin) 1 tab PO BEDTIME PRN PRN Reason: insomnia Non-Formulary Medication (Rosuvastatin) 1 tab PO QPM [facility] Non-Formulary Medication (Valsartan-Hydrochlorothiazide) 1 tab PO DAILY [facility] Pharmacy Consult (Consult Rx Perform Med Rec) 1 each MISCELLANE ONCE PRN PRN Reason: Consult order Quetiapine Fumarate (Quetiapine Fumarate 25 Mg Tablet) 12.5 mg PO BID [facility] Sodium Chloride (0.9 % Sodium Chloride Flush 3 Ml Syringe) 3 ml IVFLUSH QSHIFT [facility] Vancomycin HCl (Vancomycin Hcl Oral Solution 125 Mg/5 Ml Soln.Recon) 125 mg G-TUBE QID [facility] Home Medications Medication Instructions Recorded Confirmed Last Taken Type cetirizine 10 mg tablet 10 mg PO DAILY 12/19/20 02/05/22 02/04/22 History famotidine 20 mg tablet 20 mg PO BID 12/19/20 02/05/22 02/04/22 History albuterol sulfate 90 mcg/actuation 2 puff INHALATION Q4-6H PRN 12/20/20 02/05/22 01/29/22 History aerosol inhaler calcium carbonate 500 mg-vitamin 1 tab PO BID 12/20/20 02/05/22 02/04/22 History D3 5 mcg (200 unit) tablet ([place] Calcium-Vitamin D3) fluticasone propionate 50 2 spray INTRANASAL DAILY PRN 12/20/20 02/05/22 02/04/22 History mcg/actuation nasal spray,suspension valsartan 320 1 tab PO DAILY 12/20/20 02/05/22 02/04/22 History mg-hydrochlorothiazide 25 mg tablet clobetasol 0.05 % topical cream 1 applic TOPICAL BID 11/25/21 02/05/22 02/04/22 History rosuvastatin 10 mg tablet 1 tab PO QPM 11/25/21 02/05/22 02/04/22 History albuterol sulfate 1 amp INHALATION TID PRN 01/30/22 02/05/22 01/29/22 History amantadine HCl 50 mg/5 mL oral 10 ml G-TUBE DAILY 01/30/22 02/05/22 02/04/22 History solution clopidogrel 75 mg tablet 1 tab BEDTIME 01/30/22 02/05/22 02/04/22 History duloxetine 30 mg capsule,delayed 1 cap PO DAILY 01/30/22 02/05/22 02/04/22 History release levetiracetam 100 mg/mL oral 5 ml G-TUBE BID 01/30/22 02/05/22 02/04/22 History solution melatonin 5 mg tablet 1 tab PO BEDTIME PRN 01/30/22 02/05/22 01/29/22 History modafinil 200 mg tablet 1 tab DAILY 01/30/22 02/05/22 02/04/22 History Physical Exam Vital Signs and Narrative: Vital Signs: Last Vital Signs Temp 98.2 F 02/05/22 11:54 Pulse 87 02/05/22 14:03 Resp 17 02/05/22 14:03 BP 149/71 H 02/05/22 14:03 Pulse Ox 95 02/05/22 14:03 BMI result Body Mass Index 23.1 Const: Other: Awake will follow eyes to voice Resp: Other: Clear to auscultation bilaterally no rales rhonchi or wheezes Cardio: Other: No S4; positive S1-S2; no S3 murmurs rubs or gallops GI: Other: Soft nontender nondistended. Hyperactive bowel sounds. G-tube site clean dry and intact Extrem: Other: No edema bilaterally Results Labs CBC and Chem 7: 02/05/22 11:37 02/05/22 11:37 Labs: Laboratory Results - last 24 hr 02/05/22 02/05/22 02/05/22 11:37 11:37 11:37 MCV 82.6 MCH 25.7 L MCHC 31.2 RDW 17.6 H Plt Count 430 H MPV 8.7 L Immature Gran % (Auto) 0.6 H Neut % (Auto) 67.0 Lymph % (Auto) 20.7 [place] % (Auto) 7.7 Eos % (Auto) 3.5 Baso % (Auto) 0.5 Lymph # (Auto) 2.7 [place] # (Auto) 1.0 Eos # (Auto) 0.5 H Baso # (Auto) 0.1 Abs Immat Gran (auto) 0.08 H Absolute Neuts (auto) 8.6 H Absolute Nucleated RBC 0.000 Nucleated RBC % (auto) 0.0 Anion Gap 13 Estim Creat Clear Calc 67.2 Estimated GFR > 60 Fasting Glucose 117 H Lactic Acid Calcium 9.2 D Total Bilirubin 0.3 AST 50 H D ALT 68 H Alkaline Phosphatase 417 H D Total Protein 7.8 Albumin 2.8 L C. difficile Tox B Gene C. difficile Toxin A&B C. difficile Interpret COVID-19 (LOVE) COVID-19 Clin Com Influenza Type A (DELVIS) Negative Influenza Type B (DELVIS) Negative Influenza A & B Note See Note 02/05/22 02/05/22 02/05/22 11:37 11:37 11:57 MCV MCH MCHC RDW Plt Count MPV Immature Gran % (Auto) Neut % (Auto) Lymph % (Auto) [place] % (Auto) Eos % (Auto) Baso % (Auto) Lymph # (Auto) [place] # (Auto) Eos # (Auto) Baso # (Auto) Abs Immat Gran (auto) Absolute Neuts (auto) Absolute Nucleated RBC Nucleated RBC % (auto) Anion Gap Estim Creat Clear Calc Estimated GFR Fasting Glucose Lactic Acid 0.9 Calcium Total Bilirubin AST ALT Alkaline Phosphatase Total Protein Albumin C. difficile Tox B Gene POSITIVE A* C. difficile Toxin A&B Negative C. difficile Interpret SEE NOTE COVID-19 (LOVE) Negative COVID-19 Clin Com See Note Influenza Type A (DELVIS) Influenza Type B (DELVIS) Influenza A & B Note Imaging Radiologist's Impressions: Impressions Chest X-Ray 02/05/22 11:20 IMPRESSION: Probable bronchial wall thickening and right upper lobe bronchopneumonia similar to recent exam. Neoplastic process cannot be excluded and chest x-ray follow-up following treatment is recommended. Assessment and Plan (1) Clostridium difficile diarrhea: Status: Acute (2) Hyponatremia: Status: Acute (3) Pneumonia: Status: Acute Plan 86-year-old female recently discharged from [facility] on 02/02/2021 after receiving treatment for pneumonia; she was sent home on Augmentin feet G-tube. Family states developed watery foul-smelling diarrhea over the last several days. In the emergency room, stool positive for C diff 1.C.Difficili -Vanco via GTube -stop Augmentin -supplemental fluids to offset GI loss -follow renals/divalents 2. Hyponatremia -follow response to volume repletion - labs in am 3. Dementia -continue hopme regimen -continue Seroquel...adjust as indicated Anticipate 2 midnights going forward for treatment of C diff and supplemental IV fluids to offset GI loss Quality Stroke Does the patient have a stroke diagnosis?: No VTE Prior VTE?: No VTE Risk Level:: Medical - moderate - high VTE Device Contraindication: N/A - Device Ordered VTE Drug Contraindication: Treatment Not Indicated
[2022-02-05] MEDS: HYDROmorphone HCl 0.5 MG/0.5 ML SYRINGE IVPUSH (15:36)
[2022-02-05 15:38] VITALS: BP 134/78; PULSE 75; RESP 17; TEMP 36.8; O2SAT 94
[2022-02-05] MEDS: Dextrose 5 % and 0.45 % NaCl 1,000 ML 100 ML IVCONT (15:50)
[2022-02-05] MEDS: vancomycin HCL Oral Solution 125 MG/5 ML SOLN.RECON G-TUBE ×2 (15:50→20:26)
[2022-02-05] MEDS: QUEtiapine Fumarate 25 MG TABLET 12.5 MG PO ×2 (15:57→20:25)
[2022-02-05] MEDS: Aspirin Enteric Coated 81 MG TABLET.DR PO (15:57)
--- NOTE | 2022-02-05 18:27 | PC.NURSE ---
rectal tube wasn't draining much stool. was flushed by this rn w/o good effect then deflaited and reinserted. Pt tolerated well and now tube appears to be collecting more stool.
[2022-02-05] MEDS: Calcium + Vitamin D 250 MG TABLET 500 MG PO (20:24)
[2022-02-05] MEDS: Famotidine 20 MG TABLET PO (20:25)
[2022-02-05] MEDS: Atorvastatin Calcium 40 MG TABLET PO (20:27)
[2022-02-05] MEDS: Clopidogrel Bisulfate 75 MG TABLET G-TUBE (20:27)
[2022-02-05] MEDS: levETIRAcetam Oral Soln 500 MG/5 ML G-TUBE (21:12)
[2022-02-05] MEDS: Morphine Sulfate 2 MG/ML CARTRIDGE IVPUSH (21:12)
[2022-02-06 00:31] VITALS: BP 152/66; PULSE 74; RESP 16; TEMP 36.8; O2SAT 97
[2022-02-06] MEDS: Dextrose 5 % and 0.45 % NaCl 1,000 ML 100 ML IVCONT ×3 (02:12→19:59)
[2022-02-06 04:26] VITALS: BP 152/60; PULSE 69; RESP 18; TEMP 36.6; O2SAT 94
[2022-02-06 06:57] LABS: MANUAL DIFF FLAG NO
[2022-02-06 07:12] LABS: Basophils Absolute Auto 0.1 X10*3/uL (0.0-0.2); Basophils Percent Auto 0.7 % (0-2); Eosinophils Absolute Auto 0.7 X10*3/uL (0.0-0.4); Eosinophils Percent Auto 6.3 % (0-4); Hematocrit 26.2 % (37.0-47.0); Imm Gran Abs Auto 0.09 X10*3/uL (0.00-0.03); Imm Gran Pct Auto 0.9 % (0.0-0.4); Lymphocytes Absolute Auto 2.5 X10*3/uL (1.2-4.9); Lymphocytes Percent Auto 24.1 % (20-40); Mean Corpuscular HGB Conc 30.5 g/dl (31.0-35.0); Mean Corpuscular Hemoglobin 25.7 pg (27.0-33.0); Mean Corpuscular Volume 84.2 fL (80.0-98.0); Mean Platelet Volume 9.2 fL (9.4-12.3); Monocytes Absolute Auto 1.1 X10*3/uL (0.1-1.2); Monocytes Percent Auto 10.8 % (2-11); Neutrophils Percent Auto 57.2 % (45-73); Platelet Count 427 X10*3/uL (160-400); Red Blood Count 3.11 X10*6/uL (4.20-5.50); Red Cell Distribution Width 17.8 % (11.0-16.0); White Blood Count 10.5 X10*3/uL (4.8-10.8)
[2022-02-06 07:30] LABS: Alanine Aminotransferase 51 U/L (0-31); Albumin Level 2.6 g/dL (3.5-5.0); Alkaline Phosphatase 289 U/L (39-117); Anion Gap 13 (12-20); Aspartate Amino Transferase 42 U/L (5-31); Bilirubin Total < 0.2 mg/dL (0.0-1.0); Blood Urea Nitrogen 7 mg/dL (9-16); Calcium 9.3 mg/dL (8.4-10.2); Carbon Dioxide 22 mmol/L (22-29); Chloride 104 mmol/L (96-108); Creatinine Clr Calc Pharmacy 71.2; Estimated Glomerular Filt Rate > 60; Glucose Fasting 147 mg/dL (60-99); Potassium 4.2 mmol/L (3.3-5.1); Sodium 135 mmol/L (135-145); Total Protein 6.9 g/dL (6.5-8.0)
--- NOTE | 2022-02-06 09:10 | PC.NURSE ---
TC sent to Dr. Mora regarding pt on EC 81mg Aspirin requiring medication to be crushed. awaiting reply.
[2022-02-06] MEDS: Valsartan 320 MG, hydroCHLOROthiazide 25 MG PO (09:58)
[2022-02-06] MEDS: Loratadine 10 MG TABLET PO (09:59)
[2022-02-06] MEDS: Calcium + Vitamin D 250 MG TABLET 500 MG PO ×2 (09:59→19:58)
[2022-02-06] MEDS: vancomycin HCL Oral Solution 125 MG/5 ML SOLN.RECON G-TUBE ×4 (09:59→19:57)
[2022-02-06] MEDS: DULoxetine HCl 30 MG CAPSULE.DR PO (09:59)
[2022-02-06] MEDS: levETIRAcetam Oral Soln 500 MG/5 ML G-TUBE ×2 (09:59→19:57)
[2022-02-06] MEDS: Famotidine 20 MG TABLET PO ×2 (10:00→19:57)
[2022-02-06] MEDS: QUEtiapine Fumarate 25 MG TABLET 12.5 MG PO ×2 (10:00→19:58)
[2022-02-06] MEDS: modafiniL 100 MG TABLET 200 MG G-TUBE (10:36)
[2022-02-06] MEDS: Betamethasone Dip Aug 0.05% Cr 15 GM TUBE 1 APPL TOPICAL ×2 (10:36→20:00)
[2022-02-06] MEDS: oxyCODONE HCl Immed Release 5 MG TABLET PO ×2 (12:00→18:18)
--- NOTE | 2022-02-06 12:03 | MHC.CM.PN ---
[facility] P[facility] DAUGHTER, DARION, WHO CONFIRMS PT LIVES ALONE AND IS DEPENDENT FOR CARE PT HAS 24/7 CARE PROVIDED BY [employer] [employer] AND FAMILY PT IS ALSO ACTIVE WITH [facility] PT IS BEDBOUND AT [place] AND REQUIRES A [employer] LIFT TO TRANSFER AT HOME SHE ALSO HAS A WHEEL CHAIR PCP: TRINA GONZALEZ NO HCP AND PT IS UNABLE TO COMPLETE ONE COVID-19 VACCINATION STATUS: MODERNA X 2 IMM PROVIDED, COPY SENT TO [facility] CURRENT DC PLAN IS HOME WITH RESUMPTION OF [facility] AND [facility] BLS TRANSPORT
--- NOTE | 2022-02-06 12:09 | PC.NURSE ---
family at bedside.
[2022-02-06 13:01] VITALS: BP 138/52; PULSE 81; RESP 20; TEMP 36.6; O2SAT 97
[2022-02-06] MEDS: QUEtiapine Fumarate 25 MG TABLET PO (13:14)
--- NOTE | 2022-02-06 14:17 | P.PNIM_ITS ---
Subjective Subjective Date of Service: 02/06/22 Review of Systems Unable secondary to dementia Physical Exam Vital Signs: Vital Signs: Last Vital Signs Temp 97.8 F 02/06/22 13:01 Pulse 81 02/06/22 13:01 Resp 20 02/06/22 13:01 BP 138/52 L 02/06/22 13:01 Pulse Ox 97 02/06/22 13:01 BMI result Body Mass Index 23.1 Const: Other: Awake will follow eyes to voice Resp: Other: Clear to auscultation bilaterally no rales rhonchi or wheezes Cardio: Other: No S4; positive S1-S2; no S3 murmurs rubs or gallops GI: Other: Soft nontender nondistended. Hyperactive bowel sounds. G-tube site clean dry and intact Extrem: Other: No edema bilaterally Objective Data Active Medications Acetaminophen (Acetaminophen 325 Mg Tablet) 650 mg PO Q8H PRN PRN Reason: Pain, Mild (Pain Scale 1-3) Albuterol Sulfate (Albuterol Sulfate (0.083%) 2.5 Mg/3 Ml Vial.Neb) 2.5 mg INHALE TID PRN PRN Reason: Shortness Of Breath Albuterol Sulfate (Albuterol Sulfate 90 Mcg 8 Gm Inhaler) 2 puff INHALE Q4H PRN PRN Reason: Shortness Of Breath Aspirin (Aspirin Enteric Coated 81 Mg Tablet.Dr) 81 mg PO DAILY [facility] Last Admin: 02/06/22 10:36 Dose: Not Given Documented by: BRANDY Non-Admin Reason: See Note Atorvastatin Calcium (Atorvastatin Calcium 40 Mg Tablet) 40 mg PO BEDTIME [facility] Last Admin: 02/05/22 20:27 Dose: 40 mg Documented by: NAVA Betamethasone Dipropion Augmented (Betamethasone Dip Aug 0.05% Cr 15 Gm Tube) 1 appl TOPICAL BID [facility] Last Admin: 02/06/22 10:36 Dose: 1 appl Documented by: BRANDY Calcium Carbonate/Cholecalciferol (Calcium + Vitamin D 250 Mg Tablet) 500 mg PO BID [facility] Last Admin: 02/06/22 09:59 Dose: 500 mg Documented by: BRANDY Clopidogrel Bisulfate (Clopidogrel Bisulfate 75 Mg Tablet) 75 mg G-TUBE BEDTIME [facility] Last Admin: 02/05/22 20:27 Dose: 75 mg Documented by: NAVA Valsartan 320 mg/ (Hydrochlorothiazide 25 mg) 0 mg PO DAILY [facility] Last Admin: 02/06/22 09:58 Dose: 345 tablet Documented by: BRANDY Duloxetine HCl (Duloxetine Hcl 30 Mg Capsule.Dr) 30 mg PO DAILY [facility] Last Admin: 02/06/22 09:59 Dose: 30 mg Documented by: BRANDY Famotidine (Famotidine 20 Mg Tablet) 20 mg PO BID [facility] Last Admin: 02/06/22 10:00 Dose: 20 mg Documented by: BRANDY Fluticasone Propionate (Fluticasone Propionate Nasal 16 Gm [place]) 2 spray NOSTRIL-B DAILY PRN PRN Reason: Allergic Symptoms Dextrose/Sodium Chloride (D51/2ns) 1,000 mls @ 100 mls/hr IVCONT .Q10H [facility] Last Admin: 02/06/22 11:28 Dose: 100 mls/hr Documented by: BRANDY Levetiracetam (Levetiracetam Oral Soln 500 Mg/5 Ml) 500 mg G-TUBE BID [facility] Last Admin: 02/06/22 09:59 Dose: 500 mg Documented by: BRANDY Loratadine (Loratadine 10 Mg Tablet) 10 mg PO DAILY [facility] Last Admin: 02/06/22 09:59 Dose: 10 mg Documented by: BRANDY Melatonin (Melatonin 3 Mg Tablet) 6 mg PO BEDTIME PRN PRN Reason: insomnia Modafinil (Modafinil 100 Mg Tablet) 200 mg G-TUBE DAILY [facility] Last Admin: 02/06/22 10:36 Dose: 200 mg Documented by: BRANDY Non-Formulary Medication (Amantadine Hcl) 10 ml G-TUBE DAILY [facility] Oxycodone HCl (Oxycodone Hcl Immed Release 5 Mg Tablet) 5 mg PO Q6H PRN PRN Reason: Pain, Moderate (Pain Scale 4-6 Last Admin: 02/06/22 12:00 Dose: 5 mg Documented by: BRANDY Pharmacy Consult (Consult Rx Perform Med Rec) 1 each MISCELLANE ONCE PRN PRN Reason: Consult order Quetiapine Fumarate (Quetiapine Fumarate 25 Mg Tablet) 12.5 mg PO BID [facility] Last Admin: 02/06/22 10:00 Dose: 12.5 mg Documented by: BRANDY Sodium Chloride (0.9 % Sodium Chloride Flush 3 Ml Syringe) 3 ml IVFLUSH QSHIFT [facility] Last Admin: 02/06/22 07:55 Dose: Not Given Documented by: BRANDY Non-Admin Reason: IV Running Vancomycin HCl (Vancomycin Hcl Oral Solution 125 Mg/5 Ml Soln.Recon) 125 mg G- TUBE QID [facility] Last Admin: 02/06/22 13:13 Dose: 125 mg Documented by: BRANDY Labs CBC & Chem 7: 02/06/22 06:34 02/06/22 06:34 Labs: Laboratory Results - last 24 hr 02/05/22 02/06/22 02/06/22 11:57 06:34 06:34 MCV 84.2 MCH 25.7 L MCHC 30.5 L RDW 17.8 H Plt Count 427 H MPV 9.2 L Immature Gran % (Auto) 0.9 H Neut % (Auto) 57.2 Lymph % (Auto) 24.1 [place] % (Auto) 10.8 Eos % (Auto) 6.3 H Baso % (Auto) 0.7 Lymph # (Auto) 2.5 [place] # (Auto) 1.1 Eos # (Auto) 0.7 H Baso # (Auto) 0.1 Abs Immat Gran (auto) 0.09 H Absolute Neuts (auto) 6.0 Absolute Nucleated RBC 0.000 Nucleated RBC % (auto) 0.0 Anion Gap 13 Estim Creat Clear Calc 71.2 Estimated GFR > 60 Fasting Glucose 147 H Calcium 9.3 Total Bilirubin < 0.2 AST 42 H ALT 51 H Alkaline Phosphatase 289 H D Total Protein 6.9 Albumin 2.6 L C. difficile Toxin A&B Negative C. difficile Interpret SEE NOTE Microbiology Microbiology Results: Microbiology 02/05/22 11:37 Blood Culture - Preliminary Blood - Venous No growth after 24 hours. 02/05/22 11:37 Blood Culture - Preliminary Blood - Venous No growth after 24 hours. Assessment and Plan (1) C. difficile diarrhea: Status: Acute (2) Hyponatremia: Status: Acute (3) Dementia: Status: Acute Plan 86-year-old female recently discharged from [facility] on 02/02/2021 after receiving treatment for pneumonia; she was sent home on Augmentin feet G- tube. Family states developed watery foul-smelling diarrhea over the last several days. In the emergency room, stool positive for C diff 1.C.Difficili -Vanco via GTube -stop Augmentin -supplemental fluids to offset GI loss -follow renals/divalents 2. Hyponatremia -follow response to volume repletion - labs in am 3. Dementia -continue hopme regimen -continue Seroquel...adjust as indicated Anticipate 2 midnights going forward for treatment of C diff and supplemental IV fluids to offset GI loss Quality Stroke Does the patient have a stroke diagnosis?: No VTE Prior VTE?: No VTE Risk Level:: Medical - moderate - high VTE Device Contraindication: N/A - Device Ordered VTE Drug Contraindication: Treatment Not Indicated
[2022-02-06 16:17] VITALS: BMI 23.1
[2022-02-06 19:37] VITALS: BP 110/56; PULSE 77; RESP 18; TEMP 36.9; O2SAT 96
[2022-02-06] MEDS: Melatonin 3 MG TABLET 6 MG PO (19:57)
[2022-02-06] MEDS: Clopidogrel Bisulfate 75 MG TABLET G-TUBE (19:57)
[2022-02-06] MEDS: Atorvastatin Calcium 40 MG TABLET PO (19:57)
[2022-02-06 23:52] VITALS: BP 129/60; PULSE 76; RESP 18; TEMP 36.4; O2SAT 96
[2022-02-07] MEDS: oxyCODONE HCl Immed Release 5 MG TABLET PO ×3 (01:56→17:35)
[2022-02-07 03:28] VITALS: BP 154/72; PULSE 80; RESP 19; TEMP 37.1; O2SAT 96
[2022-02-07] MEDS: Dextrose 5 % and 0.45 % NaCl 1,000 ML 100 ML IVCONT (05:03)
[2022-02-07 05:55] LABS: MANUAL DIFF FLAG NO
[2022-02-07 05:58] LABS: Basophils Percent Auto 0.4 % (0-2); Eosinophils Absolute Auto 0.4 X10*3/uL (0.0-0.4); Eosinophils Percent Auto 4.5 % (0-4); Hematocrit 24.1 % (37.0-47.0); Hemoglobin 7.4 g/dl (12.0-16.0); Imm Gran Abs Auto 0.06 X10*3/uL (0.00-0.03); Imm Gran Pct Auto 0.7 % (0.0-0.4); Lymphocytes Percent Auto 21.9 % (20-40); Mean Corpuscular HGB Conc 30.7 g/dl (31.0-35.0); Mean Corpuscular Hemoglobin 25.6 pg (27.0-33.0); Mean Corpuscular Volume 83.4 fL (80.0-98.0); Mean Platelet Volume 9.3 fL (9.4-12.3); Monocytes Percent Auto 11.1 % (2-11); Neutrophils Absolute Auto 5.6 x10*3/uL (2.0-8.3); Neutrophils Percent Auto 61.4 % (45-73); Platelet Count 376 X10*3/uL (160-400); Red Blood Count 2.89 X10*6/uL (4.20-5.50); Red Cell Distribution Width 17.3 % (11.0-16.0); White Blood Count 9.1 X10*3/uL (4.8-10.8)
[2022-02-07 06:22] LABS: Alanine Aminotransferase 37 U/L (0-31); Albumin Level 2.4 g/dL (3.5-5.0); Alkaline Phosphatase 221 U/L (39-117); Anion Gap 11 (12-20); Aspartate Amino Transferase 30 U/L (5-31); Bilirubin Total < 0.2 mg/dL (0.0-1.0); Blood Urea Nitrogen 8 mg/dL (9-16); Calcium 8.8 mg/dL (8.4-10.2); Carbon Dioxide 23 mmol/L (22-29); Chloride 102 mmol/L (96-108); Creatinine Clr Calc Pharmacy 68.5; Estimated Glomerular Filt Rate > 60; Glucose Fasting 163 mg/dL (60-99); Potassium 3.7 mmol/L (3.3-5.1); Sodium 132 mmol/L (135-145); Total Protein 6.3 g/dL (6.5-8.0)
[2022-02-07] MEDS: Aspirin Enteric Coated 81 MG TABLET.DR PO (07:55)
[2022-02-07] MEDS: modafiniL 100 MG TABLET 200 MG G-TUBE (07:55)
[2022-02-07] MEDS: Calcium + Vitamin D 250 MG TABLET 500 MG PO ×2 (07:56→21:15)
[2022-02-07] MEDS: Valsartan 320 MG, hydroCHLOROthiazide 25 MG PO (07:57)
[2022-02-07] MEDS: Loratadine 10 MG TABLET PO (07:58)
[2022-02-07] MEDS: Famotidine 20 MG TABLET PO ×2 (07:58→21:19)
[2022-02-07] MEDS: QUEtiapine Fumarate 25 MG TABLET 12.5 MG PO ×2 (07:58→21:20)
[2022-02-07] MEDS: DULoxetine HCl 30 MG CAPSULE.DR PO (07:58)
[2022-02-07] MEDS: levETIRAcetam Oral Soln 500 MG/5 ML G-TUBE ×2 (07:59→21:14)
[2022-02-07 08:00] VITALS: BP 115/68; PULSE 81; RESP 18; TEMP 37.2; O2SAT 95
[2022-02-07] MEDS: 0.9 % Sodium Chloride Flush 3 ML SYRINGE IVFLUSH (08:00)
[2022-02-07] MEDS: Betamethasone Dip Aug 0.05% Cr 15 GM TUBE 1 APPL TOPICAL ×2 (08:00→21:19)
[2022-02-07] MEDS: vancomycin HCL Oral Solution 125 MG/5 ML SOLN.RECON G-TUBE ×4 (08:00→21:14)
[2022-02-07 08:17] LABS: Retic HGB Equivalent 24.6 pg (30.0-35.0); Reticulocyte Percent 2.9 % (0.5-1.8); Reticulocytes Absolute 0.084 X10*6/uL (0.026-0.095)
[2022-02-07] MEDS: 0.9 % Sodium Chloride 1,000 ML 75 ML IVCONT ×2 (08:25→21:14)
[2022-02-07 08:28] LABS: Iron 14 mcg/dL (30-160); Lactate Dehydrogenase 120 U/L (122-220); Percent Iron Saturation 7 % (15-50); Total Iron Binding Capacity 204 mcg/dL (228-428); Unsaturated Iron Binding 190 ug/dL
[2022-02-07 08:48] LABS: Ferritin 123 ng/mL (10-250)
[2022-02-07 09:11] LABS: Folate 17.4 ng/mL (> or = 4.0); Vitamin B12 783 pg/mL (200-900)
[2022-02-07] MEDS: QUEtiapine Fumarate 25 MG TABLET PO (10:58)
[2022-02-07 11:37] VITALS: BP 126/50; PULSE 75; RESP 18; TEMP 36.9; O2SAT 95
[2022-02-07] MEDS: Nystatin Powder 15 GM BOTTLE 1 APPL TOPICAL ×3 (12:13→21:19)
--- NOTE | 2022-02-07 13:43 | HO.PM.IMPN ---
Subjective Subjective Date of Service: 02/07/22 Interval History: Ongoing diarrhea Somewhat agitated Family present at bedside Review of Systems Review of Systems: Yes Unobtainable due to mental status Physical Exam Vital Signs: Vital Signs: Last Vital Signs Temp 98.4 F 02/07/22 11:37 Pulse 75 02/07/22 11:37 Resp 18 02/07/22 11:37 BP 126/50 L 02/07/22 11:37 Pulse Ox 95 02/07/22 11:37 BMI result Body Mass Index 23.1 Gen: somewhat agitated HEENT: sclera anicteric, moist mucus membranes Neck: supple Lungs: clear to auscultation bilaterally Heart: regular rate and rhythm, no murmurs Abd: soft, non-tender, non-distended, G-tube intact, rectal tube with liquid brown stool Ext: no edema Skin: warm/well-perfused Neuro: alert, incomprehensible sounds, L hemiplegia Psych: impaired insight Objective Data Active Medications Acetaminophen (Acetaminophen 325 Mg Tablet) 650 mg PO Q8H PRN PRN Reason: Pain, Mild (Pain Scale 1-3) Albuterol Sulfate (Albuterol Sulfate (0.083%) 2.5 Mg/3 Ml Vial.Neb) 2.5 mg INHALE TID PRN PRN Reason: Shortness Of Breath Albuterol Sulfate (Albuterol Sulfate 90 Mcg 8 Gm Inhaler) 2 puff INHALE Q4H PRN PRN Reason: Shortness Of Breath Aspirin (Aspirin Enteric Coated 81 Mg Tablet.) 81 mg PO DAILY COUNTS INCLUDE 234 BEDS AT THE [facility] Last Admin: 02/07/22 07:55 Dose: 81 mg Documented by: DANIELA Atorvastatin Calcium (Atorvastatin Calcium 40 Mg Tablet) 40 mg PO BEDTIME COUNTS INCLUDE 234 BEDS AT THE [facility] Last Admin: 02/06/22 19:57 Dose: 40 mg Documented by: JULITA Betamethasone Dipropion Augmented (Betamethasone Dip Aug 0.05% Cr 15 Gm Tube) 1 appl TOPICAL BID COUNTS INCLUDE 234 BEDS AT THE [facility] Last Admin: 02/07/22 08:00 Dose: 1 appl Documented by: DANIELA Calcium Carbonate/Cholecalciferol (Calcium + Vitamin D 250 Mg Tablet) 500 mg PO BID COUNTS INCLUDE 234 BEDS AT THE [facility] Last Admin: 02/07/22 07:56 Dose: 500 mg Documented by: DANIELA Clopidogrel Bisulfate (Clopidogrel Bisulfate 75 Mg Tablet) 75 mg G-TUBE BEDTIME COUNTS INCLUDE 234 BEDS AT THE [facility] Last Admin: 02/06/22 19:57 Dose: 75 mg Documented by: JULITA Valsartan 320 mg/ (Hydrochlorothiazide 25 mg) 0 mg PO DAILY COUNTS INCLUDE 234 BEDS AT THE [facility] Last Admin: 02/07/22 07:57 Dose: 2 tablet Documented by: DANIELA Duloxetine HCl (Duloxetine Hcl 30 Mg Capsule.Dr) 30 mg PO DAILY COUNTS INCLUDE 234 BEDS AT THE [facility] Last Admin: 02/07/22 07:58 Dose: 30 mg Documented by: DANIELA Famotidine (Famotidine 20 Mg Tablet) 20 mg PO BID COUNTS INCLUDE 234 BEDS AT THE [facility] Last Admin: 02/07/22 07:58 Dose: 20 mg Documented by: DANIELA Fluticasone Propionate (Fluticasone Propionate Nasal 16 Gm [place]) 2 spray NOSTRIL-B DAILY PRN PRN Reason: Allergic Symptoms Sodium Chloride (Ns) 1,000 mls @ 75 mls/hr IVCONT .[id number] COUNTS INCLUDE 234 BEDS AT THE [facility] Stop: 02/08/22 08:00 Last Admin: 02/07/22 08:25 Dose: 75 mls/hr Documented by: DANIELA Levetiracetam (Levetiracetam Oral Soln 500 Mg/5 Ml) 500 mg G-TUBE BID COUNTS INCLUDE 234 BEDS AT THE [facility] Last Admin: 02/07/22 07:59 Dose: 500 mg Documented by: DANIELA Loratadine (Loratadine 10 Mg Tablet) 10 mg PO DAILY COUNTS INCLUDE 234 BEDS AT THE [facility] Last Admin: 02/07/22 07:58 Dose: 10 mg Documented by: DANIELA Melatonin (Melatonin 3 Mg Tablet) 6 mg PO BEDTIME PRN PRN Reason: insomnia Last Admin: 02/06/22 19:57 Dose: 6 mg Documented by: JULITA Modafinil (Modafinil 100 Mg Tablet) 200 mg G-TUBE DAILY COUNTS INCLUDE 234 BEDS AT THE [facility] Last Admin: 02/07/22 07:55 Dose: 200 mg Documented by: DANIELA Non-Formulary Medication (Amantadine Hcl) 10 ml G-TUBE DAILY COUNTS INCLUDE 234 BEDS AT THE [facility] Nystatin (Nystatin Powder 15 Gm Bottle) 1 appl TOPICAL TID COUNTS INCLUDE 234 BEDS AT THE [facility]; Protocol Last Admin: 02/07/22 12:13 Dose: 1 appl Documented by: DANIELA Oxycodone HCl (Oxycodone Hcl Immed Release 5 Mg Tablet) 5 mg PO Q6H PRN PRN Reason: Pain, Moderate (Pain Scale 4-6 Last Admin: 02/07/22 08:03 Dose: 5 mg Documented by: DANIELA Pharmacy Consult (Consult Rx Perform Med Rec) 1 each MISCELLANE ONCE PRN PRN Reason: Consult order Quetiapine Fumarate (Quetiapine Fumarate 25 Mg Tablet) 12.5 mg PO BID COUNTS INCLUDE 234 BEDS AT THE [facility] Last Admin: 02/07/22 07:58 Dose: 12.5 mg Documented by: DANIELA Quetiapine Fumarate (Quetiapine Fumarate 25 Mg Tablet) 25 mg PO DAILY@0800 COUNTS INCLUDE 234 BEDS AT THE [facility] Sodium Chloride (0.9 % Sodium Chloride Flush 3 Ml Syringe) 3 ml IVFLUSH QSHIFT COUNTS INCLUDE 234 BEDS AT THE [facility] Last Admin: 02/07/22 08:00 Dose: 3 ml Documented by: DANIELA Vancomycin HCl (Vancomycin Hcl Oral Solution 125 Mg/5 Ml Soln.Recon) 125 mg G-TUBE QID COUNTS INCLUDE 234 BEDS AT THE [facility] Last Admin: 02/07/22 12:13 Dose: 125 mg Documented by: DANIELA Labs CBC & Chem 7: 02/07/22 05:38 02/07/22 05:38 Labs: Laboratory Results - last 24 hr 02/07/22 02/07/22 02/07/22 05:38 05:38 05:38 MCV 83.4 MCH 25.6 L MCHC 30.7 L RDW 17.3 H Plt Count 376 MPV 9.3 L Immature Gran % (Auto) 0.7 H Neut % (Auto) 61.4 Lymph % (Auto) 21.9 [place] % (Auto) 11.1 H Eos % (Auto) 4.5 H Baso % (Auto) 0.4 Lymph # (Auto) 2.0 [place] # (Auto) 1.0 Eos # (Auto) 0.4 Baso # (Auto) 0.0 Abs Immat Gran (auto) 0.06 H Absolute Neuts (auto) 5.6 Absolute Nucleated RBC 0.000 Nucleated RBC % (auto) 0.0 Absolute Retic 0.084 Percent Retic 2.9 H Immature Retic Fraction 31.0 H Retic Hgb Equivalent 24.6 L Anion Gap 11 L Estim Creat Clear Calc 68.5 Estimated GFR > 60 Fasting Glucose 163 H Calcium 8.8 Iron 14 L TIBC 204 L % Saturation 7 L Unsat Iron Binding 190 Ferritin 123 Total Bilirubin < 0.2 AST 30 ALT 37 H Alkaline Phosphatase 221 H D Lactate Dehydrogenase 120 L Total Protein 6.3 L Albumin 2.4 L Vitamin B12 783 Folate 17.4 Microbiology Microbiology Results: Microbiology 02/05/22 11:37 Blood Culture - Preliminary Blood - Venous No growth after 24 hours. 02/05/22 11:37 Blood Culture - Preliminary Blood - Venous No growth after 24 hours. Assessment and Plan (1) C. 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 difficile colitis # C. difficile colitis - vancomycin d#01/23 # anemia - mixed ENMANUEL/ACD; replete Fe - FOBT+ on last admit; give empiric PPI # hyponatremia - replete NS, d/c HCTZ # HTN - valsartan # recent SAH s/p stenting - continue DAPT, levetiracetam # dementia - quetiapine, amantadine # asthma, intermittent - prn albuterol # FEN - tube feeds # stage 2 buttocks ulcer [L] - wound care # VTE ppx - SCDs In my clinical judgment, the patient requires continued hospitalization for the following reasons: C difficile colitis, IV fluids Quality Stroke Does the patient have a stroke diagnosis?: No VTE Prior VTE?: No VTE Risk Level:: Medical - moderate - high VTE Device Contraindication: N/A - Device Ordered VTE Drug Contraindication: Treatment Not Indicated
--- NOTE | 2022-02-07 13:45 | PC.NURSE ---
Skin/wound assessment completed today. Patient has a stage 2 to left buttock. Cleansed with wound cleanser then Woundres' gel applied covered with foam dressing. patient also has rash around anus from diarrhea and rectal tube. Thin layer of Triad applied around anus.
--- NOTE | 2022-02-07 14:11 | MHC.CLN ---
RE: CONSULT PT WITH INCREASED NUTRITION RISK R/T PRESSURE INJURY PT TOLERATING TUBE FEEDING JEVITY 1.0 AT 60 ML PER HOUR PROVIDES 1526 KCALS (24.2 KCALS/KG); 64 G PROTEIN (1.02 G/KG), 1202ML FREE WATER FROM FORMULA NOTED SERUM NA 132 TODAY; RECOMMEND D/C FREE WATER FLUSHES PT RECEIVING 1000ML NS IVF DUE TO C-DIFF RECOMMEND ADDING 30ML PROSOURCE VIA GTUBE Q DAY TO PROVIDE AN ADDITIONAL 60KCALS, 15G PROTEIN TO PROMOTE WOUND HEALING MONITOR TOLERANCE, RESIDUALS AND LYTES
--- NOTE | 2022-02-07 14:26 | P.CDIC_ITS ---
CDI Concurrent Query Documentation Clarification: PHYSICIAN'S DOCUMENTATION REQUEST Date of Query: 02/07/22 1427 Patient Name: Evette No Admit Date: 02/05/22 Dear Doctor, A review of the medical record indicates additional documentation may be indicated. Please review below and update the documentation accordingly. Clinical Indicators: Risk Factors/Clinical Indicators/Treatments Per MD progress note 02/07/22: stage 2 buttocks ulcer [L] - wound care Based on the above, could you please provide, in the Progress Notes, further information regarding the ulcer/wound: * Location of the ulcer/wound, including laterality * Type (etiology) of ulcer/wound: * Pressure (decubitus) ulcer * Traumatic wound * Other * Unable to determine * For a non-pressure ulcer, please indicate the depth/severity: * Limited to the breakdown of skin * With fat layer exposed * With necrosis of muscle * With necrosis of bone * Other * Unable to determine * If a pressure ulcer, please also include the stage* of the ulcer: * Stage 1 - Skin intact, non-blanchable redness * Stage 2 - Partial thickness loss of dermis, includes intact or open blister * Stage 3 - Full thickness tissue not including bone, tendon, or muscle * Stage 4 - Full thickness tissue loss, including exposed bones, tendon, or muscle * Unstageable - Full thickness tissue loss in which the base of the ulcer is covered by slough (yellow, marte, jackson, green or brown) and/or eschar (marte, brown, or black) in the wound bed. * Suspected deep tissue injury - Purple or maroon localized area of discolored intact skin or blood-filled blister due to damage of underlying soft tissues from pressure and/or shear. The area may be preceded by tissue that is painful, firm, mushy, boggy, warmer, or cooler as compare to adjacent tissue. * Unable to determine *Source: National Pressure Ulcer Advisory Panel (NPUAP) Use of terms such as suspected, likely, concern for, or probable (associated with a specific diagnosis that is being evaluated, monitored, or treated as if it exists) are acceptable and can be coded in the inpatient setting, when documented at the time of discharge. Thank you, Nery Florentino RN Extension: [phone] Please use your independent medical judgment in providing your response. THIS QUERY IS PART OF THE PERMANENT MEDICAL RECORD
--- NOTE | 2022-02-07 14:26 | MHC.CDI.CONC ---
CDI Concurrent Query Documentation Clarification: PHYSICIAN'S DOCUMENTATION REQUEST Date of Query: 02/07/22 1427 Patient Name: Evette No Admit Date: 02/05/22 Dear Doctor, A review of the medical record indicates additional documentation may be indicated. Please review below and update the documentation accordingly. Clinical Indicators: Risk Factors/Clinical Indicators/Treatments Per MD progress note 02/07/22: stage 2 buttocks ulcer [L] - wound care Based on the above, could you please provide, in the Progress Notes, further information regarding the ulcer/wound: Location of the ulcer/wound, including laterality Type (etiology) of ulcer/wound: Pressure (decubitus) ulcer Traumatic wound Other Unable to determine For a non-pressure ulcer, please indicate the depth/severity: Limited to the breakdown of skin With fat layer exposed With necrosis of muscle With necrosis of bone Other Unable to determine If a pressure ulcer, please also include the stage* of the ulcer: Stage 1 - Skin intact, non-blanchable redness Stage 2 - Partial thickness loss of dermis, includes intact or open blister Stage 3 - Full thickness tissue not including bone, tendon, or muscle Stage 4 - Full thickness tissue loss, including exposed bones, tendon, or muscle Unstageable - Full thickness tissue loss in which the base of the ulcer is covered by slough (yellow, marte, jackson, green or brown) and/or eschar (marte, brown, or black) in the wound bed. Suspected deep tissue injury - Purple or maroon localized area of discolored intact skin or blood-filled blister due to damage of underlying soft tissues from pressure and/or shear. The area may be preceded by tissue that is painful, firm, mushy, boggy, warmer, or cooler as compare to adjacent tissue. Unable to determine *Source: National Pressure Ulcer Advisory Panel (NPUAP) Use of terms such as suspected, likely, concern for, or probable (associated with a specific diagnosis that is being evaluated, monitored, or treated as if it exists) are acceptable and can be coded in the inpatient setting, when documented at the time of discharge. Thank you, Nery Florentino RN Extension: [phone] Please use your independent medical judgment in providing your response. THIS QUERY IS PART OF THE PERMANENT MEDICAL RECORD
[2022-02-07 15:16] VITALS: BP 130/60; PULSE 77; RESP 18; TEMP 36.8; O2SAT 95
--- NOTE | 2022-02-07 16:09 | MHC.CM.PN ---
NURSE CASE MANAGEMENT ELECTRONIC MEDICAL RECORD REVIEWED ALONG WITH CASE DISUCSSED ON MULTIPLE DISCIPLINARY ROUNDS, PER DOUCMENTATION IN HISTORY AND PHYSICAL PATIENT WITH HX ;( DEMENTAI, SAH FROM RUPTURED LEFT ICA ANEURYSM STENTED ON 11/27/21 S/P RESPIRATORY FAILURE, HYPOTENSION L =-HEMIPLEGIA AND G-TUBE DEPENDENCE, S/P RECENT HOSPITALIZED FOR PNA AND NOW BEING READMITTED ON 02/05/22 FOR C DIFF COLITIS ON DAY 3/4 IV VANCOMYCIN .TYPEWRITER REPAIRER AND WOUND NURSE FOLLOWING FOR STAGE 2 BUTTOCK ULCER ON THE LEFT SIDE ; DISCHARGE PLAN DISCHARGE HOME WITH [facility], RESUMPTION OF HER SAFETY AND HEALTH CONSULTANT BLS TRANSPORT ISHAN SIMONS [phone]
[2022-02-07] MEDS: Ferrous Sulfate 324 MG TABLET.DR PO (17:35)
[2022-02-07 19:14] VITALS: BP 128/62; PULSE 72; RESP 18; TEMP 36.8; O2SAT 97
[2022-02-07] MEDS: Clopidogrel Bisulfate 75 MG TABLET G-TUBE (21:15)
[2022-02-07] MEDS: Atorvastatin Calcium 40 MG TABLET PO (21:19)
[2022-02-07 23:34] VITALS: BP 135/63; PULSE 88; RESP 18; TEMP 37.1; O2SAT 95
[2022-02-08] VITALS (7 sets, daily range): BP systolic 127–146; BP diastolic 59–68; PULSE 75–86; RESP 14–18; TEMP 36.3–37.6; O2SAT 94–96; BMI 23.1
[2022-02-08 05:52] LABS: MANUAL DIFF FLAG NO
[2022-02-08 05:55] LABS: Basophils Absolute Auto 0.1 X10*3/uL (0.0-0.2); Basophils Percent Auto 0.6 % (0-2); Eosinophils Absolute Auto 0.3 X10*3/uL (0.0-0.4); Eosinophils Percent Auto 4.1 % (0-4); Hematocrit 23.7 % (37.0-47.0); Hemoglobin 7.3 g/dl (12.0-16.0); Imm Gran Abs Auto 0.04 X10*3/uL (0.00-0.03); Imm Gran Pct Auto 0.5 % (0.0-0.4); Lymphocytes Absolute Auto 2.8 X10*3/uL (1.2-4.9); Lymphocytes Percent Auto 33.6 % (20-40); Mean Corpuscular HGB Conc 30.8 g/dl (31.0-35.0); Mean Corpuscular Hemoglobin 25.3 pg (27.0-33.0); Mean Platelet Volume 8.7 fL (9.4-12.3); Monocytes Absolute Auto 1.1 X10*3/uL (0.1-1.2); Monocytes Percent Auto 12.8 % (2-11); Neutrophils Percent Auto 48.4 % (45-73); Platelet Count 369 X10*3/uL (160-400); Red Blood Count 2.89 X10*6/uL (4.20-5.50); Red Cell Distribution Width 17.2 % (11.0-16.0); White Blood Count 8.3 X10*3/uL (4.8-10.8)
[2022-02-08 06:24] LABS: Alanine Aminotransferase 33 U/L (0-31); Albumin Level 2.4 g/dL (3.5-5.0); Alkaline Phosphatase 193 U/L (39-117); Anion Gap 12 (12-20); Aspartate Amino Transferase 27 U/L (5-31); Bilirubin Total < 0.2 mg/dL (0.0-1.0); Blood Urea Nitrogen 7 mg/dL (9-16); Calcium 8.4 mg/dL (8.4-10.2); Carbon Dioxide 21 mmol/L (22-29); Chloride 106 mmol/L (96-108); Creatinine Clr Calc Pharmacy 75.7; Estimated Glomerular Filt Rate > 60; Glucose Fasting 121 mg/dL (60-99); Potassium 3.8 mmol/L (3.3-5.1); Sodium 135 mmol/L (135-145); Total Protein 6.6 g/dL (6.5-8.0)
[2022-02-08] MEDS: Ferrous Sulfate 324 MG TABLET.DR PO (08:38)
[2022-02-08] MEDS: Calcium + Vitamin D 250 MG TABLET 500 MG PO ×2 (08:38→19:43)
[2022-02-08] MEDS: Famotidine 20 MG TABLET PO ×2 (08:38→19:44)
[2022-02-08] MEDS: modafiniL 100 MG TABLET 200 MG G-TUBE (08:38)
[2022-02-08] MEDS: Aspirin Enteric Coated 81 MG TABLET.DR PO (08:39)
[2022-02-08] MEDS: vancomycin HCL Oral Solution 125 MG/5 ML SOLN.RECON G-TUBE ×4 (08:39→19:44)
[2022-02-08] MEDS: Loratadine 10 MG TABLET PO (08:39)
[2022-02-08] MEDS: Valsartan 320 MG TABLET G-TUBE (08:39)
[2022-02-08] MEDS: QUEtiapine Fumarate 25 MG TABLET PO ×2 (08:39→19:44)
[2022-02-08] MEDS: levETIRAcetam Oral Soln 500 MG/5 ML G-TUBE ×2 (08:39→19:43)
[2022-02-08] MEDS: DULoxetine HCl 30 MG CAPSULE.DR PO (08:39)
[2022-02-08] MEDS: Nystatin Powder 15 GM BOTTLE 1 APPL TOPICAL ×3 (08:40→19:52)
[2022-02-08] MEDS: Betamethasone Dip Aug 0.05% Cr 15 GM TUBE 1 APPL TOPICAL ×2 (08:40→19:52)
[2022-02-08] MEDS: oxyCODONE HCl Immed Release 5 MG TABLET PO ×2 (08:43→18:14)
--- NOTE | 2022-02-08 10:37 | P.PNIM_ITS ---
Subjective Subjective Date of Service: 02/08/22 Interval History: Ongoing liquid stool + agitation Review of Systems Review of Systems: Yes Unobtainable due to mental status Physical Exam 2 Vital Signs: Vital Signs: Last Vital Signs Temp 98.7 F 02/08/22 07:25 Pulse 86 02/08/22 07:25 Resp 18 02/08/22 07:25 BP 146/68 H 02/08/22 07:25 Pulse Ox 94 02/08/22 07:25 BMI result Body Mass Index 23.1 Gen: somewhat agitated HEENT: sclera anicteric, moist mucus membranes Neck: supple Lungs: clear to auscultation bilaterally Heart: regular rate and rhythm, no murmurs Abd: soft, non-tender, non-distended, G-tube intact, rectal tube with liquid brown stool Ext: no edema Skin: warm/well-perfused Neuro: alert, incomprehensible sounds, L hemiplegia Psych: impaired insight Objective Data Active Medications Acetaminophen (Acetaminophen 325 Mg Tablet) 650 mg PO Q8H PRN PRN Reason: Pain, Mild (Pain Scale 1-3) Albuterol Sulfate (Albuterol Sulfate (0.083%) 2.5 Mg/3 Ml Vial.Neb) 2.5 mg INHALE TID PRN PRN Reason: Shortness Of Breath Albuterol Sulfate (Albuterol Sulfate 90 Mcg 8 Gm Inhaler) 2 puff INHALE Q4H PRN PRN Reason: Shortness Of Breath Aspirin (Aspirin Enteric Coated 81 Mg Tablet.) 81 mg PO DAILY [facility] Last Admin: 02/08/22 08:39 Dose: 81 mg Documented by: ESTHER Atorvastatin Calcium (Atorvastatin Calcium 40 Mg Tablet) 40 mg PO BEDTIME [facility] Last Admin: 02/07/22 21:19 Dose: 40 mg Documented by: KIMBERLY Betamethasone Dipropion Augmented (Betamethasone Dip Aug 0.05% Cr 15 Gm Tube) 1 appl TOPICAL BID [facility] Last Admin: 02/08/22 08:40 Dose: 1 appl Documented by: ESTHER Calcium Carbonate/Cholecalciferol (Calcium + Vitamin D 250 Mg Tablet) 500 mg PO BID [facility] Last Admin: 02/08/22 08:38 Dose: 500 mg Documented by: ESTHER Clopidogrel Bisulfate (Clopidogrel Bisulfate 75 Mg Tablet) 75 mg G-TUBE BEDTIME [facility] Last Admin: 02/07/22 21:15 Dose: 75 mg Documented by: KIMBERLY Duloxetine HCl (Duloxetine Hcl 30 Mg Capsule.Dr) 30 mg PO DAILY [facility] Last Admin: 02/08/22 08:39 Dose: 30 mg Documented by: ESTHER Famotidine (Famotidine 20 Mg Tablet) 20 mg PO BID [facility] Last Admin: 02/08/22 08:38 Dose: 20 mg Documented by: ESTHER Ferrous Sulfate (Ferrous Sulfate 300 Mg/5 Ml Liquid) 300 mg PO BIDWM [facility] Fluticasone Propionate (Fluticasone Propionate Nasal 16 Gm [place]) 2 spray NOSTRIL-B DAILY PRN PRN Reason: Allergic Symptoms Levetiracetam (Levetiracetam Oral Soln 500 Mg/5 Ml) 500 mg G-TUBE BID [facility] Last Admin: 02/08/22 08:39 Dose: 500 mg Documented by: ESTHER Loratadine (Loratadine 10 Mg Tablet) 10 mg PO DAILY [facility] Last Admin: 02/08/22 08:39 Dose: 10 mg Documented by: ESTHER Melatonin (Melatonin 3 Mg Tablet) 6 mg PO BEDTIME PRN PRN Reason: insomnia Last Admin: 02/06/22 19:57 Dose: 6 mg Documented by: JULITA Modafinil (Modafinil 100 Mg Tablet) 200 mg G-TUBE DAILY [facility] Last Admin: 02/08/22 08:38 Dose: 200 mg Documented by: ESTHER Non-Formulary Medication (Amantadine Hcl) 10 ml G-TUBE DAILY [facility] Nystatin (Nystatin Powder 15 Gm Bottle) 1 appl TOPICAL TID [facility]; Protocol Last Admin: 02/08/22 08:40 Dose: 1 appl Documented by: ESTHER Omeprazole (Omeprazole 20 Mg/10 Ml Susp.Recon) 20 mg G-TUBE BID@0630,1630 [facility] Last Admin: 02/08/22 05:22 Dose: 20 mg Documented by: BRODERICK Oxycodone HCl (Oxycodone Hcl Immed Release 5 Mg Tablet) 5 mg PO Q6H PRN PRN Reason: Pain, Moderate (Pain Scale 4-6 Last Admin: 02/08/22 08:43 Dose: 5 mg Documented by: ESTHER Pharmacy Consult (Consult Rx Perform Med Rec) 1 each MISCELLANE ONCE PRN PRN Reason: Consult order Quetiapine Fumarate (Quetiapine Fumarate 25 Mg Tablet) 12.5 mg PO BID [facility] Last Admin: 02/08/22 09:58 Dose: Not Given Documented by: ESTHER Non-Admin Reason: md will dc Quetiapine Fumarate (Quetiapine Fumarate 25 Mg Tablet) 25 mg PO DAILY@0800 [facility] Last Admin: 02/08/22 08:39 Dose: 25 mg Documented by: ESTHER Sodium Chloride (0.9 % Sodium Chloride Flush 3 Ml Syringe) 3 ml IVFLUSH QSHIFT [facility] Last Admin: 02/08/22 08:39 Dose: Not Given Documented by: ESTHER Non-Admin Reason: IV Running Valsartan (Valsartan 320 Mg Tablet) 320 mg G-TUBE DAILY [facility]; Protocol Last Admin: 02/08/22 08:39 Dose: 320 mg Documented by: ESTHER Vancomycin HCl (Vancomycin Hcl Oral Solution 125 Mg/5 Ml Soln.Recon) 125 mg G- TUBE QID [facility] Last Admin: 02/08/22 08:39 Dose: 125 mg Documented by: ESTHER Labs CBC & Chem 7: 02/08/22 05:45 02/08/22 05:45 Labs: Laboratory Results - last 24 hr 02/08/22 02/08/22 05:45 05:45 MCV 82.0 MCH 25.3 L MCHC 30.8 L RDW 17.2 H Plt Count 369 MPV 8.7 L Immature Gran % (Auto) 0.5 H Neut % (Auto) 48.4 Lymph % (Auto) 33.6 [place] % (Auto) 12.8 H Eos % (Auto) 4.1 H Baso % (Auto) 0.6 Lymph # (Auto) 2.8 [place] # (Auto) 1.1 Eos # (Auto) 0.3 Baso # (Auto) 0.1 Abs Immat Gran (auto) 0.04 H Absolute Neuts (auto) 4.0 Absolute Nucleated RBC 0.000 Nucleated RBC % (auto) 0.0 Anion Gap 12 Estim Creat Clear Calc 75.7 Estimated GFR > 60 Random Glucose TNP Fasting Glucose 121 H Calcium 8.4 Total Bilirubin < 0.2 AST 27 ALT 33 H Alkaline Phosphatase 193 H Total Protein 6.6 Albumin 2.4 L Microbiology Microbiology Results: Microbiology 02/05/22 11:37 Blood Culture - Preliminary Blood - Venous No growth after 48 hours. 02/05/22 11:37 Blood Culture - Preliminary Blood - Venous No growth after 48 hours. Assessment and Plan (1) C. 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 difficile colitis # C. difficile colitis - vancomycin d#02/23 # anemia - mixed ENMANUEL/ACD; replete Fe - FOBT+ on last admit; giving empiric PPI # hyponatremia - resolved after NS repletion, holding HCTZ # HTN - valsartan, hold HCTZ # recent SAH s/p stenting - continue DAPT, levetiracetam # dementia - quetiapine, amantadine # asthma, intermittent - prn albuterol # FEN - tube feeds # stage 2 buttocks pressure ulcer [L] present on admission - wound care # VTE ppx - SCDs In my clinical judgment, the patient requires continued hospitalization for the following reasons: C difficile colitis + rectal tube Quality Stroke Does the patient have a stroke diagnosis?: No VTE Prior VTE?: No VTE Risk Level:: Medical - moderate - high VTE Device Contraindication: N/A - Device Ordered VTE Drug Contraindication: Treatment Not Indicated
--- NOTE | 2022-02-08 15:15 | MHC.CM.PN ---
DIETARY CONSULT ORDER IN FOR CHANGE OF CONTINUOUS FEEDS FORMULA. PATIENT IS NEW TO CONTINUOUS FEEDS. Opax MADE AWARE OF PROGRESS IN [facility]CRIPTS
[2022-02-08] MEDS: QUEtiapine Fumarate 25 MG TABLET 12.5 MG PO (16:12)
[2022-02-08] MEDS: Ferrous Sulfate 300 MG/5 ML LIQUID PO (16:12)
[2022-02-08] MEDS: 0.9 % Sodium Chloride Flush 3 ML SYRINGE IVFLUSH ×2 (16:13→19:44)
[2022-02-08] MEDS: Acetaminophen 325 MG TABLET 650 MG PO (18:14)
[2022-02-08] MEDS: Clopidogrel Bisulfate 75 MG TABLET G-TUBE (19:43)
[2022-02-08] MEDS: Atorvastatin Calcium 40 MG TABLET PO (19:44)
[2022-02-09] MEDS: Acetaminophen 325 MG TABLET 650 MG PO (02:19)
[2022-02-09] MEDS: Melatonin 3 MG TABLET 6 MG PO (02:19)
[2022-02-09] MEDS: oxyCODONE HCl Immed Release 5 MG TABLET PO ×3 (02:19→20:47)
--- NOTE | 2022-02-09 03:09 | PC.NURSE ---
rectal tube removed at 0200, pt resting comfortably now.
[2022-02-09 04:00] VITALS: BP 114/57; PULSE 71; RESP 18; TEMP 37.2; O2SAT 95
[2022-02-09 06:14] LABS: Hematocrit 22.4 % (37.0-47.0); Hemoglobin 7.1 g/dl (12.0-16.0); Mean Corpuscular HGB Conc 31.7 g/dl (31.0-35.0); Mean Corpuscular Volume 82.1 fL (80.0-98.0); Mean Platelet Volume 9.5 fL (9.4-12.3); Platelet Count 378 X10*3/uL (160-400); Red Blood Count 2.73 X10*6/uL (4.20-5.50); Red Cell Distribution Width 17.2 % (11.0-16.0); White Blood Count 8.8 X10*3/uL (4.8-10.8)
[2022-02-09 06:30] LABS: Anion Gap 14 (12-20); Blood Urea Nitrogen 8 mg/dL (9-16); Calcium 8.4 mg/dL (8.4-10.2); Carbon Dioxide 20 mmol/L (22-29); Chloride 105 mmol/L (96-108); Creatinine Clr Calc Pharmacy 72.7; Estimated Glomerular Filt Rate > 60; Glucose Random 146 mg/dL (60-115); Sodium 135 mmol/L (135-145)
[2022-02-09 07:31] VITALS: BP 124/55; PULSE 74; RESP 18; TEMP 37.2; O2SAT 96
[2022-02-09] MEDS: 0.9 % Sodium Chloride Flush 3 ML SYRINGE IVFLUSH ×2 (07:36→17:31)
[2022-02-09] MEDS: modafiniL 100 MG TABLET 200 MG G-TUBE (07:37)
[2022-02-09] MEDS: vancomycin HCL Oral Solution 125 MG/5 ML SOLN.RECON G-TUBE ×4 (07:37→20:46)
[2022-02-09] MEDS: levETIRAcetam Oral Soln 500 MG/5 ML G-TUBE ×2 (07:37→20:46)
[2022-02-09] MEDS: Ferrous Sulfate 300 MG/5 ML LIQUID PO ×2 (07:37→17:31)
[2022-02-09] MEDS: Valsartan 320 MG TABLET G-TUBE (07:37)
[2022-02-09] MEDS: Loratadine 10 MG TABLET PO (07:38)
[2022-02-09] MEDS: QUEtiapine Fumarate 25 MG TABLET PO ×2 (07:38→20:47)
[2022-02-09] MEDS: Calcium + Vitamin D 250 MG TABLET 500 MG PO ×2 (07:38→20:46)
[2022-02-09] MEDS: Famotidine 20 MG TABLET PO ×2 (07:38→20:46)
[2022-02-09] MEDS: Aspirin Enteric Coated 81 MG TABLET.DR PO (07:38)
[2022-02-09] MEDS: Betamethasone Dip Aug 0.05% Cr 15 GM TUBE 1 APPL TOPICAL ×2 (07:39→21:00)
[2022-02-09] MEDS: Nystatin Powder 15 GM BOTTLE 1 APPL TOPICAL ×3 (07:39→21:00)
[2022-02-09] MEDS: DULoxetine HCl 30 MG CAPSULE.DR PO (07:40)
--- NOTE | 2022-02-09 10:48 | P.PNIM_ITS ---
Subjective Subjective Date of Service: 02/09/22 Interval History: Rectal tube removed. Was agitated yesterday, now calm. Review of Systems Review of Systems: Yes Unobtainable due to mental status Physical Exam Vital Signs: Vital Signs: Last Vital Signs Temp 99.0 F 02/09/22 07:31 Pulse 74 02/09/22 07:31 Resp 18 02/09/22 07:31 BP 124/55 L 02/09/22 07:31 Pulse Ox 96 02/09/22 07:31 BMI result Body Mass Index 23.1 Gen: NAD HEENT: sclera anicteric, moist mucus membranes Neck: supple Lungs: clear to auscultation bilaterally Heart: regular rate and rhythm, no murmurs Abd: soft, non-tender, non-distended, G-tube intact : Berman with clear urine Ext: no edema Skin: warm/well-perfused Neuro: alert, incomprehensible sounds, L hemiplegia [chronic] Psych: impaired insight Objective Data Active Medications Acetaminophen (Acetaminophen 325 Mg Tablet) 650 mg PO Q8H PRN PRN Reason: Pain, Mild (Pain Scale 1-3) Last Admin: 02/09/22 02:19 Dose: 650 mg Documented by: EDUARD Albuterol Sulfate (Albuterol Sulfate (0.083%) 2.5 Mg/3 Ml Vial.Neb) 2.5 mg INH LE TID PRN PRN Reason: Shortness Of Breath Albuterol Sulfate (Albuterol Sulfate 90 Mcg 8 Gm Inhaler) 2 puff INHALE Q4H PRN PRN Reason: Shortness Of Breath Aspirin (Aspirin Enteric Coated 81 Mg Tablet.) 81 mg PO DAILY [facility] Last Admin: 02/09/22 07:38 Dose: 81 mg Documented by: KELSEY Atorvastatin Calcium (Atorvastatin Calcium 40 Mg Tablet) 40 mg PO BEDTIME [facility] Last Admin: 02/08/22 19:44 Dose: 40 mg Documented by: EDUARD Betamethasone Dipropion Augmented (Betamethasone Dip Aug 0.05% Cr 15 Gm Tube) 1 appl TOPICAL BID [facility] Last Admin: 02/09/22 07:39 Dose: 1 appl Documented by: KELSEY Calcium Carbonate/Cholecalciferol (Calcium + Vitamin D 250 Mg Tablet) 500 mg PO BID [facility] Last Admin: 02/09/22 07:38 Dose: 500 mg Documented by: KELSEY Clopidogrel Bisulfate (Clopidogrel Bisulfate 75 Mg Tablet) 75 mg G-TUBE BEDTIME [facility] Last Admin: 02/08/22 19:43 Dose: 75 mg Documented by: EDUARD Duloxetine HCl (Duloxetine Hcl 30 Mg Capsule.Dr) 30 mg PO DAILY [facility] Last Admin: 02/09/22 07:40 Dose: 30 mg Documented by: KELSEY Famotidine (Famotidine 20 Mg Tablet) 20 mg PO BID [facility] Last Admin: 02/09/22 07:38 Dose: 20 mg Documented by: KELSEY Ferrous Sulfate (Ferrous Sulfate 300 Mg/5 Ml Liquid) 300 mg PO BIDWM [facility] Last Admin: 02/09/22 07:37 Dose: 300 mg Documented by: KELSEY Fluticasone Propionate (Fluticasone Propionate Nasal 16 Gm [place]) 2 spray NOSTRIL-B DAILY PRN PRN Reason: Allergic Symptoms Levetiracetam (Levetiracetam Oral Soln 500 Mg/5 Ml) 500 mg G-TUBE BID [facility] Last Admin: 02/09/22 07:37 Dose: 500 mg Documented by: KELSEY Loratadine (Loratadine 10 Mg Tablet) 10 mg PO DAILY [facility] Last Admin: 02/09/22 07:38 Dose: 10 mg Documented by: KELSEY Melatonin (Melatonin 3 Mg Tablet) 6 mg PO BEDTIME PRN PRN Reason: insomnia Last Admin: 02/09/22 02:19 Dose: 6 mg Documented by: EDUARD Modafinil (Modafinil 100 Mg Tablet) 200 mg G-TUBE DAILY [facility] Last Admin: 02/09/22 07:37 Dose: 200 mg Documented by: KELSEY Non-Formulary Medication (Amantadine Hcl) 10 ml G-TUBE DAILY [facility] Nystatin (Nystatin Powder 15 Gm Bottle) 1 appl TOPICAL TID [facility]; Protocol Last Admin: 02/09/22 07:39 Dose: 1 appl Documented by: KELSEY Omeprazole (Omeprazole 20 Mg/10 Ml Susp.Recon) 20 mg G-TUBE BID@0630,1630 [facility] Last Admin: 02/09/22 05:52 Dose: 20 mg Documented by: EDUARD Oxycodone HCl (Oxycodone Hcl Immed Release 5 Mg Tablet) 5 mg PO Q6H PRN PRN Reason: Pain, Moderate (Pain Scale 4-6 Last Admin: 02/09/22 02:19 Dose: 5 mg Documented by: EDUARD Pharmacy Consult (Consult Rx Perform Med Rec) 1 each MISCELLANE ONCE PRN PRN Reason: Consult order Quetiapine Fumarate (Quetiapine Fumarate 25 Mg Tablet) 25 mg PO BID [facility] Last Admin: 02/09/22 07:38 Dose: 25 mg Documented by: KELSEY Sodium Chloride (0.9 % Sodium Chloride Flush 3 Ml Syringe) 3 ml IVFLUSH QSHIFT [facility] Last Admin: 02/09/22 07:36 Dose: 3 ml Documented by: KELSEY Valsartan (Valsartan 320 Mg Tablet) 320 mg G-TUBE DAILY [facility]; Protocol Last Admin: 02/09/22 07:37 Dose: 320 mg Documented by: KELSEY Vancomycin HCl (Vancomycin Hcl Oral Solution 125 Mg/5 Ml Soln.Recon) 125 mg G-TUBE QID [facility] Last Admin: 02/09/22 07:37 Dose: 125 mg Documented by: KELSEY Labs CBC & Chem 7: 02/09/22 05:55 02/09/22 05:55 Labs: Laboratory Results - last 24 hr 02/09/22 02/09/22 02/09/22 05:55 05:55 05:55 MCV 82.1 MCH 26.0 L MCHC 31.7 RDW 17.2 H Plt Count 378 MPV 9.5 Absolute Nucleated RBC 0.000 Nucleated RBC % (auto) 0.0 Anion Gap 14 Estim Creat Clear Calc 72.7 Estimated GFR > 60 Random Glucose 146 H Calcium 8.4 Blood Type O Positive Antibody Screen NEGATIVE Assessment and Plan (1) C. 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 difficile colitis # C. difficile colitis - vancomycin d#03/25 # anemia - mixed ENMANUEL/ACD; replete Fe - FOBT+ on last admit; giving empiric PPI - T+S active; transfuse if Hb <7; recheck in AM # hyponatremia - resolved after NS repletion, held HCTZ # HTN - valsartan, held HCTZ # recent SAH s/p stenting - continue DAPT, levetiracetam # dementia - quetiapine, amantadine # asthma, intermittent - prn albuterol # FEN - tube feeds # stage 2 buttocks pressure ulcer [L] present on admission - wound care # VTE ppx - SCDs In my clinical judgment, the patient requires continued hospitalization for the following reasons: C difficile colitis + anemia Quality Stroke Does the patient have a stroke diagnosis?: No VTE Prior VTE?: No VTE Risk Level:: Medical - moderate - high VTE Device Contraindication: N/A - Device Ordered VTE Drug Contraindication: Treatment Not Indicated
[2022-02-09 11:23] VITALS: BP 120/60; PULSE 75; RESP 18; TEMP 37.1; O2SAT 94
--- NOTE | 2022-02-09 11:40 | MHC.CLN ---
F/U IVF D/C PT TOLERATING TUBE FEEDING JEVITY 1.0 AT 60 ML PER HOUR WITH 30ML PROSOURCE Q DAY PROVIDES 1586 KCALS (25 KCALS/KG); 79G PROTEIN (1.25 G/KG), 1202ML FREE WATER FROM FORMULA RECOMMEND RESUME FREE WATER FLUSHES 240ML Q SHIFT (1922ML TOTAL FLUID; 30.5ML/KG) MONITOR TOLERANCE, RESIDUALS AND LYTES
--- NOTE | 2022-02-09 12:28 | MHC.CM.PN ---
nurse case therapist note electronic medical record reviewed along with case discussed with staff nurse and hospitlaist as well as patients daughter royce patient is active [facility] feeds (formula will be changed at discharge and will be continous with added supplements) t/v with maykel she will faxe order sheet to me to be filled and cll patients family to see about teCHINH SHE HAS NADIA NUMBER0 [facility] (spoke with awa [phone] thye were seeing her 2x daily for gt-tube bolus feeds and wound care and medication [id number], if discharged tomorrow they have nurse deuceabe to go out 02/08 Skin/wound assessment completed today. Patient has a stage 2 to left buttock. Cleansed with wound cleanser then Woundres' gel applied covered with foam dressing. patient also has rash around anus from diarrhea and rectal tube. Thin layer of Triad applied around anus. 02/07- dietitian progress note jevity tube feedings 1.0 at 60 ml per hour/adding 30 cc prosource via gt-tube to provide additional callories and protein discharge plan home where with production control technologist's and family she has 24 hours care [facility] formula , iv ploe , pump for continous feeding s and allrelated supplies , plus additional supplemetns [facility]. [facility] come [facility] the day [facility] as they come to see her 2x qd for medication administration and feedings transportation action bls medicare immm updated today 02/09/22 with daughter pcp chepe cuevas case therapist to follow and finalize discharge paperwork with hospitlasit and discharge plan when discharged
[2022-02-09] MEDS: QUEtiapine Fumarate 25 MG TABLET 12.5 MG PO (14:34)
[2022-02-09 15:46] VITALS: BP 140/60; PULSE 81; RESP 17; TEMP 37; O2SAT 95
[2022-02-09 19:21] VITALS: BP 135/56; PULSE 77; RESP 18; TEMP 37.6; O2SAT 94
[2022-02-09] MEDS: Clopidogrel Bisulfate 75 MG TABLET G-TUBE (20:46)
[2022-02-09] MEDS: Atorvastatin Calcium 40 MG TABLET PO (20:46)
[2022-02-09 23:50] VITALS: BP 159/72; PULSE 85; RESP 20; TEMP 36.7; O2SAT 96
[2022-02-10] MEDS: 0.9 % Sodium Chloride Flush 3 ML SYRINGE IVFLUSH ×2 (00:20→09:18)
[2022-02-10] MEDS: QUEtiapine Fumarate 25 MG TABLET 12.5 MG PO (01:48)
[2022-02-10] MEDS: oxyCODONE HCl Immed Release 5 MG TABLET PO ×2 (01:48→09:19)
[2022-02-10 04:00] VITALS: BP 157/72; PULSE 79; RESP 20; TEMP 36.2; O2SAT 95
[2022-02-10 06:06] LABS: Hematocrit 23.2 % (37.0-47.0); Hemoglobin 7.1 g/dl (12.0-16.0); Mean Corpuscular HGB Conc 30.6 g/dl (31.0-35.0); Mean Corpuscular Hemoglobin 25.3 pg (27.0-33.0); Mean Corpuscular Volume 82.6 fL (80.0-98.0); Mean Platelet Volume 9.4 fL (9.4-12.3); Platelet Count 389 X10*3/uL (160-400); Red Blood Count 2.81 X10*6/uL (4.20-5.50); Red Cell Distribution Width 17.3 % (11.0-16.0); White Blood Count 9.1 X10*3/uL (4.8-10.8)
[2022-02-10 06:28] LABS: Anion Gap 10 (12-20); Blood Urea Nitrogen 8 mg/dL (9-16); Calcium 8.5 mg/dL (8.4-10.2); Carbon Dioxide 26 mmol/L (22-29); Chloride 104 mmol/L (96-108); Creatinine Clr Calc Pharmacy 75.7; Estimated Glomerular Filt Rate > 60; Glucose Random 141 mg/dL (60-115); Sodium 136 mmol/L (135-145)
[2022-02-10 06:45] VITALS: BP 144/71; PULSE 80; RESP 20; TEMP 36; O2SAT 95
--- NOTE | 2022-02-10 07:37 | MHC.CM.PN ---
Addendum entered by Jeaneth Cole 02/10/22 07:46: 5. until [facility] can order and supply the supplements (retail bakery manager to( to provide some prosource packets and will bring them to the floor today ) 6/ wound dresing orders per discharge instructions Original Note: NURSE METALS SALES REPRESENTATIVE NOTE ELECTRONIC MEDICAL RECORD REVIEWED, PATIENT IS ANTICIPATED IF MEDICALLY CLEARED TO BE DISCHARGED HOME TODAY (SHE LIVES ALONE BUT WITH MANAGER CRITICAL CARE UNIT AND FAMILY SUPPORT SHE HAS 24 HRS COVERAGE) DISCHARGE PLAN 1. HOME (SHE LIVES ALONE BUT WITH MANAGER CRITICAL CARE UNIT AND FAMILY SUPPORT SHE HAS 24 HRS COVERAGE) 2 [facility] - T/C GARY [phone] THEY WILL COME OUT 2X DAYS FOR MEDICATION ADMINISTRATION AND REINFORCEMENT OF CONTINOUS GT FEEDS AND WOUND CARE DRESINGS THEY WILL START THE DAY SHE IS D/C 3.[facility] FOR FOUMULA , IV OLE OUMP AND ALL RELATED SUPPLIES AND SUPPLEMENTS.OZZIE [phone] FORMULA TO BE DELIVERED BEFORE SHE IS D/C ENTERAL FEEDING SCRIPT FAXED TO THEM ON [facility] 4.TRANSPORTATION ACTION BLS WITH HOB ELEVATED 30 DEGREES 9ASP PRECAUT[employer] ) 5. DTR KRISTYN [phone] TO ARRANGE FOR RESUMPTION OF HER MOMS PCs 6, medicare imm updated 02/09/22
[2022-02-10] MEDS: Acetaminophen 325 MG TABLET 650 MG PO (09:18)
[2022-02-10] MEDS: QUEtiapine Fumarate 25 MG TABLET PO (09:18)
[2022-02-10] MEDS: modafiniL 100 MG TABLET 200 MG G-TUBE (09:18)
[2022-02-10] MEDS: Valsartan 320 MG TABLET G-TUBE (09:18)
[2022-02-10] MEDS: DULoxetine HCl 30 MG CAPSULE.DR PO (09:18)
[2022-02-10] MEDS: levETIRAcetam Oral Soln 500 MG/5 ML G-TUBE (09:19)
[2022-02-10] MEDS: vancomycin HCL Oral Solution 125 MG/5 ML SOLN.RECON G-TUBE ×2 (09:19→12:53)
[2022-02-10] MEDS: Calcium + Vitamin D 250 MG TABLET 500 MG PO (09:19)
[2022-02-10] MEDS: Aspirin Enteric Coated 81 MG TABLET.DR PO (09:19)
[2022-02-10] MEDS: Loratadine 10 MG TABLET PO (09:19)
[2022-02-10] MEDS: Ferrous Sulfate 300 MG/5 ML LIQUID PO (09:19)
[2022-02-10] MEDS: Nystatin Powder 15 GM BOTTLE 1 APPL TOPICAL (09:38)
[2022-02-10] MEDS: Betamethasone Dip Aug 0.05% Cr 15 GM TUBE 1 APPL TOPICAL (09:38)
--- NOTE | 2022-02-10 10:08 | MHC.CLN ---
F/U PT TOLERATING TUBE FEEDING JEVITY 1.0 AT 60 ML PER HOUR WITH 30ML PROSOURCE Q DAY PROVIDES 1586 KCALS (25 KCALS/KG); 79G PROTEIN (1.25 G/KG), 1202ML FREE WATER FROM FORMULA AND FREE WATER FLUSHES 240ML Q [id number] ML TOTAL FLUID (30.5 ML/KG). PROSOURCE PROVIDES 15 G ADDITIONAL PROTEIN TO PROMOTE WOUND HEALING. MONITOR TOLERANCE, RESIDUALS, AND LYTES.
[2022-02-10 11:05] VITALS: BP 124/56; PULSE 75; RESP 18; TEMP 36; O2SAT 94
--- NOTE | 2022-02-10 11:24 | P.F2F_ITS ---
Service Date Service Date: 02/10/22 Encounter Date of encounter: 02/10/22 Reasons for Services Signs and symptoms assessed: tube feeding, aspiration WOUND CARE ORDERS: Patient has a stage 2 to left buttock. Cleansed with wound cleanser then Woundres' gel applied covered with foam dressing. TUBE FEDING ORDERS: TUBE FEEDING JEVITY 1.0 AT 60 ML PER HOUR WITH 30ML PROSOURCE Q DAY PROVIDES 1586 KCALS (25 KCALS/KG); 79G PROTEIN (1.25 G/KG), 1202ML FREE WATER FROM FORMULA AND FREE WATER FLUSHES 240ML Q [id number] ML TOTAL FLUID (30.5 ML/KG). PROSOURCE PROVIDES 15 G ADDITIONAL PROTEIN TO PROMOTE WOUND HEALING. Chronic Berman catheter Labs in 1 week: CBCd, BMP Reason for detention: neurological assessment, medication management, medication treatment and teach disease management Reason for physical therapy: home safety and mobility, therapeutic exercises, gait/transfer training, assess need for DME, ADL training and energy conservation Reason for speech therapy: swallowing impairment and cognitive impairment Homebound: Leaving the home is medically contraindicated at this time without the asist of a device and/or another person due th the listed conditions above and below. Reason homebound: bedbound/chairbound and cognitively impaired / unsafe Certification: Based on the above findings, I certify that this patient is confined to the home and needs intermittent detention care, physical therapy and/or speech therapy, or continues to need occupational therapy. The patient is under my care, and I have initiated the establishment of the plan of care. The patient will be followed by a physician who will periodically review the plan of care.
--- NOTE | 2022-02-10 11:44 | PM.DS ---
DS: Providers Provider Date of Service: 02/10/22 Date of admission: 02/05/22 13:39 Date of discharge: 02/10/22 Primary care physician: Anders Frey MD Admitting clinician: Delfino Mora Attending physician on admission: Delfino Mora DS: Diagnosis Discharge Diagnosis (1) C. difficile diarrhea: Status: Acute (2) Hyponatremia: Status: Acute (3) Dementia: Status: Acute (4) Anemia: Status: Acute (5) Aspiration into airway: Status: Acute (6) On tube feeding diet: Status: Acute DS: Summary Hospital Course Hospital Course: from admission H+P by hospitalist Delfino Mora DO, 02/05/22: 86-year-old female recently discharged from [facility] 02/02/2021 after receiving treatment for pneumonia in the backdrop of hyponatremia.? She was placed on Augmentin and ceftriaxone for the 3 days that she was in house and she was discharged on Augmentin via G-tube.? Family states over the course of the next several days she began to have foul smelling copious diarrhea; they were unable to keep up with that at home.? Patient was brought to the emergency room where his stool was positive for C diff. family denies fever chills.? 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 She was treated with vancomycin per G tube and initially required rectal tube, which was removed 02/08/22. 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 She did not require transfusion. She had mild hyponatremia that resolved after IV normal saline. Quetiapine dosage was increase for behavioral agitation associated with dementia. She is not diabetic, so her tube feeding formula was switched to Jevity 1.0. Given risk of aspiration, she was changed from bolus to continuous feeds. Her new tube feeding regimen is summarized in the Discharge Plan below. She was discharged home, where she is cared for [id number] by family, and will resume VNA services. She should follow-up with primary care in 1 week. Laboratory studies to be done in 1 week are CBCd and BMP She requires 9 more days of enteral vancomycin for treatment of C. difficile infection. Status at Discharge Functional status at discharge: bed bound Overall status at discharge: patient is back to baseline Time Spent with Patient Time attestation: Total time spent providing and/or coordinating discharge services: 45 Discharge coordination time: Greater than 30 minutes Quality: Safe Use of Opioids Does Pt have an Active Cancer Diagnosis on the Problem List?: No Quality: Stroke Does the patient have a stroke diagnosis?: No Physical Exam Vital Signs: Vital Signs: Last Vital Signs Temp 96.8 F 02/10/22 11:05 Pulse 75 02/10/22 11:05 Resp 18 02/10/22 11:05 BP 124/56 L 02/10/22 11:05 Pulse Ox 94 02/10/22 11:05 BMI result Body Mass Index 23.1 Gen: NAD HEENT: sclera anicteric, moist mucus membranes Neck: supple Lungs: clear to auscultation bilaterally Heart: regular rate and rhythm, no murmurs Abd: soft, non-tender, non-distended, G-tube intact : Berman with clear urine Ext: no edema Skin: warm/well-perfused Neuro: alert, incomprehensible sounds, L hemiplegia [chronic] Psych: impaired insight DS: Data Data Completed and Pending Completed studies during hospitalization [Text1]: Laboratory Results WBC 9.1 X10*3/uL (4.8-10.8) 02/10/22 05:17 RBC 2.81 X10*6/uL (4.20-5.50) L 02/10/22 05:17 Hgb 7.1 g/dl (12.0-16.0) L 02/10/22 05:17 Hct 23.2 % (37.0-47.0) L 02/10/22 05:17 MCV 82.6 fL (80.0-98.0) 02/10/22 05:17 MCH 25.3 pg (27.0-33.0) L 02/10/22 05:17 MCHC 30.6 g/dl (31.0-35.0) L 02/10/22 05:17 RDW 17.3 % (11.0-16.0) H 02/10/22 05:17 Plt Count 389 X10*3/uL (160-400) 02/10/22 05:17 MPV 9.4 fL (9.4-12.3) 02/10/22 05:17 Immature Gran % (Auto) 0.5 % (0.0-0.4) H 02/08/22 05:45 Neut % (Auto) 48.4 % (45-73) 02/08/22 05:45 Lymph % (Auto) 33.6 % (20-40) 02/08/22 05:45 Citrus % (Auto) 12.8 % (2-11) H 02/08/22 05:45 Eos % (Auto) 4.1 % (0-4) H 02/08/22 05:45 Baso % (Auto) 0.6 % (0-2) 02/08/22 05:45 Lymph # (Auto) 2.8 X10*3/uL (1.2-4.9) 02/08/22 05:45 Citrus # (Auto) 1.1 X10*3/uL (0.1-1.2) 02/08/22 05:45 Eos # (Auto) 0.3 X10*3/uL (0.0-0.4) 02/08/22 05:45 Baso # (Auto) 0.1 X10*3/uL (0.0-0.2) 02/08/22 05:45 Abs Immat Gran (auto) 0.04 X10*3/uL (0.00-0.03) H 02/08/22 05:45 Absolute Neuts (auto) 4.0 x10*3/uL (2.0-8.3) 02/08/22 05:45 Absolute Nucleated RBC 0.000 X10*3/uL (0.0-0.012) 02/10/22 05:17 Nucleated RBC % (auto) 0.0 /100WBC (0.0-0.2) 02/10/22 05:17 Absolute Retic 0.084 X10*6/uL (0.026-0.095) 02/07/22 05:38 Percent Retic 2.9 % (0.5-1.8) H 02/07/22 05:38 Immature Retic Fraction 31.0 % (3.0-15.9) H 02/07/22 05:38 Retic Hgb Equivalent 24.6 pg (30.0-35.0) L 02/07/22 05:38 Sodium 136 mmol/L (135-145) 02/10/22 05:17 Potassium 4.0 mmol/L (3.3-5.1) 02/10/22 05:17 Chloride 104 mmol/L (96-108) 02/10/22 05:17 Carbon Dioxide 26 mmol/L (22-29) 02/10/22 05:17 Anion Gap 10 (12-20) L 02/10/22 05:17 BUN 8 mg/dL (9-16) L 02/10/22 05:17 Creatinine 0.48 mg/dL (0.5-1.4) L 02/10/22 05:17 Estim Creat Clear Calc 75.7 02/10/22 05:17 Estimated GFR > 60 02/10/22 05:17 Random Glucose 141 mg/dL (60-115) H 02/10/22 05:17 Fasting Glucose 121 mg/dL (60-99) H 02/08/22 05:45 Lactic Acid 0.9 mmol/L (0.5-2.0) 02/05/22 11:37 Calcium 8.5 mg/dL (8.4-10.2) 02/10/22 05:17 Iron 14 mcg/dL (30-160) L 02/07/22 05:38 TIBC 204 mcg/dL (228-428) L 02/07/22 05:38 % Saturation 7 % (15-50) L 02/07/22 05:38 Unsat Iron Binding 190 ug/dL 02/07/22 05:38 Ferritin 123 ng/mL (10-250) 02/07/22 05:38 Total Bilirubin < 0.2 mg/dL (0.0-1.0) 02/08/22 05:45 AST 27 U/L (5-31) 02/08/22 05:45 ALT 33 U/L (0-31) H 02/08/22 05:45 Alkaline Phosphatase 193 U/L (39-117) H 02/08/22 05:45 Lactate Dehydrogenase 120 U/L (122-220) L 02/07/22 05:38 Total Protein 6.6 g/dL (6.5-8.0) 02/08/22 05:45 Albumin 2.4 g/dL (3.5-5.0) L 02/08/22 05:45 Vitamin B12 783 pg/mL (200-900) 02/07/22 05:38 Folate 17.4 ng/mL (> or = 4.0) 02/07/22 05:38 C. difficile Tox B Gene POSITIVE (Negative) A* 02/05/22 11:57 C. difficile Toxin A&B Negative (Negative) 02/05/22 11:57 C. difficile Interpret SEE NOTE 02/05/22 11:57 COVID-19 (LOVE) Negative (Negative) 02/05/22 11:37 COVID-19 Clin Com See Note 02/05/22 11:37 Influenza Type A (DELVIS) Negative (Negative) 02/05/22 11:37 Influenza Type B (DELVIS) Negative (Negative) 02/05/22 11:37 Influenza A & B Note See Note 02/05/22 11:37 Blood Type O Positive 02/09/22 05:55 Antibody Screen NEGATIVE 02/09/22 05:55 Impressions Chest X-Ray 02/05/22 11:20 IMPRESSION: Probable bronchial wall thickening and right upper lobe bronchopneumonia similar to recent exam. Neoplastic process cannot be excluded and chest x-ray follow-up following treatment is recommended. Discharge Plan Discharge Patient Disposition: Home Health Service Discharge Diagnosis: C. difficile colitis, anemia, aspiration, stage 2 pressure ulcer Referrals: [facility] -[facility] [Other] - 1 Day ([facility] FOR NRUSING RESUMPTION, NURSEING FOR REINFORCEMENT OF TEACHING FOR CONTINOUS GT TUBE FEEDS, WOUND CARE ASSESSMENT AND DRESSING CHANGES , AND MEDICATION ADMINISTERTRATION (CURRENTLY GOING OUT BID) SELF RESUMPTION OF YOUR CUSTOMER LOYALTY REPRESENTATIVE SERVICES TRANSPORTATION ACTION BLS ) [facility] [Other] - 1 Week (resumption of [facility] for gt-tube feedings formula , pump iv pole, supplements and all related supplies . change i formula to be delivered to you home ) [facility] [Outside] - 1 Week Anders Frey MD [Primary Care Provider] - 1 Week Discharge Medications: New quetiapine 25 mg Tablet 25 mg PO BID Qty: 60 0RF ferrous sulfate 300 mg (60 mg iron)/5 mL Liquid 300 mg PO BIDWM Qty: 300 0RF Firvanq 25 mg/mL Recon Soln 125 mg G-tube QID Qty: 180 0RF omeprazole 20 mg capsule,delayed release(DR/EC) 20 mg feeding tube BID Qty: 60 0RF Continued cetirizine 10 mg Tablet 10 mg PO DAILY 0RF albuterol sulfate 90 mcg/actuation Hfa Aerosol Inhaler 2 puff INHALATION Q4-6H PRN (Reason: Shortness Of Breath) 0RF fluticasone propionate 50 mcg/actuation [place],Suspension 2 spray INTRANASAL DAILY PRN (Reason: Allergic Symptoms) 0RF calcium carbonate-vitamin D3 [Oyster Shell Calcium-Vit D3] 500 mg(1,250mg) -200 unit Tablet 1 tab PO BID 0RF valsartan-hydrochlorothiazide 320-25 mg Tablet 1 tab PO DAILY 0RF aspirin 81 mg Tablet,Delayed Release (Dr/Ec) 81 mg PO DAILY Qty: 30 0RF amantadine HCl 50 mg/5 mL solution 10 ml G-tube DAILY 0RF albuterol sulfate 2.5 mg /3 mL (0.083 %) solution for nebulization 1 amp inhalation TID PRN (Reason: Shortness Of Breath) 0RF clopidogrel 75 mg tablet 1 tab BEDTIME 0RF modafinil 200 mg tablet 1 tab DAILY 0RF levetiracetam 100 mg/mL solution 5 ml G-tube BID 0RF duloxetine 30 mg capsule,delayed release(DR/EC) 1 cap PO DAILY 0RF melatonin 5 mg tablet 1 tab PO BEDTIME PRN (Reason: insomnia) 0RF clobetasol 0.05 % cream 1 applic topical BID 0RF rosuvastatin 10 mg tablet 1 tab PO QPM 0RF Discontinued famotidine 20 mg Tablet 20 mg PO BID 0RF quetiapine 25 mg Tablet 12.5 mg PO BID Qty: 60 0RF amoxicillin-pot clavulanate 875-125 mg tablet 1 tab PO BID Qty: 20 0RF Discharge Orders: Discharge Order (Routine); Ordered 02/10/22 Ordered By: Yolis Montes Diet: other Activity on Discharge: As tolerated Stand Alone Forms: Patient Portal Discharge page Other Ambulatory Orders: Basic Metabolic Panel (Routine) Timeframe: 1 Week Facility: [facility] - Location: Laboratory Ordered By: Yolis Montes Complete Blood Count Auto Diff (Routine) Timeframe: 1 Week Facility: [facility] - Location: Laboratory Ordered By: Yolis Montes Care Plan Goals: recovery from C. difficile and anemia prevention of aspiration Health Concerns: C. difficile colitis, anemia, aspiration, stage 2 pressure ulcer Plan of Treatment: # C. difficile colitis - vancomycin 125 mg 4x a day for 9 more days # anemia - iron twice daily - change famotidine to omeprazole 20 mg twice daily # dementia - quetiapine 25 mg twice daily WOUND CARE ORDERS: Patient has a stage 2 to left buttock. Cleansed with wound cleanser then Woundres' gel applied covered with foam dressing. TUBE FEDING ORDERS: TUBE FEEDING JEVITY 1.0 AT 60 ML PER HOUR WITH 30ML PROSOURCE Q DAY PROVIDES 1586 KCALS (25 KCALS/KG); 79G PROTEIN (1.25 G/KG), 1202ML FREE WATER FROM FORMULA AND FREE WATER FLUSHES 240ML Q [id number] ML TOTAL FLUID (30.5 ML/KG). PROSOURCE PROVIDES 15 G ADDITIONAL PROTEIN TO PROMOTE WOUND HEALING. Assessment: see Discharge Summary Patient Instructions: C. Diff (Clostridioides Difficile) Infection (DC)
--- NOTE | 2022-02-10 12:23 | MHC.CM.PN ---
Addendum entered by Jeaneth Cole 02/10/22 13:15: SPOKE WITH [facility] , THEY HAVE RECIVED THE DISCHARGE PAPERWORK THAT I FAXED BOUBAACR DENNISRIPT TO THEM , T.C TI CONFIRM THAT THEY WILL GO OUT THIS AFTERNOON Original Note: nurse employment case manager npote electronic medical record reviewed , spoke with staff nurse , hospitalist and dtr royce morejon nt will be discharged home today 1 home with cooler operator and family 24 hrs coverage 2 [facility] bid they will restart today d/c -aperwork asent via allscripts and telephone called to them to informe them what time patient would be d./c home 3 [facility] provider of enteral feeds and all related supplies to have been delivered 12-1 pm dtr has arranged to have family member there 4. transportation action bls self resumption by family for cooler operator serives medicare imm done on 02/09/22
== END 2022-02-10 13:15 | disposition home health service (06) | DRG 371 ==
LOC: HO.ED 13:54 → HO.EDOVER 14:39 → HO.S3 02-06 15:38
PROVIDERS: Physician Assistant Medical; Admitting Provider Hospitalist; Emergency Provider Emergency Medicine; PCP Internal Medicine; Visit Provider Family Medicine
DX: A04.72 Enterocolitis due to Clostridium difficile, not specified as recurrent (principal); J18.9 Pneumonia, unspecified organism; E87.1 Hypo-osmolality and hyponatremia; I69.154 Hemiplegia and hemiparesis following nontraumatic intracerebral hemorrhage affecting left non-dominant side; F03.90 Unspecified dementia, unspecified severity, without behavioral disturbance, psychotic disturbance, mood disturbance, and anxiety; D63.8 Anemia in other chronic diseases classified elsewhere; J45.20 Mild intermittent asthma, uncomplicated; D50.9 Iron deficiency anemia, unspecified; L89.322 Pressure ulcer of left buttock, stage 2; Z87.442 Personal history of urinary calculi; Z20.822 Contact with and (suspected) exposure to COVID-19; Z93.1 Gastrostomy status; Z95.828 Presence of other vascular implants and grafts; Z87.01 Personal history of pneumonia (recurrent); Z88.5 Allergy status to narcotic agent; Z79.02 Long term (current) use of antithrombotics/antiplatelets; Z79.51 Long term (current) use of inhaled steroids; Z79.82 Long term (current) use of aspirin; Z79.899 Other long term (current) drug therapy
CPT/HCPCS: 36415; 71046; 80048; 80053; 82607; 82728; 82746; 83540; 83605; 83615; 85025; 85027; 85045; 86850; 86900; 86901; 87040; 87324; 87493; 87502; 87635; 96374; 99285; C1758; J1170; J2270

== ENCOUNTER 2022-02-20 09:27 | Inpatient (IN) | payer MEDICARE, SELFPAY ==
--- NOTE | ~2022-02-20 | XR_ITS ---
EXAMINATION: XR CHEST CLINICAL INFORMATION: Pneumonia COMPARISON: Previous chest x-rays most recent January 31 TECHNIQUE: Frontal view of the chest was obtained. FINDINGS: The cardiac and mediastinal contours are stable. There is increasing patchy airspace disease of the right upper lobe probably representing pneumonia. This may be slightly increased from most recent exam 02/05/2022. There is a stable nodule left lung base probably representing a granuloma. There is no pleural effusion or pneumothorax. There are degenerative changes of the spine. XR/XR chest 1V IMPRESSION: Worsening right upper lobe pneumonia. Follow-up chest x-ray following treatment to resolution is recommended. If radiographic abnormality fails to resolve, chest CT should be considered.
[2022-02-20 09:43] VITALS: BP 104/55; BP 116/72; PULSE 88; PULSE 96; RESP 18; TEMP 38.3; O2SAT 97; O2SAT 98; BMI 22.9
--- NOTE | 2022-02-20 09:51 | ED.GENADULT ---
HPI - General Adult General Chief complaint: Fever Stated complaint: FEELS ILL 'S DAYS, FEVER 104 Time Seen by Provider: 02/20/22 09:36 Source: patient and family Mode of arrival: ambulatory Limitations: no limitations History of Present Illness HPI narrative: 86-year-old female demented due to brain aneurysm and bed-bound brought to the ED for fever for couple days. Daughter states patient has been coughing the past couple of days and this morning her urine was cloudy. daughter denies any abdominal pain, vomiting, worsening mental status, or diarrhe. Related Data Home Medications Medication Instructions Recorded Confirmed cetirizine 10 mg tablet 10 mg PO DAILY 12/19/20 02/20/22 albuterol sulfate 90 mcg/actuation 2 puff INHALATION Q4-6H PRN 12/20/20 02/20/22 aerosol inhaler calcium carbonate 500 mg-vitamin 1 tab PO BID 12/20/20 02/20/22 D3 5 mcg (200 unit) tablet (Oyster Shell Calcium-Vitamin D3) fluticasone propionate 50 2 spray INTRANASAL DAILY PRN 12/20/20 02/20/22 mcg/actuation nasal spray,suspension valsartan 320 1 tab PO DAILY 12/20/20 02/20/22 mg-hydrochlorothiazide 25 mg tablet clobetasol 0.05 % topical cream 1 applic TOPICAL BID 11/25/21 02/20/22 rosuvastatin 10 mg tablet 1 tab PO QPM 11/25/21 02/20/22 albuterol sulfate 1 amp INHALATION TID PRN 01/30/22 02/20/22 amantadine HCl 50 mg/5 mL oral 10 ml G-TUBE DAILY 01/30/22 02/20/22 solution clopidogrel 75 mg tablet 1 tab BEDTIME 01/30/22 02/20/22 duloxetine 30 mg capsule,delayed 1 cap PO DAILY 01/30/22 02/20/22 release levetiracetam 100 mg/mL oral 5 ml G-TUBE BID 01/30/22 02/20/22 solution melatonin 5 mg tablet 1 tab PO BEDTIME PRN 01/30/22 02/20/22 modafinil 200 mg tablet 1 tab DAILY 01/30/22 02/20/22 Previous Rx's Medication Instructions Recorded aspirin 81 mg tablet,delayed 81 mg PO DAILY #30 tab 02/09/21 release ferrous sulfate 300 mg (60 mg 300 mg (5 mL) PO BIDWM #300 ml 02/10/22 iron)/5 mL oral liquid omeprazole 20 mg capsule,delayed 20 mg FEEDING TUBE BID #60 cap 02/10/22 release quetiapine 25 mg tablet 25 mg PO BID #60 tab 02/10/22 vancomycin 25 mg/mL oral solution 125 mg (5 mL) G-TUBE QID #180 ml 02/10/22 (Firvanq) Allergies Allergy/AdvReac Type Severity Reaction Status Date / Time lisinopril [LISINOPRIL] Allergy Mild CHEST PAIN Verified 06/19/21 19:37 codeine [CODEINE] AdvReac Unknown AGITATION Verified 06/19/21 19:37 Review of Systems Review of Systems: Fever and cough Yes all other systems are reviewed and are negative ( review symptoms received from) [facility] Past Medical History Medical History (Updated 02/20/22 @ 17:48 by ARNOLD Hill) C. difficile colitis C. difficile diarrhea Cerebral aneurysm Clostridium difficile diarrhea CVA (cerebral vascular accident) Dementia Dementia Essential hypertension Hypertension Pneumonia Pneumonia Surgical History H/O lithotripsy History of cholecystectomy Previous back surgery S/P endovascular aneurysm repair Social History Social History Household Members: Family Housing: House Do you presently have visiting nurse or other home services: Yes Alcohol intake: never Patient Tobacco Use Status: Never used Tobacco Advance Directives: No Advance Directives Information Provided: Yes service: No Current occupational status: unemployed and other Physical Exam ED Vital Signs: Vital Signs - 24 hr 02/20/22 09:43 02/20/22 10:05 02/20/22 13:28 Temperature 101 F H 101.6 F H Pulse Rate 96 96 Respiratory Rate 18 20 14 Blood Pressure 104/55 L 104/55 L Pulse Oximetry 97 97 BMI result Body Mass Index 22.9 Const General: cooperative, healthy appearing, comfortable, no acute distress, well developed, alert and awake HENMT Other: patient's line minimal verbal due to brain aneurysm. Head: Yes normal to inspection, Yes No palpable skull fracture present, Yes normocephalic, Yes atraumatic and No abrasion Eyes General: appearance normal, both eyes and all related structures Neck Neck: Yes normal visual inspection, Yes full ROM, Yes no lymphadenopathy, Yes no meningeal signs, Yes trachea midline, Yes supple, No anterior neck swelling and No tender Chest Chest palpation & inspection: normal inspection of the chest and normal palpation of entire chest wall Resp Effort & Inspection: normal respiratory effort and able to speak in complete sentences Auscultation: clear to auscultation bilaterally Cardio Jugular venous distension: no JVD Heart sounds: S1 normal heart sound present and S2 normal heart sound present GI Inspection: Yes normal to inspection and No abdominal wall ecchymosis Palpation (GI): Soft to palpation, not firm, nontender, no guarding and not rigid General: No CVA tenderness and Yes no CVA tenderness Back/Spine/Pelvis Back: no CVA tenderness, No CVA tenderness and No back tenderness Skin General skin exam: no rashes or lesions noted and elasticity normal Neuro Other: bed-bound. Nonverbal due to brain aneurysm. Move extremities. General: no meningeal signs Extrem General: Yes normal to inspection and Yes full ROM Psych Appearance: grossly normal and well kempt Course Course Course Narrative: Labs ordered. Chest x-ray. Influenza. UA. Lactate, and blood culture ordered. daughter at bedside states patient is at baseline. Reevaluation(s) Reevaluation #1: patient to be admitted for worsening pneumonia and UTI. Patient started on antibiotics. Patient is at baseline mentally as per daughter. Hospitalist agree with plan for admission. Time: 17:47 Medical Decision Making [facility] Narrative Medical decision making narrative: pneumonia. UTI Lab Data Result diagrams: 02/20/22 10:17 02/20/22 10:17 Labs: Lab Results 02/20/22 02/20/22 02/20/22 Range/Units 09:40 10:17 10:17 WBC 13.7 H (4.8-10.8) X10*3/uL RBC 3.28 L (4.20-5.50) X10*6/uL Hgb 8.4 L (12.0-16.0) g/dl Hct 26.0 L (37.0-47.0) % MCV 79.3 L (80.0-98.0) fL MCH 25.6 L (27.0-33.0) pg MCHC 32.3 (31.0-35.0) g/dl RDW 17.5 H (11.0-16.0) % Plt Count 448 H (160-400) X10*3/uL MPV 9.2 L (9.4-12.3) fL Immature Gran % (Auto) 0.7 H (0.0-0.4) % Neut % (Auto) 71.7 (45-73) % Lymph % (Auto) 17.1 L (20-40) % Lane % (Auto) 9.0 (2-11) % Eos % (Auto) 1.1 (0-4) % Baso % (Auto) 0.4 (0-2) % Lymph # (Auto) 2.3 (1.2-4.9) X10*3/uL Lane # (Auto) 1.2 (0.1-1.2) X10*3/uL Eos # (Auto) 0.2 (0.0-0.4) X10*3/uL Baso # (Auto) 0.1 (0.0-0.2) X10*3/uL Abs Immat Gran (auto) 0.09 H (0.00-0.03) X10*3/uL Absolute Neuts (auto) 9.9 H (2.0-8.3) x10*3/uL Absolute Nucleated RBC 0.000 (0.0-0.012) X10*3/uL Nucleated RBC % (auto) 0.0 (0.0-0.2) /100WBC Sodium 127 L (135-145) mmol/L Potassium 4.0 (3.3-5.1) mmol/L Chloride 98 (96-108) mmol/L Carbon Dioxide 21 L (22-29) mmol/L Anion Gap 12 (12-20) BUN 17 H D (9-16) mg/dL Creatinine 0.57 (0.5-1.4) mg/dL Estim Creat Clear Calc 56.0 Estimated GFR > 60 Random Glucose 147 H (60-115) mg/dL Lactic Acid (0.5-2.0) mmol/L Calcium 9.0 (8.4-10.2) mg/dL Total Bilirubin < 0.2 (0.0-1.0) mg/dL AST 34 H (5-31) U/L ALT 22 (0-31) U/L Alkaline Phosphatase 152 H D (39-117) U/L Total Protein 7.3 (6.5-8.0) g/dL Albumin 2.7 L (3.5-5.0) g/dL Lipase 28 (8-78) U/L Urine Color Urine Appearance Urine pH (5.0-8.0) Ur Specific [place] (1.005-1.025) Urine Protein (NEG-TRACE) MG/DL Urine Glucose (UA) (NEG) MG/DL Urine Ketones (NEG) MG/DL Urine Blood (NEG) Urine Nitrite (NEG) Ur Leukocyte Esterase (NEG) Urine RBC (0) /HPF Urine WBC (0-4) /HPF Ur Squamous Epith Cells /LPF Triple Phos Crystals /LPF Amorphous Sediment /LPF Urine Bacteria /LPF Influenza Type A (PCR) NEGATIVE (Negative) Influenza Type B (PCR) NEGATIVE (Negative) RSV RNA Qual (PCR) NEGATIVE (Negative) SARS-CoV-2 RNA (RT-PCR) NEGATIVE (Negative) 02/20/22 02/20/22 Range/Units 10:17 10:17 WBC (4.8-10.8) X10*3/uL RBC (4.20-5.50) X10*6/uL Hgb (12.0-16.0) g/dl Hct (37.0-47.0) % MCV (80.0-98.0) fL MCH (27.0-33.0) pg MCHC (31.0-35.0) g/dl RDW (11.0-16.0) % Plt Count (160-400) X10*3/uL MPV (9.4-12.3) fL Immature Gran % (Auto) (0.0-0.4) % Neut % (Auto) (45-73) % Lymph % (Auto) (20-40) % Lane % (Auto) (2-11) % Eos % (Auto) (0-4) % Baso % (Auto) (0-2) % Lymph # (Auto) (1.2-4.9) X10*3/uL Lane # (Auto) (0.1-1.2) X10*3/uL Eos # (Auto) (0.0-0.4) X10*3/uL Baso # (Auto) (0.0-0.2) X10*3/uL Abs Immat Gran (auto) (0.00-0.03) X10*3/uL Absolute Neuts (auto) (2.0-8.3) x10*3/uL Absolute Nucleated RBC (0.0-0.012) X10*3/uL Nucleated RBC % (auto) (0.0-0.2) /100WBC Sodium (135-145) mmol/L Potassium (3.3-5.1) mmol/L Chloride (96-108) mmol/L Carbon Dioxide (22-29) mmol/L Anion Gap (12-20) BUN (9-16) mg/dL Creatinine (0.5-1.4) mg/dL Estim Creat Clear Calc Estimated GFR Random Glucose (60-115) mg/dL Lactic Acid 1.3 (0.5-2.0) mmol/L Calcium (8.4-10.2) mg/dL Total Bilirubin (0.0-1.0) mg/dL AST (5-31) U/L ALT (0-31) U/L Alkaline Phosphatase (39-117) U/L Total Protein (6.5-8.0) g/dL Albumin (3.5-5.0) g/dL Lipase (8-78) U/L Urine Color YELLOW Urine Appearance CLOUDY Urine pH >= 9.0 H (5.0-8.0) Ur Specific [place] <= 1.005 (1.005-1.025) Urine Protein 2+ H (NEG-TRACE) MG/DL Urine Glucose (UA) NEG (NEG) MG/DL Urine Ketones NEG (NEG) MG/DL Urine Blood 1+ H (NEG) Urine Nitrite NEG (NEG) Ur Leukocyte Esterase 3+ H (NEG) Urine RBC 5-9 H (0) /HPF Urine WBC 15-29 H (0-4) /HPF Ur Squamous Epith Cells 2+ /LPF Triple Phos Crystals 2+ /LPF Amorphous Sediment 3+ /LPF Urine Bacteria 2+ /LPF Influenza Type A (PCR) (Negative) Influenza Type B (PCR) (Negative) RSV RNA Qual (PCR) (Negative) SARS-CoV-2 RNA (RT-PCR) (Negative) Discharge Plan Discharge Clinical Impression: Pneumonia, Acute UTI Patient Disposition: Admitted As Inpatient
[2022-02-20 10:05] VITALS: BP 104/55; PULSE 96; RESP 20; TEMP 38.7; O2SAT 97
[2022-02-20 10:22] LABS: MANUAL DIFF FLAG NO
[2022-02-20 10:24] LABS: Basophils Absolute Auto 0.1 X10*3/uL (0.0-0.2); Basophils Percent Auto 0.4 % (0-2); Eosinophils Absolute Auto 0.2 X10*3/uL (0.0-0.4); Eosinophils Percent Auto 1.1 % (0-4); Hemoglobin 8.4 g/dl (12.0-16.0); Imm Gran Abs Auto 0.09 X10*3/uL (0.00-0.03); Imm Gran Pct Auto 0.7 % (0.0-0.4); Lymphocytes Absolute Auto 2.3 X10*3/uL (1.2-4.9); Lymphocytes Percent Auto 17.1 % (20-40); Mean Corpuscular HGB Conc 32.3 g/dl (31.0-35.0); Mean Corpuscular Hemoglobin 25.6 pg (27.0-33.0); Mean Corpuscular Volume 79.3 fL (80.0-98.0); Mean Platelet Volume 9.2 fL (9.4-12.3); Monocytes Absolute Auto 1.2 X10*3/uL (0.1-1.2); Neutrophils Absolute Auto 9.9 x10*3/uL (2.0-8.3); Neutrophils Percent Auto 71.7 % (45-73); Platelet Count 448 X10*3/uL (160-400); Red Blood Count 3.28 X10*6/uL (4.20-5.50); Red Cell Distribution Width 17.5 % (11.0-16.0); White Blood Count 13.7 X10*3/uL (4.8-10.8)
[2022-02-20 10:26] LABS: Appearance Urine CLOUDY; Color Urine YELLOW; Glucose Urine UA NEG (NEG); Nitrite Urine NEG (NEG); PH >= 9.0 (5.0-8.0); Specific Gravity - Urine <= 1.005 (1.005-1.025); Urine Blood 1+ (NEG); Urine Ketones NEG (NEG)
[2022-02-20 10:29] LABS: Leukocyte Esterase Urine 3+ (NEG); UACC Culture Trigger YES; Urine Protein 2+ MG/DL (NEG-TRACE)
[2022-02-20 10:34] LABS: Lactic Acid 1.3 mmol/L (0.5-2.0)
[2022-02-20 10:34] LABS: Influenza A PCR NEGATIVE (Negative); Influenza B PCR NEGATIVE (Negative); Resp Syncy Virus RNA Qual PCR NEGATIVE (Negative); SARS COV2 PCR INHOUSE NEGATIVE (Negative)
[2022-02-20 10:41] LABS: Alanine Aminotransferase 22 U/L (0-31); Albumin Level 2.7 g/dL (3.5-5.0); Alkaline Phosphatase 152 U/L (39-117); Anion Gap 12 (12-20); Aspartate Amino Transferase 34 U/L (5-31); Bilirubin Total < 0.2 mg/dL (0.0-1.0); Blood Urea Nitrogen 17 mg/dL (9-16); Carbon Dioxide 21 mmol/L (22-29); Chloride 98 mmol/L (96-108); Estimated Glomerular Filt Rate > 60; Glucose Random 147 mg/dL (60-115); Lipase 28 U/L (8-78); Sodium 127 mmol/L (135-145); Total Protein 7.3 g/dL (6.5-8.0)
[2022-02-20] MEDS: 0.9 % Sodium Chloride 1,000 ML 999 ML IV (10:49)
[2022-02-20 10:54] LABS: Squamous Epithelial Cell Urine 2+ /LPF
[2022-02-20 10:55] LABS: Amorphous Sediment Urine 3+ /LPF; Bacteria Urine 2+ /LPF; Triple Phosphate Crystal Urine 2+ /LPF
[2022-02-20] MEDS: cefTRIAXone sodium 1 GM in 0.9 % Sodium Chloride 50 ML IV (11:48)
[2022-02-20] MEDS: Azithromycin 500 MG in 0.9 % Sodium Chloride 250 ML 125 MG IV (12:33)
[2022-02-20 13:28] VITALS: RESP 14
[2022-02-20] MEDS: HYDROmorphone HCl 0.5 MG/0.5 ML SYRINGE IVPUSH (13:28)
--- NOTE | 2022-02-20 13:53 | PHA.MEDREC ---
Pharmacy Consult ? Medication Reconciliation Pharmacy has completed the medication reconciliation.
--- NOTE | 2022-02-20 14:35 | P.HPHOSP_ITS ---
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 She is maintained on tube feedings and has had multiple aspirations in the past. She has had several admissions in the past several months the most recent being for C diff. she was discharged on oral vancomycin and per family this stools have firmed up. She was seen by the [facility] today and found to have a fever and sent to the ER; evaluation including chest x-ray demonstrated worsening right upper lobe pneumonia. She will be admitted for treatment of same Review of Systems Review of Systems: Unable to obtain secondary to nonverbal state [facility] Medical History (Updated 02/20/22 @ 14:42 by Delfino Mora DO) C. difficile colitis C. difficile diarrhea Cerebral aneurysm Clostridium difficile diarrhea CVA (cerebral vascular accident) Dementia Dementia Essential hypertension Hypertension Pneumonia Pneumonia Surgical History H/O lithotripsy History of cholecystectomy Previous back surgery S/P endovascular aneurysm repair Social History Household Members: Family Housing: House Do you presently have visiting nurse or other home services: Yes Alcohol intake: never Patient Tobacco Use Status: Never used Tobacco Advance Directives: Yes Advance Directives Information Provided: Yes Advance Directives on File: No service: No Current occupational status: unemployed and other Meds Allergies Allergy/AdvReac Type Severity Reaction Status Date / Time lisinopril [LISINOPRIL] Allergy Mild CHEST PAIN Verified 06/19/21 19:37 codeine [CODEINE] AdvReac Unknown AGITATION Verified 06/19/21 19:37 Active Medications: Current Medications Albuterol Sulfate (Albuterol Sulfate (0.083%) 2.5 Mg/3 Ml Vial.Neb) 2.5 mg INHALE TID PRN PRN Reason: Shortness Of Breath Albuterol Sulfate (Albuterol Sulfate 90 Mcg 8 Gm Inhaler) 2 puff INHALE Q4H PRN PRN Reason: Shortness Of Breath Aspirin (Aspirin Enteric Coated 81 Mg Tablet.) 81 mg PO DAILY [facility] Atorvastatin Calcium (Atorvastatin Calcium 40 Mg Tablet) 40 mg PO BEDTIME [facility] Betamethasone Dipropion Augmented (Betamethasone Dip Aug 0.05% Cr 15 Gm Tube) 1 appl TOPICAL BID [facility] Calcium Carbonate/Cholecalciferol (Calcium + Vitamin D 250 Mg Tablet) 250 mg PO BID [facility] Clopidogrel Bisulfate (Clopidogrel Bisulfate 75 Mg Tablet) 75 mg G-TUBE BEDTIME [facility] Duloxetine HCl (Duloxetine Hcl 30 Mg Capsule.) 30 mg PO DAILY [facility] Enoxaparin Sodium (Enoxaparin Sodium 40 Mg/0.4 Ml Syringe) 40 mg SUBCUT Q24H [facility] Ferrous Sulfate (Ferrous Sulfate 300 Mg/5 Ml Liquid) 300 mg PO BIDWM [facility] Fluticasone Propionate (Fluticasone Propionate Nasal 16 Gm [place]) 2 spray NOSTRIL-B DAILY PRN PRN Reason: Allergic Symptoms Hydrochlorothiazide (Hydrochlorothiazide 25 Mg Tablet) 25 mg PO DAILY [facility] Piperacillin Sod/Tazobactam (Sod 3.375 gm/ Sodium Chloride) 50 mls @ 100 mls/hr IV Q6H [facility] Levetiracetam (Levetiracetam Oral Soln 500 Mg/5 Ml) 5 mg G-TUBE BID [facility] Loratadine (Loratadine 10 Mg Tablet) 10 mg PO DAILY [facility] Melatonin (Melatonin 3 Mg Tablet) 6 mg PO BEDTIME PRN PRN Reason: insomnia Modafinil (Modafinil 100 Mg Tablet) 200 mg G-TUBE DAILY [facility] Non-Formulary Medication (Amantadine Hcl) 10 ml G-TUBE DAILY [facility] Omeprazole (Omeprazole 20 Mg Capsule.) 20 mg PO BID@0630,1630 [facility] Pharmacy Consult (Consult Rx Perform Med Rec) 1 each MISCELLANE ONCE PRN PRN Reason: Consult order Quetiapine Fumarate (Quetiapine Fumarate 25 Mg Tablet) 25 mg PO BID [facility] Sodium Chloride (0.9 % Sodium Chloride Flush 3 Ml Syringe) 3 ml IVFLUSH QSHIFT [facility] Valsartan (Valsartan 320 Mg Tablet) 320 mg PO DAILY [facility] Home Medications Medication Instructions Recorded Confirmed Last Taken Type cetirizine 10 mg tablet 10 mg PO DAILY 12/19/20 02/20/22 02/04/22 History albuterol sulfate 90 mcg/actuation 2 puff INHALATION Q4-6H PRN 12/20/20 02/20/22 01/29/22 History aerosol inhaler calcium carbonate 500 mg-vitamin 1 tab PO BID 12/20/20 02/20/22 02/04/22 History D3 5 mcg (200 unit) tablet (Oyster Shell Calcium-Vitamin D3) fluticasone propionate 50 2 spray INTRANASAL DAILY PRN 12/20/20 02/20/22 02/04/22 History mcg/actuation nasal spray,suspension valsartan 320 1 tab PO DAILY 12/20/20 02/20/22 02/04/22 History mg-hydrochlorothiazide 25 mg tablet clobetasol 0.05 % topical cream 1 applic TOPICAL BID 11/25/21 02/20/22 02/04/22 History rosuvastatin 10 mg tablet 1 tab PO QPM 11/25/21 02/20/22 02/04/22 History albuterol sulfate 1 amp INHALATION TID PRN 01/30/22 02/20/22 01/29/22 History amantadine HCl 50 mg/5 mL oral 10 ml G-TUBE DAILY 01/30/22 02/20/22 02/04/22 History solution clopidogrel 75 mg tablet 1 tab BEDTIME 01/30/22 02/20/22 02/04/22 History duloxetine 30 mg capsule,delayed 1 cap PO DAILY 01/30/22 02/20/22 02/04/22 History release levetiracetam 100 mg/mL oral 5 ml G-TUBE BID 01/30/22 02/20/22 02/04/22 History solution melatonin 5 mg tablet 1 tab PO BEDTIME PRN 01/30/22 02/20/22 01/29/22 History modafinil 200 mg tablet 1 tab DAILY 01/30/22 02/20/22 02/04/22 History Physical Exam Vital Signs and Narrative: Vital Signs: Last Vital Signs Temp 101.6 F H 02/20/22 10:05 Pulse 96 02/20/22 10:05 Resp 14 02/20/22 13:28 BP 104/55 L 02/20/22 10:05 Pulse Ox 97 02/20/22 10:05 BMI result Body Mass Index 22.9 Const: Other: Resting quietly in bed HEENT: Other: Membranes moist Resp: Other: Scant wheezes and crackles right side. Cardio: Other: No S4 positive S1-S2 no S3 without murmurs rubs or gallops GI: Other: Soft nontender nondistended normoactive bowel sounds. G-tube site clean dry and intact Extrem: Other: No edema bilaterally Results Labs CBC and Chem 7: 02/20/22 10:17 02/20/22 10:17 Labs: Laboratory Results - last 24 hr 02/20/22 02/20/22 02/20/22 09:40 10:17 10:17 MCV 79.3 L MCH 25.6 L MCHC 32.3 RDW 17.5 H Plt Count 448 H MPV 9.2 L Immature Gran % (Auto) 0.7 H Neut % (Auto) 71.7 Lymph % (Auto) 17.1 L [place] % (Auto) 9.0 Eos % (Auto) 1.1 Baso % (Auto) 0.4 Lymph # (Auto) 2.3 [place] # (Auto) 1.2 Eos # (Auto) 0.2 Baso # (Auto) 0.1 Abs Immat Gran (auto) 0.09 H Absolute Neuts (auto) 9.9 H Absolute Nucleated RBC 0.000 Nucleated RBC % (auto) 0.0 Anion Gap 12 Estim Creat Clear Calc 56.0 Estimated GFR > 60 Random Glucose 147 H Lactic Acid Calcium 9.0 Total Bilirubin < 0.2 AST 34 H ALT 22 Alkaline Phosphatase 152 H D Total Protein 7.3 Albumin 2.7 L Lipase 28 Urine Color Urine Appearance Urine pH Ur Specific [place] Urine Protein Urine Glucose (UA) Urine Ketones Urine Blood Urine Nitrite Ur Leukocyte Esterase Urine RBC Urine WBC Ur Squamous Epith Cells Triple Phos Crystals Amorphous Sediment Urine Bacteria Influenza Type A (PCR) NEGATIVE Influenza Type B (PCR) NEGATIVE RSV RNA Qual (PCR) NEGATIVE SARS-CoV-2 RNA (RT-PCR) NEGATIVE 02/20/22 02/20/22 10:17 10:17 MCV MCH MCHC RDW Plt Count MPV Immature Gran % (Auto) Neut % (Auto) Lymph % (Auto) [place] % (Auto) Eos % (Auto) Baso % (Auto) Lymph # (Auto) [place] # (Auto) Eos # (Auto) Baso # (Auto) Abs Immat Gran (auto) Absolute Neuts (auto) Absolute Nucleated RBC Nucleated RBC % (auto) Anion Gap Estim Creat Clear Calc Estimated GFR Random Glucose Lactic Acid 1.3 Calcium Total Bilirubin AST ALT Alkaline Phosphatase Total Protein Albumin Lipase Urine Color YELLOW Urine Appearance CLOUDY Urine pH >= 9.0 H Ur Specific [place] <= 1.005 Urine Protein 2+ H Urine Glucose (UA) NEG Urine Ketones NEG Urine Blood 1+ H Urine Nitrite NEG Ur Leukocyte Esterase 3+ H Urine RBC 5-9 H Urine WBC 15-29 H Ur Squamous Epith Cells 2+ Triple Phos Crystals 2+ Amorphous Sediment 3+ Urine Bacteria 2+ Influenza Type A (PCR) Influenza Type B (PCR) RSV RNA Qual (PCR) SARS-CoV-2 RNA (RT-PCR) Imaging Radiologist's Impressions: Impressions Chest X-Ray 02/20/22 10:05 IMPRESSION: Worsening right upper lobe pneumonia. Follow-up chest x-ray following treatment to resolution is recommended. If radiographic abnormality fails to resolve, chest CT should be considered. Assessment and Plan (1) Aspiration pneumonia: Status: Acute (2) Asthma: Status: Acute (3) Hypertension: Status: Acute (4) Hyponatremia: Status: Acute Plan 86-year-old female with known dementia/ruptured brain aneurysm presents what will likely is aspiration pneumonia. Patient recently admitted to [facility] for C diff diarrhea which has since resolved. 1.Aspiration Pneumonia -IV Zosyn -Hold tube feeds -follow-up cultures 2.Asthma -duonebs prn -supplemental O2 prn to maintain Sats>92% 3.HTN -continue outpatient therapies -adjust as indicated 4. Dementia -continue Seroquel/amantadine as ordered Lovenox DNR/DNI Will likely need 2 midnights going forward for treatment of aspiration pneumonia with IV antibiotics. Quality Stroke Does the patient have a stroke diagnosis?: No VTE Prior VTE?: No VTE Risk Level:: Medical - moderate - high VTE Device Contraindication: Treatment Not Indicated VTE Drug Contraindication: N/A - Med Ordered
[2022-02-20] MEDS: Enoxaparin Sodium 40 MG/0.4 ML SYRINGE SUBCUT (15:13)
[2022-02-20] MEDS: Piperacillin Sodium/Tazobactam 3.375 GM in 0.9 % Sodium Chloride 50 ML IV ×2 (15:13→21:15)
--- NOTE | 2022-02-20 15:54 | PC.NURSE ---
There is blanchable erythema noted to coccyx and b/l buttocks-this sheet writer offered to pt's dtr to provide skin care and to apply zinc barrier cream to affected areas- she declined reporting she will do it herself-barrier cream provided to patient's dtr.
[2022-02-20 16:00] VITALS: BP 115/45; PULSE 75; RESP 16; TEMP 36.6; O2SAT 96
[2022-02-20] MEDS: 0.9 % Sodium Chloride Flush 3 ML SYRINGE IVFLUSH ×2 (16:06→21:53)
--- NOTE | 2022-02-20 18:38 | PC.NURSE ---
Dr. Mora contacted to request Seroquel 12.5 mg PRN for restlessness and agitation and substitute Omeprazole for Pepcid IV-awaiting response from .
[2022-02-20] MEDS: Acetaminophen Supp 650 MG SUPP.RECT PR (19:54)
[2022-02-20 20:00] VITALS: BP 110/55; PULSE 78; RESP 16; TEMP 37.7; O2SAT 92
[2022-02-20] MEDS: Calcium + Vitamin D 250 MG TABLET PO (21:52)
[2022-02-20] MEDS: levETIRAcetam Oral Soln 500 MG/5 ML G-TUBE (21:52)
[2022-02-20] MEDS: QUEtiapine Fumarate 25 MG TABLET PO (21:52)
[2022-02-20] MEDS: Clopidogrel Bisulfate 75 MG TABLET G-TUBE (21:52)
[2022-02-20 23:40] VITALS: BP 97/49; PULSE 73; RESP 20; TEMP 36.7; O2SAT 94
--- NOTE | 2022-02-21 02:26 | PM.EVENT ---
Event Note Date of Service: 02/21/22 Event Note: G tube dislodged: pts g tube got dislodged when team trying to change pt dressing. RN placed reza cath to keep site open. GI consult placed.
[2022-02-21] MEDS: Piperacillin Sodium/Tazobactam 3.375 GM in 0.9 % Sodium Chloride 50 ML IV ×4 (02:30→20:15)
--- NOTE | 2022-02-21 03:15 | PC.NURSE ---
while changing pt g-tube got tangled in anand and got pulled out. notified, #[id number] reza placed and GI consult ordered.
[2022-02-21 03:38] VITALS: BP 123/58; PULSE 70; RESP 20; TEMP 36.9; O2SAT 94
[2022-02-21 05:41] LABS: MANUAL DIFF FLAG NO
[2022-02-21 05:53] LABS: Basophils Absolute Auto 0.1 X10*3/uL (0.0-0.2); Basophils Percent Auto 0.7 % (0-2); Eosinophils Absolute Auto 0.4 X10*3/uL (0.0-0.4); Eosinophils Percent Auto 4.5 % (0-4); Hematocrit 24.3 % (37.0-47.0); Hemoglobin 7.7 g/dl (12.0-16.0); Imm Gran Abs Auto 0.09 X10*3/uL (0.00-0.03); Imm Gran Pct Auto 1.1 % (0.0-0.4); Lymphocytes Absolute Auto 1.9 X10*3/uL (1.2-4.9); Lymphocytes Percent Auto 22.7 % (20-40); Mean Corpuscular HGB Conc 31.7 g/dl (31.0-35.0); Mean Corpuscular Hemoglobin 25.6 pg (27.0-33.0); Mean Corpuscular Volume 80.7 fL (80.0-98.0); Mean Platelet Volume 9.7 fL (9.4-12.3); Monocytes Absolute Auto 1.2 X10*3/uL (0.1-1.2); Monocytes Percent Auto 14.5 % (2-11); Neutrophils Absolute Auto 4.8 x10*3/uL (2.0-8.3); Neutrophils Percent Auto 56.5 % (45-73); Platelet Count 439 X10*3/uL (160-400); Red Blood Count 3.01 X10*6/uL (4.20-5.50); Red Cell Distribution Width 17.6 % (11.0-16.0); White Blood Count 8.5 X10*3/uL (4.8-10.8)
[2022-02-21 06:04] LABS: Alanine Aminotransferase 21 U/L (0-31); Albumin Level 2.5 g/dL (3.5-5.0); Alkaline Phosphatase 123 U/L (39-117); Anion Gap 12 (12-20); Aspartate Amino Transferase 31 U/L (5-31); Bilirubin Total 0.2 mg/dL (0.0-1.0); Blood Urea Nitrogen 14 mg/dL (9-16); Calcium 9.1 mg/dL (8.4-10.2); Carbon Dioxide 22 mmol/L (22-29); Chloride 105 mmol/L (96-108); Estimated Glomerular Filt Rate > 60; Glucose Fasting 97 mg/dL (60-99); Potassium 3.8 mmol/L (3.3-5.1); Sodium 135 mmol/L (135-145); Total Protein 6.7 g/dL (6.5-8.0)
[2022-02-21] MEDS: 0.9 % Sodium Chloride Flush 3 ML SYRINGE IVFLUSH ×2 (07:32→16:20)
[2022-02-21 08:00] VITALS: BP 137/63; PULSE 83; RESP 20; TEMP 36.5; O2SAT 97
--- NOTE | 2022-02-21 08:32 | MHC.CM.PN ---
Patient has a diagnosis of Dementia and Family is pursuing Guardianship; CM spoke with Daughter/Kathy at [phone] and addressed IMM with her (original to be left at bedside and a copy placed on the chart). Patient lives alone but has [employer] family support, [facility] and [employer] 53 hours/week. Home/resume said services is the goal for dc and CM has initiated and will follow for dc planning. Patient received Moderna vax x2 and PCP is Dr. Anders Frey.
[2022-02-21] MEDS: levETIRAcetam Oral Soln 500 MG/5 ML G-TUBE ×2 (09:40→20:15)
[2022-02-21] MEDS: hydroCHLOROthiazide 25 MG TABLET PO (09:40)
[2022-02-21] MEDS: Aspirin Enteric Coated 81 MG TABLET.DR PO (09:40)
[2022-02-21] MEDS: DULoxetine HCl 30 MG CAPSULE.DR PO (09:40)
[2022-02-21] MEDS: QUEtiapine Fumarate 25 MG TABLET PO ×2 (09:40→20:15)
[2022-02-21] MEDS: modafiniL 100 MG TABLET 200 MG G-TUBE (09:40)
[2022-02-21] MEDS: Valsartan 320 MG TABLET PO (09:40)
[2022-02-21] MEDS: Morphine Sulfate 2 MG/ML CARTRIDGE IVPUSH (09:54)
[2022-02-21 10:08] VITALS: BMI 22.9
--- NOTE | 2022-02-21 10:15 | MHC.CLN ---
RE: CONSULT PT'S GTUBE DISLODGED THIS AM NPO STARTED PREVIOUS WT HX FROM PAST ADMISSIONS WITH VARYING FLUCTUATIONS PT CURRENTLY TRIGGERING FOR 16% SIGNIFICANT WT LOSS X 6 MONTHS PT WITH INCREASED NUTRITION NEEDS R/T PRESSURE INJURY WHEN TF TO RE-START; RECOMMEND JEVITY 1.0 AT MAX GOAL RATE 70ML/HR WITH 30ML PROSOURCE Q DAY AND 120ML FREE WATER FLSUHES Q SHIFT TO PROVIDE 1841KCALS (32KCALS/KG), 89G PROTEIN (1.56G/KG), 1763ML TOTAL WATER FROM FORMULA AND FLUSHES (CAN ADJUST WITH FEVER) START FORMULA AT 20ML/HR AND INCREASE BY 10ML Q 4 HOURS UNTIL MAX GOAL IS ACHIEVED MONITOR TOLERANCE, RESIDUALS AND LYTES SEE ALSO FULL CLINICAL NUTRITION ASSESSMENT
--- NOTE | 2022-02-21 10:35 | PM.OP ---
Brief Operative Note Date of Service: 02/21/22 Pre-op diagnosis: colitis Post-op diagnosis: same (colon polyp) Surgeon: Bruce Babcock Anesthesia: MAC Was an Crop Pest Control Specialist used for this Procedure?: No Estimated blood loss (mL): 5 Pathology: other (see path req) Condition: stable Disposition: PACU
[2022-02-21 11:32] VITALS: BP 119/69; PULSE 83; RESP 19; TEMP 37; O2SAT 93
[2022-02-21] MEDS: Enoxaparin Sodium 40 MG/0.4 ML SYRINGE SUBCUT (13:45)
--- NOTE | 2022-02-21 15:21 | HO.PM.IMPN ---
Subjective Subjective Date of Service: 02/21/22 Interval History: No acute issues overnight; remains afebrile. Feeding tube accidentally removed during bed changed last night. 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 Review of Systems Unable to obtain secondary to nonverbal state Physical Exam Vital Signs: Vital Signs: Last Vital Signs Temp 98.6 F 02/21/22 11:32 Pulse 83 02/21/22 11:32 Resp 19 02/21/22 11:32 BP 119/69 02/21/22 11:32 Pulse Ox 93 02/21/22 11:32 BMI result Body Mass Index 22.9 Const: Other: Resting quietly in bed HEENT: Other: Membranes moist Resp: Other: Scant wheezes and crackles right side. Cardio: Other: No S4 positive S1-S2 no S3 without murmurs rubs or gallops GI: Other: Soft nontender nondistended normoactive bowel sounds. G-tube site clean dry and intact Extrem: Other: No edema bilaterally Objective Data Active Medications Acetaminophen (Acetaminophen Supp 650 Mg Supp.Rect) 650 mg MA Q6H PRN PRN Reason: Fever Last Admin: 02/20/22 19:54 Dose: 650 mg Documented by: PREETHI Albuterol Sulfate (Albuterol Sulfate (0.083%) 2.5 Mg/3 Ml Vial.Neb) 2.5 mg INHALE TID PRN PRN Reason: Shortness Of Breath Albuterol Sulfate (Albuterol Sulfate 90 Mcg 8 Gm Inhaler) 2 puff INHALE Q4H PRN PRN Reason: Shortness Of Breath Aspirin (Aspirin Enteric Coated 81 Mg Tablet.) 81 mg PO DAILY [facility] Last Admin: 02/21/22 09:40 Dose: 81 mg Documented by: ERIKA Atorvastatin Calcium (Atorvastatin Calcium 40 Mg Tablet) 40 mg PO BEDTIME [facility] Betamethasone Dipropion Augmented (Betamethasone Dip Aug 0.05% Cr 15 Gm Tube) 1 appl TOPICAL BID [facility] Last Admin: 02/21/22 12:09 Dose: Not Given Documented by: ERIKA Non-Admin Reason: Med Not Available Calcium Carbonate/Cholecalciferol (Calcium + Vitamin D 250 Mg Tablet) 250 mg PO BID [facility] Last Admin: 02/21/22 07:33 Dose: Not Given Documented by: HO.DABA Non-Admin Reason: no gtube Clopidogrel Bisulfate (Clopidogrel Bisulfate 75 Mg Tablet) 75 mg G-TUBE BEDTIME [facility] Last Admin: 02/20/22 21:52 Dose: 75 mg Documented by: ODRISM Duloxetine HCl (Duloxetine Hcl 30 Mg Capsule.) 30 mg PO DAILY [facility] Last Admin: 02/21/22 09:40 Dose: 30 mg Documented by: ERIKA Enoxaparin Sodium (Enoxaparin Sodium 40 Mg/0.4 Ml Syringe) 40 mg SUBCUT Q24H [facility] Last Admin: 02/21/22 13:45 Dose: 40 mg Documented by: ERIKA Ferrous Sulfate (Ferrous Sulfate 300 Mg/5 Ml Liquid) 300 mg PO BIDWM [facility] Last Admin: 02/21/22 07:33 Dose: Not Given Documented by: MAKSIMA Non-Admin Reason: no feeding tube Fluticasone Propionate (Fluticasone Propionate Nasal 16 Gm [place]) 2 spray NOSTRIL-B DAILY PRN PRN Reason: Allergic Symptoms Hydrochlorothiazide (Hydrochlorothiazide 25 Mg Tablet) 25 mg PO DAILY [facility] Last Admin: 02/21/22 09:40 Dose: 25 mg Documented by: ERIKA Piperacillin Sod/Tazobactam (Sod 3.375 gm/ Sodium Chloride) 50 mls @ 100 mls/hr IV Q6H [facility] Last Infusion: 02/21/22 14:16 Dose: 0 mls/hr Documented by: ERIKA Levetiracetam (Levetiracetam Oral Soln 500 Mg/5 Ml) 5 mg G-TUBE BID [facility] Last Admin: 02/21/22 09:40 Dose: 5 mg Documented by: ERIKA Loratadine (Loratadine 10 Mg Tablet) 10 mg PO DAILY [facility] Last Admin: 02/21/22 07:34 Dose: Not Given Documented by: DABA Non-Admin Reason: no gtube Melatonin (Melatonin 3 Mg Tablet) 6 mg PO BEDTIME PRN PRN Reason: insomnia Modafinil (Modafinil 100 Mg Tablet) 200 mg G-TUBE DAILY [facility] Last Admin: 02/21/22 09:40 Dose: 200 mg Documented by: ERIKA Non-Formulary Medication (Amantadine Hcl) 10 ml G-TUBE DAILY [facility] Omeprazole (Omeprazole 20 Mg Capsule.) 20 mg PO BID@1537,0682 [facility] Last Admin: 02/21/22 05:34 Dose: Not Given Documented by: ROSA ELENA Non-Admin Reason: pt has a g-tube unable to crush Pharmacy Consult (Consult Rx Perform Med Rec) 1 each MISCELLANE ONCE PRN PRN Reason: Consult order Quetiapine Fumarate (Quetiapine Fumarate 25 Mg Tablet) 25 mg PO BID [facility] Last Admin: 02/21/22 09:40 Dose: 25 mg Documented by: ERIKA Sodium Chloride (0.9 % Sodium Chloride Flush 3 Ml Syringe) 3 ml IVFLUSH QSHIFT [facility] Last Admin: 02/21/22 07:32 Dose: 3 ml Documented by: ERIKA Valsartan (Valsartan 320 Mg Tablet) 320 mg PO DAILY [facility] Last Admin: 02/21/22 09:40 Dose: 320 mg Documented by: ERIKA Labs CBC & Chem 7: 02/21/22 05:23 02/21/22 05:23 Labs: Laboratory Results - last 24 hr 02/21/22 02/21/22 05:23 05:23 MCV 80.7 MCH 25.6 L MCHC 31.7 RDW 17.6 H Plt Count 439 H MPV 9.7 Immature Gran % (Auto) 1.1 H Neut % (Auto) 56.5 Lymph % (Auto) 22.7 [place] % (Auto) 14.5 H Eos % (Auto) 4.5 H Baso % (Auto) 0.7 Lymph # (Auto) 1.9 [place] # (Auto) 1.2 Eos # (Auto) 0.4 Baso # (Auto) 0.1 Abs Immat Gran (auto) 0.09 H Absolute Neuts (auto) 4.8 Absolute Nucleated RBC 0.000 Nucleated RBC % (auto) 0.0 Anion Gap 12 Estim Creat Clear Calc 56.0 Estimated GFR > 60 Fasting Glucose 97 Calcium 9.1 Total Bilirubin 0.2 AST 31 ALT 21 Alkaline Phosphatase 123 H Total Protein 6.7 Albumin 2.5 L Microbiology Microbiology Results: Microbiology 02/20/22 10:17 Blood Culture - Preliminary Blood - Venous No growth after 24 hours. 02/20/22 10:17 Blood Culture - Preliminary Blood - Venous No growth after 24 hours. 02/20/22 Unknown Urine Culture - Final Urine Catheterized - Berman Catheter Assessment and Plan (1) Aspiration pneumonia: Status: Acute (2) Asthma: Status: Acute (3) Hypertension: Status: Acute Plan 86-year-old female with known dementia/ruptured brain aneurysm presents what will likely is aspiration pneumonia. Patient recently admitted to [facility] for C diff diarrhea which has since resolved. 1.Aspiration Pneumonia -IV Zosyn(2) -restart tube feeds -cultures thus far negative 2.Asthma -duonebs prn -supplemental O2 prn to maintain Sats>92% 3.HTN -continue outpatient therapies -adjust as indicated 4. Dementia -continue Seroquel/amantadine as ordered Lovenox DNR/DNI Will likely need 2 midnights going forward for treatment of aspiration pneumonia with IV antibiotics. Quality Stroke Does the patient have a stroke diagnosis?: No VTE Prior VTE?: No VTE Risk Level:: Medical - moderate - high VTE Device Contraindication: Treatment Not Indicated VTE Drug Contraindication: N/A - Med Ordered
[2022-02-21 15:54] VITALS: BP 140/63; PULSE 77; RESP 18; TEMP 36.4; O2SAT 94
[2022-02-21] MEDS: Ferrous Sulfate 300 MG/5 ML LIQUID PO (16:20)
[2022-02-21] MEDS: Omeprazole 20 MG CAPSULE.DR PO (16:20)
[2022-02-21] MEDS: QUEtiapine Fumarate 25 MG TABLET 12.5 MG PO (16:31)
[2022-02-21 20:00] VITALS: BP 131/60; PULSE 75; RESP 18; TEMP 36.6; O2SAT 93
[2022-02-21] MEDS: Calcium + Vitamin D 250 MG TABLET PO (20:15)
[2022-02-21] MEDS: Clopidogrel Bisulfate 75 MG TABLET G-TUBE (20:15)
[2022-02-21] MEDS: Atorvastatin Calcium 40 MG TABLET PO (20:15)
[2022-02-21] MEDS: Melatonin 3 MG TABLET 6 MG PO (20:27)
--- NOTE | 2022-02-21 22:23 | PM.EVENT ---
Event Note Date of Service: 02/21/22 Event Note: GI consult received earlier today for dislodged G tube. Chart reviewed: G tube replaced earlier today by Dr. Mora. Formal consult not done, due to above.
[2022-02-21 23:43] VITALS: BP 126/58; PULSE 86; RESP 16; TEMP 36.8; O2SAT 95
[2022-02-22] MEDS: 0.9 % Sodium Chloride Flush 3 ML SYRINGE IVFLUSH ×4 (00:37→20:38)
[2022-02-22] MEDS: Piperacillin Sodium/Tazobactam 3.375 GM in 0.9 % Sodium Chloride 50 ML IV ×4 (00:37→20:37)
[2022-02-22] MEDS: QUEtiapine Fumarate 25 MG TABLET 12.5 MG PO ×2 (00:44→13:53)
[2022-02-22 03:52] VITALS: BP 116/58; PULSE 65; RESP 18; TEMP 36.7; O2SAT 95
[2022-02-22 06:00] LABS: MANUAL DIFF FLAG NO
[2022-02-22 06:08] LABS: Basophils Absolute Auto 0.1 X10*3/uL (0.0-0.2); Basophils Percent Auto 1.3 % (0-2); Eosinophils Absolute Auto 0.6 X10*3/uL (0.0-0.4); Eosinophils Percent Auto 7.4 % (0-4); Hematocrit 25.7 % (37.0-47.0); Hemoglobin 7.9 g/dl (12.0-16.0); Imm Gran Abs Auto 0.05 X10*3/uL (0.00-0.03); Imm Gran Pct Auto 0.7 % (0.0-0.4); Lymphocytes Absolute Auto 2.3 X10*3/uL (1.2-4.9); Lymphocytes Percent Auto 30.6 % (20-40); Mean Corpuscular HGB Conc 30.7 g/dl (31.0-35.0); Mean Corpuscular Hemoglobin 25.2 pg (27.0-33.0); Mean Corpuscular Volume 81.8 fL (80.0-98.0); Mean Platelet Volume 9.7 fL (9.4-12.3); Monocytes Percent Auto 13.5 % (2-11); Neutrophils Absolute Auto 3.5 x10*3/uL (2.0-8.3); Neutrophils Percent Auto 46.5 % (45-73); Platelet Count 455 X10*3/uL (160-400); Red Blood Count 3.14 X10*6/uL (4.20-5.50); Red Cell Distribution Width 17.7 % (11.0-16.0); White Blood Count 7.4 X10*3/uL (4.8-10.8)
[2022-02-22 06:22] LABS: Alanine Aminotransferase 24 U/L (0-31); Albumin Level 2.6 g/dL (3.5-5.0); Alkaline Phosphatase 142 U/L (39-117); Anion Gap 14 (12-20); Aspartate Amino Transferase 36 U/L (5-31); Bilirubin Total 0.2 mg/dL (0.0-1.0); Blood Urea Nitrogen 15 mg/dL (9-16); Calcium 9.3 mg/dL (8.4-10.2); Carbon Dioxide 21 mmol/L (22-29); Chloride 104 mmol/L (96-108); Estimated Glomerular Filt Rate > 60; Glucose Fasting 135 mg/dL (60-99); Potassium 3.6 mmol/L (3.3-5.1); Sodium 135 mmol/L (135-145); Total Protein 7.1 g/dL (6.5-8.0)
[2022-02-22 07:22] VITALS: BP 124/59; PULSE 87; RESP 17; TEMP 36.9; O2SAT 96
[2022-02-22] MEDS: QUEtiapine Fumarate 25 MG TABLET PO ×2 (07:53→20:38)
[2022-02-22] MEDS: Ferrous Sulfate 300 MG/5 ML LIQUID PO ×2 (07:54→16:22)
[2022-02-22] MEDS: Acetaminophen Supp 650 MG SUPP.RECT PR (10:04)
[2022-02-22] MEDS: Valsartan 320 MG TABLET PO (10:09)
[2022-02-22] MEDS: Calcium + Vitamin D 250 MG TABLET PO (10:09)
[2022-02-22] MEDS: Aspirin Enteric Coated 81 MG TABLET.DR PO (10:09)
[2022-02-22] MEDS: hydroCHLOROthiazide 25 MG TABLET PO (10:10)
[2022-02-22] MEDS: Loratadine 10 MG TABLET PO (10:10)
[2022-02-22] MEDS: modafiniL 100 MG TABLET 200 MG G-TUBE (10:11)
[2022-02-22] MEDS: levETIRAcetam Oral Soln 500 MG/5 ML G-TUBE ×2 (10:12→20:38)
[2022-02-22] MEDS: DULoxetine HCl 30 MG CAPSULE.DR PO (10:12)
[2022-02-22 12:00] VITALS: BP 121/62; PULSE 72; RESP 19; TEMP 36.7; O2SAT 96
--- NOTE | 2022-02-22 12:03 | P.PNIM_ITS ---
Subjective Subjective Date of Service: 02/22/22 Interval History: patient being followed for aspiration pneumonia, has baseline dementia appears restless trying to get out of bed, unable to communicate, daughter at bedside, feels she behaves this way at home, daughter concerned about frequent use of Seroquel, learning to check residual from home VNA. Review of Systems Review of Systems: Yes Unobtainable due to mental status Physical Exam Vital Signs: Vital Signs: Last Vital Signs Temp 98.4 F 02/22/22 07:22 Pulse 87 02/22/22 07:22 Resp 17 02/22/22 07:22 BP 124/59 L 02/22/22 07:22 Pulse Ox 96 02/22/22 07:22 BMI result Body Mass Index 22.9 Const: Other: General Restless, no acute distress. Neck supple no JVD. CVS regular rate rhythm, Respiratory lungs clear to auscultation, no respiratory distress Gastrointestinal abdomen soft, nontender, bowel sounds audible Extremities no edema. Neuro nonfocal, moving all 4 extremity,speech clear. Skin stage II left buttock musculoskeletal no deformity Objective Data Active Medications Acetaminophen (Acetaminophen Oral Liquid 650 Mg/20.3 Ml Solution) 650 mg G-TUBE Q6H PRN PRN Reason: pain/fever Albuterol Sulfate (Albuterol Sulfate (0.083%) 2.5 Mg/3 Ml Vial.Neb) 2.5 mg INHALE TID PRN PRN Reason: Shortness Of Breath Albuterol Sulfate (Albuterol Sulfate 90 Mcg 8 Gm Inhaler) 2 puff INHALE Q4H PRN PRN Reason: Shortness Of Breath Aspirin (Aspirin Enteric Coated 81 Mg Tablet.) 81 mg PO DAILY [facility] Last Admin: 02/22/22 10:09 Dose: 81 mg Documented by: GWEN Atorvastatin Calcium (Atorvastatin Calcium 40 Mg Tablet) 40 mg PO BEDTIME [facility] Last Admin: 02/21/22 20:15 Dose: 40 mg Documented by: ERIKA Betamethasone Dipropion Augmented (Betamethasone Dip Aug 0.05% Cr 15 Gm Tube) 1 appl TOPICAL BID [facility] Last Admin: 02/22/22 11:00 Dose: Not Given Documented by: GWEN Non-Admin Reason: Med Not Available Calcium Carbonate/Cholecalciferol (Calcium + Vitamin D 250 Mg Tablet) 250 mg PO BID [facility] Last Admin: 02/22/22 10:09 Dose: 250 mg Documented by: GWEN Clopidogrel Bisulfate (Clopidogrel Bisulfate 75 Mg Tablet) 75 mg G-TUBE BEDTIME [facility] Last Admin: 02/21/22 20:15 Dose: 75 mg Documented by: ERIKA Duloxetine HCl (Duloxetine Hcl 30 Mg Capsule.Dr) 30 mg PO DAILY [facility] Last Admin: 02/22/22 10:12 Dose: 30 mg Documented by: GWEN Enoxaparin Sodium (Enoxaparin Sodium 40 Mg/0.4 Ml Syringe) 40 mg SUBCUT Q24H [facility] Last Admin: 02/21/22 13:45 Dose: 40 mg Documented by: ERIKA Ferrous Sulfate (Ferrous Sulfate 300 Mg/5 Ml Liquid) 300 mg PO BIDWM [facility] Last Admin: 02/22/22 07:54 Dose: 300 mg Documented by: GWEN Fluticasone Propionate (Fluticasone Propionate Nasal 16 Gm [place]) 2 spray NOSTRIL-B DAILY PRN PRN Reason: Allergic Symptoms Hydrochlorothiazide (Hydrochlorothiazide 25 Mg Tablet) 25 mg PO DAILY [facility] Last Admin: 02/22/22 10:10 Dose: 25 mg Documented by: GWEN Piperacillin Sod/Tazobactam (Sod 3.375 gm/ Sodium Chloride) 50 mls @ 100 mls/hr IV Q6H [facility] Last Infusion: 02/22/22 09:26 Dose: 100 mls/hr Documented by: ESTHER Levetiracetam (Levetiracetam Oral Soln 500 Mg/5 Ml) 5 mg G-TUBE BID [facility] Last Admin: 02/22/22 10:12 Dose: 5 mg Documented by: GWEN Loratadine (Loratadine 10 Mg Tablet) 10 mg PO DAILY [facility] Last Admin: 02/22/22 10:10 Dose: 10 mg Documented by: GWEN Melatonin (Melatonin 3 Mg Tablet) 6 mg PO BEDTIME PRN PRN Reason: insomnia Last Admin: 02/21/22 20:27 Dose: 6 mg Documented by: ERIKA Modafinil (Modafinil 100 Mg Tablet) 200 mg G-TUBE DAILY [facility] Last Admin: 02/22/22 10:11 Dose: 200 mg Documented by: GWEN Comments: dose for 02/22 given now Non-Formulary Medication (Amantadine Hcl) 10 ml G-TUBE DAILY [facility] Omeprazole (Omeprazole 20 Mg Capsule.) 20 mg PO BID@0630,1630 [facility] Last Admin: 02/22/22 05:09 Dose: Not Given Documented by: MARYAM Non-Admin Reason: unable to crush Pharmacy Consult (Consult Rx Perform Med Rec) 1 each MISCELLANE ONCE PRN PRN Reason: Consult order Quetiapine Fumarate (Quetiapine Fumarate 25 Mg Tablet) 25 mg PO BID [facility] Last Admin: 02/22/22 07:53 Dose: 25 mg Documented by: GWEN Quetiapine Fumarate (Quetiapine Fumarate 25 Mg Tablet) 12.5 mg PO Q8H PRN PRN Reason: Restlessness Last Admin: 02/22/22 00:44 Dose: 12.5 mg Documented by: MARYAM Sodium Chloride (0.9 % Sodium Chloride Flush 3 Ml Syringe) 3 ml IVFLUSH QSHIFT [facility] Last Admin: 02/22/22 07:54 Dose: 3 ml Documented by: GWEN Valsartan (Valsartan 320 Mg Tablet) 320 mg PO DAILY [facility] Last Admin: 02/22/22 10:09 Dose: 320 mg Documented by: GWEN Labs CBC & Chem 7: 02/22/22 05:30 02/22/22 05:30 Labs: Laboratory Results - last 24 hr 02/22/22 02/22/22 05:30 05:30 MCV 81.8 MCH 25.2 L MCHC 30.7 L RDW 17.7 H Plt Count 455 H MPV 9.7 Immature Gran % (Auto) 0.7 H Neut % (Auto) 46.5 Lymph % (Auto) 30.6 [place] % (Auto) 13.5 H Eos % (Auto) 7.4 H Baso % (Auto) 1.3 Lymph # (Auto) 2.3 [place] # (Auto) 1.0 Eos # (Auto) 0.6 H Baso # (Auto) 0.1 Abs Immat Gran (auto) 0.05 H Absolute Neuts (auto) 3.5 Absolute Nucleated RBC 0.000 Nucleated RBC % (auto) 0.0 Anion Gap 14 Estim Creat Clear Calc 55.0 Estimated GFR > 60 Fasting Glucose 135 H Calcium 9.3 Total Bilirubin 0.2 AST 36 H ALT 24 Alkaline Phosphatase 142 H Total Protein 7.1 Albumin 2.6 L Microbiology Microbiology Results: Microbiology 02/20/22 10:17 Blood Culture - Preliminary Blood - Venous No growth after 24 hours. 02/20/22 10:17 Blood Culture - Preliminary Blood - Venous No growth after 24 hours. 02/20/22 Unknown Urine Culture - Final Urine Catheterized - Berman Catheter Assessment and Plan (1) Aspiration pneumonia: Status: Acute (2) Asthma: Status: Acute (3) Hypertension: Status: Acute Plan 86-year-old female with known dementia/ruptured brain aneurysm presents what will likely is aspiration pneumonia. Patient recently admitted to [facility] for C diff diarrhea which has since resolved. 1.Aspiration Pneumonia no fevers overnight, blood cultures x2 negative, recently got treated for C diff -IV Zosyn day 2, Will discuss by mouth antibiotics with ID - continue tube feeds being transition to continues tube feeds/ daughter to learn teachings for residual. 2.Asthma intermittent -duonebs prn, no acute exacerbation -supplemental O2 prn to maintain Sats>92% 3.HTN - BP stable continue home medication 4. Dementia -continue Seroquel/amantadine as ordered 5. stage II left buttock ulcer present on admission continue wound care Lovenox DNR/DNI Will need continued inpatient hospitalization for IV antibiotics/ being transitioned to continues tube feeding Quality Stroke Does the patient have a stroke diagnosis?: No VTE Prior VTE?: No VTE Risk Level:: Medical - moderate - high VTE Device Contraindication: Treatment Not Indicated VTE Drug Contraindication: N/A - Med Ordered
[2022-02-22] MEDS: Enoxaparin Sodium 40 MG/0.4 ML SYRINGE SUBCUT (13:53)
--- NOTE | 2022-02-22 14:59 | MHC.CLN ---
F/U PATIENT WITH INCREASED NUTRITION NEEDS DUE TO PRESSURE INJURY. TUBE FEEDING RUNNING AT JEVITY 1.0 AT MAX GOAL RATE 70ML/HR WITH 30ML PROSOURCE Q DAY AND 120ML FREE WATER FLUSHES Q SHIFT. PROVIDES 1841KCALS (32KCALS/KG), 89G PROTEIN (1.56G/KG), 1763ML TOTAL WATER FROM FORMULA AND FLUSHES (30.93 ML/KG). APPEARS TO BE TOLERATING CURRENT TUBE FEEDING AND FLUSH. CONTINUE CURRENT ORDER. MONITOR TOLERANCE, RESIDUALS AND LYTES.
[2022-02-22 15:43] VITALS: BP 119/56; PULSE 78; RESP 16; TEMP 36.2; O2SAT 94
[2022-02-22] MEDS: Acetaminophen Oral Liquid 650 MG/20.3 ML SOLUTION G-TUBE (16:22)
[2022-02-22 19:30] VITALS: BP 135/63; PULSE 74; RESP 18; TEMP 36.8; O2SAT 95
[2022-02-22] MEDS: Melatonin 3 MG TABLET 6 MG PO (20:37)
[2022-02-22] MEDS: Clopidogrel Bisulfate 75 MG TABLET G-TUBE (20:38)
[2022-02-22] MEDS: Calcium + Vitamin D 250 MG TABLET G-TUBE (20:38)
[2022-02-22] MEDS: Atorvastatin Calcium 40 MG TABLET G-TUBE (20:38)
[2022-02-22 23:39] VITALS: BP 95/53; PULSE 56; RESP 18; TEMP 36.7; O2SAT 95
[2022-02-23] MEDS: Piperacillin Sodium/Tazobactam 3.375 GM in 0.9 % Sodium Chloride 50 ML IV (03:34)
[2022-02-23 03:35] VITALS: BP 131/77; PULSE 71; RESP 16; TEMP 36.8; O2SAT 96
[2022-02-23] MEDS: Omeprazole 20 MG CAPSULE.DR PO (06:00)
[2022-02-23 06:15] LABS: MANUAL DIFF FLAG NO
[2022-02-23 06:20] LABS: Basophils Absolute Auto 0.1 X10*3/uL (0.0-0.2); Basophils Percent Auto 0.7 % (0-2); Eosinophils Absolute Auto 0.4 X10*3/uL (0.0-0.4); Eosinophils Percent Auto 5.9 % (0-4); Hematocrit 25.9 % (37.0-47.0); Hemoglobin 8.1 g/dl (12.0-16.0); Imm Gran Abs Auto 0.04 X10*3/uL (0.00-0.03); Imm Gran Pct Auto 0.6 % (0.0-0.4); Lymphocytes Absolute Auto 2.7 X10*3/uL (1.2-4.9); Lymphocytes Percent Auto 38.6 % (20-40); Mean Corpuscular HGB Conc 31.3 g/dl (31.0-35.0); Mean Corpuscular Hemoglobin 25.3 pg (27.0-33.0); Mean Corpuscular Volume 80.9 fL (80.0-98.0); Mean Platelet Volume 9.6 fL (9.4-12.3); Monocytes Absolute Auto 0.6 X10*3/uL (0.1-1.2); Monocytes Percent Auto 8.6 % (2-11); Neutrophils Absolute Auto 3.2 x10*3/uL (2.0-8.3); Neutrophils Percent Auto 45.6 % (45-73); Platelet Count 466 X10*3/uL (160-400); Red Cell Distribution Width 17.5 % (11.0-16.0); White Blood Count 6.9 X10*3/uL (4.8-10.8)
[2022-02-23 06:40] LABS: Alanine Aminotransferase 25 U/L (0-31); Albumin Level 2.7 g/dL (3.5-5.0); Alkaline Phosphatase 136 U/L (39-117); Anion Gap 14 (12-20); Aspartate Amino Transferase 34 U/L (5-31); Bilirubin Total 0.2 mg/dL (0.0-1.0); Blood Urea Nitrogen 13 mg/dL (9-16); Calcium 9.3 mg/dL (8.4-10.2); Carbon Dioxide 24 mmol/L (22-29); Chloride 104 mmol/L (96-108); Estimated Glomerular Filt Rate > 60; Glucose Fasting 130 mg/dL (60-99); Potassium 4.1 mmol/L (3.3-5.1); Sodium 138 mmol/L (135-145); Total Protein 7.4 g/dL (6.5-8.0)
[2022-02-23 07:27] VITALS: BP 127/59; PULSE 73; RESP 16; TEMP 37.1; O2SAT 96
[2022-02-23] MEDS: Acetaminophen Oral Liquid 650 MG/20.3 ML SOLUTION G-TUBE (08:56)
[2022-02-23] MEDS: Valsartan 320 MG TABLET PO (08:57)
[2022-02-23] MEDS: modafiniL 100 MG TABLET 200 MG G-TUBE (08:57)
[2022-02-23] MEDS: Aspirin 81 MG TAB.CHEW G-TUBE (08:57)
[2022-02-23] MEDS: QUEtiapine Fumarate 25 MG TABLET PO (08:57)
[2022-02-23] MEDS: Ferrous Sulfate 300 MG/5 ML LIQUID PO (08:57)
[2022-02-23] MEDS: DULoxetine HCl 30 MG CAPSULE.DR PO (08:58)
[2022-02-23] MEDS: Loratadine 10 MG TABLET PO (08:58)
[2022-02-23] MEDS: levETIRAcetam Oral Soln 500 MG/5 ML G-TUBE (08:58)
[2022-02-23] MEDS: Calcium + Vitamin D 250 MG TABLET G-TUBE (08:58)
[2022-02-23] MEDS: hydroCHLOROthiazide 25 MG TABLET PO (08:58)
[2022-02-23] MEDS: 0.9 % Sodium Chloride Flush 3 ML SYRINGE IVFLUSH (09:02)
--- NOTE | 2022-02-23 11:58 | P.DS_ITS ---
DS: Providers Provider Date of Service: 02/23/22 Date of admission: 02/20/22 14:05 Primary care physician: Anders Frey MD Consults: 02/21/22 02:26 Consult to Gastroenterology Routine Consulting Provider: Bruce Babcock Reason for consultation: G tube displaced. DS: Diagnosis Discharge Diagnosis (1) Aspiration pneumonia: Status: Acute (2) Asthma: Status: Acute (3) Hypertension: Status: Acute DS: Summary Hospital Course Hospital Course: History of presenting illness Chief Complaint: Fever 86-year-old female with history of dementia secondary to ruptured brain aneurysm presents with fevers to 102.? She is maintained on tube feedings and has had multiple aspirations in the past.? She has had several admissions in the past several months the most recent being for C diff. she was discharged on oral vancomycin and per family this stools have firmed up.? She was seen by the VNA today and found to have a fever and sent to the ER; evaluation including chest x-ray demonstrated worsening right upper lobe pneumonia.? She will be admitted for treatment of same. Hospital course 86-year-old female with known dementia/ruptured brain aneurysm presents with fever chest x-ray consistent with pneumonia likely aspiration, Patient recently admitted to [facility] for C diff diarrhea which has since resolved. 1.Aspiration Pneumonia, patient admitted to medical floor treated with IV Zosyn, patient had no fevers, blood cultures x2 remain negative since patient oxygenation is stable she is being discharged home on by mouth Augmentin for total 7 day course of antibiotic patient do feeds have been transitioned to continuous feedings family has been recommended to look for any nausea vomiting and constipation. ? 2. History of intermittent asthma, patient had no acute exacerbation, continue home inhalers 3.HTN BP stable continue home medication 4. Dementia continue home medication 5.? stage II left buttock ulcer present on admission? continue wound care and frequent position change Time Spent with Patient Time attestation: Total time spent providing and/or coordinating discharge services: Discharge coordination time: Greater than 30 minutes Quality: Safe Use of Opioids Does Pt have an Active Cancer Diagnosis on the Problem List?: No Quality: Stroke Does the patient have a stroke diagnosis?: No Physical Exam Vital Signs: Vital Signs: Last Vital Signs Temp 98.8 F 02/23/22 07:27 Pulse 73 04/14/22 07:27 Resp 16 02/23/22 07:27 BP 127/59 L 02/23/22 07:27 Pulse Ox 96 02/23/22 07:27 BMI result Body Mass Index 22.9 Const: Other: General ? appears calm , no acute distress.? Neck supple no JVD. CVS? regular rate rhythm, Respiratory lungs clear to auscultation, no respiratory distress Gastrointestinal abdomen soft, nontender, bowel sounds audible Extremities no edema. Neuro nonfocal, moving all 4 extremity,speech clear. Skin? stage II left buttock musculoskeletal no deformity DS: Data Data Completed and Pending Labs on day of discharge: Laboratory Results - last 24 hr 02/23/22 02/23/22 05:31 05:31 WBC 6.9 RBC 3.20 L Hgb 8.1 L Hct 25.9 L MCV 80.9 MCH 25.3 L MCHC 31.3 RDW 17.5 H Plt Count 466 H MPV 9.6 Immature Gran % (Auto) 0.6 H Neut % (Auto) 45.6 Lymph % (Auto) 38.6 [place] % (Auto) 8.6 Eos % (Auto) 5.9 H Baso % (Auto) 0.7 Lymph # (Auto) 2.7 [place] # (Auto) 0.6 Eos # (Auto) 0.4 Baso # (Auto) 0.1 Abs Immat Gran (auto) 0.04 H Absolute Neuts (auto) 3.2 Absolute Nucleated RBC 0.000 Nucleated RBC % (auto) 0.0 Sodium 138 Potassium 4.1 Chloride 104 Carbon Dioxide 24 Anion Gap 14 BUN 13 Creatinine 0.57 Estim Creat Clear Calc 56.0 Estimated GFR > 60 Fasting Glucose 130 H Calcium 9.3 Total Bilirubin 0.2 AST 34 H ALT 25 Alkaline Phosphatase 136 H Total Protein 7.4 Albumin 2.7 L Preliminary micro results at discharge 02/20/22 10:17 Blood Culture - Preliminary Blood - Venous No growth after 48 hours. 02/20/22 10:17 Blood Culture - Preliminary Blood - Venous No growth after 48 hours. Discharge Plan Discharge Patient Disposition: Home, Self-Care Discharge Diagnosis: Aspiration pneumonia stage II left buttock ulcer Referrals: Anders Frey MD [Primary Care Provider] - 1 Week Discharge Medications: New amoxicillin-pot clavulanate 200-28.5 mg/5 mL Suspension For Reconstitution 875 mg G-tube Q12H Qty: 100 0RF Rx Instructions: Take for 3 more days end date 02/26 Continued cetirizine 10 mg Tablet 10 mg PO DAILY 0RF albuterol sulfate 90 mcg/actuation Hfa Aerosol Inhaler 2 puff INHALATION Q4-6H PRN (Reason: Shortness Of Breath) 0RF fluticasone propionate 50 mcg/actuation [place],Suspension 2 spray INTRANASAL DAILY PRN (Reason: Allergic Symptoms) 0RF calcium carbonate-vitamin D3 [Oyster Shell Calcium-Vit D3] 500 mg(1,250mg) - 200 unit Tablet 1 tab PO BID 0RF valsartan-hydrochlorothiazide 320-25 mg Tablet 1 tab PO DAILY 0RF aspirin 81 mg Tablet,Delayed Release (Dr/Ec) 81 mg PO DAILY Qty: 30 0RF amantadine HCl 50 mg/5 mL solution 10 ml G-tube DAILY 0RF albuterol sulfate 2.5 mg /3 mL (0.083 %) solution for nebulization 1 amp inhalation TID PRN (Reason: Shortness Of Breath) 0RF clopidogrel 75 mg tablet 1 tab BEDTIME 0RF modafinil 200 mg tablet 1 tab DAILY 0RF levetiracetam 100 mg/mL solution 5 ml G-tube BID 0RF duloxetine 30 mg capsule,delayed release(DR/EC) 1 cap PO DAILY 0RF melatonin 5 mg tablet 1 tab PO BEDTIME PRN (Reason: insomnia) 0RF clobetasol 0.05 % cream 1 applic topical BID 0RF rosuvastatin 10 mg tablet 1 tab PO QPM 0RF quetiapine 25 mg Tablet 25 mg PO BID Qty: 60 0RF ferrous sulfate 300 mg (60 mg iron)/5 mL Liquid 300 mg PO BIDWM Qty: 300 0RF omeprazole 20 mg capsule,delayed release(DR/EC) 20 mg feeding tube BID Qty: 60 0RF Discontinued Firvanq 25 mg/mL Recon Soln 125 mg G-tube QID Qty: 180 0RF Discharge Orders: Discharge Order (Routine); Ordered 02/23/22 Ordered By: Ulises Hernandez Diet: advance to usual diet Activity on Discharge: As tolerated Stand Alone Forms: Patient Portal Discharge page Care Plan Goals: Take Augmentin through 02/26, continue continuous feeding 70 mL/hour, recommend to monitor for nausea vomiting or constipation. Water flush 120 mL every 8 hours. Health Concerns: Take all home medications as before Plan of Treatment: Outpatient follow-up with primary care physician in 1 week Assessment: Per discharge summary
--- NOTE | 2022-02-23 12:32 | MHC.CM.PN ---
Addendum entered by Ashlee Khan 02/23/22 12:36: [facility] IS AWARE OF ORDER FOR CONTINUOUS FEED. ORDER WAS SENT BY [facility] YESTERDAY CONVERSATION WITH LIAISON ANDRE OF [facility]. Original Note: PATIENT IS RETURNING HOME TODAY VIA [facility] REQUEST FOR 1400 TRANSPORT. DAUGHTER (IN ROOM), RN, AND UNIT AWARE OF PLAN. SHE WILL RESUME HER [facility] SERVICES AND [facility]. PATIENT WILL NOW BE ON CONTINUOUS FEEDS AND THE VNA WILL TEACH FAMILY ASPIRATE OF CONTENTS.
== END 2022-02-23 14:48 | disposition home health service (06) | DRG 178 ==
LOC: HO.ED 10:16 → HO.EDOVER 14:22 → HO.S3 17:18
PROVIDERS: Physician Assistant; Admitting Provider Hospitalist; Emergency Provider Emergency Medicine; PCP Internal Medicine; Visit Provider Hospitalist
DX: J69.0 Pneumonitis due to inhalation of food and vomit (principal); N39.0 Urinary tract infection, site not specified; E87.1 Hypo-osmolality and hyponatremia; K94.23 Gastrostomy malfunction; Z66 Do not resuscitate; J45.909 Unspecified asthma, uncomplicated; I10 Essential (primary) hypertension; F03.90 Unspecified dementia, unspecified severity, without behavioral disturbance, psychotic disturbance, mood disturbance, and anxiety; Z87.442 Personal history of urinary calculi; L89.322 Pressure ulcer of left buttock, stage 2; Z20.822 Contact with and (suspected) exposure to COVID-19; Z88.5 Allergy status to narcotic agent; Z88.8 Allergy status to other drugs, medicaments and biological substances; Z79.02 Long term (current) use of antithrombotics/antiplatelets; Z79.51 Long term (current) use of inhaled steroids; Z79.82 Long term (current) use of aspirin; Z79.899 Other long term (current) drug therapy
CPT/HCPCS: 0241U; 36415; 71045; 80053; 81001; 83605; 83690; 85025; 87040; 87086; 96361; 96365; 96367; 96375; 99285; C1758; J0456; J0696; J1170; J1650; J2270; J2543

== ENCOUNTER 2022-02-26 11:01 | Emergency (ER) | payer MEDICARE, SELFPAY ==
--- NOTE | ~2022-02-26 | XR_ITS ---
EXAMINATION: XR ABDOMEN KUB CLINICAL INDICATION: Feeding tube placement COMPARISON: None TECHNIQUE: AP view of the abdomen. FINDINGS: Gastrografin had been placed through indwelling gastrostomy tube. Contrast is noted within the stomach and small bowel. Gastrostomy tube retention balloon is seen to be inflated with mass impression upon the contrast column within the antrum of the stomach. No dilated loops of large or small bowel are evident. Patient status post cholecystectomy. Degenerative change of the lower lumbar spine present. XR/XR KUB IMPRESSION: Injection of gastrostomy tube demonstrates contrast to lie within the stomach.
[2022-02-26 11:11] VITALS: BP 128/58; PULSE 67; RESP 18; TEMP 36.6; O2SAT 98; BMI 25.4
[2022-02-26 11:50] LABS: MANUAL DIFF FLAG NO
[2022-02-26 11:56] LABS: Appearance Urine CLEAR; Color Urine YELLOW; Glucose Urine UA NEG (NEG); Leukocyte Esterase Urine NEG (NEG); Nitrite Urine NEG (NEG); PH 6.5 (5.0-8.0); Urine Blood NEG (NEG); Urine Ketones NEG (NEG); Urine Protein NEG (NEG-TRACE)
[2022-02-26 11:56] LABS: Basophils Absolute Auto 0.1 X10*3/uL (0.0-0.2); Basophils Percent Auto 0.7 % (0-2); Eosinophils Absolute Auto 0.6 X10*3/uL (0.0-0.4); Eosinophils Percent Auto 6.5 % (0-4); Hemoglobin 8.4 g/dl (12.0-16.0); Imm Gran Abs Auto 0.05 X10*3/uL (0.00-0.03); Imm Gran Pct Auto 0.5 % (0.0-0.4); Lymphocytes Absolute Auto 4.2 X10*3/uL (1.2-4.9); Lymphocytes Percent Auto 45.4 % (20-40); Mean Corpuscular HGB Conc 31.1 g/dl (31.0-35.0); Mean Corpuscular Hemoglobin 25.5 pg (27.0-33.0); Mean Corpuscular Volume 81.8 fL (80.0-98.0); Monocytes Absolute Auto 0.8 X10*3/uL (0.1-1.2); Monocytes Percent Auto 8.5 % (2-11); Neutrophils Absolute Auto 3.6 x10*3/uL (2.0-8.3); Neutrophils Percent Auto 38.4 % (45-73); Platelet Count 459 X10*3/uL (160-400); Red Cell Distribution Width 17.8 % (11.0-16.0); White Blood Count 9.2 X10*3/uL (4.8-10.8)
[2022-02-26 12:30] LABS: Alanine Aminotransferase 26 U/L (0-31); Albumin Level 2.7 g/dL (3.5-5.0); Alkaline Phosphatase 124 U/L (39-117); Anion Gap 11 (12-20); Aspartate Amino Transferase 34 U/L (5-31); Bilirubin Direct < 0.2 mg/dL (0.0-0.5); Bilirubin Total 0.2 mg/dL (0.0-1.0); Blood Urea Nitrogen 17 mg/dL (9-16); Calcium 9.6 mg/dL (8.4-10.2); Carbon Dioxide 26 mmol/L (22-29); Chloride 104 mmol/L (96-108); Creatinine Clr Calc Pharmacy 73.2; Estimated Glomerular Filt Rate > 60; Glucose Random 111 mg/dL (60-115); Lipase 31 U/L (8-78); Sodium 137 mmol/L (135-145); Total Protein 7.4 g/dL (6.5-8.0)
[2022-02-26] MEDS: Acetaminophen 325 MG TABLET 650 MG PO (12:53)
--- NOTE | 2022-02-26 13:24 | ED.GENADULT ---
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 Also with concern from a long-term the patient recently had Berman catheter that was discontinued and the concern urinary retention now. Daughter at bed side stated the patient is a DNR/DNI. Related Data Home Medications Medication Instructions Recorded Confirmed cetirizine 10 mg tablet 10 mg PO DAILY 12/19/20 02/20/22 albuterol sulfate 90 mcg/actuation 2 puff INHALATION Q4-6H PRN 12/20/20 02/20/22 aerosol inhaler calcium carbonate 500 mg-vitamin 1 tab PO BID 12/20/20 02/20/22 D3 5 mcg (200 unit) tablet (Oyster Shell Calcium-Vitamin D3) fluticasone propionate 50 2 spray INTRANASAL DAILY PRN 12/20/20 02/20/22 mcg/actuation nasal spray,suspension valsartan 320 1 tab PO DAILY 12/20/20 02/20/22 mg-hydrochlorothiazide 25 mg tablet clobetasol 0.05 % topical cream 1 applic TOPICAL BID 11/25/21 02/20/22 rosuvastatin 10 mg tablet 1 tab PO QPM 11/25/21 02/20/22 albuterol sulfate 1 amp INHALATION TID PRN 01/30/22 02/20/22 amantadine HCl 50 mg/5 mL oral 10 ml G-TUBE DAILY 01/30/22 02/20/22 solution clopidogrel 75 mg tablet 1 tab BEDTIME 01/30/22 02/20/22 duloxetine 30 mg capsule,delayed 1 cap PO DAILY 01/30/22 02/20/22 release levetiracetam 100 mg/mL oral 5 ml G-TUBE BID 01/30/22 02/20/22 solution melatonin 5 mg tablet 1 tab PO BEDTIME PRN 01/30/22 02/20/22 modafinil 200 mg tablet 1 tab DAILY 01/30/22 02/20/22 Previous Rx's Medication Instructions Recorded aspirin 81 mg tablet,delayed 81 mg PO DAILY #30 tab 12/21/20 release ferrous sulfate 300 mg (60 mg 300 mg (5 mL) PO BIDWM #300 ml 02/10/22 iron)/5 mL oral liquid omeprazole 20 mg capsule,delayed 20 mg FEEDING TUBE BID #60 cap 02/10/22 release quetiapine 25 mg tablet 25 mg PO BID #60 tab 02/10/22 amoxicillin 200 mg-potassium 875 mg (19.1466 mL) G-TUBE Q12H 02/23/22 clavulanate 28.5 mg/5 mL oral #100 ml suspension Allergies Allergy/AdvReac Type Severity Reaction Status Date / Time lisinopril [LISINOPRIL] Allergy Mild CHEST PAIN Verified 06/19/21 19:37 codeine [CODEINE] AdvReac Unknown AGITATION Verified 06/19/21 19:37 Review of Systems Review of Systems: Yes Unobtainable due to mental condition [facility] Past Medical History Medical History C. difficile colitis C. difficile diarrhea Cerebral aneurysm Clostridium difficile diarrhea CVA (cerebral vascular accident) Dementia Dementia Essential hypertension Hypertension Pneumonia Pneumonia Surgical History H/O lithotripsy History of cholecystectomy Previous back surgery S/P endovascular aneurysm repair Social History Social History Household Members: Children Housing: Apartment Do you presently have visiting nurse or other home services: Yes Alcohol intake: never Patient Tobacco Use Status: Never used Tobacco Advance Directives: No Advance Directives Information Provided: No service: No Current occupational status: disabled Physical Exam ED Vital Signs: Vital Signs - 24 hr 02/26/22 11:11 Temperature 97.9 F Pulse Rate 67 Respiratory Rate 18 Blood Pressure 128/58 L Pulse Oximetry 98 BMI result Body Mass Index 25.4 Vital signs have been reviewed as appeared to be correct. Blood pressure normal. Heart rate normal. Respiration rate normal. Temperature normal. Oxygen saturation normal. Appearance: Alert. No acute distress. Nonverbal. Head: Normal external exam. Normocephalic. Atraumatic. No [place] signs noted. No raccoon eyes noted Eyes: PERRLA. EOMI. Conjunctiva and sclera normal. Eyelids normal. ENT: TM's Normal. Pharynx normal. Uvula midline. Moist mucous membranes. No trismus noted. No drooling noted. No muffled voice noted. Neck: Normal inspection. Neck supple. FROM. No adenopathy. Thyroid Normal. No meningeal signs. No neck mass noted. CVS: Normal heart rate and rhythm. Heart sound normal. No murmurs noted. Pulses normal throughout. Respiratory: No respiratory distress. Painless inspiration. Breath sounds normal. No wheezes/rales/rhonchi noted. Chest nontender. No accessory muscle usage noted or decreased air movement noted. Abdomen: Soft and nontender. Bowel sounds normal in all 4 quadrants. No distention noted. No organomegaly noted. No visible injury noted. Back: No CVA tenderness. Full range of motion noted. Skin: Skin warm and dry. Normal skin color. Normal skin turgor. No rashes/lesions/lacerations noted. Extremities: No lower extremity edema. Extremities exhibit normal range of motion. Extremities nontender. Course Course Course Narrative: Assessment and plan. 86-year-old female came in for G feeding tube placement and Berman catheter placement. Stable labs with no evidence of acute renal failure, no UTI, Berman catheter is functioning, G-tube is in place confirmed by x-ray. Medical Decision Making Lab Data Lab results reviewed: Yes I reviewed the patient's lab results. Result diagrams: 02/26/22 11:45 02/26/22 11:46 Labs: Lab Results 02/26/22 02/26/22 02/26/22 Range/Units 11:45 11:46 11:46 WBC 9.2 (4.8-10.8) X10*3/uL RBC 3.30 L (4.20-5.50) X10*6/uL Hgb 8.4 L (12.0-16.0) g/dl Hct 27.0 L (37.0-47.0) % MCV 81.8 (80.0-98.0) fL MCH 25.5 L (27.0-33.0) pg MCHC 31.1 (31.0-35.0) g/dl RDW 17.8 H (11.0-16.0) % Plt Count 459 H (160-400) X10*3/uL MPV 9.0 L (9.4-12.3) fL Immature Gran % (Auto) 0.5 H (0.0-0.4) % Neut % (Auto) 38.4 L (45-73) % Lymph % (Auto) 45.4 H (20-40) % [place] % (Auto) 8.5 (2-11) % Eos % (Auto) 6.5 H (0-4) % Baso % (Auto) 0.7 (0-2) % Lymph # (Auto) 4.2 (1.2-4.9) X10*3/uL [place] # (Auto) 0.8 (0.1-1.2) X10*3/uL Eos # (Auto) 0.6 H (0.0-0.4) X10*3/uL Baso # (Auto) 0.1 (0.0-0.2) X10*3/uL Abs Immat Gran (auto) 0.05 H (0.00-0.03) X10*3/uL Absolute Neuts (auto) 3.6 (2.0-8.3) x10*3/uL Absolute Nucleated RBC 0.000 (0.0-0.012) X10*3/uL Nucleated RBC % (auto) 0.0 (0.0-0.2) /100WBC Sodium 137 (135-145) mmol/L Potassium 4.0 (3.3-5.1) mmol/L Chloride 104 (96-108) mmol/L Carbon Dioxide 26 (22-29) mmol/L Anion Gap 11 L (12-20) BUN 17 H (9-16) mg/dL Creatinine 0.52 (0.5-1.4) mg/dL Estim Creat Clear Calc 73.2 Estimated GFR > 60 Random Glucose 111 (60-115) mg/dL Calcium 9.6 (8.4-10.2) mg/dL Total Bilirubin 0.2 (0.0-1.0) mg/dL Direct Bilirubin < 0.2 (0.0-0.5) mg/dL AST 34 H (5-31) U/L ALT 26 (0-31) U/L Alkaline Phosphatase 124 H (39-117) U/L Total Protein 7.4 (6.5-8.0) g/dL Albumin 2.7 L (3.5-5.0) g/dL Lipase 31 (8-78) U/L Urine Color YELLOW Urine Appearance CLEAR Urine pH 6.5 (5.0-8.0) Ur Specific [place] 1.010 (1.005-1.025) Urine Protein NEG (NEG-TRACE) MG/DL Urine Glucose (UA) NEG (NEG) MG/DL Urine Ketones NEG (NEG) MG/DL Urine Blood NEG (NEG) Urine Nitrite NEG (NEG) Ur Leukocyte Esterase NEG (NEG) Imaging Data Post G-tube placement x-ray of the abdomen: Attestation: I personally reviewed and interpreted this imaging study as follows: Radiologist's impression: Injection of gastrostomy tube demonstrates contrast to lie within the stomach. ? Discharge Plan Discharge Clinical Impression: Encounter for gastrojejunal tube placement, Berman catheter in place Patient Disposition: er [facility] Instructions: Berman Catheter Placement and Care (ED) Prescriptions: No Action cetirizine 10 mg Tablet 10 mg PO DAILY 0RF albuterol sulfate 90 mcg/actuation Hfa Aerosol Inhaler 2 puff INHALATION Q4-6H PRN (Reason: Shortness Of Breath) 0RF fluticasone propionate 50 mcg/actuation [place],Suspension 2 spray INTRANASAL DAILY PRN (Reason: Allergic Symptoms) 0RF calcium carbonate-vitamin D3 [Oyster Shell Calcium-Vit D3] 500 mg(1,250mg) -200 unit Tablet 1 tab PO BID 0RF valsartan-hydrochlorothiazide 320-25 mg Tablet 1 tab PO DAILY 0RF aspirin 81 mg Tablet,Delayed Release (Dr/Ec) 81 mg PO DAILY Qty: 30 0RF amantadine HCl 50 mg/5 mL solution 10 ml G-tube DAILY 0RF albuterol sulfate 2.5 mg /3 mL (0.083 %) solution for nebulization 1 amp inhalation TID PRN (Reason: Shortness Of Breath) 0RF clopidogrel 75 mg tablet 1 tab BEDTIME 0RF modafinil 200 mg tablet 1 tab DAILY 0RF levetiracetam 100 mg/mL solution 5 ml G-tube BID 0RF duloxetine 30 mg capsule,delayed release(DR/EC) 1 cap PO DAILY 0RF melatonin 5 mg tablet 1 tab PO BEDTIME PRN (Reason: insomnia) 0RF amoxicillin-pot clavulanate 200-28.5 mg/5 mL Suspension For Reconstitution 875 mg G-tube Q12H Qty: 100 0RF Rx Instructions: Take for 3 more days end date 02/26 clobetasol 0.05 % cream 1 applic topical BID 0RF rosuvastatin 10 mg tablet 1 tab PO QPM 0RF quetiapine 25 mg Tablet 25 mg PO BID Qty: 60 0RF ferrous sulfate 300 mg (60 mg iron)/5 mL Liquid 300 mg PO BIDWM Qty: 300 0RF omeprazole 20 mg capsule,delayed release(DR/EC) 20 mg feeding tube BID Qty: 60 0RF Referrals: Anders Frey MD [Primary Care Provider] -
--- NOTE | 2022-02-26 15:08 | PC.NURSE ---
WERNER IN PLACE ON DISCHARGE, EMPTIED OF 900ML PRIOR TO DEPARTURE.
== END 2022-02-26 15:30 | disposition skilled nursing facility (03) ==
PROVIDERS: Emergency Provider Emergency Medicine; PCP Internal Medicine
DX: K94.23 Gastrostomy malfunction (principal); I10 Essential (primary) hypertension; F03.90 Unspecified dementia, unspecified severity, without behavioral disturbance, psychotic disturbance, mood disturbance, and anxiety; Z86.73 Personal history of transient ischemic attack (TIA), and cerebral infarction without residual deficits; Z66 Do not resuscitate; Z74.01 Bed confinement status; Z96.0 Presence of urogenital implants; Y83.3 Surgical operation with formation of external stoma as the cause of abnormal reaction of the patient, or of later complication, without mention of misadventure at the time of the procedure; Y92.9 Unspecified place or not applicable
CPT/HCPCS: 36415; 51798; 74018; 80048; 80076; 81003; 83690; 85025; 99284

== ENCOUNTER 2022-03-03 13:12 | Outpatient (RCR) | payer MEDICARE, MEDICAID, SELFPAY | END 2022-05-10 08:00 | disposition home or self-care (01) | LOC: HO.WCC 13:12 | PROVIDERS: PCP Internal Medicine; Visit Provider Physician Assistant | DX: L89.323 Pressure ulcer of left buttock, stage 3 (principal); I60.9 Nontraumatic subarachnoid hemorrhage, unspecified; I10 Essential (primary) hypertension; F03.90 Unspecified dementia, unspecified severity, without behavioral disturbance, psychotic disturbance, mood disturbance, and anxiety; Z74.01 Bed confinement status | CPT/HCPCS: 11042; 97597 ==

== ENCOUNTER 2022-04-11 19:52 | Emergency (ER) | payer MEDICARE, MEDICAID, SELFPAY ==
[2022-04-11 20:06] VITALS: BP 134/62; PULSE 68; RESP 16; TEMP 37.1; O2SAT 96; BMI 24.5
--- NOTE | 2022-04-11 21:07 | ED.GENADULT ---
HPI - General Adult General Chief complaint: General Medical Stated complaint: Clogged feeding tube Time Seen by Provider: 04/11/22 21:07 Source: patient Limitations: no limitations History of Present Illness HPI narrative: This is an 86-year-old female with a history of a G-tube placed in November, who has had to have it replaced a few times. Today the patient's relative had fed her through the G-tube but then when she tried to flush the G-tube it did not flush. She called the nurse to flush it and she also was unable to, attempted to flush with [employer]. Patient reports no other acute issues. She does have history of aspiration pneumonia Related Data Home Medications Medication Instructions Recorded Confirmed cetirizine 10 mg tablet 10 mg PO DAILY 12/19/20 02/20/22 albuterol sulfate 90 mcg/actuation 2 puff INHALATION Q4-6H PRN 12/20/20 02/20/22 aerosol inhaler calcium carbonate 500 mg-vitamin 1 tab PO BID 12/20/20 02/20/22 D3 5 mcg (200 unit) tablet (Oyster Shell Calcium-Vitamin D3) fluticasone propionate 50 2 spray INTRANASAL DAILY PRN 12/20/20 02/20/22 mcg/actuation nasal spray,suspension valsartan 320 1 tab PO DAILY 12/20/20 02/20/22 mg-hydrochlorothiazide 25 mg tablet clobetasol 0.05 % topical cream 1 applic TOPICAL BID 11/25/21 02/20/22 rosuvastatin 10 mg tablet 1 tab PO QPM 11/25/21 02/20/22 albuterol sulfate 1 amp INHALATION TID PRN 01/30/22 02/20/22 amantadine HCl 50 mg/5 mL oral 10 ml G-TUBE DAILY 01/30/22 02/20/22 solution clopidogrel 75 mg tablet 1 tab BEDTIME 01/30/22 02/20/22 duloxetine 30 mg capsule,delayed 1 cap PO DAILY 01/30/22 02/20/22 release levetiracetam 100 mg/mL oral 5 ml G-TUBE BID 01/30/22 02/20/22 solution melatonin 5 mg tablet 1 tab PO BEDTIME PRN 01/30/22 02/20/22 modafinil 200 mg tablet 1 tab DAILY 01/30/22 02/20/22 Previous Rx's Medication Instructions Recorded aspirin 81 mg tablet,delayed 81 mg PO DAILY #30 tab 12/21/20 release ferrous sulfate 300 mg (60 mg 300 mg (5 mL) PO BIDWM #300 ml 02/10/22 iron)/5 mL oral liquid omeprazole 20 mg capsule,delayed 20 mg FEEDING TUBE BID #60 cap 02/10/22 release quetiapine 25 mg tablet 25 mg PO BID #60 tab 02/10/22 amoxicillin 200 mg-potassium 875 mg (19.1466 mL) G-TUBE Q12H 02/23/22 clavulanate 28.5 mg/5 mL oral #100 ml suspension Allergies Allergy/AdvReac Type Severity Reaction Status Date / Time lisinopril [LISINOPRIL] Allergy Mild CHEST PAIN Verified 06/19/21 19:37 codeine [CODEINE] AdvReac Unknown AGITATION Verified 06/19/21 19:37 Review of Systems Review of Systems: Yes all other systems are reviewed and are negative Constitutional: Constitutional: Denies fever(s) Gastrointestinal: Gastrointestinal: Reports as per HPI and Denies vomiting PMFSH Past Medical History Medical History C. difficile colitis C. difficile diarrhea Cerebral aneurysm Clostridium difficile diarrhea CVA (cerebral vascular accident) Dementia Dementia Essential hypertension Hypertension Pneumonia Pneumonia Surgical History H/O lithotripsy History of cholecystectomy Previous back surgery S/P endovascular aneurysm repair Social History Social History Household Members: Children Housing: Apartment Do you presently have visiting nurse or other home services: Yes Alcohol intake: never Patient Tobacco Use Status: Never used Tobacco Advance Directives: No Advance Directives Information Provided: No service: No Current occupational status: disabled Physical Exam ED Vital Signs: Vital Signs - 24 hr 04/11/22 20:06 Temperature 98.7 F Pulse Rate 68 Respiratory Rate 16 Blood Pressure 134/62 Pulse Oximetry 96 BMI result Body Mass Index 24.5 Const General: no acute distress HENMT Head: Yes normal to inspection General nose exam: Normal external nose present Mouth: moist mucous membranes Throat: Yes posterior oropharynx normal, Yes tonsils normal and Yes uvula midline Eyes Eyelids: Yes eyelids normal Conjunctivae: conjunctivae normal Pupils: Equal, round and reactive pupils present Neck Neck: Yes supple Resp Effort & Inspection: normal respiratory effort Auscultation: clear to auscultation bilaterally Cardio Rate: regular rate Rhythm: regular rhythm Heart sounds: S1 normal heart sound present, S2 normal heart sound present, no gallops, no murmurs and no rubs GI Other: G-tube in place, no localized erythema or drainage. Eighteen [place] Inspection: No distended Palpation (GI): Soft to palpation and nontender Auscultation: normal bowel sounds Skin General skin exam: other (Warm and dry) Neuro General: CN's II-XI intact bilaterally Cranial nerves: Yes Equal, round and reactive pupils present Extrem General: Yes no pedal edema Psych Affect: normal affect Attitude: cooperative Procedures Procedure Narrative Procedure Narrative: Eighteen [place] gastric tube was replaced. The prior to had its balloon deflated with a syringe. Surgilube was used to lubricate the same size 2, 18 [place], which was placed easily into the stoma. Confirmation was made by auscultating for stomach fluids sounds over the epigastrium while insufflating air through the tube. The patient was unable to get her evening Seroquel due to the nonfunctioning gastric tube and the daughter was concerned about the patient becoming restless, so the patient was given Zyprexa 5 mg IM Discharge Plan Discharge Clinical Impression: Gastrostomy tube dysfunction Patient Disposition: Home, Self-Care Additional Instructions: Use the gastric tube as usual. Return for any unusual symptoms such as food or fluids not going in normally, increased localized pain, fever Prescriptions: No Action cetirizine 10 mg Tablet 10 mg PO DAILY 0RF albuterol sulfate 90 mcg/actuation Hfa Aerosol Inhaler 2 puff INHALATION Q4-6H PRN (Reason: Shortness Of Breath) 0RF fluticasone propionate 50 mcg/actuation [place],Suspension 2 spray INTRANASAL DAILY PRN (Reason: Allergic Symptoms) 0RF calcium carbonate-vitamin D3 [Oyster Shell Calcium-Vit D3] 500 mg(1,250mg) -200 unit Tablet 1 tab PO BID 0RF valsartan-hydrochlorothiazide 320-25 mg Tablet 1 tab PO DAILY 0RF aspirin 81 mg Tablet,Delayed Release (Dr/Ec) 81 mg PO DAILY Qty: 30 0RF amantadine HCl 50 mg/5 mL solution 10 ml G-tube DAILY 0RF albuterol sulfate 2.5 mg /3 mL (0.083 %) solution for nebulization 1 amp inhalation TID PRN (Reason: Shortness Of Breath) 0RF clopidogrel 75 mg tablet 1 tab BEDTIME 0RF modafinil 200 mg tablet 1 tab DAILY 0RF levetiracetam 100 mg/mL solution 5 ml G-tube BID 0RF duloxetine 30 mg capsule,delayed release(DR/EC) 1 cap PO DAILY 0RF melatonin 5 mg tablet 1 tab PO BEDTIME PRN (Reason: insomnia) 0RF amoxicillin-pot clavulanate 200-28.5 mg/5 mL Suspension For Reconstitution 875 mg G-tube Q12H Qty: 100 0RF Rx Instructions: Take for 3 more days end date 02/26 clobetasol 0.05 % cream 1 applic topical BID 0RF rosuvastatin 10 mg tablet 1 tab PO QPM 0RF quetiapine 25 mg Tablet 25 mg PO BID Qty: 60 0RF ferrous sulfate 300 mg (60 mg iron)/5 mL Liquid 300 mg PO BIDWM Qty: 300 0RF omeprazole 20 mg capsule,delayed release(DR/EC) 20 mg feeding tube BID Qty: 60 0RF
[2022-04-11] MEDS: OLANZapine 10 MG VIAL 5 MG IM (22:48)
[2022-04-12 00:09] VITALS: BP 140/68; PULSE 65; RESP 18; TEMP 36.9; O2SAT 96
== END 2022-04-12 02:16 | disposition home or self-care (01) ==
PROVIDERS: Emergency Provider Emergency Medicine; PCP Internal Medicine
DX: K94.23 Gastrostomy malfunction (principal); E78.5 Hyperlipidemia, unspecified; Z86.73 Personal history of transient ischemic attack (TIA), and cerebral infarction without residual deficits; Z87.01 Personal history of pneumonia (recurrent); Z79.82 Long term (current) use of aspirin; Z79.02 Long term (current) use of antithrombotics/antiplatelets; Z79.899 Other long term (current) drug therapy
CPT/HCPCS: 43762; 96372; 99283; 99284

== ENCOUNTER 2022-05-04 07:26 | Emergency (ER) | payer MEDICARE, MEDICAID, SELFPAY ==
--- NOTE | ~2022-05-04 | XR_ITS ---
EXAMINATION: XR CHEST CLINICAL INFORMATION: Cough COMPARISON: 02/20/2022 TECHNIQUE: Frontal view of the chest was obtained. FINDINGS: Heart and pulmonary vessels appear normal. Compared to the prior chest radiograph, there has been some improvement in the right upper lobe infiltrate, but airspace opacity still persists. No pleural effusions. No suspicious lung masses. XR/XR chest 1V IMPRESSION: Improvement in airspace opacity in right upper lobe with some residual abnormality remaining.
--- NOTE | 2022-05-04 07:33 | ECG_ITS ---
Test Reason : dyspnea Blood Pressure : / mmHG Vent. Rate : 072 BPM Atrial Rate : 072 BPM P-R Int : 172 ms QRS Dur : 078 ms QT Int : 388 ms P-R-T Axes : 075 002 054 degrees QTc Int : 424 ms Normal sinus rhythm Nonspecific ST and T wave abnormality Abnormal ECG When compared with ECG of 30-JAN-2022 11:05, No significant change was found Referred By: Eloise Wei Electronically Signed By:JUAN JOSE KERR MD
[2022-05-04 07:42] VITALS: BP 117/67; BP 128/52; PULSE 67; PULSE 68; RESP 20; TEMP 36.8; O2SAT 96; O2SAT 98; BMI 21.9
[2022-05-04 08:14] LABS: MANUAL DIFF FLAG NO
[2022-05-04 08:15] LABS: Basophils Absolute Auto 0.1 X10*3/uL (0.0-0.2); Basophils Percent Auto 0.7 % (0-2); Eosinophils Absolute Auto 0.6 X10*3/uL (0.0-0.4); Eosinophils Percent Auto 4.6 % (0-4); Hematocrit 31.1 % (37.0-47.0); Hemoglobin 9.8 g/dl (12.0-16.0); Imm Gran Abs Auto 0.06 X10*3/uL (0.00-0.03); Imm Gran Pct Auto 0.5 % (0.0-0.4); Lymphocytes Absolute Auto 4.7 X10*3/uL (1.2-4.9); Lymphocytes Percent Auto 36.8 % (20-40); Mean Corpuscular HGB Conc 31.5 g/dl (31.0-35.0); Mean Corpuscular Hemoglobin 25.4 pg (27.0-33.0); Mean Corpuscular Volume 80.6 fL (80.0-98.0); Monocytes Absolute Auto 1.4 X10*3/uL (0.1-1.2); Monocytes Percent Auto 10.6 % (2-11); Neutrophils Percent Auto 46.8 % (45-73); Platelet Count 398 X10*3/uL (160-400); Red Blood Count 3.86 X10*6/uL (4.20-5.50); Red Cell Distribution Width 17.9 % (11.0-16.0); White Blood Count 12.7 X10*3/uL (4.8-10.8)
[2022-05-04 08:25] LABS: Lactic Acid 1.2 mmol/L (0.5-2.0)
[2022-05-04 08:46] LABS: COVID-19 Test Negative (Negative); IDNOW Serial# 55D5AD1C
[2022-05-04 09:55] LABS: B Type Natriuretic Peptide 28 pg/mL (<100)
[2022-05-04 10:33] VITALS: BP 124/47; PULSE 58; RESP 16; O2SAT 98
[2022-05-04 10:34] LABS: Alanine Aminotransferase 18 U/L (0-31); Alkaline Phosphatase 111 U/L (39-117); Anion Gap 11 (12-20); Aspartate Amino Transferase 22 U/L (5-31); Bilirubin Total 0.2 mg/dL (0.0-1.0); Blood Urea Nitrogen 21 mg/dL (9-16); Calcium 9.4 mg/dL (8.4-10.2); Carbon Dioxide 28 mmol/L (22-29); Chloride 98 mmol/L (96-108); Creatinine Clr Calc Pharmacy 46.9; Estimated Glomerular Filt Rate > 60; Glucose Random 121 mg/dL (60-115); Potassium 4.4 mmol/L (3.3-5.1); Sodium 133 mmol/L (135-145); Total Protein 7.5 g/dL (6.5-8.0)
--- NOTE | 2022-05-04 10:46 | ED.GENADULT ---
HPI - General Adult General Chief complaint: Dyspnea Stated complaint: SHORT OF BREATH, COUGH,DAYS Time Seen by Provider: 05/04/22 07:32 Source: family (Daughter) Mode of arrival: EMS History of Present Illness HPI narrative: 86-year-old female with history of dementia and daughter reports coughing for the past 2 days and then noted that patient had O2 sat of 88% this morning. Otherwise, she denies any fever, nausea, vomiting, diarrhea and patient denies any abdominal pain. Related Data Home Medications Medication Instructions Recorded Confirmed cetirizine 10 mg tablet 10 mg PO DAILY 12/19/20 02/20/22 albuterol sulfate 90 mcg/actuation 2 puff inhalation Q4-6H PRN 12/20/20 02/20/22 aerosol inhaler Shortness Of Breath calcium carbonate 500 mg-vitamin 1 tab PO BID 12/20/20 02/20/22 D3 5 mcg (200 unit) tablet (Oyster Shell Calcium-Vitamin D3) fluticasone propionate 50 2 spray intranasal DAILY PRN 12/20/20 02/20/22 mcg/actuation nasal Allergic Symptoms spray,suspension valsartan 320 1 tab PO DAILY 12/20/20 02/20/22 mg-hydrochlorothiazide 25 mg tablet clobetasol 0.05 % topical cream 1 applic topical BID 11/25/21 02/20/22 rosuvastatin 10 mg tablet 1 tab PO QPM 11/25/21 02/20/22 albuterol sulfate 1 amp inhalation TID PRN Shortness 01/30/22 02/20/22 Of Breath amantadine HCl 50 mg/5 mL oral 10 ml G-tube DAILY 01/30/22 02/20/22 solution clopidogrel 75 mg tablet 1 tab BEDTIME 01/30/22 02/20/22 duloxetine 30 mg capsule,delayed 1 cap PO DAILY 01/30/22 02/20/22 release levetiracetam 100 mg/mL oral 5 ml G-tube BID 01/30/22 02/20/22 solution melatonin 5 mg tablet 1 tab PO BEDTIME PRN insomnia 01/30/22 02/20/22 modafinil 200 mg tablet 1 tab DAILY 01/30/22 02/20/22 Previous Rx's Medication Instructions Recorded aspirin 81 mg tablet,delayed 81 mg PO DAILY #30 tabs 12/21/20 release ferrous sulfate 300 mg (60 mg 300 mg (5 mL) PO BIDWM #300 mL 02/10/22 iron)/5 mL oral liquid omeprazole 20 mg capsule,delayed 20 mg feeding tube BID #60 caps 02/10/22 release quetiapine 25 mg tablet 25 mg PO BID #60 tabs 02/10/22 amoxicillin 200 mg-potassium 875 mg (19.1466 mL) G-tube Q12H 02/23/22 clavulanate 28.5 mg/5 mL oral #100 mL suspension cefdinir 300 mg capsule 300 mg PO Q12H 5 days #10 caps 05/04/22 Allergies Allergy/AdvReac Type Severity Reaction Status Date / Time lisinopril [LISINOPRIL] Allergy Mild CHEST PAIN Verified 06/19/21 19:37 codeine [CODEINE] AdvReac Unknown AGITATION Verified 06/19/21 19:37 Review of Systems Review of Systems: Pertinent positives and negatives as stated in HPI 10 point review of systems is otherwise negative. [facility] Past Medical History Source: nursing notes reviewed Medical History Acute UTI Asthma C. difficile colitis C. difficile diarrhea Cerebral aneurysm Clostridium difficile diarrhea CVA (cerebral vascular accident) Dementia Dementia Essential hypertension Hypertension Pneumonia Pneumonia Surgical History History of cholecystectomy Previous back surgery S/P endovascular aneurysm repair Social History Social History Household Members: Children Housing: Apartment Do you presently have visiting nurse or other home services: Yes Alcohol intake: never Patient Tobacco Use Status: Never used Tobacco Smoked in Last 30 Days: No Use of substances other than those prescribed or required for medical reasons: No Advance Directives: Yes Advance Directives Information Provided: No Advance Directives on File: No service: No Current occupational status: disabled Physical Exam ED Vital Signs: Vital Signs - 24 hr 05/04/22 07:42 05/04/22 10:33 05/04/22 11:23 Temperature 98.2 F 98.1 F Pulse Rate 67 58 58 Respiratory Rate 20 16 16 Blood Pressure 128/52 L 124/47 L 132/50 L Pulse Oximetry 96 98 97 Oxygen Delivery Method Room Air Room Air Room Air BMI result Body Mass Index 21.9 VITAL SIGNS: Reviewed. GENERAL: Cachectic, chronically ill, in no acute distress. HEAD: Normocephalic/atraumatic EYES: PERRLA, EOMI EARS: Ext canals without abnormality OROPHARYNX: no oral lesions noted, posterior pharynx clear LUNGS: Normal breath sounds. No adventitious sounds or accessory muscle use. SpO2<96> CARDIOVASCULAR: Regular rate and rhythm without noted murmurs ABDOMEN: Soft, non-tender, non-distended with bowel sounds. MUSCULOSKELETAL: No tenderness, deformities, or effusions noted on gross inspection. EXTREMITIES: No cyanosis, clubbing or edema. SKIN: Inspection of the skin reveals no rashes NEUROLOGIC: Alert and oriented x 4. Strength and sensation to light touch were grossly intact x 4. Course Course Course Narrative: 86-year-old female with history and clinical presentation that will be evaluated for pneumonia, fluid overload although felt to be less likely. On review of all investigations patient has UTI and received initial antibiotics here in the emergency room and then was discharged home on remaining course. There have been no observed incidences hypoxia throughout patient's stay. Medical Decision Making Lab Data Result diagrams: 05/04/22 08:09 05/04/22 10:05 Labs: Lab Results 05/04/22 05/04/22 05/04/22 Range/Units 08:01 08:08 08:09 WBC 12.7 H (4.8-10.8) X10*3/uL RBC 3.86 L (4.20-5.50) X10*6/uL Hgb 9.8 L (12.0-16.0) g/dl Hct 31.1 L (37.0-47.0) % MCV 80.6 (80.0-98.0) fL MCH 25.4 L (27.0-33.0) pg MCHC 31.5 (31.0-35.0) g/dl RDW 17.9 H (11.0-16.0) % Plt Count 398 (160-400) X10*3/uL MPV 9.0 L (9.4-12.3) fL Immature Gran % (Auto) 0.5 H (0.0-0.4) % Neut % (Auto) 46.8 (45-73) % Lymph % (Auto) 36.8 (20-40) % [place] % (Auto) 10.6 (2-11) % Eos % (Auto) 4.6 H (0-4) % Baso % (Auto) 0.7 (0-2) % Lymph # (Auto) 4.7 (1.2-4.9) X10*3/uL [place] # (Auto) 1.4 H (0.1-1.2) X10*3/uL Eos # (Auto) 0.6 H (0.0-0.4) X10*3/uL Baso # (Auto) 0.1 (0.0-0.2) X10*3/uL Abs Immat Gran (auto) 0.06 H (0.00-0.03) X10*3/uL Absolute Neuts (auto) 6.0 (2.0-8.3) x10*3/uL Absolute Nucleated RBC 0.000 (0.0-0.012) X10*3/uL Nucleated RBC % (auto) 0.0 (0.0-0.2) /100WBC Sodium (135-145) mmol/L Potassium (3.3-5.1) mmol/L Chloride (96-108) mmol/L Carbon Dioxide (22-29) mmol/L Anion Gap (12-20) BUN (9-16) mg/dL Creatinine (0.5-1.4) mg/dL Estim Creat Clear Calc Estimated GFR Random Glucose (60-115) mg/dL Lactic Acid 1.2 (0.5-2.0) mmol/L Calcium (8.4-10.2) mg/dL Total Bilirubin (0.0-1.0) mg/dL AST (5-31) U/L ALT (0-31) U/L Alkaline Phosphatase (39-117) U/L B-Natriuretic Peptide (<100) pg/mL Total Protein (6.5-8.0) g/dL Albumin (3.5-5.0) g/dL Urine Color Urine Appearance Urine pH (5.0-8.0) Ur Specific [place] (1.005-1.025) Urine Protein (NEG-TRACE) MG/DL Urine Glucose (UA) (NEG) MG/DL Urine Ketones (NEG) MG/DL Urine Blood (NEG) Urine Nitrite (NEG) Ur Leukocyte Esterase (NEG) COVID-19 (LOVE) Negative (Negative) COVID-19 Clin Com See Note 05/04/22 05/04/22 05/04/22 Range/Units 08:09 10:05 11:18 WBC (4.8-10.8) X10*3/uL RBC (4.20-5.50) X10*6/uL Hgb (12.0-16.0) g/dl Hct (37.0-47.0) % MCV (80.0-98.0) fL MCH (27.0-33.0) pg MCHC (31.0-35.0) g/dl RDW (11.0-16.0) % Plt Count (160-400) X10*3/uL MPV (9.4-12.3) fL Immature Gran % (Auto) (0.0-0.4) % Neut % (Auto) (45-73) % Lymph % (Auto) (20-40) % [place] % (Auto) (2-11) % Eos % (Auto) (0-4) % Baso % (Auto) (0-2) % Lymph # (Auto) (1.2-4.9) X10*3/uL [place] # (Auto) (0.1-1.2) X10*3/uL Eos # (Auto) (0.0-0.4) X10*3/uL Baso # (Auto) (0.0-0.2) X10*3/uL Abs Immat Gran (auto) (0.00-0.03) X10*3/uL Absolute Neuts (auto) (2.0-8.3) x10*3/uL Absolute Nucleated RBC (0.0-0.012) X10*3/uL Nucleated RBC % (auto) (0.0-0.2) /100WBC Sodium 133 L (135-145) mmol/L Potassium 4.4 (3.3-5.1) mmol/L Chloride 98 (96-108) mmol/L Carbon Dioxide 28 (22-29) mmol/L Anion Gap 11 L (12-20) BUN 21 H (9-16) mg/dL Creatinine 0.68 (0.5-1.4) mg/dL Estim Creat Clear Calc 46.9 Estimated GFR > 60 Random Glucose 121 H (60-115) mg/dL Lactic Acid (0.5-2.0) mmol/L Calcium 9.4 (8.4-10.2) mg/dL Total Bilirubin 0.2 (0.0-1.0) mg/dL AST 22 (5-31) U/L ALT 18 (0-31) U/L Alkaline Phosphatase 111 (39-117) U/L B-Natriuretic Peptide 28 (<100) pg/mL Total Protein 7.5 (6.5-8.0) g/dL Albumin 3.0 L (3.5-5.0) g/dL Urine Color YELLOW Urine Appearance CLOUDY Urine pH 8.5 H (5.0-8.0) Ur Specific [place] 1.010 (1.005-1.025) Urine Protein TRACE (NEG-TRACE) MG/DL Urine Glucose (UA) NEG (NEG) MG/DL Urine Ketones NEG (NEG) MG/DL Urine Blood 2+ H (NEG) Urine Nitrite NEG (NEG) Ur Leukocyte Esterase 3+ H (NEG) COVID-19 (LOVE) (Negative) COVID-19 Clin Com ECG Data Attestation: I personally reviewed and interpreted this ECG as follows: Prior ECG tracings: available for review Interpretation: Being sinus rhythm, HR-72, no STEMI, IL/QRS/QTC is within normal limits. Discharge Plan Discharge Clinical Impression: Acute UTI, Dementia Patient Disposition: Home, Self-Care Instructions: Urinary Tract Infection in Women (ED), Dementia (ED), Urinary Tract Infection in Older Adults (ED) Additional Instructions: 1. Resume all home medications as prescribed. 2. Complete the entire course of antibiotics. 3. Follow-up with primary care provider in the next 2-3 days. Return to the ER for worsening symptoms. Prescriptions: New cefdinir 300 mg capsule 300 mg PO Q12H 5 Days Qty: 10 0RF No Action cetirizine 10 mg Tablet 10 mg PO DAILY albuterol sulfate 90 mcg/actuation Hfa Aerosol Inhaler 2 puff INHALATION Q4-6H PRN (Reason: Shortness Of Breath) fluticasone propionate 50 mcg/actuation [place],Suspension 2 spray INTRANASAL DAILY PRN (Reason: Allergic Symptoms) calcium carbonate-vitamin D3 [Oyster Shell Calcium-Vit D3] 500 mg(1,250mg) -200 unit Tablet 1 tab PO BID valsartan-hydrochlorothiazide 320-25 mg Tablet 1 tab PO DAILY aspirin 81 mg Tablet,Delayed Release (Dr/Ec) 81 mg PO DAILY Qty: 30 0RF amantadine HCl 50 mg/5 mL solution 10 ml G-tube DAILY albuterol sulfate 2.5 mg /3 mL (0.083 %) solution for nebulization 1 amp inhalation TID PRN (Reason: Shortness Of Breath) clopidogrel 75 mg tablet 1 tab BEDTIME modafinil 200 mg tablet 1 tab DAILY levetiracetam 100 mg/mL solution 5 ml G-tube BID duloxetine 30 mg capsule,delayed release(DR/EC) 1 cap PO DAILY melatonin 5 mg tablet 1 tab PO BEDTIME PRN (Reason: insomnia) amoxicillin-pot clavulanate 200-28.5 mg/5 mL Suspension For Reconstitution 875 mg G-tube Q12H Qty: 100 0RF Rx Instructions: Take for 3 more days end date 02/26 clobetasol 0.05 % cream 1 applic topical BID rosuvastatin 10 mg tablet 1 tab PO QPM quetiapine 25 mg Tablet 25 mg PO BID Qty: 60 0RF ferrous sulfate 300 mg (60 mg iron)/5 mL Liquid 300 mg PO BIDWM Qty: 300 0RF omeprazole 20 mg capsule,delayed release(DR/EC) 20 mg feeding tube BID Qty: 60 0RF Referrals: Anders Frey MD [Primary Care Provider] -
[2022-05-04 11:23] VITALS: BP 132/50; PULSE 58; RESP 16; TEMP 36.7; O2SAT 97
[2022-05-04 11:29] LABS: Appearance Urine CLOUDY; Color Urine YELLOW; Glucose Urine UA NEG (NEG); Nitrite Urine NEG (NEG); PH 8.5 (5.0-8.0); Urine Blood 2+ (NEG); Urine Ketones NEG (NEG); Urine Protein TRACE MG/DL (NEG-TRACE)
[2022-05-04 11:30] LABS: Leukocyte Esterase Urine 3+ (NEG); UACC Culture Trigger YES
[2022-05-04 11:39] LABS: Bacteria Urine 2+ /LPF; WBC Urine 30-49 /HPF (0-4)
[2022-05-04] MEDS: cefTRIAXone sodium 1 GM in 0.9 % Sodium Chloride 50 ML IV (11:52)
== END 2022-05-04 12:54 | disposition home or self-care (01) ==
PROVIDERS: Emergency Provider Student in an Organized Health Care Education/Training Program; PCP Internal Medicine
DX: N39.0 Urinary tract infection, site not specified (principal); F03.90 Unspecified dementia, unspecified severity, without behavioral disturbance, psychotic disturbance, mood disturbance, and anxiety; I10 Essential (primary) hypertension; J45.909 Unspecified asthma, uncomplicated; Z86.73 Personal history of transient ischemic attack (TIA), and cerebral infarction without residual deficits; Z20.822 Contact with and (suspected) exposure to COVID-19
CPT/HCPCS: 36415; 71045; 80053; 81001; 83605; 83880; 85025; 87040; 87086; 87088; 87186; 87635; 93005; 96365; 99284; J0696

== ENCOUNTER 2022-05-08 13:59 | Inpatient (IN) | payer OTHER, SELFPAY ==
--- NOTE | ~2022-05-08 | XR_ITS ---
EXAMINATION: XR CHEST CLINICAL INFORMATION: Fever. COMPARISON: 05/04/2022 chest radiograph. TECHNIQUE: Frontal view of the chest was obtained. FINDINGS: The lungs are clear. A 0.6 cm calcified granuloma overlies the left lung base. The heart and mediastinal structures are unremarkable. XR/XR chest 1V IMPRESSION: No acute cardiopulmonary process. Stable left basilar costophrenic granuloma.
--- NOTE | ~2022-05-08 | XR_ITS ---
EXAMINATION: X-RAY LEFT HIP X-RAY LEFT KNEE CLINICAL INFORMATION: Extreme pain. COMPARISON: No similar priors. TECHNIQUE: 2 views of the left hip. 3 views of the left knee. FINDINGS: Left hip: Limited crosstable lateral view technique. No evidence of acute fractures or malalignment on the AP view. The femoral head is well-seated in the acetabula. 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 Scattered vascular calcifications. Left knee: Limited technique with shadowing from overlying posterior casting. No acute fractures or malalignment. Moderate joint space narrowing and subcortical sclerosis of the medial and patellofemoral compartments. Mild joint space narrowing of the lateral compartment. Chondrocalcinosis. No joint effusion. Vascular calcifications. XR/XR hip LT min 2V IMPRESSION: Limited evaluation of the left hip and left knee. If symptoms persist, a repeat radiograph or correlation with a CT is recommended. No acute fractures or subluxation in this radiographic series. 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 Chondrocalcinosis in the left knee.
--- NOTE | ~2022-05-08 | XR_ITS ---
EXAMINATION: X-RAY LEFT HIP X-RAY LEFT KNEE CLINICAL INFORMATION: Extreme pain. COMPARISON: No similar priors. TECHNIQUE: 2 views of the left hip. 3 views of the left knee. FINDINGS: Left hip: Limited crosstable lateral view technique. No evidence of acute fractures or malalignment on the AP view. The femoral head is well-seated in the acetabula. 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 Scattered vascular calcifications. Left knee: Limited technique with shadowing from overlying posterior casting. No acute fractures or malalignment. Moderate joint space narrowing and subcortical sclerosis of the medial and patellofemoral compartments. Mild joint space narrowing of the lateral compartment. Chondrocalcinosis. No joint effusion. Vascular calcifications. XR/XR knee LT 4V IMPRESSION: Limited evaluation of the left hip and left knee. If symptoms persist, a repeat radiograph or correlation with a CT is recommended. No acute fractures or subluxation in this radiographic series. 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 Chondrocalcinosis in the left knee.
--- NOTE | ~2022-05-08 | CT_ITS ---
EXAMINATION: CT HEAD WITHOUT CONTRAST CLINICAL INFORMATION: Encephalopathy COMPARISON: Head CT 11/25/2021 TECHNIQUE: Imaging was performed from the skull base to vertex without intravenous administration of contrast. This CT examination was performed using dose optimization techniques as appropriate, variously including the following: *Automated exposure control *Adjustment of mA and/or kV according to patient size (this includes techniques or standardized protocols for targeted exams where dose is matched to indication/reason for exam; i.e. extremities or head) *Use of iterative reconstruction technique Total exam dose length product: 602 mGy-cm FINDINGS: No intra or extra-axial fluid collection, hemorrhage, or mass. No ventriculomegaly. No midline shift or herniation. Basal cisterns are patent. Rand-white matter differentiation is maintained. No territorial encephalomalacia. Proportional prominence of the ventricles and sulcal spaces is consistent with mild volume loss. Mild to moderate patchy hypoattenuation in the periventricular and deep white matter, similar to slightly more conspicuous than on prior. Bilateral basal ganglia calcifications noted. No calvarial fracture or soft tissue abnormality. The mastoid air cells and visualized portions of the paranasal sinuses are well aerated. Cavernous and vertebral artery vascular calcifications. The left distal ICA intracranial stent noted. CT/CT head/brain wo con IMPRESSION: 1. No acute intracranial hemorrhage. 2. No intracranial mass, hydrocephalus, or other acute intracranial abnormality. 3. Mild cerebral atrophy and patchy supratentorial white matter hypoattenuation, nonspecific and presumably due to chronic small vessel ischemia.
--- NOTE | ~2022-05-08 | CT_ITS ---
EXAMINATION: CT ABDOMEN AND PELVIS WITHOUT CONTRAST CLINICAL INFORMATION: Question: Distention. COMPARISON: None TECHNIQUE: Multidetector volumetric imaging was performed from the superior aspect of the liver through the pubic symphysis. Sagittal and coronal reformatted images were obtained on the technologist's workstation. This CT examination was performed using dose optimization techniques as appropriate, variously including the following: *Automated exposure control *Adjustment of mA and/or kV according to patient size (this includes techniques or standardized protocols for targeted exams where dose is matched to indication/reason for exam; i.e. extremities or head) *Use of iterative reconstruction technique DLP: 618 mGy-cm FINDINGS: LUNG BASES: The heart size is normal. There is a calcified 5 mm nodule subpleural based left lower lobe with adjacent scarring or atelectasis. Minimal atelectatic changes seen in the lingula. There are coronary artery calcifications present. LIVER, GALLBLADDER, AND BILIARY TREE: The liver is normal in size, shape, and attenuation. No focal hepatic lesion or biliary ductal dilatation is present. The gallbladder has been surgically removed. PANCREAS: Unremarkable. SPLEEN: Unremarkable. ADRENAL GLANDS: Unremarkable. KIDNEYS AND URETERS: The kidneys are normal in size, shape, and attenuation. No hydronephrosis, hydroureter, or calculi seen. No perinephric stranding. BLADDER: Unremarkable. GASTROINTESTINAL TRACT: There is a G-tube in the epigastric region. The small bowel loops are normal caliber. There is large amount of stool in ascending colon without significant distention. Appendix is not seen. There is diffuse mural thickening involving the rectum and the sigmoid colon with moderate pericolic and presacral soft tissue thickening likely proctitis and sigmoid colitis. There are no diverticuli present at this level. There is no free air or free fluid. ABDOMINAL WALL: No significant hernia is appreciated. LYMPH NODES: Normal. VASCULAR: The abdominal aorta is of normal caliber. PELVIC VISCERA: There is no free fluid. OSSEOUS STRUCTURES: There are degenerative disc changes L4-L5, L3-L4 disc level with ventral spondylosis. CT/CT abdomen pelvis wo con IMPRESSION: Moderate to significant constipation with most of the stool in the right colon. There is diffuse mural thickening involving the sigmoid colon and the rectum suggestive of proctitis and sigmoid colitis. There are no diverticuli seen in the vicinity. There is diffuse fatty stranding and presacral soft tissue thickening. There is no free air or free fluid. Appendix is normal caliber. The G-tube is in good position. The gallbladder is out. Fleischner guidelines were followed.
[2022-05-08 14:10] VITALS: BP 108/53; PULSE 83; O2SAT 96
--- NOTE | 2022-05-08 14:25 | ED_ITS ---
HPI - Fever General Chief Complaint: Altered Mental Status Stated Complaint: ? UTI,FEVER 101.8 PER EMS Time Seen by Provider: 05/08/22 14:05 Source: family and EMS Mode of arrival: EMS Limitations: altered mental status History of Present Illness HPI Narrative: Patient presents emergency department via EMS. At baseline she is minimally verbal due to dementia. Patient's daughter is at bedside, who states that she has continued to have fevers over the past few days, despite being on antibiotics for urinary tract infection. She has also been experiencing multiple episodes of diarrhea each day. Daughter reports that she has not complained of any pain or shows signs of pain such as guarding or holding of her abdomen. She has been lethargic throughout the day, and not sleeping at night for greater than 2 hours, daughter states that she currently appears more alert than she has over the past few days. She has been increasingly more weak at home, they are having difficulty caring for patient despite in-home PT services. Related Data Home Medications Medication Instructions Recorded Confirmed cetirizine 10 mg tablet 10 mg PO DAILY 12/19/20 02/20/22 albuterol sulfate 90 mcg/actuation 2 puff inhalation Q4-6H PRN 12/20/20 02/20/22 aerosol inhaler Shortness Of Breath calcium carbonate 500 mg-vitamin 1 tab PO BID 12/20/20 02/20/22 D3 5 mcg (200 unit) tablet (Oyster Shell Calcium-Vitamin D3) fluticasone propionate 50 2 spray intranasal DAILY PRN 12/20/20 02/20/22 mcg/actuation nasal Allergic Symptoms spray,suspension valsartan 320 1 tab PO DAILY 12/20/20 02/20/22 mg-hydrochlorothiazide 25 mg tablet clobetasol 0.05 % topical cream 1 applic topical BID 11/25/21 02/20/22 rosuvastatin 10 mg tablet 1 tab PO QPM 11/25/21 02/20/22 albuterol sulfate 1 amp inhalation TID PRN Shortness 01/30/22 02/20/22 Of Breath amantadine HCl 50 mg/5 mL oral 10 ml G-tube DAILY 01/30/22 02/20/22 solution clopidogrel 75 mg tablet 1 tab BEDTIME 01/30/22 02/20/22 duloxetine 30 mg capsule,delayed 1 cap PO DAILY 01/30/22 02/20/22 release levetiracetam 100 mg/mL oral 5 ml G-tube BID 01/30/22 02/20/22 solution melatonin 5 mg tablet 1 tab PO BEDTIME PRN insomnia 01/30/22 02/20/22 modafinil 200 mg tablet 1 tab PO DAILY 01/30/22 02/20/22 aspirin 81 mg chewable tablet 1 tab PO QPM 05/08/22 05/08/22 fluticasone propionate 110 2 puff inhalation BID 05/08/22 mcg/actuation HFA aerosol inhaler (Flovent HFA) Previous Rx's Medication Instructions Recorded ferrous sulfate 300 mg (60 mg 300 mg (5 mL) PO BIDWM #300 mL 02/10/22 iron)/5 mL oral liquid omeprazole 20 mg capsule,delayed 20 mg feeding tube BID #60 caps 02/10/22 release quetiapine 25 mg tablet 25 mg PO BID #60 tabs 02/10/22 amoxicillin 200 mg-potassium 875 mg (19.1466 mL) G-tube Q12H 02/23/22 clavulanate 28.5 mg/5 mL oral #100 mL suspension cefdinir 300 mg capsule 300 mg PO Q12H 5 days #10 caps 05/04/22 Allergies Allergy/AdvReac Type Severity Reaction Status Date / Time lisinopril [LISINOPRIL] Allergy Mild CHEST PAIN Verified 06/19/21 19:37 codeine [CODEINE] AdvReac Unknown AGITATION Verified 06/19/21 19:37 Review of Systems Review of Systems: Yes Unobtainable due to mental status PMFSH Past Medical History Attestation statement: The following information was validated with the patient. Source: old records reviewed Medical History (Updated 05/08/22 @ 17:32 by Yana Bryan CNP) Asthma C. difficile colitis Cerebral aneurysm CVA (cerebral vascular accident) Dementia Hypertension Pneumonia Surgical History History of cholecystectomy Previous back surgery S/P endovascular aneurysm repair Social History Social History Household Members: Children Housing: Apartment Do you presently have visiting nurse or other home services: Yes Alcohol intake: never Patient Tobacco Use Status: Never used Tobacco Advance Directives: No Advance Directives Information Provided: Yes service: No Current occupational status: disabled Physical Exam Vital Signs: Vital Signs: Last Vital Signs Temp 99.0 F 05/08/22 14:43 Pulse 82 05/08/22 14:43 BP 121/56 L 05/08/22 14:43 Pulse Ox 93 05/08/22 14:43 O2 Del Method 05/08/22 14:43 BMI result Body Mass Index 21.9 Vital signs have been reviewed as normal and appeared to be correct. Blood pressure normal.? Heart rate normal.? Respiration rate normal. Temperature normal.? Oxygen saturation normal. Appearance: Alert.? Disoriented Normal affect. Eyes: Pupils equal, round and reactive to light.? ENT: Pharynx normal.?? Neck: Normal inspection.? Neck supple.?? CVS: Heart sounds normal. Normal heart rate and rhythm.? Pulses normal.?? Respiratory: No respiratory distress.? Lung sounds clear to auscultation bilaterally?? Abdomen: Soft and non-tender and non-tender throughout upon palpation. Normoactive bowel sounds. No pulsatile mass.?? Skin: Skin warm and dry.? Normal skin color.? Extremities: No lower extremity edema.? Neuro: Moves all extremities spontaneously. Sensation intact bilaterally. No focal neuro deficits. Course Course Course Narrative: Patient is an 86-year-old female with history of asthma, C difficile, cerebral aneurysm, CVA, dementia, hypertension, pneumonia. She is presenting to emergency department for evaluation of persistent fevers in the setting of recent treatment for urinary tract infection, and diarrhea. Patient was evaluated in the emergency department 4 days ago on 05/04 was found to have a urinary tract infection, she was discharged home with cefdinir. Per patient's daughter she has continued to have fevers at home, becoming increasingly more weak, lethargic, and not sleeping at night. Patient's urine culture grew Proteus mirabalis susceptible to ceftriaxone. T-max 101.8 degrees earlier this morning, patient received Tylenol at 0800. Patient's daughter also expressing concern for inability to continue caring for patient home at this time, requesting the patient be evaluated for possible rehab. Abdominal exam is benign, no tenderness on palpation. Given her history of C difficile, will obtain stool specimen, though diarrhea may also be secondary to antibiotic treatment. CBC, CMP, lactic acid, blood cultures, repeat urinalysis. Normal saline 500 mL IV. Disposition pending results. Reevaluation(s) Reevaluation #1: CBC reveals a microcytic anemia consistent with baseline, hemoglobin 9.3 and hematocrit 28. Patient noted to have significant leukocytosis 28.8 when compared to WBC 12.7 on 05/04/2022. Rocephin 1 g IV ordered. BUN 61 creatinine 1.27, has had decreased oral intake, concerning for dehydration, patient received additional normal saline 500 mL IV. Hyponatremia 129. Discussed findings with patient daughter, patient to require inpatient admission for failed outpatient management of urinary tract infection given worsening of symptoms, persistent fevers and significant leukocytosis. Spoke with hospitalist team, accepted for admission to medicine service by Roman Madden NP. At this time, stool studies are still pending, no diarrhea since arrival to the emergenc y department. Time: 16:36 MDM - Fever Medical Records Attestation: I reviewed the patient's medical records. Lab Data Attestation: I reviewed the patient's lab results. Result diagrams: 05/08/22 15:06 05/08/22 15:06 Labs: Lab Results 05/08/22 05/08/22 05/08/22 Range/Units 15:06 15:06 15:06 WBC 28.8 H (4.8-10.8) X10*3/uL RBC 3.52 L (4.20-5.50) X10*6/uL Hgb 9.3 L (12.0-16.0) g/dl Hct 28.0 L (37.0-47.0) % MCV 79.5 L (80.0-98.0) fL MCH 26.4 L (27.0-33.0) pg MCHC 33.2 (31.0-35.0) g/dl RDW 17.5 H (11.0-16.0) % Plt Count 328 (160-400) X10*3/uL MPV 9.9 (9.4-12.3) fL Immature Gran % (Auto) 1.7 H (0.0-0.4) % Neut % (Auto) 84.4 H (45-73) % Lymph % (Auto) 4.7 L (20-40) % [place] % (Auto) 8.7 (2-11) % Eos % (Auto) 0.1 (0-4) % Baso % (Auto) 0.4 (0-2) % Lymph # (Auto) 1.4 (1.2-4.9) X10*3/uL [place] # (Auto) 2.5 H (0.1-1.2) X10*3/uL Eos # (Auto) 0.0 (0.0-0.4) X10*3/uL Baso # (Auto) 0.1 (0.0-0.2) X10*3/uL Abs Immat Gran (auto) 0.48 H (0.00-0.03) X10*3/uL Absolute Neuts (auto) 24.3 H (2.0-8.3) x10*3/uL Absolute Nucleated RBC 0.000 (0.0-0.012) X10*3/uL Nucleated RBC % (auto) 0.0 (0.0-0.2) /100WBC Smear Tech's Comments VERIFIED Sodium 128 L (135-145) mmol/L Potassium 3.7 (3.3-5.1) mmol/L Chloride 96 (96-108) mmol/L Carbon Dioxide 23 (22-29) mmol/L Anion Gap 13 (12-20) BUN 61 H D (9-16) mg/dL Creatinine 1.27 (0.5-1.4) mg/dL Estim Creat Clear Calc 24.0 Estimated GFR 40 Random Glucose 179 H (60-115) mg/dL Lactic Acid 1.4 (0.5-2.0) mmol/L Calcium 8.4 D (8.4-10.2) mg/dL Magnesium 1.9 (1.6-2.6) mg/dL Total Bilirubin 0.2 (0.0-1.0) mg/dL AST 21 (5-31) U/L ALT 22 (0-31) U/L Alkaline Phosphatase 112 (39-117) U/L Total Protein 7.1 (6.5-8.0) g/dL Albumin 2.8 L (3.5-5.0) g/dL COVID-19 (LOVE) (Negative) COVID-19 Clin Com 05/08/22 Range/Units 15:06 WBC (4.8-10.8) X10*3/uL RBC (4.20-5.50) X10*6/uL Hgb (12.0-16.0) g/dl Hct (37.0-47.0) % MCV (80.0-98.0) fL MCH (27.0-33.0) pg MCHC (31.0-35.0) g/dl RDW (11.0-16.0) % Plt Count (160-400) X10*3/uL MPV (9.4-12.3) fL Immature Gran % (Auto) (0.0-0.4) % Neut % (Auto) (45-73) % Lymph % (Auto) (20-40) % [place] % (Auto) (2-11) % Eos % (Auto) (0-4) % Baso % (Auto) (0-2) % Lymph # (Auto) (1.2-4.9) X10*3/uL [place] # (Auto) (0.1-1.2) X10*3/uL Eos # (Auto) (0.0-0.4) X10*3/uL Baso # (Auto) (0.0-0.2) X10*3/uL Abs Immat Gran (auto) (0.00-0.03) X10*3/uL Absolute Neuts (auto) (2.0-8.3) x10*3/uL Absolute Nucleated RBC (0.0-0.012) X10*3/uL Nucleated RBC % (auto) (0.0-0.2) /100WBC Smear Tech's Comments Sodium (135-145) mmol/L Potassium (3.3-5.1) mmol/L Chloride (96-108) mmol/L Carbon Dioxide (22-29) mmol/L Anion Gap (12-20) BUN (9-16) mg/dL Creatinine (0.5-1.4) mg/dL Estim Creat Clear Calc Estimated GFR Random Glucose (60-115) mg/dL Lactic Acid (0.5-2.0) mmol/L Calcium (8.4-10.2) mg/dL Magnesium (1.6-2.6) mg/dL Total Bilirubin (0.0-1.0) mg/dL AST (5-31) U/L ALT (0-31) U/L Alkaline Phosphatase (39-117) U/L Total Protein (6.5-8.0) g/dL Albumin (3.5-5.0) g/dL COVID-19 (LOVE) Negative (Negative) COVID-19 Clin Com See Note Discharge Plan Discharge Clinical Impression: Urinary tract infection, Dehydration, Generalized weakness Prescriptions: No Action cetirizine 10 mg Tablet 10 mg PO DAILY albuterol sulfate 90 mcg/actuation Hfa Aerosol Inhaler 2 puff INHALATION Q4-6H PRN (Reason: Shortness Of Breath) fluticasone propionate 50 mcg/actuation [place],Suspension 2 spray INTRANASAL DAILY PRN (Reason: Allergic Symptoms) calcium carbonate-vitamin D3 [Oyster Shell Calcium-Vit D3] 500 mg(1,250mg) - 200 unit Tablet 1 tab PO BID valsartan-hydrochlorothiazide 320-25 mg Tablet 1 tab PO DAILY amantadine HCl 50 mg/5 mL solution 10 ml G-tube DAILY albuterol sulfate 2.5 mg /3 mL (0.083 %) solution for nebulization 1 amp inhalation TID PRN (Reason: Shortness Of Breath) clopidogrel 75 mg tablet 1 tab BEDTIME modafinil 200 mg tablet 1 tab PO DAILY levetiracetam 100 mg/mL solution 5 ml G-tube BID duloxetine 30 mg capsule,delayed release(DR/EC) 1 cap PO DAILY melatonin 5 mg tablet 1 tab PO BEDTIME PRN (Reason: insomnia) amoxicillin-pot clavulanate 200-28.5 mg/5 mL Suspension For Reconstitution 875 mg G-tube Q12H Qty: 100 0RF Rx Instructions: Take for 3 more days end date 02/26 aspirin 81 mg tablet,chewable 1 tab PO QPM fluticasone propionate [Flovent HFA] 110 mcg/actuation HFA aerosol inhaler 2 puff inhalation BID clobetasol 0.05 % cream 1 applic topical BID rosuvastatin 10 mg tablet 1 tab PO QPM quetiapine 25 mg Tablet 25 mg PO BID Qty: 60 0RF ferrous sulfate 300 mg (60 mg iron)/5 mL Liquid 300 mg PO BIDWM Qty: 300 0RF omeprazole 20 mg capsule,delayed release(DR/EC) 20 mg feeding tube BID Qty: 60 0RF cefdinir 300 mg capsule 300 mg PO Q12H 5 Days Qty: 10 0RF
[2022-05-08 14:43] VITALS: BP 121/56; PULSE 82; TEMP 37.2; O2SAT 93; BMI 21.9
[2022-05-08] MEDS: 0.9 % Sodium Chloride 500 ML IV ×2 (15:09→18:04)
[2022-05-08 15:21] LABS: Basophils Absolute Auto 0.1 X10*3/uL (0.0-0.2); Basophils Percent Auto 0.4 % (0-2); Eosinophils Percent Auto 0.1 % (0-4); Hemoglobin 9.3 g/dl (12.0-16.0); Imm Gran Abs Auto 0.48 X10*3/uL (0.00-0.03); Imm Gran Pct Auto 1.7 % (0.0-0.4); Lymphocytes Absolute Auto 1.4 X10*3/uL (1.2-4.9); Lymphocytes Percent Auto 4.7 % (20-40); MANUAL DIFF FLAG SCAN; Mean Corpuscular HGB Conc 33.2 g/dl (31.0-35.0); Mean Corpuscular Hemoglobin 26.4 pg (27.0-33.0); Mean Corpuscular Volume 79.5 fL (80.0-98.0); Mean Platelet Volume 9.9 fL (9.4-12.3); Monocytes Absolute Auto 2.5 X10*3/uL (0.1-1.2); Monocytes Percent Auto 8.7 % (2-11); Neutrophils Absolute Auto 24.3 x10*3/uL (2.0-8.3); Neutrophils Percent Auto 84.4 % (45-73); Platelet Count 328 X10*3/uL (160-400); Red Blood Count 3.52 X10*6/uL (4.20-5.50); Red Cell Distribution Width 17.5 % (11.0-16.0); SCAN SMEAR FLAG 1; White Blood Count 28.8 X10*3/uL (4.8-10.8)
[2022-05-08 15:25] LABS: Lactic Acid 1.4 mmol/L (0.5-2.0)
[2022-05-08 15:29] LABS: Alanine Aminotransferase 22 U/L (0-31); Albumin Level 2.8 g/dL (3.5-5.0); Alkaline Phosphatase 112 U/L (39-117); Anion Gap 13 (12-20); Aspartate Amino Transferase 21 U/L (5-31); Bilirubin Total 0.2 mg/dL (0.0-1.0); Blood Urea Nitrogen 61 mg/dL (9-16); Calcium 8.4 mg/dL (8.4-10.2); Carbon Dioxide 23 mmol/L (22-29); Chloride 96 mmol/L (96-108); Estimated Glomerular Filt Rate 40; Glucose Random 179 mg/dL (60-115); Magnesium 1.9 mg/dL (1.6-2.6); Potassium 3.7 mmol/L (3.3-5.1); Sodium 128 mmol/L (135-145); Total Protein 7.1 g/dL (6.5-8.0)
[2022-05-08 15:34] LABS: COVID-19 Test Negative (Negative)
[2022-05-08 15:40] LABS: SLIDE REVIEW VERIFIED
--- NOTE | 2022-05-08 16:55 | PC.NURSE ---
patient had moderate loose darn brown stool ,care given ,linern change ,patient cot change into hospital attire by myself and pct summer .
--- NOTE | 2022-05-08 17:23 | P.HPHOSP_ITS ---
History of Present Illness Date of Service: 05/08/22 Chief Complaint: Confusion 86-year-old 86-year-old [place]an-speaking woman with history of dementia presents with continued fevers, diarrhea. Was recently started on antibiotics for urinary tract infection but continues to have symptoms. Apparently she has also been lethargic throughout the day and not sleeping well. Urine culture from May 04 showed Proteus mirabilis. white blood cell count elevated 28.8, sodium 128, other labs within acceptable limits, vital signs stable. Started on Rocephin, given IV fluids. Review of Systems Review of Systems: Yes Unobtainable due to mental status [facility] Medical History Asthma C. difficile colitis Cerebral aneurysm CVA (cerebral vascular accident) Dementia Hypertension Pneumonia Pyuria Surgical History H/O lithotripsy History of cholecystectomy Previous back surgery S/P endovascular aneurysm repair Social History Household Members: Unknown / Unable to assess Housing: Apartment Do you presently have visiting nurse or other home services: Yes Unable to assess alcohol history related to: Unknown Alcohol intake: never Patient Tobacco Use Status: Never used Tobacco service: No Current occupational status: disabled Meds Allergies Allergy/AdvReac Type Severity Reaction Status Date / Time lisinopril [LISINOPRIL] Allergy Mild CHEST PAIN Verified 06/19/21 19:37 codeine [CODEINE] AdvReac Unknown AGITATION Verified 06/19/21 19:37 Active Medications: Current Medications Acetaminophen (Acetaminophen 325 Mg Tablet) 650 mg PO Q6H PRN PRN Reason: Pain, Mild (Pain Scale 1-3) Heparin Sodium (Porcine) (Heparin Sodium,Porcine 5,000 Unit/Ml Vial) 5,000 unit SUBCUT Q12H BARBY Sodium Chloride (Ns) 500 mls @ 500 mls/hr IV .Q1H BARBY Stop: 05/08/22 17:44 Ceftriaxone Sodium 1 gm/ (Sodium Chloride) 50 mls @ 100 mls/hr IV Q24H BARBY Ondansetron HCl (Ondansetron Hcl 4 Mg/2 Ml Vial) 4 mg IVPUSH Q8H PRN PRN Reason: Nausea and Vomiting Pharmacy Consult (Consult Rx Perform Med Rec) 1 each MISCELLANE ONCE PRN PRN Reason: Consult order Sodium Chloride (0.9 % Sodium Chloride Flush 3 Ml Syringe) 3 ml IVFLUSH [facility] Medications Medication Instructions Recorded Confirmed Last Taken Type cetirizine 10 mg tablet 10 mg PO DAILY 12/19/20 05/08/22 05/08/22 History albuterol sulfate 90 mcg/actuation 2 puff inhalation Q4-6H PRN 12/20/20 05/08/22 01/29/22 History aerosol inhaler Shortness Of Breath calcium carbonate 500 mg-vitamin 1 tab PO BID 12/20/20 05/08/22 05/08/22 History D3 5 mcg (200 unit) tablet (Oyster Shell Calcium-Vitamin D3) valsartan 320 1 tab PO DAILY 12/20/20 05/08/22 05/08/22 History mg-hydrochlorothiazide 25 mg tablet rosuvastatin 10 mg tablet 1 tab PO QPM 11/25/21 05/08/22 05/07/22 History albuterol sulfate 1 amp inhalation TID PRN Shortness 01/30/22 05/08/22 01/29/22 History Of Breath amantadine HCl 50 mg/5 mL oral 10 ml G-tube DAILY 01/30/22 05/08/22 05/08/22 History solution clopidogrel 75 mg tablet 1 tab BEDTIME 01/30/22 05/08/22 05/07/22 History duloxetine 30 mg capsule,delayed 1 cap PO DAILY 01/30/22 05/08/22 05/08/22 History release levetiracetam 100 mg/mL oral 5 ml G-tube BID 01/30/22 05/08/22 05/08/22 History solution melatonin 5 mg tablet 1 tab PO BEDTIME PRN insomnia 01/30/22 05/08/22 01/29/22 History modafinil 200 mg tablet 1 tab PO DAILY 01/30/22 05/08/22 05/08/22 History aspirin 81 mg chewable tablet 1 tab PO QPM 05/08/22 05/08/22 05/07/22 History fluticasone propionate 110 2 puff inhalation BID 05/08/22 05/08/22 05/08/22 History mcg/actuation HFA aerosol inhaler (Flovent HFA) Physical Exam Vital Signs and Narrative: Vital Signs: Last Vital Signs Temp 99.0 F 05/08/22 14:43 Pulse 82 05/08/22 14:43 BP 121/56 L 05/08/22 14:43 Pulse Ox 93 05/08/22 14:43 O2 Del Method 05/08/22 14:43 BMI result Body Mass Index 21.9 Results Labs CBC and Chem 7: 05/14/22 08:06 05/14/22 08:06 Labs: Laboratory Results - last 24 hr 05/08/22 05/08/22 05/08/22 15:06 15:06 15:06 MCV 79.5 L MCH 26.4 L MCHC 33.2 RDW 17.5 H Plt Count 328 MPV 9.9 Immature Gran % (Auto) 1.7 H Neut % (Auto) 84.4 H Lymph % (Auto) 4.7 L Humphreys % (Auto) 8.7 Eos % (Auto) 0.1 Baso % (Auto) 0.4 Lymph # (Auto) 1.4 Humphreys # (Auto) 2.5 H Eos # (Auto) 0.0 Baso # (Auto) 0.1 Abs Immat Gran (auto) 0.48 H Absolute Neuts (auto) 24.3 H Absolute Nucleated RBC 0.000 Nucleated RBC % (auto) 0.0 Smear Tech's Comments VERIFIED Anion Gap 13 Estim Creat Clear Calc 24.0 Estimated GFR 40 Random Glucose 179 H Lactic Acid 1.4 Calcium 8.4 D Magnesium 1.9 Total Bilirubin 0.2 AST 21 ALT 22 Alkaline Phosphatase 112 Total Protein 7.1 Albumin 2.8 L COVID-19 (LOVE) COVID-19 Clin Com 05/08/22 15:06 MCV MCH MCHC RDW Plt Count MPV Immature Gran % (Auto) Neut % (Auto) Lymph % (Auto) Humphreys % (Auto) Eos % (Auto) Baso % (Auto) Lymph # (Auto) Humphreys # (Auto) Eos # (Auto) Baso # (Auto) Abs Immat Gran (auto) Absolute Neuts (auto) Absolute Nucleated RBC Nucleated RBC % (auto) Smear Tech's Comments Anion Gap Estim Creat Clear Calc Estimated GFR Random Glucose Lactic Acid Calcium Magnesium Total Bilirubin AST ALT Alkaline Phosphatase Total Protein Albumin COVID-19 (LOVE) Negative COVID-19 Clin Com See Note Assessment and Plan (1) UTI (urinary tract infection): Status: Acute 86-year-old Zimbabwean-speaking woman admitted with acute UTI Urinary tract infection. Failed outpatient treatment Urine culture from May 04 showed Proteus mirabilis sensitive to Rocephin Will continue Rocephin for now Supportive care Asthma No exacerbation Continue home medications History of seizure disorder Continue Keppra Seizure precautions GERD Continue PPI Mental health Continue home medications Coccyx wound present on admission Hypertension Stable blood pressure Continue home medications DVT prophylaxis with heparin Attending Dr. Paul Full code Patient likely requires 2 midnights in the hospital For treatment of urinary tract infection, failed outpatient treatment requiring IV Rocephin Quality Stroke Does the patient have a stroke diagnosis?: No VTE Prior VTE?: No VTE Risk Level:: Medical - moderate - high VTE Device Contraindication: N/A - Device Ordered VTE Drug Contraindication: N/A - Med Ordered
[2022-05-08] MEDS: cefTRIAXone sodium 1 GM in 0.9 % Sodium Chloride 50 ML IV (18:04)
[2022-05-08 18:11] VITALS: BP 124/48; PULSE 77; TEMP 38.4; O2SAT 98
--- NOTE | 2022-05-08 18:22 | PHA.MEDREC ---
Pharmacy Consult ? Medication Reconciliation Pharmacy has completed the medication reconciliation.
[2022-05-08 18:23] LABS: Leukocytes Stool Qualitative MOD: 3-9/OIF (NEGATIVE)
[2022-05-08 18:24] LABS: Appearance Urine HAZY; Color Urine YELLOW; Glucose Urine UA NEG (NEG); Leukocyte Esterase Urine 2+ (NEG); Nitrite Urine NEG (NEG); PH 5.5 (5.0-8.0); UACC Culture Trigger YES; Urine Blood 2+ (NEG); Urine Ketones NEG (NEG); Urine Protein NEG (NEG-TRACE)
[2022-05-08 18:40] LABS: CDiff Gene PCR POSITIVE (Negative)
[2022-05-08 18:56] LABS: Bacteria Urine 1+ /LPF
[2022-05-08 19:13] LABS: CDIFF Internal ctrl Dots and bkg OK (V)
[2022-05-08 19:22] LABS: CDiff Toxin Positive (Negative)
--- NOTE | 2022-05-08 19:26 | PC.NURSE ---
Pt noted to have small open area to coccyx upon arrival. No drainage noted no odor. Daughter aware of wound and asking for dressing to be applied. Hospitalist aware.
[2022-05-08] MEDS: Acetaminophen 325 MG TABLET 650 MG PO (19:51)
[2022-05-08] MEDS: vancomycin HCL 125 MG CAPSULE PO (19:52)
--- NOTE | 2022-05-08 19:53 | PC.NURSE ---
Pt daughter states that pt had been given Rocephin. Rocephin caused weakness and abdominal problems
[2022-05-08] MEDS: Heparin Sodium,Porcine 5,000 UNIT/ML VIAL 5000 UNIT SUBCUT (21:13)
[2022-05-08 21:55] VITALS: BP 119/58; PULSE 79; RESP 16; TEMP 36.5; O2SAT 97
[2022-05-09 00:19] VITALS: BP 131/61; PULSE 71; RESP 20; TEMP 36.8; O2SAT 95
[2022-05-09] MEDS: 0.9 % Sodium Chloride Flush 3 ML SYRINGE IVFLUSH ×5 (00:35→14:50)
[2022-05-09] MEDS: vancomycin HCL 125 MG CAPSULE PO ×2 (02:48→11:05)
[2022-05-09 06:59] LABS: Basophils Absolute Auto 0.1 X10*3/uL (0.0-0.2); Basophils Percent Auto 0.2 % (0-2); Eosinophils Percent Auto 0.1 % (0-4); Hematocrit 26.6 % (37.0-47.0); Imm Gran Abs Auto 0.56 X10*3/uL (0.00-0.03); Lymphocytes Absolute Auto 1.7 X10*3/uL (1.2-4.9); Lymphocytes Percent Auto 6.1 % (20-40); MANUAL DIFF FLAG SCAN; Mean Corpuscular HGB Conc 33.8 g/dl (31.0-35.0); Mean Corpuscular Hemoglobin 26.5 pg (27.0-33.0); Mean Corpuscular Volume 78.2 fL (80.0-98.0); Mean Platelet Volume 9.4 fL (9.4-12.3); Monocytes Absolute Auto 2.4 X10*3/uL (0.1-1.2); Monocytes Percent Auto 8.5 % (2-11); Neutrophils Absolute Auto 23.3 x10*3/uL (2.0-8.3); Neutrophils Percent Auto 83.1 % (45-73); Platelet Count 294 X10*3/uL (160-400); Red Cell Distribution Width 17.3 % (11.0-16.0); SCAN SMEAR FLAG 1; White Blood Count 28.1 X10*3/uL (4.8-10.8)
[2022-05-09 07:26] LABS: Anion Gap 13 (12-20); Blood Urea Nitrogen 41 mg/dL (9-16); Calcium 8.4 mg/dL (8.4-10.2); Carbon Dioxide 20 mmol/L (22-29); Chloride 104 mmol/L (96-108); Creatinine Clr Calc Pharmacy 44.8; Estimated Glomerular Filt Rate > 60; Glucose Random 154 mg/dL (60-115); Potassium 3.8 mmol/L (3.3-5.1); Sodium 133 mmol/L (135-145)
[2022-05-09 07:27] LABS: SLIDE REVIEW VERIFIED
[2022-05-09] MEDS: DULoxetine HCl 30 MG CAPSULE.DR PO (10:18)
[2022-05-09] MEDS: modafiniL 100 MG TABLET 200 MG G-TUBE (10:18)
[2022-05-09] MEDS: Omeprazole 20 MG CAPSULE.DR PO (10:19)
[2022-05-09] MEDS: QUEtiapine Fumarate 25 MG TABLET G-TUBE ×2 (10:19→22:53)
--- NOTE | 2022-05-09 11:42 | MHC.CLN ---
RE: CONSULT FAMILIAR WITH PT FROM PAST ADMISSIONS RECOMMEND JEVITY 1.0 AT MAX GOAL RATE 70ML/HR WITH 30ML PROSOURCE Q DAY AND 120ML FREE WATER FLUSHES Q SHIFT TO PROVIDE 1841KCALS (32KCALS/KG), 89G PROTEIN (1.56G/KG), 1763ML TOTAL WATER FROM FORMULA AND FLUSHES (33ML/KG; CAN ADJUST WITH FEVER) START FORMULA AT 20ML/HR AND INCREASE BY 10ML Q 4 HOURS UNTIL MAX GOAL IS ACHIEVED MONITOR TOLERANCE, RESIDUALS AND LYTES TF WILL PROMOTE WOUND HEALING
[2022-05-09 12:49] VITALS: BP 107/59; PULSE 90; RESP 18; O2SAT 94
--- NOTE | 2022-05-09 13:04 | MHC.CM.PN ---
Addendum entered by Ashlee Khan 05/09/22 13:21: NO HCP FAMILY IS WORKING ON [address] DATE IS MAY 22, 2022.2 1030 IN [place], [place] MEETING WILL BE THROUGH A ZOOM CALL. Original Note: PATIENT DAUGHTER TYLER [phone] IS ASKING FOR A REFERRAL TO [facility]. DAUGHTER AWARE THAT ALTERNATE CHOICES MAY NEED TO BE MADE PATIENT IS VAX X 2 AND MAY REQUIRE A BOOSTER, WHICH TYLER IS AGREEABLE TO. PATIENT LIVES ALONE BUT HAS AMPLE FAMILY SUPPORT ON A DAILY BASIS. NO VNA IN THE HOME SHE DOES HAVE A CANE BUT HAS NOT BEEN ABLE TO GET UP AND USE IT OVER THE PAST FEW DAYS. CASE MANAGEMENT FOLLOWING FOR DC PLANS. TYLER ASKS THAT WE KEEP HER INFORMED WITH PROGRESS, SHE AND FAMILY ARE CONCERNED. IMM DISCUSSED AND 05/09 COPY IN CHART
[2022-05-09] MEDS: Acetaminophen 325 MG TABLET 650 MG PO ×2 (14:51→22:54)
[2022-05-09 15:55] VITALS: BP 108/57; PULSE 98; RESP 20; TEMP 37.3; O2SAT 96
--- NOTE | 2022-05-09 16:32 | MHC.SLORD ---
Addendum entered and electronically signed by Cristy Oneill MA, CCC-DYNAMOMETER TESTER ENGINE 05/09/22 16:55: If MBSS is indicated during inpatient stay, please place order or contact DYNAMOMETER TESTER ENGINE via [facility] or ext. [phone]. Otherwise, will plan for outpatient MBSS scheduled for 05/22. Original Note: Speech Language Pathology Order Status: Order received for bedside swallow evaluation this afternoon. Per chart review, patient is admitted for acute UTI. Discussed w/ Dr. Ramey. Per Dr. Ramey, patient's daughter reported patient had a stroke at [facility], has a PEG tube. DYNAMOMETER TESTER ENGINE discussed with patient's daughter, Joellen, at bedside. Recommended repeat-MBSS given history of dysphagia resulting in placement of PEG tube. DYNAMOMETER TESTER ENGINE discussed recommendation for MBSS, as we would not be able to rule out silent aspiration with PO trials at bedside. Per Dr. Ramey, MBSS may be scheduled on outpatient basis as patient is already w/ PEG. DYNAMOMETER TESTER ENGINE discussed w/ Joellen. Joellen reported that she believes patient had initial MBSS at [facility] when hospitalized from November - December 2021. She reports patient was placed w/ PEG tube, and after discharge from [facility], patient was seen by DYNAMOMETER TESTER ENGINE who visited in the home for dysphagia treatment. Joellen reports patient gets nutrition through PEG, does take applesauce by mouth. Joellen reported that at times, patient coughs or clears her throat when given PO, and it is difficult to figure out if it is aspiration or d/t allergies. DYNAMOMETER TESTER ENGINE checked w/ scheduling. Patient is already scheduled for outpatient MBSS here at [facility] w/ this DYNAMOMETER TESTER ENGINE on Tuesday 05/22 at 2:30pm. DYNAMOMETER TESTER ENGINE called and spoke with Joellen to confirm MBSS appointment. Joellen requested DYNAMOMETER TESTER ENGINE call if there are any cancellations or openings for an earlier appointments. At this time, there are no other openings. DYNAMOMETER TESTER ENGINE will call if there is a cancellation. Explained recommendation for repeat-MBSS. Discussed importance of oral care w/ Joellen when giving PO for comfort. Daughter Joellen can be reached at [phone] and daughter Fairba can be reached at [phone].
--- NOTE | 2022-05-09 17:11 | HO.PM.IMPN ---
Subjective Subjective Date of Service: 05/09/22 Interval History: uti Review of Systems mental status slightly better answer few question onlywith the help of her daughter : Denies any abdominal pain or chest pain or breathing difficulty. Physical Exam Vital Signs: Vital Signs: Last Vital Signs Temp 99.1 F 05/09/22 15:55 Pulse 98 05/09/22 15:55 Resp 20 05/09/22 15:55 BP 108/57 L 05/09/22 15:55 Pulse Ox 96 05/09/22 15:55 O2 Del Method 05/09/22 15:55 BMI result Body Mass Index 21.9 Appearance: Alert.? Oriented X1 , calm and cooperative, daughter at bedside. cvs: rrr, [id number] , no murmur res: clear to auscultation ,no rhonchii or wheezing abd: no rebound or guarding ,nt, bs present. ext pulses present , no cyanosis skin -coccyx wound. neuro: axo3 , nonfocal. Objective Data Active Medications Acetaminophen (Acetaminophen 325 Mg Tablet) 650 mg PO Q6H PRN PRN Reason: Pain, Mild (Pain Scale 1-3) Last Admin: 05/09/22 14:51 Dose: 650 mg Documented By: LEONEL Albuterol Sulfate (Albuterol Sulfate (0.083%) 2.5 Mg/3 Ml Vial.Neb) 2.5 mg INHALE TID PRN PRN Reason: Shortness Of Breath Albuterol Sulfate (Albuterol Sulfate 90 Mcg 8 Gm Inhaler) 2 puff INHALE Q4H PRN PRN Reason: Shortness Of Breath Aspirin (Aspirin 81 Mg Tab.Chew) 81 mg G-TUBE BEDTIME [facility] Atorvastatin Calcium (Atorvastatin Calcium 20 Mg Tablet) 20 mg G-TUBE BEDTIME [facility] Calcium Carbonate/Cholecalciferol (Calcium + Vitamin D 250 Mg Tablet) 500 mg G-TUBE BID [facility] Clopidogrel Bisulfate (Clopidogrel Bisulfate 75 Mg Tablet) 75 mg G-TUBE BEDTIME [facility] Duloxetine HCl (Duloxetine Hcl 30 Mg Capsule.) 30 mg PO DAILY [facility] Last Admin: 05/09/22 10:18 Dose: 30 mg Documented By: LEONEL Ferrous Sulfate (Ferrous Sulfate 300 Mg/5 Ml Liquid) 300 mg G-TUBE BIDWM [facility] Fluticasone Propionate (Fluticasone Propionate 100 Mcg Blst.W.Dev) 2 puff INHALE RBID [facility] Last Admin: 05/09/22 09:00 Dose: Not Given Documented By: ROSA MARIA Non-Admin Reason: Med Not Available Hydrochlorothiazide (Hydrochlorothiazide 25 Mg Tablet) 25 mg G-TUBE DAILY [facility] Ceftriaxone Sodium 1 gm/ (Sodium Chloride) 50 mls @ 100 mls/hr IV Q24H [facility] Levetiracetam (Levetiracetam Oral Soln 500 Mg/5 Ml) 500 mg G-TUBE BID [facility] Loratadine (Loratadine 10 Mg Tablet) 10 mg G-TUBE DAILY [facility] Melatonin (Melatonin 3 Mg Tablet) 6 mg G-TUBE BEDTIME PRN PRN Reason: insomnia Modafinil (Modafinil 100 Mg Tablet) 200 mg G-TUBE DAILY [facility] Last Admin: 05/09/22 10:18 Dose: 200 mg Documented By: LEONEL Non-Formulary Medication (Amantadine Hcl) 10 ml G-TUBE DAILY [facility] Omeprazole (Omeprazole 20 Mg/10 Ml Susp.Recon) 20 mg G-TUBE BID@0630,1630 [facility] Ondansetron HCl (Ondansetron Hcl 4 Mg/2 Ml Vial) 4 mg IVPUSH Q8H PRN PRN Reason: Nausea and Vomiting Pharmacy Consult (Consult Rx Perform Med Rec) 1 each MISCELLANE ONCE PRN PRN Reason: Consult order Quetiapine Fumarate (Quetiapine Fumarate 25 Mg Tablet) 25 mg G-TUBE BID [facility] Last Admin: 05/09/22 10:19 Dose: 25 mg Documented By: LEONEL Sodium Chloride (0.9 % Sodium Chloride Flush 3 Ml Syringe) [facility] Last Admin: 05/09/22 14:50 Dose: 3 ml Documented By: LEONEL Sodium Chloride (0.9 % Sodium Chloride Flush 3 Ml Syringe) 3 ml IVFLUSH QSHIFT [facility] Last Admin: 05/09/22 15:14 Dose: Not Given Documented By: LEONEL Non-Admin Reason: Previously Administered Vancomycin HCl (Vancomycin Hcl Oral Solution 125 Mg/5 Ml Soln.Recon) 125 mg G-TUBE Q6H [facility] Labs CBC & Chem 7: 05/09/22 06:51 05/09/22 06:51 Labs: Laboratory Results - last 24 hr 05/08/22 05/08/22 05/08/22 17:25 17:25 18:00 MCV MCH MCHC RDW Plt Count MPV Immature Gran % (Auto) Neut % (Auto) Lymph % (Auto) Lamar % (Auto) Eos % (Auto) Baso % (Auto) Lymph # (Auto) Lamar # (Auto) Eos # (Auto) Baso # (Auto) Abs Immat Gran (auto) Absolute Neuts (auto) Absolute Nucleated RBC Nucleated RBC % (auto) Smear Tech's Comments Anion Gap Estim Creat Clear Calc Estimated GFR Random Glucose Calcium Urine Color YELLOW Urine Appearance HAZY Urine pH 5.5 Ur Specific Zalma 1.010 Urine Protein NEG Urine Glucose (UA) NEG Urine Ketones NEG Urine Blood 2+ H Urine Nitrite NEG Ur Leukocyte Esterase 2+ H Urine RBC 10-14 H Urine WBC 15-29 H Ur Squamous Epith Cells NONE Urine Bacteria 1+ Stool Leukocytes, Qual MOD: 3-9/OIF C. difficile Tox B Gene POSITIVE A* C. difficile Toxin A&B Positive A* C. difficile Interpret SEE NOTE 05/09/22 05/09/22 06:51 06:51 MCV 78.2 L MCH 26.5 L MCHC 33.8 RDW 17.3 H Plt Count 294 MPV 9.4 Immature Gran % (Auto) 2.0 H Neut % (Auto) 83.1 H Lymph % (Auto) 6.1 L Lamar % (Auto) 8.5 Eos % (Auto) 0.1 Baso % (Auto) 0.2 Lymph # (Auto) 1.7 Lamar # (Auto) 2.4 H Eos # (Auto) 0.0 Baso # (Auto) 0.1 Abs Immat Gran (auto) 0.56 H Absolute Neuts (auto) 23.3 H Absolute Nucleated RBC 0.000 Nucleated RBC % (auto) 0.0 Smear Tech's Comments VERIFIED Anion Gap 13 Estim Creat Clear Calc 44.8 Estimated GFR > 60 Random Glucose 154 H Calcium 8.4 Urine Color Urine Appearance Urine pH Ur Specific Zalma Urine Protein Urine Glucose (UA) Urine Ketones Urine Blood Urine Nitrite Ur Leukocyte Esterase Urine RBC Urine WBC Ur Squamous Epith Cells Urine Bacteria Stool Leukocytes, Qual C. difficile Tox B Gene C. difficile Toxin A&B C. difficile Interpret Microbiology Microbiology Results: Microbiology 05/08/22 15:06 Blood Culture - Preliminary Blood - Venous No growth after 24 hours. 06/27/22 Unknown Urine Culture - Preliminary Urine clean catch - Urine jackson top No growth to date. Assessment and Plan (1) UTI (urinary tract infection): Status: Acute Plan 86-year-old [place]ian-speaking woman admitted with acute UTI Urinary tract infection. Failed outpatient treatment Urine culture from May 04 showed Proteus mirabilis sensitive to Rocephin Will continue Rocephin for now Supportive care Asthma No exacerbation Continue home medications History of seizure disorder Continue Keppra Seizure precautions GERD Continue PPI Mental health Continue home medications Coccyx wound present on admission wound care, frequent turning Hypertension Stable blood pressure Continue home medications DVT prophylaxis with heparin inpatient need: treatment of urinary tract infection, failed outpatient treatment requiring IV Rocephin, urine and blood cultures pending Quality Stroke Does the patient have a stroke diagnosis?: No VTE Prior VTE?: No VTE Risk Level:: Medical - moderate - high VTE Device Contraindication: N/A - Device Ordered VTE Drug Contraindication: N/A - Med Ordered
[2022-05-09] MEDS: vancomycin HCL Oral Solution 125 MG/5 ML SOLN.RECON G-TUBE ×2 (18:11→22:55)
[2022-05-09] MEDS: Ferrous Sulfate 300 MG/5 ML LIQUID G-TUBE (18:11)
[2022-05-09] MEDS: cefTRIAXone sodium 1 GM in 0.9 % Sodium Chloride 50 ML IV (18:11)
--- NOTE | 2022-05-09 18:32 | PC.NURSE ---
Patient with small ulcer to left buttock. is follow up wound clinic. consult was placed earlier today for wound nurse to see patient. this rn called at 3pm, they did not received consult. rn stated they will see patient tomorrow and in meantime to put barrier cream on patients buttocks. barrier cream and triage applied to area. each time patient cleaned after stool. patient having small amounts of stool when cleaned, cdiff +. patient repositioned off buttocks each time she was changed through out the day.
--- NOTE | 2022-05-09 19:01 | PC.NURSE ---
residual checked from gtube, 40ml pulled back. tube feeding increased to 30 ml /hour.
--- NOTE | 2022-05-09 20:10 | PC.NURSE ---
Addendum entered by Margaret Rivera 05/09/22 21:19: bedside report given to MILTON Hawthorne Addendum entered by Margaret Rivera 05/09/22 20:51: multiple attempt to give report, nursing wastewater treatment plant supervisor Clark made aware. Original Note: report received from MILTON Ta. pt is alert. resting in bed. daughter by bedside. tube feeding at 30ml/hr. pt tolerating in well
[2022-05-09 20:29] VITALS: BP 127/56; PULSE 86; RESP 20; TEMP 36.8; O2SAT 96
[2022-05-09 21:29] VITALS: BP 116/58; PULSE 102; RESP 18; TEMP 38; O2SAT 97
[2022-05-09] MEDS: Aspirin 81 MG TAB.CHEW G-TUBE (22:53)
[2022-05-09] MEDS: Calcium + Vitamin D 250 MG TABLET 500 MG G-TUBE (22:54)
[2022-05-09] MEDS: levETIRAcetam Oral Soln 500 MG/5 ML G-TUBE (22:55)
[2022-05-09] MEDS: Clopidogrel Bisulfate 75 MG TABLET G-TUBE (22:55)
[2022-05-09] MEDS: Atorvastatin Calcium 20 MG TABLET G-TUBE (22:55)
[2022-05-09] MEDS: Melatonin 3 MG TABLET 6 MG G-TUBE (23:07)
[2022-05-10] VITALS (7 sets, daily range): BP systolic 100–134; BP diastolic 48–86; PULSE 79–97; RESP 17–22; TEMP 36.4–37.4; O2SAT 94–98; BMI 21.9
[2022-05-10] MEDS: vancomycin HCL Oral Solution 125 MG/5 ML SOLN.RECON G-TUBE ×4 (06:08→23:28)
[2022-05-10] MEDS: levETIRAcetam Oral Soln 500 MG/5 ML G-TUBE ×2 (09:15→20:05)
[2022-05-10] MEDS: Ferrous Sulfate 300 MG/5 ML LIQUID G-TUBE ×2 (09:15→17:16)
[2022-05-10] MEDS: Calcium + Vitamin D 250 MG TABLET 500 MG G-TUBE ×2 (09:16→20:05)
[2022-05-10] MEDS: modafiniL 100 MG TABLET 200 MG G-TUBE (09:16)
[2022-05-10] MEDS: DULoxetine HCl 30 MG CAPSULE.DR PO (09:17)
[2022-05-10] MEDS: 0.9 % Sodium Chloride Flush 3 ML SYRINGE IVFLUSH ×4 (09:17→20:06)
[2022-05-10] MEDS: QUEtiapine Fumarate 25 MG TABLET G-TUBE ×2 (09:17→20:05)
[2022-05-10] MEDS: Loratadine 10 MG TABLET G-TUBE (09:17)
[2022-05-10] MEDS: Heparin Sodium,Porcine 5,000 UNIT/ML VIAL 5000 UNIT SUBCUT ×2 (09:18→23:28)
[2022-05-10] MEDS: Acetaminophen 325 MG TABLET 650 MG PO (09:22)
[2022-05-10 09:38] LABS: Hematocrit 27.4 % (37.0-47.0); Hemoglobin 8.9 g/dl (12.0-16.0); Mean Corpuscular HGB Conc 32.5 g/dl (31.0-35.0); Mean Corpuscular Hemoglobin 25.7 pg (27.0-33.0); Mean Corpuscular Volume 79.2 fL (80.0-98.0); Mean Platelet Volume 9.6 fL (9.4-12.3); Platelet Count 309 X10*3/uL (160-400); Red Blood Count 3.46 X10*6/uL (4.20-5.50); Red Cell Distribution Width 17.4 % (11.0-16.0); White Blood Count 27.6 X10*3/uL (4.8-10.8)
--- NOTE | 2022-05-10 09:51 | MHC.CM.PN ---
IMM 05/09/22 Female DX UTI A PT eval is recommending likely LTC . Per note PT will continue to eval and treat the patient while hospitalized. The patient's/family preference is Call. 1st choice was [facility]. They are not contracted, pt has been declined. PT/family have been notified. Additional referrals have been made. A clinical update has been provided. DP STR/SNF via BLS.
--- NOTE | 2022-05-10 10:36 | MHC.CLN ---
RE: CONSULT PT TRIGGERS FOR 19% SIGNIFICANT WT LOSS X 6MONTHS, ALTHOUGH WT WITHIN UBW -HAS BEEN STABLE X 3 MONTHS PT APPEARS WELL NOURISHED HOWEVER FRAIL R/T ADVANCED AGE PT RECEIVING JEVITY 1.0 AT MAX GOAL RATE 70ML/HR WITH 30ML PROSOURCE Q DAY AND 120ML FREE WATER FLUSHES Q SHIFT PROVIDES 1841KCALS (32KCALS/KG), 89G PROTEIN (1.7G/KG), 1763ML TOTAL WATER FROM FORMULA AND FLUSHES (33ML/KG; CAN ADJUST WITH FEVER) START FORMULA AT 20ML/HR AND INCREASE BY 10ML Q 4 HOURS UNTIL MAX GOAL IS ACHIEVED CURRENTLY AT 60ML/HR AND WORKING UP TO GOAL PER NSG MONITOR TOLERANCE, RESIDUALS AND LYTES TF WILL PROMOTE WOUND HEALING SEE ALSO FULL CLINICAL NUTRITION ASSESSMENT
--- NOTE | 2022-05-10 14:53 | HO.PM.IMPN ---
Subjective Subjective Date of Service: 05/10/22 Physical Exam Vital Signs: Vital Signs: Last Vital Signs Temp 97.6 F 05/10/22 11:15 Pulse 89 05/10/22 11:15 Resp 17 05/10/22 11:15 BP 100/48 L 05/10/22 11:15 Pulse Ox 95 05/10/22 11:15 O2 Del Method 05/10/22 11:15 BMI result Body Mass Index 21.9 Skin: Other: On coccyx area patient has some areas of mild erythema and then areas of healing scab. One larger area on the right side about 8 x 4 mm with some breakage in the skin but not past the dermis. Objective Data Active Medications Acetaminophen (Acetaminophen 325 Mg Tablet) 650 mg PO Q6H PRN PRN Reason: Pain, Mild (Pain Scale 1-3) Last Admin: 05/10/22 09:22 Dose: 650 mg Documented By: BARI Albuterol Sulfate (Albuterol Sulfate (0.083%) 2.5 Mg/3 Ml Vial.Neb) 2.5 mg INHALE TID PRN PRN Reason: Shortness Of Breath Albuterol Sulfate (Albuterol Sulfate 90 Mcg 8 Gm Inhaler) 2 puff INHALE Q4H PRN PRN Reason: Shortness Of Breath Aspirin (Aspirin 81 Mg Tab.Chew) 81 mg G-TUBE BEDTIME [facility] Last Admin: 05/09/22 22:53 Dose: 81 mg Documented By: KELLEN Atorvastatin Calcium (Atorvastatin Calcium 20 Mg Tablet) 20 mg G-TUBE BEDTIME [facility] Last Admin: 05/09/22 22:55 Dose: 20 mg Documented By: KELLEN Calcium Carbonate/Cholecalciferol (Calcium + Vitamin D 250 Mg Tablet) 500 mg G-TUBE BID [facility] Last Admin: 05/10/22 09:16 Dose: 500 mg Documented By: BARI Clopidogrel Bisulfate (Clopidogrel Bisulfate 75 Mg Tablet) 75 mg G-TUBE BEDTIME [facility] Last Admin: 05/09/22 22:55 Dose: 75 mg Documented By: KELLEN Duloxetine HCl (Duloxetine Hcl 30 Mg Capsule.) 30 mg PO DAILY [facility] Last Admin: 05/10/22 09:17 Dose: 30 mg Documented By: BARI Ferrous Sulfate (Ferrous Sulfate 300 Mg/5 Ml Liquid) 300 mg G-TUBE BIDWM [facility] Last Admin: 05/10/22 09:15 Dose: 300 mg Documented By: BARI Fluticasone Propionate (Fluticasone Propionate 100 Mcg Blst.W.Dev) 2 puff INHALE RBID [facility] Last Admin: 05/10/22 08:08 Dose: Not Given Documented By: DIMITRIS Non-Admin Reason: Med Not Available Heparin Sodium (Porcine) (Heparin Sodium,Porcine 5,000 Unit/Ml Vial) 5,000 unit SUBCUT Q12H [facility] Last Admin: 05/10/22 09:18 Dose: 5,000 unit Documented By: BARI Ceftriaxone Sodium 1 gm/ (Sodium Chloride) 50 mls @ 100 mls/hr IV Q24H [facility] Last Infusion: 05/09/22 18:41 Dose: 0 mls/hr Documented By: COOPEB Levetiracetam (Levetiracetam Oral Soln 500 Mg/5 Ml) 500 mg G-TUBE BID [facility] Last Admin: 05/10/22 09:15 Dose: 500 mg Documented By: BARI Loratadine (Loratadine 10 Mg Tablet) 10 mg G-TUBE DAILY [facility] Last Admin: 05/10/22 09:17 Dose: 10 mg Documented By: BARI Melatonin (Melatonin 3 Mg Tablet) 6 mg G-TUBE BEDTIME PRN PRN Reason: insomnia Last Admin: 05/09/22 23:07 Dose: 6 mg Documented By: FAUSTO-CANKatherine Modafinil (Modafinil 100 Mg Tablet) 200 mg G-TUBE DAILY [facility] Last Admin: 05/10/22 09:16 Dose: 200 mg Documented By: BARI Non-Formulary Medication (Amantadine Hcl) 10 ml G-TUBE DAILY [facility] Omeprazole (Omeprazole 20 Mg/10 Ml Susp.Recon) 20 mg G-TUBE BID@0630,1630 [facility] Last Admin: 05/10/22 06:07 Dose: 20 mg Documented By: LINDSAY Ondansetron HCl (Ondansetron Hcl 4 Mg/2 Ml Vial) 4 mg IVPUSH Q8H PRN PRN Reason: Nausea and Vomiting Pharmacy Consult (Consult Rx Perform Med Rec) 1 each MISCELLANE ONCE PRN PRN Reason: Consult order Quetiapine Fumarate (Quetiapine Fumarate 25 Mg Tablet) 25 mg G-TUBE BID [facility] Last Admin: 05/10/22 09:17 Dose: 25 mg Documented By: BARI Sodium Chloride (0.9 % Sodium Chloride Flush 3 Ml Syringe) 3 ml IVFLUSH QSUTFT [facility] Last Admin: 05/10/22 09:17 Dose: 3 ml Documented By: BARI Sodium Chloride (0.9 % Sodium Chloride Flush 3 Ml Syringe) [facility] Last Admin: 05/10/22 09:17 Dose: Not Given Documented By: BARI Non-Admin Reason: Duplicate Order Vancomycin HCl (Vancomycin Hcl Oral Solution 125 Mg/5 Ml Soln.Recon) 125 mg G-TUBE Q6H [facility] Last Admin: 05/10/22 11:05 Dose: 125 mg Documented By: BARI Labs CBC & Chem 7: 05/10/22 09:17 05/09/22 06:51 Labs: Laboratory Results - last 24 hr 05/10/22 09:17 MCV 79.2 L MCH 25.7 L MCHC 32.5 RDW 17.4 H Plt Count 309 MPV 9.6 Absolute Nucleated RBC 0.000 Nucleated RBC % (auto) 0.0 Microbiology Microbiology Results: Microbiology 05/08/22 Unknown Urine Culture - Final Urine clean catch - Urine jackson top No growth. 05/08/22 17:00 Blood Culture - Preliminary Blood - Venous No growth after 24 hours. 05/08/22 15:06 Blood Culture - Preliminary Blood - Venous No growth after 24 hours. Assessment and Plan (1) Pressure injury of sacral region, stage 2: Status: Acute Assessment and Plan: 86-year-old female with admission for C diff colitis. Currently being treated and having multiple stools. Not moving pretty much bedbound with very thin skin around the sacral area and coccyx. At this point most of the skin in this area is intact except some small scabbed areas and an area which has some superficial skin breakdown into the dermal tissue making this a stage II. Would recommend offloading rotating barrier cream and a foam dressing. It is very important to maintain her nutrition and protein intake as well as rotate off this area every 2 hours to prevent anything progressing to deep tissue injury for an actual breakage past dermal area. Quality Stroke Does the patient have a stroke diagnosis?: No VTE Prior VTE?: No VTE Risk Level:: Medical - moderate - high VTE Device Contraindication: N/A - Device Ordered VTE Drug Contraindication: N/A - Med Ordered
--- NOTE | 2022-05-10 16:06 | P.PNIM_ITS ---
Subjective Subjective Date of Service: 05/10/22 Interval History: uti/cdiff Review of Systems андрей seems improving says only few words Physical Exam Vital Signs: Vital Signs: Last Vital Signs Temp 98.3 F 05/10/22 15:36 Pulse 84 05/10/22 15:36 Resp 19 05/10/22 15:36 BP 120/57 L 05/10/22 15:36 Pulse Ox 95 05/10/22 15:36 O2 Del Method 05/10/22 15:36 BMI result Body Mass Index 21.9 Appearance: Alert.? Oriented X1 , calm and cooperative, daughter at bedside. cvs: rrr, [id number] , no murmur res: clear to auscultation ,no rhonchii or wheezing abd: no rebound or guarding ,nt, bs present. ext pulses present , no cyanosis skin -coccyx wound. neuro: axo3 , nonfocal. Objective Data Active Medications Acetaminophen (Acetaminophen 325 Mg Tablet) 650 mg PO Q6H PRN PRN Reason: Pain, Mild (Pain Scale 1-3) Last Admin: 05/10/22 09:22 Dose: 650 mg Documented By: BARI Albuterol Sulfate (Albuterol Sulfate (0.083%) 2.5 Mg/3 Ml Vial.Neb) 2.5 mg INHALE TID PRN PRN Reason: Shortness Of Breath Albuterol Sulfate (Albuterol Sulfate 90 Mcg 8 Gm Inhaler) 2 puff INHALE Q4H PRN PRN Reason: Shortness Of Breath Aspirin (Aspirin 81 Mg Tab.Chew) 81 mg G-TUBE BEDTIME [facility] Last Admin: 05/09/22 22:53 Dose: 81 mg Documented By: FAUSTO-CANKatherine Atorvastatin Calcium (Atorvastatin Calcium 20 Mg Tablet) 20 mg G-TUBE BEDTIME [facility] Last Admin: 05/09/22 22:55 Dose: 20 mg Documented By: FAUSTO-CANKatherine Calcium Carbonate/Cholecalciferol (Calcium + Vitamin D 250 Mg Tablet) 500 mg G- TUBE BID [facility] Last Admin: 05/10/22 09:16 Dose: 500 mg Documented By: BARI Clopidogrel Bisulfate (Clopidogrel Bisulfate 75 Mg Tablet) 75 mg G-TUBE BEDTIME [facility] Last Admin: 05/09/22 22:55 Dose: 75 mg Documented By: FAUSTO-CANF Duloxetine HCl (Duloxetine Hcl 30 Mg Capsule.Dr) 30 mg PO DAILY [facility] Last Admin: 05/10/22 09:17 Dose: 30 mg Documented By: BARI Ferrous Sulfate (Ferrous Sulfate 300 Mg/5 Ml Liquid) 300 mg G-TUBE BIDWM [facility] Last Admin: 05/10/22 09:15 Dose: 300 mg Documented By: BARI Fluticasone Propionate (Fluticasone Propionate 100 Mcg Blst.W.Dev) 2 puff INHALE RBID [facility] Last Admin: 05/10/22 08:08 Dose: Not Given Documented By: DIMITRIS Non-Admin Reason: Med Not Available Heparin Sodium (Porcine) (Heparin Sodium,Porcine 5,000 Unit/Ml Vial) 5,000 unit SUBCUT Q12H [facility] Last Admin: 05/10/22 09:18 Dose: 5,000 unit Documented By: BARI Ceftriaxone Sodium 1 gm/ (Sodium Chloride) 50 mls @ 100 mls/hr IV Q24H [facility] Last Infusion: 05/09/22 18:41 Dose: 0 mls/hr Documented By: COOPEB Levetiracetam (Levetiracetam Oral Soln 500 Mg/5 Ml) 500 mg G-TUBE BID [facility] Last Admin: 05/10/22 09:15 Dose: 500 mg Documented By: BARI Loratadine (Loratadine 10 Mg Tablet) 10 mg G-TUBE DAILY [facility] Last Admin: 05/10/22 09:17 Dose: 10 mg Documented By: BARI Melatonin (Melatonin 3 Mg Tablet) 6 mg G-TUBE BEDTIME PRN PRN Reason: insomnia Last Admin: 05/09/22 23:07 Dose: 6 mg Documented By: N-JASMINE Modafinil (Modafinil 100 Mg Tablet) 200 mg G-TUBE DAILY [facility] Last Admin: 05/10/22 09:16 Dose: 200 mg Documented By: BARI Non-Formulary Medication (Amantadine Hcl) 10 ml G-TUBE DAILY [facility] Omeprazole (Omeprazole 20 Mg/10 Ml Susp.Recon) 20 mg G-TUBE BID@0630,1630 [facility] Last Admin: 05/10/22 06:07 Dose: 20 mg Documented By: LINDSAY Ondansetron HCl (Ondansetron Hcl 4 Mg/2 Ml Vial) 4 mg IVPUSH Q8H PRN PRN Reason: Nausea and Vomiting Pharmacy Consult (Consult Rx Perform Med Rec) 1 each MISCELLANE ONCE PRN PRN Reason: Consult order Quetiapine Fumarate (Quetiapine Fumarate 25 Mg Tablet) 25 mg G-TUBE BID [facility] Last Admin: 05/10/22 09:17 Dose: 25 mg Documented By: BARI Sodium Chloride (0.9 % Sodium Chloride Flush 3 Ml Syringe) 3 ml IVFLUSH QSHIFT [facility] Last Admin: 05/10/22 09:17 Dose: 3 ml Documented By: BARI Sodium Chloride (0.9 % Sodium Chloride Flush 3 Ml Syringe) 3 ml IVFLUSH QSHIFT [facility] Last Admin: 05/10/22 09:17 Dose: Not Given Documented By: BARI Non-Admin Reason: Duplicate Order Vancomycin HCl (Vancomycin Hcl Oral Solution 125 Mg/5 Ml Soln.Recon) 125 mg G- TUBE Q6H [facility] Last Admin: 05/10/22 11:05 Dose: 125 mg Documented By: BARI Labs CBC & Chem 7: 05/10/22 09:17 05/09/22 06:51 Labs: Laboratory Results - last 24 hr 05/10/22 09:17 MCV 79.2 L MCH 25.7 L MCHC 32.5 RDW 17.4 H Plt Count 309 MPV 9.6 Absolute Nucleated RBC 0.000 Nucleated RBC % (auto) 0.0 Microbiology Microbiology Results: Microbiology 05/08/22 Unknown Urine Culture - Final Urine clean catch - Urine jackson top No growth. 05/08/22 17:00 Blood Culture - Preliminary Blood - Venous No growth after 24 hours. 05/08/22 15:06 Blood Culture - Preliminary Blood - Venous No growth after 24 hours. Assessment and Plan (1) Urinary tract infection: Status: Acute (2) Pressure injury of sacral region, stage 2: Status: Acute (3) C. difficile diarrhea: Status: Acute Plan 86-year-old [place]-speaking woman admitted with acute UTI Urinary tract infection. Failed outpatient treatment Urine culture from May 04 showed Proteus mirabilis sensitive to Rocephin urine and blood cultures neg continue Rocephin Supportive care ID eval. Asthma No exacerbation Continue home medications History of seizure disorder Continue Keppra Seizure precautions GERD Continue PPI Mental health Continue home medications Coccyx wound present on admission wound care, frequent turning Wound care- recommend offloading rotating barrier cream and a foam dressing, nutritional consult Hypertension Stable blood pressure Continue home medications Diarrhae : seems improving cdiff positive continue vanco via peg DVT prophylaxis with heparin inpatient need: treatment of urinary tract infection, failed outpatient treatment requiring IV Rocephin, cdiff Quality Stroke Does the patient have a stroke diagnosis?: No VTE Prior VTE?: No VTE Risk Level:: Medical - moderate - high VTE Device Contraindication: N/A - Device Ordered VTE Drug Contraindication: N/A - Med Ordered
[2022-05-10] MEDS: cefTRIAXone sodium 1 GM in 0.9 % Sodium Chloride 50 ML IV (17:14)
--- NOTE | 2022-05-10 19:42 | PC.NURSE ---
Patient's family requesting oxycodone prn pain for patient. Dr. Mora notified and order placed. Will be given by next shift.
[2022-05-10] MEDS: oxyCODONE HCl Immed Release 5 MG TABLET PO (20:04)
[2022-05-10] MEDS: Aspirin 81 MG TAB.CHEW G-TUBE (20:05)
[2022-05-10] MEDS: Atorvastatin Calcium 20 MG TABLET G-TUBE (20:05)
[2022-05-10] MEDS: Clopidogrel Bisulfate 75 MG TABLET G-TUBE (20:05)
[2022-05-11] VITALS (8 sets, daily range): BP systolic 94–124; BP diastolic 51–63; PULSE 72–90; RESP 16–22; TEMP 36.8–37.5; O2SAT 93–97
[2022-05-11] MEDS: oxyCODONE HCl Immed Release 5 MG TABLET PO ×4 (06:19→19:58)
[2022-05-11] MEDS: 0.9 % Sodium Chloride Flush 3 ML SYRINGE IVFLUSH ×5 (06:19→19:59)
[2022-05-11] MEDS: vancomycin HCL Oral Solution 125 MG/5 ML SOLN.RECON G-TUBE ×4 (06:20→23:11)
[2022-05-11] MEDS: levETIRAcetam Oral Soln 500 MG/5 ML G-TUBE ×2 (10:25→19:58)
[2022-05-11] MEDS: Loratadine 10 MG TABLET G-TUBE (10:25)
[2022-05-11] MEDS: modafiniL 100 MG TABLET 200 MG G-TUBE (10:25)
[2022-05-11] MEDS: Calcium + Vitamin D 250 MG TABLET 500 MG G-TUBE ×2 (10:25→19:58)
[2022-05-11] MEDS: DULoxetine HCl 30 MG CAPSULE.DR PO (10:25)
[2022-05-11] MEDS: Ferrous Sulfate 300 MG/5 ML LIQUID G-TUBE ×2 (10:25→18:07)
[2022-05-11] MEDS: QUEtiapine Fumarate 25 MG TABLET G-TUBE ×2 (10:26→19:58)
[2022-05-11] MEDS: Heparin Sodium,Porcine 5,000 UNIT/ML VIAL 5000 UNIT SUBCUT ×2 (10:26→23:11)
--- NOTE | 2022-05-11 12:53 | P.PNIM_ITS ---
Subjective Subjective Date of Service: 05/11/22 Interval History: cdiff , uti Review of Systems Patient still has significant diarrhea, Denies any nausea vomiting Still generalized weak Has knee pain>hip pain, at home mostly bedbound Physical Exam Vital Signs: Vital Signs: Last Vital Signs Temp 99.5 F 05/11/22 12:00 Pulse 75 05/11/22 12:00 Resp 20 05/11/22 12:00 BP 124/57 L 05/11/22 12:00 Pulse Ox 95 05/11/22 12:00 O2 Del Method 05/11/22 12:00 BMI result Body Mass Index 21.9 Appearance: Alert.? Oriented X1 , calm and cooperative, daughter at bedside. cvs: rrr, [id number] , no murmur res: clear to auscultation ,no rhonchii or wheezing abd: no rebound or guarding ,nt, bs present. ext pulses present , no cyanosis skin -coccyx wound. knee pain/left side , mild swellin neuro: axo3 , nonfocal. Objective Data Active Medications Acetaminophen (Acetaminophen 325 Mg Tablet) 650 mg PO Q6H PRN PRN Reason: Pain, Mild (Pain Scale 1-3) Last Admin: 05/10/22 09:22 Dose: 650 mg Documented By: BARI Albuterol Sulfate (Albuterol Sulfate (0.083%) 2.5 Mg/3 Ml Vial.Neb) 2.5 mg INHALE TID PRN PRN Reason: Shortness Of Breath Albuterol Sulfate (Albuterol Sulfate 90 Mcg 8 Gm Inhaler) 2 puff INHALE Q4H PRN PRN Reason: Shortness Of Breath Aspirin (Aspirin 81 Mg Tab.Chew) 81 mg G-TUBE BEDTIME [facility] Last Admin: 05/10/22 20:05 Dose: 81 mg Documented By: AIDA Atorvastatin Calcium (Atorvastatin Calcium 20 Mg Tablet) 20 mg G-TUBE BEDTIME [facility] Last Admin: 05/10/22 20:05 Dose: 20 mg Documented By: AIDA Calcium Carbonate/Cholecalciferol (Calcium + Vitamin D 250 Mg Tablet) 500 mg G- TUBE BID [facility] Last Admin: 05/11/22 10:25 Dose: 500 mg Documented By: STEPHANIE Clopidogrel Bisulfate (Clopidogrel Bisulfate 75 Mg Tablet) 75 mg G-TUBE BEDTIME [facility] Last Admin: 05/10/22 20:05 Dose: 75 mg Documented By: AIDA Duloxetine HCl (Duloxetine Hcl 30 Mg Capsule.Dr) 30 mg PO DAILY [facility] Last Admin: 05/11/22 10:25 Dose: 30 mg Documented By: STEPHANIE Ferrous Sulfate (Ferrous Sulfate 300 Mg/5 Ml Liquid) 300 mg G-TUBE BIDWM [facility] Last Admin: 05/11/22 10:25 Dose: 300 mg Documented By: STEPHANIE Fluticasone Propionate (Fluticasone Propionate 100 Mcg Blst.W.Dev) 2 puff INHALE RBID [facility] Last Admin: 05/11/22 09:41 Dose: Not Given Documented By: SANDEE Non-Admin Reason: Patient Refused Heparin Sodium (Porcine) (Heparin Sodium,Porcine 5,000 Unit/Ml Vial) 5,000 unit SUBCUT Q12H [facility] Last Admin: 05/11/22 10:26 Dose: 5,000 unit Documented By: STEPHANIE Ceftriaxone Sodium 1 gm/ (Sodium Chloride) 50 mls @ 100 mls/hr IV Q24H [facility] Last Infusion: 05/10/22 19:00 Dose: 0 mls/hr Documented By: AIDA Levetiracetam (Levetiracetam Oral Soln 500 Mg/5 Ml) 500 mg G-TUBE BID [facility] Last Admin: 05/11/22 10:25 Dose: 500 mg Documented By: STEPHANIE Lidocaine (Lidocaine 4 % Patch Adh..Patch) 1 patch TRANSDERMA DAILY [facility]; Protocol Loratadine (Loratadine 10 Mg Tablet) 10 mg G-TUBE DAILY [facility] Last Admin: 05/11/22 10:25 Dose: 10 mg Documented By: STEPHANIE Melatonin (Melatonin 3 Mg Tablet) 6 mg G-TUBE BEDTIME PRN PRN Reason: insomnia Last Admin: 05/09/22 23:07 Dose: 6 mg Documented By: FAUSTO-JASMINE Modafinil (Modafinil 100 Mg Tablet) 200 mg G-TUBE DAILY [facility] Last Admin: 05/11/22 10:25 Dose: 200 mg Documented By: STEPHANIE Non-Formulary Medication (Amantadine Hcl) 10 ml G-TUBE DAILY [facility] Omeprazole (Omeprazole 20 Mg/10 Ml Susp.Recon) 20 mg G-TUBE BID@0630,1630 [facility] Last Admin: 05/11/22 06:20 Dose: 20 mg Documented By: AIDA Ondansetron HCl (Ondansetron Hcl 4 Mg/2 Ml Vial) 4 mg IVPUSH Q8H PRN PRN Reason: Nausea and Vomiting Oxycodone HCl (Oxycodone Hcl Immed Release 5 Mg Tablet) 5 mg PO Q6H PRN PRN Reason: Pain, Moderate (Pain Scale 4-6 Last Admin: 05/11/22 10:58 Dose: 5 mg Documented By: STEPHANIE Pharmacy Consult (Consult Rx Perform Med Rec) 1 each MISCELLANE ONCE PRN PRN Reason: Consult order Quetiapine Fumarate (Quetiapine Fumarate 25 Mg Tablet) 25 mg G-TUBE BID [facility] Last Admin: 05/11/22 10:26 Dose: 25 mg Documented By: STEPHANIE Sodium Chloride (0.9 % Sodium Chloride Flush 3 Ml Syringe) [facility] Last Admin: 05/11/22 10:25 Dose: 3 ml Documented By: STEPHANIE Sodium Chloride (0.9 % Sodium Chloride Flush 3 Ml Syringe) 3 ml IVFLUSH [facility] Last Admin: 05/11/22 11:01 Dose: Not Given Documented By: STEPHANIE Non-Admin Reason: Duplicate Order Vancomycin HCl (Vancomycin Hcl Oral Solution 125 Mg/5 Ml Soln.Recon) 125 mg G- TUBE Q6H [facility] Last Admin: 05/11/22 06:20 Dose: 125 mg Documented By: AIDA Labs CBC & Chem 7: 05/10/22 09:17 05/09/22 06:51 Microbiology Microbiology Results: Microbiology 05/08/22 17:00 Blood Culture - Preliminary Blood - Venous No growth after 48 hours. 05/08/22 15:06 Blood Culture - Preliminary Blood - Venous No growth after 48 hours. 05/08/22 Unknown Urine Culture - Final Urine clean catch - Urine jackson top No growth. Assessment and Plan (1) C. difficile diarrhea: Status: Acute (2) Urinary tract infection: Status: Acute Plan 86-year-old Romanian-speaking woman admitted with acute UTI Urinary tract infection. Failed outpatient treatment Urine culture from May 04 showed Proteus mirabilis sensitive to Rocephin urine and blood cultures neg ?continue Rocephin Supportive care ID eval. Asthma No exacerbation Continue home medications History of seizure disorder Continue Keppra Seizure precautions GERD Continue PPI Mental health Continue home medications Coccyx wound present on admission wound care, frequent turning Wound care- recommend offloading rotating barrier cream and a foam dressing, nutritional consult Hypertension Stable blood pressure Continue home medications Diarrhae : seems improving cdiff positive continue vanco via peg knee pain left side: continue tylenol/oxycodone , lidocaine patch Will add knee and hip x-ray also. DVT prophylaxis with heparin inpatient need: treatment of urinary tract infection, failed outpatient treatment requiring IV Rocephin, cdiff Quality Stroke Does the patient have a stroke diagnosis?: No VTE Prior VTE?: No VTE Risk Level:: Medical - moderate - high VTE Device Contraindication: N/A - Device Ordered VTE Drug Contraindication: N/A - Med Ordered
[2022-05-11] MEDS: Albuterol Sulfate (0.083%) 2.5 MG/3 ML VIAL.NEB INHALE ×2 (14:19→19:38)
[2022-05-11] MEDS: Acetaminophen 325 MG TABLET 650 MG PO (14:30)
[2022-05-11] MEDS: Lidocaine 4 % Patch ADH..PATCH 1 PATCH TRANSDERMA (14:34)
[2022-05-11] MEDS: cefTRIAXone sodium 1 GM in 0.9 % Sodium Chloride 50 ML IV (18:27)
[2022-05-11] MEDS: Aspirin 81 MG TAB.CHEW G-TUBE (19:57)
[2022-05-11] MEDS: Clopidogrel Bisulfate 75 MG TABLET G-TUBE (19:58)
[2022-05-11] MEDS: Atorvastatin Calcium 20 MG TABLET G-TUBE (19:58)
[2022-05-11] MEDS: Melatonin 3 MG TABLET 6 MG G-TUBE (19:59)
[2022-05-12] VITALS (8 sets, daily range): BP systolic 103–144; BP diastolic 50–64; PULSE 68–83; RESP 16–22; TEMP 36.7–37.3; O2SAT 92–97
[2022-05-12] MEDS: oxyCODONE HCl Immed Release 5 MG TABLET PO (04:58)
[2022-05-12] MEDS: vancomycin HCL Oral Solution 125 MG/5 ML SOLN.RECON G-TUBE ×2 (05:10→12:34)
[2022-05-12 06:21] LABS: Hematocrit 25.7 % (37.0-47.0); Hemoglobin 8.3 g/dl (12.0-16.0); Mean Corpuscular HGB Conc 32.3 g/dl (31.0-35.0); Mean Corpuscular Hemoglobin 25.6 pg (27.0-33.0); Mean Corpuscular Volume 79.3 fL (80.0-98.0); Mean Platelet Volume 10.1 fL (9.4-12.3); Platelet Count 325 X10*3/uL (160-400); Red Blood Count 3.24 X10*6/uL (4.20-5.50); Red Cell Distribution Width 17.6 % (11.0-16.0); White Blood Count 15.6 X10*3/uL (4.8-10.8)
[2022-05-12 06:46] LABS: Anion Gap 10 (12-20); Blood Urea Nitrogen 37 mg/dL (9-16); Calcium 8.8 mg/dL (8.4-10.2); Carbon Dioxide 27 mmol/L (22-29); Chloride 106 mmol/L (96-108); Creatinine Clr Calc Pharmacy 44.8; Estimated Glomerular Filt Rate > 60; Glucose Random 158 mg/dL (60-115); Potassium 4.4 mmol/L (3.3-5.1); Sodium 139 mmol/L (135-145)
--- NOTE | 2022-05-12 09:00 | MHC.CM.PN ---
PT CURRENTLY AWAITING [facility] SCHEDULED FOR 05/22/22 @ 10:30 HOURS. PT WILL REQUIRE PLACEMENT ONCE [facility] IS IN PLACE. REFERRALS HAVE BEEN MADE, AT THIS TIME, [facility] AND [facility] [place] ARE FOLLOWING.
[2022-05-12] MEDS: Lidocaine 4 % Patch ADH..PATCH 1 PATCH TRANSDERMA (09:23)
[2022-05-12] MEDS: DULoxetine HCl 30 MG CAPSULE.DR PO (09:24)
[2022-05-12] MEDS: modafiniL 100 MG TABLET 200 MG G-TUBE (09:24)
[2022-05-12] MEDS: Heparin Sodium,Porcine 5,000 UNIT/ML VIAL 5000 UNIT SUBCUT (09:24)
[2022-05-12] MEDS: Calcium + Vitamin D 250 MG TABLET 500 MG G-TUBE ×2 (09:24→21:28)
[2022-05-12] MEDS: Ferrous Sulfate 300 MG/5 ML LIQUID G-TUBE ×2 (09:24→16:32)
[2022-05-12] MEDS: QUEtiapine Fumarate 25 MG TABLET G-TUBE ×2 (09:24→21:28)
[2022-05-12] MEDS: levETIRAcetam Oral Soln 500 MG/5 ML G-TUBE ×2 (09:24→21:27)
[2022-05-12] MEDS: Loratadine 10 MG TABLET G-TUBE (09:24)
--- NOTE | 2022-05-12 10:03 | P.CDIC_ITS ---
CDI Concurrent Query Documentation Clarification: PHYSICIAN'S DOCUMENTATION REQUEST Date of Query: 05/12/22 1004 Patient Name: Evette No Admit Date: 05/08/22 Dear Doctor, Please review the following and provide your response in the progress notes. Clinical Indicators: The diagnosis of asthma was documented in the record on 05/11/22. Additional clinical indicators from the record include: Risk Factors/Clinical Indicators/Treatments Per MD progress note: Asthma No exacerbation Continue home medications Based on the above, please clarify in the Progress Notes further specificity regarding the type and acuity of the asthma: Type: * Mild intermittent - less than 2x/week * Mild persistent - more than 2x/week but not daily * Moderate persistent - daily and may restrict physical activity * Severe persistent - throughout the day with frequent attacks, limiting activities * Exercise induced * Other ? please specify * Unable to determine Acuity: * Uncomplicated * Unable to determine Use of terms such as suspected, likely, concern for, or probable (associated with a specific diagnosis that is being evaluated, monitored, or treated as if it exists) are acceptable and can be coded in the inpatient setting, when documented at the time of discharge. Thank you, Nery Florentino RN Extension: [phone] Please use your independent medical judgment in providing your response. THIS QUERY IS PART OF THE PERMANENT MEDICAL RECORD Provider Response: Other Other Diagnosis: asthma intermittent
--- NOTE | 2022-05-12 10:08 | P.CDIC_ITS ---
CDI Concurrent Query Documentation Clarification: PHYSICIAN'S DOCUMENTATION REQUEST Date of Query: 05/12/22 1008 Patient Name: Evette No Admit Date: 05/08/22 Dear Doctor, A review of the medical record indicates additional documentation may be needed. Please review below and update the documentation accordingly. Clinical Indicators: A diagnosis of seizure(s) was documented on 05/11/22. Risk Factors/Clinical Indicators/Treatments Per MD progress note History of seizure disorder Continue Keppra Seizure precautions If possible, please further clarify in the Progress Notes, the type/etiology, acuity and control status of seizure(s): Specify type/etiology: * Idiopathic * Febrile (specify simple or complex) * Post-traumatic * Due to external cause (specify if drug, alcohol, stress, etc.) * Absence * Generalized epilepsy (grand mal, myoclonic, atonic, clonic, tonic-clonic, etc.) * Focal or partial (specify simple or complex) * Petit mal * Recurrent - further specify type/etiology * Other * Unable to determine Specify acuity: * With status epilepticus * Without status epilepticus * Other * Unable to determine Specify control status: * Well controlled * Intractable * Pharmacoresistant * Poorly controlled * Refractory * Treatment resistant * Other * Unable to determine Use of terms such as suspected, likely, concern for, or probable (associated wi th a specific diagnosis that is being evaluated, monitored, or treated as if it exists) are acceptable and can be coded in the inpatient setting, when documented at the time of discharge. Thank you, Nery Florentino RN Extension: [phone] Please use your independent medical judgment in providing your response. THIS QUERY IS PART OF THE PERMANENT MEDICAL RECORD Provider Response: Other Other Diagnosis: unlcear if hx of seizures -will check with family '
--- NOTE | 2022-05-12 10:08 | MHC.CDI.CONC ---
CDI Concurrent Query Documentation Clarification: PHYSICIAN'S DOCUMENTATION REQUEST Date of Query: 05/12/22 1008 Patient Name: Evette No Admit Date: 05/08/22 Dear Doctor, A review of the medical record indicates additional documentation may be needed. Please review below and update the documentation accordingly. Clinical Indicators: A diagnosis of seizure(s) was documented on 05/11/22. Risk Factors/Clinical Indicators/Treatments Per MD progress note History of seizure disorder Continue Keppra Seizure precautions If possible, please further clarify in the Progress Notes, the type/etiology, acuity and control status of seizure(s): Specify type/etiology: Idiopathic Febrile (specify simple or complex) Post-traumatic Due to external cause (specify if drug, alcohol, stress, etc.) Absence Generalized epilepsy (grand mal, myoclonic, atonic, clonic, tonic-clonic, etc.) Focal or partial (specify simple or complex) Petit mal Recurrent - further specify type/etiology Other Unable to determine Specify acuity: With status epilepticus Without status epilepticus Other Unable to determine Specify control status: Well controlled Intractable Pharmacoresistant Poorly controlled Refractory Treatment resistant Other Unable to determine Use of terms such as suspected, likely, concern for, or probable (associated with a specific diagnosis that is being evaluated, monitored, or treated as if it exists) are acceptable and can be coded in the inpatient setting, when documented at the time of discharge. Thank you, Nery Florentino RN Extension: [phone] Please use your independent medical judgment in providing your response. THIS QUERY IS PART OF THE PERMANENT MEDICAL RECORD Provider Response: Other Other Diagnosis: unlcear if hx of seizures -will check with family '
[2022-05-12] MEDS: Albuterol/Iprat 2.5/0.5MG 3 ML AMPUL.NEB 1.5 ML INHALE (12:19)
[2022-05-12] MEDS: oxyCODONE HCl Immed Release 5 MG TABLET G-TUBE (12:34)
[2022-05-12] MEDS: Acetaminophen 325 MG TABLET 650 MG G-TUBE (12:35)
--- NOTE | 2022-05-12 13:13 | P.CNID_ITS ---
History of Present Illness Data of Consult Service Date: 05/12/22 Requesting physician: Chikis Ramey Primary Care Provider: Anders Frey MD HPI Reason for consult: Cdiff,prior bacteriruia She presents with lethargy,weakness and diarrhea for seven days. She had been seen at ER on 05/04 just before that and had proteus urine and was given Cefdinir for five days prescription. She has leukocytosis to 28,000 She had negative urine 05/08. She has Cdiff positive toxin and PCR. Review of Systems Review of Systems: Yes Unobtainable due to mental condition [facility] Past Medical History Medical History (Updated 05/12/22 @ 13:18 by Dotty Martinez MD) Asthma C. difficile colitis Cerebral aneurysm CVA (cerebral vascular accident) Dementia Hypertension Pneumonia Pyuria Family History Family history: reviewed and not pertinent Surgical History Surgical History H/O lithotripsy History of cholecystectomy Previous back surgery S/P endovascular aneurysm repair Social History Social History Household Members: Unknown / Unable to assess Housing: Apartment Do you presently have visiting nurse or other home services: Yes Unable to assess alcohol history related to: Unknown Alcohol intake: never Patient Tobacco Use Status: Never used Tobacco service: No Current occupational status: disabled Meds Allergies Allergy/AdvReac Type Severity Reaction Status Date / Time lisinopril [LISINOPRIL] Allergy Mild CHEST PAIN Verified 06/19/21 19:37 codeine [CODEINE] AdvReac Unknown AGITATION Verified 06/19/21 19:37 Active Medications: Current Medications Acetaminophen (Acetaminophen 325 Mg Tablet) 650 mg PO Q6H PRN PRN Reason: Pain, Mild (Pain Scale 1-3) Last Admin: 05/10/22 09:22 Dose: 650 mg Albuterol Sulfate (Albuterol Sulfate (0.083%) 2.5 Mg/3 Ml Vial.Neb) 2.5 mg INHALE TID PRN PRN Reason: Shortness Of Breath Last Admin: 05/11/22 19:38 Dose: 2.5 mg Albuterol Sulfate (Albuterol Sulfate 90 Mcg 8 Gm Inhaler) 2 puff INHALE Q4H PRN PRN Reason: Shortness Of Breath Aspirin (Aspirin 81 Mg Tab.Chew) 81 mg G-TUBE BEDTIME [facility] Last Admin: 05/11/22 19:57 Dose: 81 mg Atorvastatin Calcium (Atorvastatin Calcium 20 Mg Tablet) 20 mg G-TUBE BEDTIME [facility] Last Admin: 05/11/22 19:58 Dose: 20 mg Calcium Carbonate/Cholecalciferol (Calcium + Vitamin D 250 Mg Tablet) 500 mg G- TUBE BID [facility] Last Admin: 05/12/22 09:24 Dose: 500 mg Clopidogrel Bisulfate (Clopidogrel Bisulfate 75 Mg Tablet) 75 mg G-TUBE BEDTIME [facility] Last Admin: 05/11/22 19:58 Dose: 75 mg Duloxetine HCl (Duloxetine Hcl 30 Mg Capsule.Dr) 30 mg PO DAILY [facility] Last Admin: 05/12/22 09:24 Dose: 30 mg Ferrous Sulfate (Ferrous Sulfate 300 Mg/5 Ml Liquid) 300 mg G-TUBE BIDWM [facility] Last Admin: 05/12/22 09:24 Dose: 300 mg Fluticasone Propionate (Fluticasone Propionate 100 Mcg Blst.W.Dev) 2 puff INHALE RBID [facility] Last Admin: 05/12/22 08:07 Dose: Not Given Metronidazole (Flagyl) 500 mg in 100 mls @ 100 mls/hr IV Q8H [facility] Levetiracetam (Levetiracetam Oral Soln 500 Mg/5 Ml) 500 mg G-TUBE BID [facility] Last Admin: 05/12/22 09:24 Dose: 500 mg Lidocaine (Lidocaine 4 % Patch Adh..Patch) 1 patch TRANSDERMA DAILY [facility]; Protocol Last Admin: 05/12/22 09:23 Dose: 1 patch Loratadine (Loratadine 10 Mg Tablet) 10 mg G-TUBE DAILY [facility] Last Admin: 05/12/22 09:24 Dose: 10 mg Melatonin (Melatonin 3 Mg Tablet) 6 mg G-TUBE BEDTIME PRN PRN Reason: insomnia Last Admin: 05/11/22 19:59 Dose: 6 mg Modafinil (Modafinil 100 Mg Tablet) 200 mg G-TUBE DAILY [facility] Last Admin: 05/12/22 09:24 Dose: 200 mg Non-Formulary Medication (Amantadine Hcl) 10 ml G-TUBE DAILY [facility] Omeprazole (Omeprazole 20 Mg/10 Ml Susp.Recon) 20 mg G-TUBE BID@0630,1630 [facility] Last Admin: 05/12/22 04:59 Dose: 20 mg Ondansetron HCl (Ondansetron Hcl 4 Mg/2 Ml Vial) 4 mg IVPUSH Q8H PRN PRN Reason: Nausea and Vomiting Oxycodone HCl (Oxycodone Hcl Immed Release 5 Mg Tablet) 5 mg PO Q6H PRN PRN Reason: Pain, Moderate (Pain Scale 4-6 Last Admin: 05/12/22 04:58 Dose: 5 mg Pharmacy Consult (Consult Rx Perform Med Rec) 1 each MISCELLANE ONCE PRN PRN Reason: Consult order Quetiapine Fumarate (Quetiapine Fumarate 25 Mg Tablet) 25 mg G-TUBE BID [facility] Last Admin: 05/12/22 09:24 Dose: 25 mg Sodium Chloride (0.9 % Sodium Chloride Flush 3 Ml Syringe) [address] [facility] Last Admin: 05/12/22 09:59 Dose: Not Given Sodium Chloride (0.9 % Sodium Chloride Flush 3 Ml Syringe) 3 ml IVFLUSH [facility] Last Admin: 05/12/22 09:02 Dose: Not Given Vancomycin HCl (Vancomycin Hcl Oral Solution 125 Mg/5 Ml Soln.Recon) 250 mg PO Q6H [facility] Home Medications Medication Instructions Recorded Confirmed Last Taken Type cetirizine 10 mg tablet 10 mg PO DAILY 12/19/20 05/08/22 05/08/22 History albuterol sulfate 90 mcg/actuation 2 puff inhalation Q4-6H PRN 12/20/20 05/08/22 01/29/22 History aerosol inhaler Shortness Of Breath calcium carbonate 500 mg-vitamin 1 tab PO BID 12/20/20 05/08/22 05/08/22 History D3 5 mcg (200 unit) tablet (Oyster Shell Calcium-Vitamin D3) valsartan 320 1 tab PO DAILY 12/20/20 05/08/22 05/08/22 History mg-hydrochlorothiazide 25 mg tablet rosuvastatin 10 mg tablet 1 tab PO QPM 11/25/21 05/08/22 05/07/22 History albuterol sulfate 1 amp inhalation TID PRN Shortness 01/30/22 05/08/22 01/29/22 History Of Breath amantadine HCl 50 mg/5 mL oral 10 ml G-tube DAILY 01/30/22 05/08/22 05/08/22 History solution clopidogrel 75 mg tablet 1 tab BEDTIME 01/30/22 05/08/22 05/07/22 History duloxetine 30 mg capsule,delayed 1 cap PO DAILY 01/30/22 05/08/22 05/08/22 History release levetiracetam 100 mg/mL oral 5 ml G-tube BID 01/30/22 05/08/22 05/08/22 History solution melatonin 5 mg tablet 1 tab PO BEDTIME PRN insomnia 01/30/22 05/08/22 01/29/22 History modafinil 200 mg tablet 1 tab PO DAILY 01/30/22 05/08/22 05/08/22 History aspirin 81 mg chewable tablet 1 tab PO QPM 05/08/22 05/08/22 05/07/22 History fluticasone propionate 110 2 puff inhalation BID 05/08/22 05/08/22 05/08/22 History mcg/actuation HFA aerosol inhaler (Flovent HFA) Physical Exam Vital Signs: Vital Signs: Last Vital Signs Temp 99.1 F 05/12/22 12:00 Pulse 83 05/12/22 12:23 Resp 22 H 05/12/22 12:23 BP 140/64 H 05/12/22 12:00 Pulse Ox 95 05/12/22 12:00 O2 Del Method 05/12/22 12:00 BMI result Body Mass Index 21.9 Const: General: cooperative HEENT: Head: Yes normal to inspection Face and sinus: Yes normal facial ex am Mouth: Normal oral and palatal mucosa present Teeth and gingiva: dentition normal Eyes: General: appearance normal, both eyes and all related structures Pupils: Equal, round and reactive pupils present Resp: Effort & Inspection: normal respiratory effort Cardio: Rate: regular rate Rhythm: regular rhythm GI: Palpation (GI): Firmness to palpation present (GI) and nontender : General: Yes no CVA tenderness Back/Spine/Pelvis: Back: no CVA tenderness Skin: General skin exam: no rashes or lesions noted Neuro: General: moves all extremities Cranial nerves: Yes Equal, round and reactive pupils present Extrem: General: Yes normal to inspection Psych: Appearance: grossly normal Results Labs CBC & Chem 7: 05/12/22 05:56 05/12/22 05:56 Labs: Short CBC 05/12/22 Range/Units 05:56 WBC 15.6 H (4.8-10.8) X10*3/uL Hgb 8.3 L (12.0-16.0) g/dl Hct 25.7 L (37.0-47.0) % Plt Count 325 (160-400) X10*3/uL BMP 05/12/22 05:56 Sodium 139 Potassium 4.4 Chloride 106 Carbon Dioxide 27 BUN 37 H Creatinine 0.68 Calcium 8.8 Microbiology Microbiology Results: Microbiology 05/08/22 17:00 Blood - Venous Blood Culture - Preliminary No growth after 48 hours. 05/08/22 15:06 Blood - Venous Blood Culture - Preliminary No growth after 48 hours. 05/08/22 Unknown Urine clean catch - Urine jackson top Urine Culture - Final No growth. Assessment and Plan (1) C. difficile diarrhea: Status: Acute She has leukocytosis She probably Cdiff reason (2) Pressure injury of sacral region, stage 2: Status: Acute (3) Pyuria: Status: Acute She has colonization probable urine,organisms resolved Plan increase Vancomycin to 250 q 6 hours severe Cdiff potential leukemoid reaction add flagyl Consider CT abdomen and pelvis bowel distention/perforation
[2022-05-12] MEDS: vancomycin HCL Oral Solution 125 MG/5 ML SOLN.RECON 250 MG PO (13:59)
--- NOTE | 2022-05-12 14:38 | MHC.CLN ---
F/U PT RECEIVING TUBE FEEDING JEVITY 1.0 AT MAX GOAL RATE 70ML/HR WITH 30ML PROSOURCE Q DAY AND 120ML FREE WATER FLUSHES Q SHIFT PROVIDES 1841KCALS (32KCALS/KG), 89G PROTEIN (1.7G/KG), 1763ML TOTAL WATER FROM FORMULA AND FLUSHES (33ML/KG) TOLERATING CURRENT TUBE FEEDING WITH LOW RESIDUALS. STAGE II PRESSURE INJURY TO BUTTOCK. PROSOURCE PROVIDING ADDITIONAL PROTEIN TO PROMOTE WOUND HEALING. CONTINUE CURRENT TUBE FEED AND FLUSH. MONITOR TOLERANCE, RESIDUALS, AND LYTES.
[2022-05-12] MEDS: metroNIDAZOLE/NS 500 MG/100 ML PIGGYBACK 100 MG IV ×2 (15:03→21:28)
--- NOTE | 2022-05-12 15:49 | HO.PM.IMPN ---
Subjective Subjective Date of Service: 05/12/22 Interval History: cdiff , uti Review of Systems has hx of cva with left sided weakness seems more knee pain>hip pain, at home mostly bedbound Physical Exam Vital Signs: Vital Signs: Last Vital Signs Temp 98.6 F 05/12/22 15:30 Pulse 68 05/12/22 15:30 Resp 16 05/12/22 15:30 BP 103/50 L 05/12/22 15:30 Pulse Ox 94 05/12/22 15:30 O2 Del Method 05/12/22 15:30 BMI result Body Mass Index 21.9 Appearance: Alert.? Oriented X1 , calm and cooperative, daughter at bedside. cvs: [id number], [id number] , no murmur res: clear to auscultation ,no rhonchii or wheezing abd: no rebound or guarding, not much discomfort except llq, bs present. ext pulses present , no cyanosis skin -coccyx wound. knee pain/left side , mild swellin neuro: axo3 , nonfocal. Objective Data Active Medications Acetaminophen (Acetaminophen 325 Mg Tablet) 975 mg G-TUBE Q6H PRN PRN Reason: Pain, Mild (Pain Scale 1-3) Albuterol Sulfate (Albuterol Sulfate (0.083%) 2.5 Mg/3 Ml Vial.Neb) 2.5 mg INHALE TID PRN PRN Reason: Shortness Of Breath Last Admin: 05/11/22 19:38 Dose: 2.5 mg Documented By: ANTOINE Albuterol Sulfate (Albuterol Sulfate 90 Mcg 8 Gm Inhaler) 2 puff INHALE Q4H PRN PRN Reason: Shortness Of Breath Aspirin (Aspirin 81 Mg Tab.Chew) 81 mg G-TUBE BEDTIME [facility] Last Admin: 05/11/22 19:57 Dose: 81 mg Documented By: AIDA Atorvastatin Calcium (Atorvastatin Calcium 20 Mg Tablet) 20 mg G-TUBE BEDTIME [facility] Last Admin: 05/11/22 19:58 Dose: 20 mg Documented By: AIDA Calcium Carbonate/Cholecalciferol (Calcium + Vitamin D 250 Mg Tablet) 500 mg G-TUBE BID [facility] Last Admin: 05/12/22 09:24 Dose: 500 mg Documented By: STEPHANIE Clopidogrel Bisulfate (Clopidogrel Bisulfate 75 Mg Tablet) 75 mg G-TUBE BEDTIME [facility] Last Admin: 05/11/22 19:58 Dose: 75 mg Documented By: AIDA Duloxetine HCl (Duloxetine Hcl 30 Mg Capsule.Dr) 30 mg PO DAILY [facility] Last Admin: 05/12/22 09:24 Dose: 30 mg Documented By: STEPHANIE Ferrous Sulfate (Ferrous Sulfate 300 Mg/5 Ml Liquid) 300 mg G-TUBE BIDWM [facility] Last Admin: 05/12/22 09:24 Dose: 300 mg Documented By: STEPHANIE Fluticasone Propionate (Fluticasone Propionate 100 Mcg Blst.W.Dev) 2 puff INHALE RBID [facility] Last Admin: 05/12/22 08:07 Dose: Not Given Documented By: DIMITRIS Non-Admin Reason: See Note Metronidazole (Flagyl) 500 mg in 100 mls @ 100 mls/hr IV Q8H [facility] Last Admin: 05/12/22 15:03 Dose: 100 mls/hr Documented By: STEPHANIE Levetiracetam (Levetiracetam Oral Soln 500 Mg/5 Ml) 500 mg G-TUBE BID [facility] Last Admin: 05/12/22 09:24 Dose: 500 mg Documented By: STEPHANIE Lidocaine (Lidocaine 4 % Patch Adh..Patch) 1 patch TRANSDERMA DAILY [facility]; Protocol Last Admin: 05/12/22 09:23 Dose: 1 patch Documented By: STEPHANIE Loratadine (Loratadine 10 Mg Tablet) 10 mg G-TUBE DAILY [facility] Last Admin: 05/12/22 09:24 Dose: 10 mg Documented By: STEPHANIE Melatonin (Melatonin 3 Mg Tablet) 6 mg G-TUBE BEDTIME PRN PRN Reason: insomnia Last Admin: 05/11/22 19:59 Dose: 6 mg Documented By: AIDA Modafinil (Modafinil 100 Mg Tablet) 200 mg G-TUBE DAILY [facility] Last Admin: 05/12/22 09:24 Dose: 200 mg Documented By: STEPHANIE Non-Formulary Medication (Amantadine Hcl) 10 ml G-TUBE DAILY [facility] Omeprazole (Omeprazole 20 Mg/10 Ml Susp.Recon) 20 mg G-TUBE BID@0630,1630 [facility] Last Admin: 05/12/22 04:59 Dose: 20 mg Documented By: AIDA Ondansetron HCl (Ondansetron Hcl 4 Mg/2 Ml Vial) 4 mg IVPUSH Q8H PRN PRN Reason: Nausea and Vomiting Oxycodone HCl (Oxycodone Hcl Immed Release 5 Mg Tablet) 5 mg PO Q6H PRN PRN Reason: Pain, Moderate (Pain Scale 4-6 Last Admin: 05/12/22 04:58 Dose: 5 mg Documented By: AIDA Pharmacy Consult (Consult Rx Perform Med Rec) 1 each MISCELLANE ONCE PRN PRN Reason: Consult order Quetiapine Fumarate (Quetiapine Fumarate 25 Mg Tablet) 25 mg G-TUBE BID [facility] Last Admin: 05/12/22 09:24 Dose: 25 mg Documented By: STEPHANIE Sodium Chloride (0.9 % Sodium Chloride Flush 3 Ml Syringe) 3 ml IVFLUSH [facility] Last Admin: 05/12/22 09:59 Dose: Not Given Documented By: STEPHANIE Non-Admin Reason: Previously Administered Sodium Chloride (0.9 % Sodium Chloride Flush 3 Ml Syringe) 3 ml IVFLUSH [facility] Last Admin: 05/12/22 09:02 Dose: Not Given Documented By: FRANKLIN Non-Admin Reason: Duplicate Order Vancomycin HCl (Vancomycin Hcl Oral Solution 125 Mg/5 Ml Soln.Recon) 250 mg PO Q6H [facility] Last Admin: 05/12/22 13:59 Dose: 250 mg Documented By: STEPHANIE Labs CBC & Chem 7: 05/12/22 05:56 05/12/22 05:56 Labs: Laboratory Results - last 24 hr 05/12/22 05/12/22 05:56 05:56 MCV 79.3 L MCH 25.6 L MCHC 32.3 RDW 17.6 H Plt Count 325 MPV 10.1 Absolute Nucleated RBC 0.000 Nucleated RBC % (auto) 0.0 Anion Gap 10 L Estim Creat Clear Calc 44.8 Estimated GFR > 60 Random Glucose 158 H Calcium 8.8 Assessment and Plan (1) C. difficile diarrhea: Status: Acute (2) Urinary tract infection: Status: Acute Plan 86-year-old Yoruba-speaking woman admitted with acute UTI Urinary tract infection. Failed outpatient treatment Urine culture from May 04 showed Proteus mirabilis sensitive to Rocephin pyuria /urine culture and blood cultures negative ID eval noted -added ct abd , continue iv antibiotics-for C diff, of ceftriaxone-less likely UTI. Asthma No exacerbation Continue home medications History of SAH status post stenting earlier this year? On Dapt. Continue levetiracetam for seizure prophylaxis did not find any clera hx of seizure from previous record review. GERD Continue PPI Mental health Continue home medications Coccyx wound present on admission wound care, frequent turning Wound care- recommend offloading rotating barrier cream and a foam dressing, nutritional consult Hypertension Stable blood pressure Continue home medications Diarrhae : seems improving but still 3-4 bm overnight cdiff positive continue vanco /flagyl via peg knee pain left side: continue tylenol/oxycodone , lidocaine patch Will add knee and hip x-ray also. DVT prophylaxis with heparin inpatient need: c diff on antibotics Quality Stroke Does the patient have a stroke diagnosis?: No VTE Prior VTE?: No VTE Risk Level:: Medical - moderate - high VTE Device Contraindication: N/A - Device Ordered VTE Drug Contraindication: N/A - Med Ordered
[2022-05-12] MEDS: Morphine Sulfate 2 MG/ML CARTRIDGE 1 MG IVPUSH (16:32)
[2022-05-12] MEDS: 0.9 % Sodium Chloride Flush 3 ML SYRINGE IVFLUSH (16:47)
[2022-05-12] MEDS: HYDROmorphone HCl 1 MG/ML SYRINGE 0.5 MG IVPUSH (21:14)
[2022-05-12] MEDS: Clopidogrel Bisulfate 75 MG TABLET G-TUBE (21:28)
[2022-05-12] MEDS: Atorvastatin Calcium 20 MG TABLET G-TUBE (21:28)
[2022-05-12] MEDS: Aspirin 81 MG TAB.CHEW G-TUBE (21:28)
[2022-05-12] MEDS: Melatonin 3 MG TABLET 6 MG G-TUBE (21:28)
[2022-05-13] VITALS (7 sets, daily range): BP systolic 96–137; BP diastolic 52–74; PULSE 72–88; RESP 16–18; TEMP 36.6–38.4; O2SAT 92–95
[2022-05-13] MEDS: vancomycin HCL Oral Solution 125 MG/5 ML SOLN.RECON 250 MG PO ×4 (03:43→19:33)
[2022-05-13] MEDS: HYDROmorphone HCl 1 MG/ML SYRINGE 0.5 MG IVPUSH (03:43)
[2022-05-13] MEDS: metroNIDAZOLE/NS 500 MG/100 ML PIGGYBACK 100 MG IV ×3 (06:49→22:35)
[2022-05-13 07:13] LABS: Hematocrit 25.7 % (37.0-47.0); Hemoglobin 8.4 g/dl (12.0-16.0); Mean Corpuscular HGB Conc 32.7 g/dl (31.0-35.0); Mean Corpuscular Volume 79.6 fL (80.0-98.0); Mean Platelet Volume 10.2 fL (9.4-12.3); Platelet Count 355 X10*3/uL (160-400); Red Blood Count 3.23 X10*6/uL (4.20-5.50); Red Cell Distribution Width 17.5 % (11.0-16.0); White Blood Count 19.1 X10*3/uL (4.8-10.8)
[2022-05-13] MEDS: levETIRAcetam Oral Soln 500 MG/5 ML G-TUBE ×2 (08:46→20:34)
[2022-05-13] MEDS: DULoxetine HCl 30 MG CAPSULE.DR PO (08:46)
[2022-05-13] MEDS: modafiniL 100 MG TABLET 200 MG G-TUBE (08:46)
[2022-05-13] MEDS: Ferrous Sulfate 300 MG/5 ML LIQUID G-TUBE ×2 (08:46→17:24)
[2022-05-13] MEDS: Loratadine 10 MG TABLET G-TUBE (08:47)
[2022-05-13] MEDS: Calcium + Vitamin D 250 MG TABLET 500 MG G-TUBE ×2 (08:47→20:35)
[2022-05-13] MEDS: Acetaminophen 325 MG TABLET 975 MG G-TUBE ×2 (08:47→19:33)
[2022-05-13] MEDS: QUEtiapine Fumarate 25 MG TABLET G-TUBE ×2 (08:47→20:35)
[2022-05-13] MEDS: Lidocaine 4 % Patch ADH..PATCH 1 PATCH TRANSDERMA (08:49)
[2022-05-13] MEDS: 0.9 % Sodium Chloride Flush 3 ML SYRINGE IVFLUSH ×3 (08:50→22:35)
[2022-05-13] MEDS: HYDROmorphone HCl 0.5 MG/0.5 ML SYRINGE IVPUSH (13:57)
--- NOTE | 2022-05-13 15:40 | HO.PM.IMPN ---
Subjective Subjective Date of Service: 05/13/22 Interval History: Toxic metabolic encephalopathy, cdiff , uti Review of Systems has hx of cva with left sided weakness seems less knee pain>hip pain on palpation, at home mostly bedbound Physical Exam Vital Signs: Vital Signs: Last Vital Signs Temp 99.0 F 05/13/22 15:06 Pulse 82 05/13/22 15:06 Resp 18 05/13/22 15:06 BP 131/74 05/13/22 15:06 Pulse Ox 92 05/13/22 15:06 O2 Del Method 05/13/22 15:06 BMI result Body Mass Index 21.9 Appearance: intermittently say her name , daughter at bedside.otherwise mostly seems somewhat discomfort cvs: [id number], [id number] , no murmur res: clear to auscultation ,no rhonchii or wheezing abd: no rebound or guarding, not much discomfort except llq, bs present. ext pulses present , no cyanosis skin -coccyx wound. knee pain/left side -seems less neuro: axo3 , nonfocal. Objective Data Active Medications Acetaminophen (Acetaminophen 325 Mg Tablet) 975 mg G-TUBE Q6H PRN PRN Reason: Pain, Mild (Pain Scale 1-3) Last Admin: 05/13/22 08:47 Dose: 975 mg Documented By: FRANKLIN Albuterol Sulfate (Albuterol Sulfate (0.083%) 2.5 Mg/3 Ml Vial.Neb) 2.5 mg INHALE TID PRN PRN Reason: Shortness Of Breath Last Admin: 05/11/22 19:38 Dose: 2.5 mg Documented By: ANTOINE Albuterol Sulfate (Albuterol Sulfate 90 Mcg 8 Gm Inhaler) 2 puff INHALE Q4H PRN PRN Reason: Shortness Of Breath Aspirin (Aspirin 81 Mg Tab.Chew) 81 mg G-TUBE BEDTIME [facility] Last Admin: 05/12/22 21:28 Dose: 81 mg Documented By: LINDSAY Atorvastatin Calcium (Atorvastatin Calcium 20 Mg Tablet) 20 mg G-TUBE BEDTIME [facility] Last Admin: 05/12/22 21:28 Dose: 20 mg Documented By: LINDSAY Calcium Carbonate/Cholecalciferol (Calcium + Vitamin D 250 Mg Tablet) 500 mg G-TUBE BID [facility] Last Admin: 05/13/22 08:47 Dose: 500 mg Documented By: FRANKLIN Clopidogrel Bisulfate (Clopidogrel Bisulfate 75 Mg Tablet) 75 mg G-TUBE BEDTIME [facility] Last Admin: 05/12/22 21:28 Dose: 75 mg Documented By: LINDSAY Duloxetine HCl (Duloxetine Hcl 30 Mg Capsule.Dr) 30 mg PO DAILY [facility] Last Admin: 05/13/22 08:46 Dose: 30 mg Documented By: FRANKLIN Ferrous Sulfate (Ferrous Sulfate 300 Mg/5 Ml Liquid) 300 mg G-TUBE BIDWM [facility] Last Admin: 05/13/22 08:46 Dose: 300 mg Documented By: FRANKLIN Fluticasone Propionate (Fluticasone Propionate 100 Mcg Blst.W.Dev) 2 puff INHALE RBID [facility] Last Admin: 05/13/22 07:42 Dose: Not Given Documented By: DIMITRIS Non-Admin Reason: See Note Metronidazole (Flagyl) 500 mg in 100 mls @ 100 mls/hr IV Q8H [facility] Last Admin: 05/13/22 14:47 Dose: 100 mls/hr Documented By: FRANKLIN Levetiracetam (Levetiracetam Oral Soln 500 Mg/5 Ml) 500 mg G-TUBE BID [facility] Last Admin: 05/13/22 08:46 Dose: 500 mg Documented By: FRANKLIN Lidocaine (Lidocaine 4 % Patch Adh..Patch) 1 patch TRANSDERMA DAILY [facility]; Protocol Last Admin: 05/13/22 08:49 Dose: 1 patch Documented By: FRANKLIN Loratadine (Loratadine 10 Mg Tablet) 10 mg G-TUBE DAILY [facility] Last Admin: 05/13/22 08:47 Dose: 10 mg Documented By: FRANKLIN Melatonin (Melatonin 3 Mg Tablet) 6 mg G-TUBE BEDTIME PRN PRN Reason: insomnia Last Admin: 05/12/22 21:28 Dose: 6 mg Documented By: LINDSAY Modafinil (Modafinil 100 Mg Tablet) 200 mg G-TUBE DAILY [facility] Last Admin: 05/13/22 08:46 Dose: 200 mg Documented By: FRANKLIN Non-Formulary Medication (Amantadine Hcl) 10 ml G-TUBE DAILY [facility] Omeprazole (Omeprazole 20 Mg/10 Ml Susp.Recon) 20 mg G-TUBE BID@0630,1630 [facility] Last Admin: 05/13/22 06:49 Dose: 20 mg Documented By: LINDSAY Ondansetron HCl (Ondansetron Hcl 4 Mg/2 Ml Vial) 4 mg IVPUSH Q8H PRN PRN Reason: Nausea and Vomiting Oxycodone HCl (Oxycodone Hcl Immed Release 5 Mg Tablet) 5 mg PO Q6H PRN PRN Reason: Pain, Moderate (Pain Scale 4-6 Last Admin: 05/12/22 04:58 Dose: 5 mg Documented By: AIDA Pharmacy Consult (Consult Rx Perform Med Rec) 1 each MISCELLANE ONCE PRN PRN Reason: Consult order Quetiapine Fumarate (Quetiapine Fumarate 25 Mg Tablet) 25 mg G-TUBE BID [facility] Last Admin: 05/13/22 08:47 Dose: 25 mg Documented By: FRANKLIN Sodium Chloride (0.9 % Sodium Chloride Flush 3 Ml Syringe) 3 ml IVFLUSH [facility] Last Admin: 05/13/22 08:50 Dose: 3 ml Documented By: FRANKLIN Sodium Chloride (0.9 % Sodium Chloride Flush 3 Ml Syringe) 3 ml IVFLUSH [facility] Last Admin: 05/13/22 08:50 Dose: Not Given Documented By: FRANKLIN Non-Admin Reason: Duplicate Order Vancomycin HCl (Vancomycin Hcl Oral Solution 125 Mg/5 Ml Soln.Recon) 250 mg PO Q6H [facility] Last Admin: 05/13/22 13:57 Dose: 250 mg Documented By: FRANKLIN Labs CBC & Chem 7: 05/13/22 06:32 05/12/22 05:56 Labs: Laboratory Results - last 24 hr 05/13/22 05/13/22 06:32 13:20 MCV 79.6 L MCH 26.0 L MCHC 32.7 RDW 17.5 H Plt Count 355 MPV 10.2 Absolute Nucleated RBC 0.000 Nucleated RBC % (auto) 0.0 Respiratory Panel Castellanos Cancelled Adenovirus (Rapid PCR) Cancelled B.pert (TEM-PCR) Cancelled B.parapertussis DNA PCR Cancelled C. pneumoniae DNA (PCR) Cancelled Coronavirus OC43 (PCR) Cancelled Coronavirus HKU1 (PCR) Cancelled Coronavirus 229E (PCR) Cancelled Coronavirus NL63 (PCR) Cancelled Human Metapneumovir PCR Cancelled Influenza A (RT-PCR) Cancelled Influenza B (RT-PCR) Cancelled M. pneumoniae (PCR) Cancelled Parainfluenza 1 (PCR) Cancelled Parainfluenza 2 (PCR) Cancelled Parainfluenza 3 (PCR) Cancelled Parainfluenza 4 (PCR) Cancelled RSV (PCR) Cancelled Entero/Rhino (PCR) Cancelled SARS-CoV-2 RNA (RT-PCR) Cancelled Assessment and Plan (1) C. difficile diarrhea: Status: Acute (2) Toxic metabolic encephalopathy: Status: Acute Plan 86-year-old Occitan-speaking woman admitted with acute UTI Toxic metabolic encephalopathy-multifactorial(C diff, hyponatremia, pre renal azotemia) Intermittently says her name Her sodium is improving as well as pre renal azotemia diarrhea is also slowly improving Still has fever intermitten Antibiotics will continue antibiotics, feeding, hydration, monitor electrolytes closely, CT head done-seems like no acute changes. 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 Had episode of fever this morning-I did are Res panel in addition-since abdominal CT shows mostly colitis possibly related to C diff. blood culture negative at 48 hours. Urine culture also negative Will continue to monitor- will avoid sedative medications, opioids for now. Urinary tract infection. Failed outpatient treatment Urine culture from May 04 showed Proteus mirabilis sensitive to Rocephin pyuria /urine culture and blood cultures negative ID eval noted -ct abd:Moderate to significant constipation with most of the stool in the right colon. There is diffuse mural thickening involving the sigmoid colon and the rectum suggestive of proctitis and sigmoid colitis. continue iv antibiotics-for C diff, off ceftriaxone-less likely UTI. Asthma No exacerbation Continue home medications History of SAH status post stenting earlier this year? On Dapt. Continue levetiracetam for seizure prophylaxis did not find any clear hx of seizure from previous record review. GERD Continue PPI Mental health Continue home medications Coccyx wound present on admission wound care, frequent turning Wound care- recommend offloading rotating barrier cream and a foam dressing, nutritional consult Hypertension Stable blood pressure Continue home medications Diarrhae : seems improving but still 4 bm overnight cdiff positive continue vanco /flagyl via peg knee pain left side: continue tylenol/oxycodone , lidocaine patch knee and hip x-ray -possible OA. DVT prophylaxis with heparin inpatient need: c diff on antibotics, toxic metabolic encephalopathy multifactorial. Above management discussed with the family in detail length they understand the prognosis is poor but still wanted to continue the conservative management for now. Quality Stroke Does the patient have a stroke diagnosis?: No VTE Prior VTE?: No VTE Risk Level:: Medical - moderate - high VTE Device Contraindication: N/A - Device Ordered VTE Drug Contraindication: N/A - Med Ordered
[2022-05-13] MEDS: oxyCODONE HCl Immed Release 5 MG TABLET PO (18:15)
[2022-05-13] MEDS: Aspirin 81 MG TAB.CHEW G-TUBE (20:35)
[2022-05-13] MEDS: Clopidogrel Bisulfate 75 MG TABLET G-TUBE (20:35)
[2022-05-13] MEDS: Atorvastatin Calcium 20 MG TABLET G-TUBE (20:35)
[2022-05-13] MEDS: Melatonin 3 MG TABLET 6 MG G-TUBE (20:35)
--- NOTE | 2022-05-13 22:39 | W.PM.IDCN ---
History of Present Illness Data of Consult Service Date: 05/13/22 Requesting physician: Jackie Orellana Primary Care Provider: Anders Frey MD [facility] Reason for consult: weakness,bacteriuria She presents with dizziness and ongoing bleeding per rectum. She has no fever or chills. She has no dysuria or hematuria. Urine culture shows bacteria,E coli Review of Systems Review of Systems: Yes all other systems are reviewed and are negative PMFSH Past Medical History Medical History Asthma C. difficile colitis Cerebral aneurysm CVA (cerebral vascular accident) Dementia Hypertension Pneumonia Pyuria Family History Family history: reviewed and not pertinent Surgical History Surgical History H/O lithotripsy History of cholecystectomy Previous back surgery S/P endovascular aneurysm repair Social History Social History Household Members: Unknown / Unable to assess Housing: Apartment Do you presently have visiting nurse or other home services: Yes Unable to assess alcohol history related to: Unknown Alcohol intake: never Patient Tobacco Use Status: Never used Tobacco service: No Current occupational status: disabled Meds Allergies Allergy/AdvReac Type Severity Reaction Status Date / Time lisinopril [LISINOPRIL] Allergy Mild CHEST PAIN Verified 06/19/21 19:37 codeine [CODEINE] AdvReac Unknown AGITATION Verified 06/19/21 19:37 Active Medications: Current Medications Acetaminophen (Acetaminophen 325 Mg Tablet) 975 mg G-TUBE Q6H PRN PRN Reason: Pain, Mild (Pain Scale 1-3) Last Admin: 05/13/22 19:33 Dose: 975 mg Albuterol Sulfate (Albuterol Sulfate (0.083%) 2.5 Mg/3 Ml Vial.Neb) 2.5 mg INHALE TID PRN PRN Reason: Shortness Of Breath Last Admin: 05/11/22 19:38 Dose: 2.5 mg Albuterol Sulfate (Albuterol Sulfate 90 Mcg 8 Gm Inhaler) 2 puff INHALE Q4H PRN PRN Reason: Shortness Of Breath Aspirin (Aspirin 81 Mg Tab.Chew) 81 mg G-TUBE BEDTIME [facility] Last Admin: 05/13/22 20:35 Dose: 81 mg Atorvastatin Calcium (Atorvastatin Calcium 20 Mg Tablet) 20 mg G-TUBE BEDTIME [facility] Last Admin: 05/13/22 20:35 Dose: 20 mg Calcium Carbonate/Cholecalciferol (Calcium + Vitamin D 250 Mg Tablet) 500 mg G-TUBE BID [facility] Last Admin: 05/13/22 20:35 Dose: 500 mg Clopidogrel Bisulfate (Clopidogrel Bisulfate 75 Mg Tablet) 75 mg G-TUBE BEDTIME [facility] Last Admin: 05/13/22 20:35 Dose: 75 mg Duloxetine HCl (Duloxetine Hcl 30 Mg Capsule.Dr) 30 mg PO DAILY [facility] Last Admin: 05/13/22 08:46 Dose: 30 mg Ferrous Sulfate (Ferrous Sulfate 300 Mg/5 Ml Liquid) 300 mg G-TUBE BIDWM [facility] Last Admin: 05/13/22 17:24 Dose: 300 mg Fluticasone Propionate (Fluticasone Propionate 100 Mcg Blst.W.Dev) 2 puff INHALE RBID [facility] Last Admin: 05/13/22 19:59 Dose: Not Given Metronidazole (Flagyl) 500 mg in 100 mls @ 100 mls/hr IV Q8H [facility] Last Admin: 05/13/22 22:35 Dose: 100 mls/hr Levetiracetam (Levetiracetam Oral Soln 500 Mg/5 Ml) 500 mg G-TUBE BID [facility] Last Admin: 05/13/22 20:34 Dose: 500 mg Lidocaine (Lidocaine 4 % Patch Adh..Patch) 1 patch TRANSDERMA DAILY [facility]; Protocol Last Admin: 05/13/22 08:49 Dose: 1 patch Loratadine (Loratadine 10 Mg Tablet) 10 mg G-TUBE DAILY [facility] Last Admin: 05/13/22 08:47 Dose: 10 mg Melatonin (Melatonin 3 Mg Tablet) 6 mg G-TUBE BEDTIME PRN PRN Reason: insomnia Last Admin: 05/13/22 20:35 Dose: 6 mg Modafinil (Modafinil 100 Mg Tablet) 200 mg G-TUBE DAILY [facility] Last Admin: 05/13/22 08:46 Dose: 200 mg Non-Formulary Medication (Amantadine Hcl) 10 ml G-TUBE DAILY [facility] Omeprazole (Omeprazole 20 Mg/10 Ml Susp.Recon) 20 mg G-TUBE BID@0630,1630 [facility] Last Admin: 05/13/22 17:24 Dose: 20 mg Ondansetron HCl (Ondansetron Hcl 4 Mg/2 Ml Vial) 4 mg IVPUSH Q8H PRN PRN Reason: Nausea and Vomiting Oxycodone HCl (Oxycodone Hcl Immed Release 5 Mg Tablet) 5 mg PO Q6H PRN PRN Reason: Pain, Moderate (Pain Scale 4-6 Last Admin: 05/13/22 18:15 Dose: 5 mg Pharmacy Consult (Consult Rx Perform Med Rec) 1 each MISCELLANE ONCE PRN PRN Reason: Consult order Quetiapine Fumarate (Quetiapine Fumarate 25 Mg Tablet) 25 mg G-TUBE BID [facility] Last Admin: 05/13/22 20:35 Dose: 25 mg Sodium Chloride (0.9 % Sodium Chloride Flush 3 Ml Syringe) [facility] Last Admin: 05/13/22 22:35 Dose: 3 ml Sodium Chloride (0.9 % Sodium Chloride Flush 3 Ml Syringe) 3 ml IVFLUSH [facility] Last Admin: 05/13/22 17:24 Dose: Not Given Vancomycin HCl (Vancomycin Hcl Oral Solution 125 Mg/5 Ml Soln.Recon) 250 mg PO Q6H [facility] Last Admin: 05/13/22 19:33 Dose: 250 mg Home Medications Medication Instructions Recorded Confirmed Last Taken Type cetirizine 10 mg tablet 10 mg PO DAILY 12/19/20 05/08/22 05/08/22 History albuterol sulfate 90 mcg/actuation 2 puff inhalation Q4-6H PRN 12/20/20 05/08/22 01/29/22 History aerosol inhaler Shortness Of Breath calcium carbonate 500 mg-vitamin 1 tab PO BID 12/20/20 05/08/22 05/08/22 History D3 5 mcg (200 unit) tablet (Oyster Shell Calcium-Vitamin D3) valsartan 320 1 tab PO DAILY 12/20/20 05/08/22 05/08/22 History mg-hydrochlorothiazide 25 mg tablet rosuvastatin 10 mg tablet 1 tab PO QPM 11/25/21 05/08/22 05/07/22 History albuterol sulfate 1 amp inhalation TID PRN Shortness 01/30/22 05/08/22 01/29/22 History Of Breath amantadine HCl 50 mg/5 mL oral 10 ml G-tube DAILY 01/30/22 05/08/22 05/08/22 History solution clopidogrel 75 mg tablet 1 tab BEDTIME 01/30/22 05/08/22 05/07/22 History duloxetine 30 mg capsule,delayed 1 cap PO DAILY 01/30/22 05/08/22 05/08/22 History release levetiracetam 100 mg/mL oral 5 ml G-tube BID 01/30/22 05/08/22 05/08/22 History solution melatonin 5 mg tablet 1 tab PO BEDTIME PRN insomnia 01/30/22 05/08/22 01/29/22 History modafinil 200 mg tablet 1 tab PO DAILY 01/30/22 05/08/22 05/08/22 History aspirin 81 mg chewable tablet 1 tab PO QPM 05/08/22 05/08/22 05/07/22 History fluticasone propionate 110 2 puff inhalation BID 05/08/22 05/08/22 05/08/22 History mcg/actuation HFA aerosol inhaler (Flovent HFA) Physical Exam Vital Signs: Vital Signs: Last Vital Signs Temp 99.9 F 05/13/22 19:07 Pulse 84 05/13/22 19:07 Resp 18 05/13/22 19:07 BP 96/55 L 05/13/22 19:07 Pulse Ox 95 05/13/22 19:07 O2 Del Method 05/13/22 19:07 BMI result Body Mass Index 21.9 Const: General: cooperative HEENT: Head: Yes normal to inspection Face and sinus: Yes normal facial exam Mouth: Normal oral and palatal mucosa present Teeth and gingiva: dentition normal Eyes: General: appearance normal, both eyes and all related structures Pupils: Equal, round and reactive pupils present Resp: Effort & Inspection: normal respiratory effort Cardio: Rate: regular rate Rhythm: regular rhythm GI: Palpation (GI): Soft to palpation and nontender : General: Yes no CVA tenderness Back/Spine/Pelvis: Back: no CVA tenderness Skin: General skin exam: no rashes or lesions noted Neuro: General: moves all extremities Cranial nerves: Yes Equal, round and reactive pupils present Extrem: General: Yes normal to inspection Psych: Appearance: grossly normal Mental Status: mental status grossly normal Results Labs CBC & Chem 7: 05/13/22 06:32 05/12/22 05:56 Labs: Short CBC 05/13/22 Range/Units 06:32 WBC 19.1 H (4.8-10.8) X10*3/uL Hgb 8.4 L (12.0-16.0) g/dl Hct 25.7 L (37.0-47.0) % Plt Count 355 (160-400) X10*3/uL Microbiology Microbiology Results: Microbiology 05/08/22 17:00 Blood - Venous Blood Culture - Final No growth after 5 days. 05/08/22 15:06 Blood - Venous Blood Culture - Final No growth after 5 days. 05/08/22 Unknown Urine clean catch - Urine [place] Urine Culture - Final No growth.
[2022-05-14] VITALS (10 sets, daily range): BP systolic 82–147; BP diastolic 40–74; PULSE 78–99; RESP 16–22; TEMP 36.6–38.4; O2SAT 94–100
[2022-05-14] MEDS: vancomycin HCL Oral Solution 125 MG/5 ML SOLN.RECON 250 MG PO ×4 (01:46→22:34)
[2022-05-14] MEDS: oxyCODONE HCl Immed Release 5 MG TABLET PO ×3 (01:46→14:32)
[2022-05-14] MEDS: metroNIDAZOLE/NS 500 MG/100 ML PIGGYBACK 100 MG IV ×2 (06:28→21:39)
[2022-05-14 08:52] LABS: Adenovirus PCR Not Detected (Not Detect.); Bordetella parapertussis PCR Not Detected (Not Detect.); Bordetella pertussis PCR Not Detected (Not Detect.); Chlamydia pneumoniae PCR Not Detected (Not Detect.); Coronavirus 229E PCR Not Detected (Not Detect.); Coronavirus HKU1 PCR Not Detected (Not Detect.); Coronavirus NL63 PCR Not Detected (Not Detect.); Coronavirus OC43 PCR Not Detected (Not Detect.); Human metapneumovirus PCR Not Detected (Not Detect.); Influenza A PCR Not Detected (Not Detect.); Influenza B PCR Not Detected (Not Detect.); Mycoplasma pneumoniae PCR Not Detected (Not Detect.); Parainfluenza 1 PCR Not Detected (Not Detect.); Parainfluenza 2 PCR Not Detected (Not Detect.); Parainfluenza 3 PCR Not Detected (Not Detect.); Parainfluenza 4 PCR Not Detected (Not Detect.); RSV PCR Not Detected (Not Detect.); Rhino/Enterovirus PCR Not Detected (Not Detect.); SARS-CoV-2 PCR Not Detected (Not Detect.)
[2022-05-14 09:03] LABS: Hematocrit 28.4 % (37.0-47.0); Mean Corpuscular HGB Conc 31.7 g/dl (31.0-35.0); Mean Corpuscular Hemoglobin 25.6 pg (27.0-33.0); Mean Corpuscular Volume 80.7 fL (80.0-98.0); Mean Platelet Volume 10.8 fL (9.4-12.3); Platelet Count 316 X10*3/uL (160-400); Red Blood Count 3.52 X10*6/uL (4.20-5.50); Red Cell Distribution Width 17.7 % (11.0-16.0)
[2022-05-14 09:07] LABS: Anion Gap 14 (12-20); Blood Urea Nitrogen 24 mg/dL (9-16); Calcium 8.3 mg/dL (8.4-10.2); Carbon Dioxide 22 mmol/L (22-29); Chloride 101 mmol/L (96-108); Creatinine Clr Calc Pharmacy 52.5; Estimated Glomerular Filt Rate > 60; Glucose Random 154 mg/dL (60-115); Potassium 5.1 mmol/L (3.3-5.1); Sodium 132 mmol/L (135-145)
[2022-05-14] MEDS: Lidocaine 4 % Patch ADH..PATCH 1 PATCH TRANSDERMA (09:28)
[2022-05-14] MEDS: levETIRAcetam Oral Soln 500 MG/5 ML G-TUBE ×2 (09:29→20:11)
[2022-05-14] MEDS: Ferrous Sulfate 300 MG/5 ML LIQUID G-TUBE ×2 (09:29→18:26)
[2022-05-14] MEDS: Acetaminophen 325 MG TABLET 975 MG G-TUBE ×2 (09:30→18:22)
[2022-05-14] MEDS: DULoxetine HCl 30 MG CAPSULE.DR PO (09:30)
[2022-05-14] MEDS: modafiniL 100 MG TABLET 200 MG G-TUBE (09:31)
[2022-05-14] MEDS: Calcium + Vitamin D 250 MG TABLET 500 MG G-TUBE ×2 (09:31→20:10)
[2022-05-14] MEDS: QUEtiapine Fumarate 25 MG TABLET G-TUBE ×2 (09:31→20:10)
[2022-05-14] MEDS: Loratadine 10 MG TABLET G-TUBE (09:31)
[2022-05-14] MEDS: 0.9 % Sodium Chloride Flush 3 ML SYRINGE IVFLUSH ×3 (09:32→20:11)
--- NOTE | 2022-05-14 12:32 | P.PNIM_ITS ---
Subjective Subjective Date of Service: 05/14/22 Interval History: c diff Review of Systems still has diarrhae intermittent fevers otherwise seems similar to yesterday Physical Exam Vital Signs: Vital Signs: Last Vital Signs Temp 100.6 F H 05/14/22 08:00 Pulse 89 05/14/22 08:00 Resp 22 H 05/14/22 08:00 BP 118/56 L 05/14/22 08:00 Pulse Ox 96 05/14/22 08:00 O2 Del Method 05/14/22 08:00 BMI result Body Mass Index 21.9 Appearance: intermittently say her name , daughter at bedside.otherwise mostly seems somewhat discomfort cvs: rrr, [id number] , no murmur res: breathing sound slightly diminshed (poor respiratory efforts), has mild wheezing also abd: no rebound or guarding, not much discomfort except llq, bs present. ext pulses present , no cyanosis skin -coccyx wound. knee pain/left side -seems less neuro: axo3 , nonfocal. Objective Data Active Medications Acetaminophen (Acetaminophen 325 Mg Tablet) 975 mg G-TUBE Q6H PRN PRN Reason: Pain, Mild (Pain Scale 1-3) Last Admin: 05/14/22 09:30 Dose: 975 mg Documented By: YSABEL Albuterol Sulfate (Albuterol Sulfate (0.083%) 2.5 Mg/3 Ml Vial.Neb) 2.5 mg INHALE TID PRN PRN Reason: Shortness Of Breath Last Admin: 05/11/22 19:38 Dose: 2.5 mg Documented By: ANTOINE Albuterol Sulfate (Albuterol Sulfate 90 Mcg 8 Gm Inhaler) 2 puff INHALE Q4H PRN PRN Reason: Shortness Of Breath Aspirin (Aspirin 81 Mg Tab.Chew) 81 mg G-TUBE BEDTIME [facility] Last Admin: 05/13/22 20:35 Dose: 81 mg Documented By: LNIDSAY Atorvastatin Calcium (Atorvastatin Calcium 20 Mg Tablet) 20 mg G-TUBE BEDTIME [facility] Last Admin: 05/13/22 20:35 Dose: 20 mg Documented By: LINDSAY Calcium Carbonate/Cholecalciferol (Calcium + Vitamin D 250 Mg Tablet) 500 mg G- TUBE BID [facility] Last Admin: 05/14/22 09:31 Dose: 500 mg Documented By: YSABEL Clopidogrel Bisulfate (Clopidogrel Bisulfate 75 Mg Tablet) 75 mg G-TUBE BEDTIME [facility] Last Admin: 05/13/22 20:35 Dose: 75 mg Documented By: LINDSAY Duloxetine HCl (Duloxetine Hcl 30 Mg Capsule.Dr) 30 mg PO DAILY [facility] Last Admin: 05/14/22 09:30 Dose: 30 mg Documented By: YSABEL Ferrous Sulfate (Ferrous Sulfate 300 Mg/5 Ml Liquid) 300 mg G-TUBE BIDWM [facility] Last Admin: 05/14/22 09:29 Dose: 300 mg Documented By: YSABEL Fluticasone Propionate (Fluticasone Propionate 100 Mcg Blst.W.Dev) 2 puff INHALE RBID [facility] Last Admin: 05/14/22 07:51 Dose: Not Given Documented By: DIMITRIS Non-Admin Reason: See Note Metronidazole (Flagyl) 500 mg in 100 mls @ 100 mls/hr IV Q8H [facility] Last Infusion: 05/14/22 07:56 Dose: 0 mls/hr Documented By: KEV Levetiracetam (Levetiracetam Oral Soln 500 Mg/5 Ml) 500 mg G-TUBE BID [facility] Last Admin: 05/14/22 09:29 Dose: 500 mg Documented By: YSABEL Lidocaine (Lidocaine 4 % Patch Adh..Patch) 1 patch TRANSDERMA DAILY [facility]; Protocol Last Admin: 05/14/22 09:28 Dose: 1 patch Documented By: YSABEL Loratadine (Loratadine 10 Mg Tablet) 10 mg G-TUBE DAILY [facility] Last Admin: 05/14/22 09:31 Dose: 10 mg Documented By: YSABEL Melatonin (Melatonin 3 Mg Tablet) 6 mg G-TUBE BEDTIME PRN PRN Reason: insomnia Last Admin: 05/13/22 20:35 Dose: 6 mg Documented By: LINDSAY Modafinil (Modafinil 100 Mg Tablet) 200 mg G-TUBE DAILY [facility] Last Admin: 05/14/22 09:31 Dose: 200 mg Documented By: YSABEL Non-Formulary Medication (Amantadine Hcl) 10 ml G-TUBE DAILY [facility] Omeprazole (Omeprazole 20 Mg/10 Ml Susp.Recon) 20 mg G-TUBE BID@0630,1630 [facility] Last Admin: 05/14/22 06:40 Dose: 20 mg Documented By: LINDSAY Ondansetron HCl (Ondansetron Hcl 4 Mg/2 Ml Vial) 4 mg IVPUSH Q8H PRN PRN Reason: Nausea and Vomiting Oxycodone HCl (Oxycodone Hcl Immed Release 5 Mg Tablet) 5 mg PO Q6H PRN PRN Reason: Pain, Moderate (Pain Scale 4-6 Last Admin: 05/14/22 09:30 Dose: 5 mg Documented By: YSABEL Pharmacy Consult (Consult Rx Perform Med Rec) 1 each MISCELLANE ONCE PRN PRN Reason: Consult order Quetiapine Fumarate (Quetiapine Fumarate 25 Mg Tablet) 25 mg G-TUBE BID [facility] Last Admin: 05/14/22 09:31 Dose: 25 mg Documented By: YSABEL Sodium Chloride (0.9 % Sodium Chloride Flush 3 Ml Syringe) 3 ml IVFLUSH [facility] Last Admin: 05/14/22 09:32 Dose: 3 ml Documented By: YSABEL Sodium Chloride (0.9 % Sodium Chloride Flush 3 Ml Syringe) 3 ml IVFLUSH [facility] Last Admin: 05/14/22 09:32 Dose: Not Given Documented By: YSABEL Non-Admin Reason: Duplicate Order Vancomycin HCl (Vancomycin Hcl Oral Solution 125 Mg/5 Ml Soln.Recon) 250 mg PO Q6H [facility] Last Admin: 05/14/22 06:28 Dose: 250 mg Documented By: MIL Labs CBC & Chem 7: 05/14/22 08:06 05/14/22 08:06 Labs: Laboratory Results - last 24 hr 05/13/22 05/14/22 05/14/22 15:30 08:06 08:06 MCV 80.7 MCH 25.6 L MCHC 31.7 RDW 17.7 H Plt Count 316 MPV 10.8 Absolute Nucleated RBC 0.000 Nucleated RBC % (auto) 0.0 Anion Gap 14 Estim Creat Clear Calc 52.5 Estimated GFR > 60 Random Glucose 154 H Calcium 8.3 L Respiratory Panel Castellanos See note Adenovirus (Rapid PCR) Not Detected B.pert (TEM-PCR) Not Detected B.parapertussis DNA PCR Not Detected C. pneumoniae DNA (PCR) Not Detected Coronavirus OC43 (PCR) Not Detected Coronavirus HKU1 (PCR) Not Detected Coronavirus 229E (PCR) Not Detected Coronavirus NL63 (PCR) Not Detected Human Metapneumovir PCR Not Detected Influenza A (RT-PCR) Not Detected Influenza B (RT-PCR) Not Detected M. pneumoniae (PCR) Not Detected Parainfluenza 1 (PCR) Not Detected Parainfluenza 2 (PCR) Not Detected Parainfluenza 3 (PCR) Not Detected Parainfluenza 4 (PCR) Not Detected RSV (PCR) Not Detected Entero/Rhino (PCR) Not Detected SARS-CoV-2 RNA (RT-PCR) Not Detected Microbiology Microbiology Results: Microbiology 05/08/22 17:00 Blood Culture - Final Blood - Venous No growth after 5 days. 05/08/22 15:06 Blood Culture - Final Blood - Venous No growth after 5 days. Assessment and Plan (1) C. difficile diarrhea: Status: Acute (2) Toxic metabolic encephalopathy: Status: Acute Plan 86-year-old Wolof-speaking woman admitted with acute UTI Toxic metabolic encephalopathy-multifactorial(C diff, hyponatremia, pre renal azotemia) Intermittently says her name Her sodium is improving as well as pre renal azotemia diarrhea is also slowly improving Still has fever intermitten Antibiotics will continue antibiotics, feeding, hydration, monitor electrolytes closely, CT head done-seems like no acute changes. 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 Had episode of fever this morning-I did are Res panel in addition-since abdominal CT shows mostly colitis possibly related to C diff. blood culture negative at 48 hours. Urine culture also negative Will continue to monitor- will avoid sedative medications, opioids for now. Urinary tract infection. Failed outpatient treatment Urine culture from May 04 showed Proteus mirabilis sensitive to Rocephin pyuria /urine culture and blood cultures negative ID eval noted -ct abd:Moderate to significant constipation with most of the stool in the right colon. There is diffuse mural thickening involving the sigmoid colon and the rectum suggestive of proctitis and sigmoid colitis. ?continue iv antibiotics-for C diff, off ceftriaxone-less likely UTI. Asthma No exacerbation Continue home medications History of SAH status post stenting earlier this year? On Dapt. Continue levetiracetam for seizure prophylaxis did not find any clear hx of seizure from previous record review. GERD Continue PPI Mental health Continue home medications Coccyx wound present on admission wound care, frequent turning Wound care- recommend offloading rotating barrier cream and a foam dressing, nutritional consult Hypertension Stable blood pressure Continue home medications cdiff Diarrhae : seems improving but still 2 bm overnight leucocytosis slighty trending up intermittent fevers continue vanco /flagyl via peg unclear if blood pressure was low- rechecked bp (seems fine) , lactic acid normal , given persistent diarrhae: but ct abd recently -cdiff colits , cxr: clear initial ua-pyuria blood cultures sent fluids given mild asthma excerebation: added nebs ,small dose steriods knee pain left side: continue tylenol/oxycodone , lidocaine patch knee and hip x-ray -possible OA. DVT prophylaxis with heparin inpatient need: c diff on antibotics, toxic metabolic encephalopathy multifactorial. Above management discussed with the family in detail length they understand the prognosis is poor but still wanted to continue the conservative management for now, patient is dnr/dni. Quality Stroke Does the patient have a stroke diagnosis?: No VTE Prior VTE?: No VTE Risk Level:: Medical - moderate - high VTE Device Contraindication: N/A - Device Ordered VTE Drug Contraindication: N/A - Med Ordered
[2022-05-14] MEDS: 0.9 % Sodium Chloride 1,000 ML 999 ML IVCONT (12:55)
[2022-05-14 13:32] LABS: Lactic Acid 1.6 mmol/L (0.5-2.0)
[2022-05-14] MEDS: cefTRIAXone sodium 2 GM in 0.9 % Sodium Chloride 50 ML IV (14:27)
[2022-05-14] MEDS: Albuterol/Iprat 2.5/0.5MG 3 ML AMPUL.NEB INHALE ×2 (15:18→20:19)
[2022-05-14] MEDS: Famotidine 20 MG TABLET G-TUBE ×2 (19:33→20:10)
[2022-05-14] MEDS: Piperacillin Sodium/Tazobactam 3.375 GM in 0.9 % Sodium Chloride 50 ML IV (20:02)
[2022-05-14] MEDS: Ketorolac Tromethamine 15 MG/ML VIAL IVPUSH (20:06)
[2022-05-14] MEDS: Clopidogrel Bisulfate 75 MG TABLET G-TUBE (20:09)
[2022-05-14] MEDS: Atorvastatin Calcium 20 MG TABLET G-TUBE (20:09)
[2022-05-14] MEDS: Aspirin 81 MG TAB.CHEW G-TUBE (20:10)
[2022-05-14] MEDS: Fluconazole in NaCl,Iso-Osm 100 MG in Container,Empty 0 ML 50 MG IV (20:53)
[2022-05-14] MEDS: Morphine Sulfate 4 MG/ML CARTRIDGE IM (21:04)
[2022-05-14] MEDS: Scopolamine 1.5 MG PATCH.TD.3 TRANSDERMA (21:39)
[2022-05-14] MEDS: 0.9 % Sodium Chloride 1,000 ML 100 ML IVCONT (22:36)
[2022-05-15] VITALS: BP 96/47; PULSE 80; RESP 18; TEMP 36.8; O2SAT 96
[2022-05-15] MEDS: Piperacillin Sodium/Tazobactam 3.375 GM in 0.9 % Sodium Chloride 50 ML IV ×2 (01:10→05:31)
[2022-05-15] MEDS: vancomycin HCL Oral Solution 125 MG/5 ML SOLN.RECON 250 MG PO (01:48)
[2022-05-15] MEDS: Morphine Sulfate 4 MG/ML CARTRIDGE IM (03:57)
[2022-05-15 04:08] VITALS: RESP 16
[2022-05-15] MEDS: metroNIDAZOLE/NS 500 MG/100 ML PIGGYBACK 100 MG IV (06:05)
[2022-05-15 07:49] VITALS: RESP 24
[2022-05-15] MEDS: Albuterol/Iprat 2.5/0.5MG 3 ML AMPUL.NEB INHALE ×2 (08:23→17:10)
[2022-05-15] MEDS: 0.9 % Sodium Chloride 1,000 ML 100 ML IVCONT ×2 (08:44→17:23)
--- NOTE | 2022-05-15 10:10 | MHC.CM.PN ---
PT NOW AWAITING HOSPICE CONSULT HOWEVER SHE DOES NOT HAVE A HCP OR MOLST. CM WILL DISCUSS BARRIERS WITH MD AND FAMILY
[2022-05-15] MEDS: Morphine Sulfate 2 MG/ML CARTRIDGE 1 MG IVPUSH ×7 (10:16→22:49)
--- NOTE | 2022-05-15 11:53 | P.PNIM_ITS ---
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 cvs: rrr, [id number] , no murmur res: breathing sound slightly diminshed (poor respiratory efforts), has mild wheezing also abd: no rebound or guarding, not much discomfort except llq, bs present. ext pulses present , no cyanosis skin -coccyx wound. knee pain/left side -seems less neuro: axo3 , nonfocal. Objective Data Active Medications Acetaminophen (Acetaminophen 325 Mg Tablet) 975 mg G-TUBE Q6H PRN PRN Reason: Pain, Mild (Pain Scale 1-3) Last Admin: 05/14/22 18:22 Dose: 975 mg Documented By: KEV Albuterol/Ipratropium (Albuterol/Iprat 2.5/0.5mg 3 Ml Ampul.Neb) 3 ml INHALE Q3H PRN PRN Reason: sob Sodium Chloride (Ns) 1,000 mls @ 100 mls/hr IVCONT .Q10H [facility] Last Admin: 05/15/22 08:44 Dose: 100 mls/hr Documented By: KEV Morphine Sulfate (Morphine Sulfate 2 Mg/Ml Cartridge) 1 mg IVPUSH Q2H PRN; Protocol PRN Reason: Pain, Mild (Pain Scale 1-3) Last Admin: 05/15/22 10:16 Dose: 1 mg Documented By: KEV Ondansetron HCl (Ondansetron Hcl 4 Mg/2 Ml Vial) 4 mg IVPUSH Q8H PRN PRN Reason: Nausea and Vomiting Pharmacy Consult (Consult Rx Perform Med Rec) 1 each MISCELLANE ONCE PRN PRN Reason: Consult order Scopolamine (Scopolamine 1.5 Mg Patch.Td.3) 1.5 mg TRANSDERMA Q72H [facility] Last Admin: 05/14/22 21:39 Dose: 1.5 mg Documented By: MARY Sodium Chloride (0.9 % Sodium Chloride Flush 3 Ml Syringe) [facility] Last Admin: 05/15/22 09:19 Dose: Not Given Documented By: KEV Non-Admin Reason: IV Running Labs CBC & Chem 7: 05/14/22 08:06 05/14/22 08:06 Labs: Laboratory Results - last 24 hr 05/14/22 13:00 Lactic Acid 1.6 Assessment and Plan (1) Toxic metabolic encephalopathy: Status: Acute (2) C. difficile diarrhea: Status: Acute Plan 86-year-old Dominican-speaking woman hx of cva and left sided hemiparesis,mostly bed bound , coccyx wound ,admitted Toxic metabolic encephalopathy- multifactorial(severe C diff infection , hyponatremia, pre renal azotemia),pyuria and hospital course also had asthma exacerbation: Patient was treated with hydration, antibiotics for C diff as well as initially for UTI , all supportive care for asthma and chronic conditions: Patient condition did not improve , family decided for comfort measures, no interve ntions except continuing to feeding, and comfort medications. Quality Stroke Does the patient have a stroke diagnosis?: No VTE Prior VTE?: No VTE Risk Level:: Medical - moderate - high VTE Device Contraindication: N/A - Device Ordered VTE Drug Contraindication: N/A - Med Ordered
--- NOTE | 2022-05-15 12:54 | MHC.CLN ---
F/U PATIENT IS NOW COMFORT MEASURES ONLY. PER FAMILY, CONTINUE TUBE FEEDING AND COMFORT MEDICATIONS. STAGE II WOUND TO BUTTOCKS APPEARS TO BE HEALED AND PROSOURCE DISCONTINUED. TUBE FEEDING JEVITY 1.0 AT MAX GOAL RATE 70ML/HR AND 120ML FREE WATER FLUSHES Q SHIFT. PROVIDES 1781 KCALS (33,8 KCALS/KG), 77 G PROTEIN (1.41 G/KG), 1763 ML TOTAL WATER FROM FORMULA AND FLUSHES (33 ML/KG) TOLERATING CURRENT TUBE FEEDING WITH LOW RESIDUALS. CONTINUE CURRENT TUBE FEED AND FLUSH. MONITOR TOLERANCE AND RESIDUALS.
[2022-05-15 15:07] VITALS: RESP 18
[2022-05-15] MEDS: LORazepam 0.5 MG TABLET PO (20:24)
[2022-05-15] MEDS: 0.9 % Sodium Chloride Flush 3 ML SYRINGE IVFLUSH (20:34)
[2022-05-15 23:23] VITALS: RESP 20
[2022-05-16] VITALS (8 sets, daily range): RESP 15–22; TEMP 36.9–37.9
[2022-05-16] MEDS: Acetaminophen 325 MG TABLET 975 MG G-TUBE ×2 (00:52→14:14)
[2022-05-16] MEDS: Morphine Sulfate 2 MG/ML CARTRIDGE 1 MG IVPUSH ×2 (05:48→08:11)
[2022-05-16] MEDS: 0.9 % Sodium Chloride Flush 3 ML SYRINGE IVFLUSH ×2 (08:11→19:57)
--- NOTE | 2022-05-16 08:30 | PC.NURSE ---
Tube feeding running at 70 ml/hr. Residual checked 180 ml, auscultated positive placement 08:30 am. pt denies abd tenderness. Family asked for tube feeding to be paused 2 hours, stating pt looks bloated. Tube feeding paused and will recheck residual 10:30am.
--- NOTE | 2022-05-16 09:37 | P.PNIM_ITS ---
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 cvs: rrr, [id number] , no murmur res: breathing sound slightly diminshed (poor respiratory efforts), has mild wheezing also abd: no rebound or guarding, not much discomfort except llq, bs present. ext pulses present , no cyanosis skin -coccyx wound. knee pain/left side -seems less neuro: axo3 , nonfocal. Const: Other: alert, uncomfortable cv rrr lung clear skin coccyx wounds present on admission Objective Data Active Medications Acetaminophen (Acetaminophen 325 Mg Tablet) 975 mg G-TUBE Q6H PRN PRN Reason: Pain, Mild (Pain Scale 1-3) Last Admin: 05/16/22 00:52 Dose: 975 mg Documented By: MARY Sodium Chloride (Ns) 1,000 mls @ 100 mls/hr IVCONT .Q10H [facility] Last Admin: 05/15/22 21:01 Dose: Not Given Documented By: MARY Non-Admin Reason: currently paused MD aware Lorazepam (Lorazepam 1 Mg Tablet) 1 mg PO Q4H PRN PRN Reason: Restlessness Morphine Sulfate (Morphine Sulfate 2 Mg/Ml Cartridge) 2 mg IVPUSH Q1H PRN; Protocol PRN Reason: Pain, Mild (Pain Scale 1-3) Ondansetron HCl (Ondansetron Hcl 4 Mg/2 Ml Vial) 4 mg IVPUSH Q8H PRN PRN Reason: Nausea and Vomiting Pharmacy Consult (Consult Rx Perform Med Rec) 1 each MISCELLANE ONCE PRN PRN Reason: Consult order Scopolamine (Scopolamine 1.5 Mg Patch.Td.3) 1.5 mg TRANSDERMA Q72H [facility] Last Admin: 05/14/22 21:39 Dose: 1.5 mg Documented By: MARY Sodium Chloride (0.9 % Sodium Chloride Flush 3 Ml Syringe) 3 ml IVFLUSH QSHIFT [facility] Last Admin: 05/16/22 08:11 Dose: 3 ml Documented By: FAVIO Labs CBC & Chem 7: 05/14/22 08:06 05/14/22 08:06 Microbiology Microbiology Results: Microbiology 05/14/22 13:00 Blood Culture - Preliminary Blood - Venous No growth after 24 hours. 05/14/22 13:05 Blood Culture - Preliminary Blood - Venous No growth after 24 hours. Assessment and Plan (1) Toxic metabolic encephalopathy: Status: Acute (2) C. difficile diarrhea: Status: Acute Plan 86-year-old Georgian-speaking woman hx of cva and left sided hemiparesis,mostly bed bound , coccyx wound ,admitted Toxic metabolic encephalopathy- multifactorial(severe C diff infection , hyponatremia, pre renal azotemia),pyuria and hospital course also had asthma exacerbation: Patient was treated with hydration, antibiotics for C diff as well as initially for UTI , all supportive care for asthma and chronic conditions: Patient condition has not improved , family decided for comfort measures with no interventions except continuing with tube feeding, and comfort medications... Will discuss with case management for DC to home Quality Stroke Does the patient have a stroke diagnosis?: No VTE Prior VTE?: No VTE Risk Level:: Medical - moderate - high VTE Device Contraindication: N/A - Device Ordered VTE Drug Contraindication: N/A - Med Ordered
[2022-05-16] MEDS: Morphine Sulfate 2 MG/ML CARTRIDGE IVPUSH ×4 (11:24→21:34)
[2022-05-16] MEDS: LORazepam 1 MG TABLET PO ×2 (13:44→21:34)
[2022-05-17] VITALS: BP 135/59; PULSE 71; RESP 20; TEMP 36.7; O2SAT 97
[2022-05-17] MEDS: Morphine Sulfate 2 MG/ML CARTRIDGE IVPUSH ×5 (05:19→20:08)
[2022-05-17] MEDS: Albuterol/Iprat 2.5/0.5MG 3 ML AMPUL.NEB INHALE ×2 (05:45→10:32)
[2022-05-17 05:46] VITALS: PULSE 71; RESP 20; O2SAT 94
[2022-05-17 07:25] VITALS: RESP 20; TEMP 37.6
[2022-05-17] MEDS: 0.9 % Sodium Chloride Flush 3 ML SYRINGE IVFLUSH ×3 (09:43→23:50)
[2022-05-17] MEDS: LORazepam 1 MG TABLET PO ×2 (11:24→21:36)
--- NOTE | 2022-05-17 11:45 | MHC.CLN ---
F/U PATIENT REMAINS COMFORT MEASURES ONLY. PER FAMILY-CONTINUE TUBE FEEDING AND COMFORT MEDICATIONS. PT RECEIVING TUBE FEEDING JEVITY 1.0 AT MAX GOAL RATE 70ML/HR AND 120ML FREE WATER FLUSHES Q SHIFT PROVIDES 1781 KCALS (33.8 KCALS/KG), 74 G PROTEIN (1.41 G/KG), 1763 ML TOTAL WATER FROM FORMULA AND FLUSHES (33 ML/KG) TOLERATING CURRENT TUBE FEEDING WITH LOW RESIDUALS STAGE 2 BUTTOCK-TF (PROTEIN) WILL PROMOTE WOUND HEALING AT 1.4G/KG CONTINUE TO MONITOR TOLERANCE AND RESIDUALS PRIMARY GOAL IS COMFORT
--- NOTE | 2022-05-17 12:16 | HO.PM.IMPN ---
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 Review of Systems uncomfortable with pain Physical Exam Vital Signs: Vital Signs: Last Vital Signs Temp 99.6 F 05/17/22 07:25 Pulse 71 05/17/22 05:46 Resp 20 05/17/22 07:25 BP 135/59 L 05/17/22 00:00 Pulse Ox 97 05/17/22 00:00 O2 Del Method 05/17/22 00:00 BMI result Body Mass Index 21.9 Const: Other: alert, uncomfortable cv rrr lung clear skin coccyx wounds present on admission Objective Data Active Medications Acetaminophen (Acetaminophen 325 Mg Tablet) 975 mg G-TUBE Q6H PRN PRN Reason: Pain, Mild (Pain Scale 1-3) Last Admin: 05/16/22 14:14 Dose: 975 mg Documented By: FAVIO Albuterol/Ipratropium (Albuterol/Iprat 2.5/0.5mg 3 Ml Ampul.Neb) 3 ml INHALE RQ4H PRN PRN Reason: Shortness of Breath/Wheezing Last Admin: 05/17/22 10:32 Dose: 3 ml Documented By: COLUMBA Lorazepam (Lorazepam 1 Mg Tablet) 1 mg PO Q4H PRN PRN Reason: Restlessness Last Admin: 05/17/22 11:24 Dose: 1 mg Documented By: ADE Morphine Sulfate (Morphine Sulfate 2 Mg/Ml Cartridge) 2 mg IVPUSH Q1H PRN; Protocol PRN Reason: Pain, Mild (Pain Scale 1-3) Last Admin: 05/17/22 09:43 Dose: 2 mg Documented By: ADE Ondansetron HCl (Ondansetron Hcl 4 Mg/2 Ml Vial) 4 mg IVPUSH Q8H PRN PRN Reason: Nausea and Vomiting Pharmacy Consult (Consult Rx Perform Med Rec) 1 each MISCELLANE ONCE PRN PRN Reason: Consult order Scopolamine (Scopolamine 1.5 Mg Patch.Td.3) 1.5 mg TRANSDERMA Q72H [facility] Last Admin: 05/14/22 21:39 Dose: 1.5 mg Documented By: MARY Sodium Chloride (0.9 % Sodium Chloride Flush 3 Ml Syringe) 3 ml IVFLUSH QSHIFT [facility] Last Admin: 05/17/22 09:43 Dose: 3 ml Documented By: ADE Labs CBC & Chem 7: 05/14/22 08:06 05/14/22 08:06 Microbiology Microbiology Results: Microbiology 05/14/22 13:05 Blood Culture - Preliminary Blood - Venous No growth after 48 hours. 05/14/22 13:00 Blood Culture - Preliminary Blood - Venous No growth after 48 hours. Assessment and Plan (1) Toxic metabolic encephalopathy: Status: Acute (2) C. difficile diarrhea: Status: Acute Plan 86-year-old Ukrainian-speaking woman hx of cva and left sided hemiparesis,mostly bed bound , coccyx wound ,admitted Toxic metabolic encephalopathy-multifactorial(severe C diff infection , hyponatremia, pre renal azotemia),pyuria and hospital course also had asthma exacerbation: Patient was treated with hydration, antibiotics for C diff as well as initially for UTI , all supportive care for asthma and chronic conditions: Patient condition has not improved , family decided for comfort measures with no interventions except continuing with tube feeding, and comfort medications... Will discuss with case management for DC to home Quality Stroke Does the patient have a stroke diagnosis?: No VTE Prior VTE?: No VTE Risk Level:: Medical - moderate - high VTE Device Contraindication: N/A - Device Ordered VTE Drug Contraindication: N/A - Med Ordered
[2022-05-17 14:58] VITALS: RESP 16; TEMP 37
--- NOTE | 2022-05-17 15:41 | MHC.CM.PN ---
Female 86 DX UTI CLAIM MANAGER. Family is in agreement with CLAIM MANAGER. [facility] facility [facility]. She will transport via BLS.There is a scheduled hearing for guardianship 05/22/22.
[2022-05-17 23:15] VITALS: RESP 16
[2022-05-18] MEDS: Morphine Sulfate 2 MG/ML CARTRIDGE IVPUSH ×6 (04:11→20:44)
[2022-05-18] MEDS: LORazepam 1 MG TABLET PO ×3 (06:00→20:44)
[2022-05-18 08:00] VITALS: BP 168/72; PULSE 59; RESP 24; TEMP 37.1; O2SAT 99
--- NOTE | 2022-05-18 11:40 | P.PNIM_ITS ---
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 Tube feed going Review of Systems uncomfortable with pain Physical Exam Vital Signs: Vital Signs: Last Vital Signs Temp 98.8 F 05/18/22 08:00 Pulse 59 05/18/22 08:00 Resp 24 H 05/18/22 08:00 BP 168/72 H 05/18/22 08:00 Pulse Ox 99 05/18/22 08:00 O2 Del Method 05/18/22 08:00 BMI result Body Mass Index 21.9 Const: Other: alert, uncomfortable cv rrr lung clear skin coccyx wounds present on admission Objective Data Active Medications Acetaminophen (Acetaminophen 325 Mg Tablet) 975 mg G-TUBE Q6H PRN PRN Reason: Pain, Mild (Pain Scale 1-3) Last Admin: 05/16/22 14:14 Dose: 975 mg Documented By: FAVIO Albuterol/Ipratropium (Albuterol/Iprat 2.5/0.5mg 3 Ml Ampul.Neb) 3 ml INHALE RQ4H PRN PRN Reason: Shortness of Breath/Wheezing Last Admin: 05/17/22 10:32 Dose: 3 ml Documented By: COLUMBA Lorazepam (Lorazepam 1 Mg Tablet) 1 mg PO Q4H PRN PRN Reason: Restlessness Last Admin: 05/18/22 06:00 Dose: 1 mg Documented By: BRODERICK Morphine Sulfate (Morphine Sulfate 2 Mg/Ml Cartridge) 2 mg IVPUSH Q1H PRN; Protocol PRN Reason: Pain, Mild (Pain Scale 1-3) Last Admin: 05/18/22 09:28 Dose: 2 mg Documented By: STEPHANIE Ondansetron HCl (Ondansetron Hcl 4 Mg/2 Ml Vial) 4 mg IVPUSH Q8H PRN PRN Reason: Nausea and Vomiting Pharmacy Consult (Consult Rx Perform Med Rec) 1 each MISCELLANE ONCE PRN PRN Reason: Consult order Scopolamine (Scopolamine 1.5 Mg Patch.Td.3) 1.5 mg TRANSDERMA Q72H [facility] Last Admin: 05/17/22 21:43 Dose: Not Given Documented By: KIMBERLY Non-Admin Reason: refused, not needed at his time Sodium Chloride (0.9 % Sodium Chloride Flush 3 Ml Syringe) 3 ml IVFLUSH QSHIFT [facility] Last Admin: 05/18/22 09:40 Dose: Not Given Documented By: STEPHANIE Non-Admin Reason: Previously Administered Labs CBC & Chem 7: 05/14/22 08:06 05/14/22 08:06 Assessment and Plan (1) Toxic metabolic encephalopathy: Status: Acute (2) C. difficile diarrhea: Status: Acute (3) Pressure injury of sacral region, stage 2: Status: Acute Plan 86-year-old Greenlandic-speaking woman hx of cva and left sided hemiparesis,mostly bed bound , coccyx wound ,admitted Toxic metabolic encephalopathy- multifactorial(severe C diff infection , hyponatremia, pre renal azotemia),pyuria and hospital course also had asthma exacerbation: Patient was treated with hydration, antibiotics for C diff as well as initially for UTI , all supportive care for asthma and chronic conditions: Patient condition has not improved , family decided for comfort measures with no interventions except continuing with tube feeding, and comfort medications... Unable to go home with hospice at this time, no guardian.. Has guardianship hearing next 22 May Quality Stroke Does the patient have a stroke diagnosis?: No VTE Prior VTE?: No VTE Risk Level:: Medical - moderate - high VTE Device Contraindication: N/A - Device Ordered VTE Drug Contraindication: N/A - Med Ordered
[2022-05-18 15:03] VITALS: RESP 26; TEMP 36.8
[2022-05-18] MEDS: 0.9 % Sodium Chloride Flush 3 ML SYRINGE IVFLUSH ×2 (17:26→20:47)
[2022-05-18 23:18] VITALS: RESP 18
[2022-05-19] MEDS: Morphine Sulfate 2 MG/ML CARTRIDGE IVPUSH ×6 (04:14→20:21)
[2022-05-19] MEDS: LORazepam 1 MG TABLET PO ×3 (04:15→21:13)
[2022-05-19] MEDS: 0.9 % Sodium Chloride Flush 3 ML SYRINGE IVFLUSH ×2 (08:16→16:28)
--- NOTE | 2022-05-19 10:07 | MHC.CLN ---
F/U PATIENT REMAINS COMFORT MEASURES ONLY -CONTINUE TUBE FEEDING AND COMFORT MEDICATIONS PER FAMILY PT RECEIVING TUBE FEEDING JEVITY 1.0 AT MAX GOAL RATE 70ML/HR AND 120ML FREE WATER FLUSHES Q SHIFT PROVIDES 1781 KCALS (33.8 KCALS/KG), 74 G PROTEIN (1.41 G/KG), 1763 ML TOTAL WATER FROM FORMULA AND FLUSHES (33 ML/KG) TOLERATING CURRENT TUBE FEEDING WITH LOW RESIDUALS STAGE 2 BUTTOCK-TF (PROTEIN) WILL PROMOTE WOUND HEALING AT 1.4G/KG CONTINUE TO MONITOR TOLERANCE AND RESIDUALS PRIMARY GOAL IS COMFORT
--- NOTE | 2022-05-19 10:21 | HO.PM.IMPN ---
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 Tube feed going Review of Systems uncomfortable with pain Physical Exam Vital Signs: Vital Signs: Last Vital Signs Temp 98.3 F 05/18/22 15:03 Pulse 59 05/18/22 08:00 Resp 18 05/18/22 23:18 BP 168/72 H 05/18/22 08:00 Pulse Ox 99 05/18/22 08:00 O2 Del Method 05/18/22 08:00 BMI result Body Mass Index 21.9 Const: Other: alert, uncomfortable cv rrr lung clear skin coccyx wounds present on admission Objective Data Active Medications Acetaminophen (Acetaminophen 325 Mg Tablet) 975 mg G-TUBE Q6H PRN PRN Reason: Pain, Mild (Pain Scale 1-3) Last Admin: 05/16/22 14:14 Dose: 975 mg Documented By: FAVIO Albuterol/Ipratropium (Albuterol/Iprat 2.5/0.5mg 3 Ml Ampul.Neb) 3 ml INHALE RQ4H PRN PRN Reason: Shortness of Breath/Wheezing Last Admin: 05/17/22 10:32 Dose: 3 ml Documented By: COLUMBA Lorazepam (Lorazepam 1 Mg Tablet) 1 mg PO Q4H PRN PRN Reason: Restlessness Last Admin: 05/19/22 04:15 Dose: 1 mg Documented By: MARY Morphine Sulfate (Morphine Sulfate 2 Mg/Ml Cartridge) 2 mg IVPUSH Q1H PRN; Protocol PRN Reason: Pain, Mild (Pain Scale 1-3) Last Admin: 05/19/22 08:27 Dose: 2 mg Documented By: VIANNEY Ondansetron HCl (Ondansetron Hcl 4 Mg/2 Ml Vial) 4 mg IVPUSH Q8H PRN PRN Reason: Nausea and Vomiting Pharmacy Consult (Consult Rx Perform Med Rec) 1 each MISCELLANE ONCE PRN PRN Reason: Consult order Scopolamine (Scopolamine 1.5 Mg Patch.Td.3) 1.5 mg TRANSDERMA Q72H [facility] Last Admin: 05/17/22 21:43 Dose: Not Given Documented By: KIMBERLY Non-Admin Reason: refused, not needed at his time Sodium Chloride (0.9 % Sodium Chloride Flush 3 Ml Syringe) 3 ml IVFLUSH QSHIFT [facility] Last Admin: 05/19/22 08:16 Dose: 3 ml Documented By: VIANNEY Labs CBC & Chem 7: 05/14/22 08:06 05/14/22 08:06 Assessment and Plan (1) Toxic metabolic encephalopathy: Status: Acute (2) C. difficile diarrhea: Status: Acute Plan 86-year-old Tristanian-speaking woman hx of cva and left sided hemiparesis,mostly bed bound , coccyx wound ,admitted Toxic metabolic encephalopathy-multifactorial(severe C diff infection , hyponatremia, pre renal azotemia),pyuria and hospital course also had asthma exacerbation: Patient was treated with hydration, antibiotics for C diff as well as initially for UTI , all supportive care for asthma and chronic conditions: Patient condition has not improved , family decided for comfort measures with no interventions except continuing with tube feeding, and comfort medications... Unable to go home with hospice at this time, no guardian.. Has guardianship hearing next 22 May Quality Stroke Does the patient have a stroke diagnosis?: No VTE Prior VTE?: No VTE Risk Level:: Medical - moderate - high VTE Device Contraindication: N/A - Device Ordered VTE Drug Contraindication: N/A - Med Ordered
--- NOTE | 2022-05-19 12:04 | MHC.CM.PN ---
per rounds pt to be moved to 3rd floor she is show worker family luis like to take pt home with hospice/hvns following med certificate given to family as they are doing the guardianship as soon as it in place she will be dcd
[2022-05-19 16:00] VITALS: RESP 17
[2022-05-19] MEDS: Albuterol/Iprat 2.5/0.5MG 3 ML AMPUL.NEB INHALE (17:08)
--- NOTE | 2022-05-19 17:12 | PC.RT ---
family requesting resp for a duoneb tx. 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 pt looks uncomfortable/grimacing and moaning and increase wob . Will discuss with RN about pain/anxiety meds.
[2022-05-20] MEDS: Morphine Sulfate 2 MG/ML CARTRIDGE IVPUSH ×6 (02:27→15:58)
[2022-05-20] MEDS: 0.9 % Sodium Chloride Flush 3 ML SYRINGE IVFLUSH ×2 (08:59→21:18)
[2022-05-20] MEDS: LORazepam 1 MG TABLET PO ×3 (09:10→21:17)
--- NOTE | 2022-05-20 11:22 | P.PNIM_ITS ---
Subjective Subjective Date of Service: 05/20/22 Review of Systems Follow up BUSINESS RELATIONSHIP MANAGER Resting in bed Physical Exam Vital Signs: Vital Signs: Last Vital Signs Temp 98.3 F 05/18/22 15:03 Pulse 59 05/18/22 08:00 Resp 17 05/19/22 16:00 BP 168/72 H 05/18/22 08:00 Pulse Ox 99 05/18/22 08:00 O2 Del Method 05/18/22 08:00 BMI result Body Mass Index 21.9 lungs normal expansion alert Objective Data Active Medications Acetaminophen (Acetaminophen 325 Mg Tablet) 975 mg G-TUBE Q6H PRN PRN Reason: Pain, Mild (Pain Scale 1-3) Last Admin: 05/16/22 14:14 Dose: 975 mg Documented By: FAVIO Albuterol/Ipratropium (Albuterol/Iprat 2.5/0.5mg 3 Ml Ampul.Neb) 3 ml INHALE RQ4H PRN PRN Reason: Shortness of Breath/Wheezing Last Admin: 05/19/22 17:08 Dose: 3 ml Documented By: JACK Lorazepam (Lorazepam 1 Mg Tablet) 1 mg PO Q4H PRN PRN Reason: Restlessness Last Admin: 05/20/22 09:10 Dose: 1 mg Documented By: RADHA Morphine Sulfate (Morphine Sulfate 2 Mg/Ml Cartridge) 2 mg IVPUSH Q1H PRN; Protocol PRN Reason: Pain, Mild (Pain Scale 1-3) Last Admin: 05/20/22 08:59 Dose: 2 mg Documented By: RADHA Ondansetron HCl (Ondansetron Hcl 4 Mg/2 Ml Vial) 4 mg IVPUSH Q8H PRN PRN Reason: Nausea and Vomiting Pharmacy Consult (Consult Rx Perform Med Rec) 1 each MISCELLANE ONCE PRN PRN Reason: Consult order Scopolamine (Scopolamine 1.5 Mg Patch.Td.3) 1.5 mg TRANSDERMA Q72H [facility] Last Admin: 05/17/22 21:43 Dose: Not Given Documented By: KIMBERLY Non-Admin Reason: refused, not needed at his time Sodium Chloride (0.9 % Sodium Chloride Flush 3 Ml Syringe) [facility] Last Admin: 05/20/22 08:59 Dose: 3 ml Documented By: RADHA Labs CBC & Chem 7: 05/14/22 08:06 05/14/22 08:06 Microbiology Microbiology Results: Microbiology 05/14/22 13:05 Blood Culture - Final Blood - Venous No growth after 5 days. 05/14/22 13:00 Blood Culture - Final Blood - Venous No growth after 5 days. Assessment and Plan (1) Toxic metabolic encephalopathy: Status: Acute (2) C. difficile diarrhea: Status: Acute Plan 86-year-old Malian-speaking woman hx of cva and left sided hemiparesis,mostly bed bound , coccyx wound ,admitted Toxic metabolic encephalopathy- multifactorial(severe C diff infection , hyponatremia, pre renal azotemia),py uria and hospital course also had asthma exacerbation: Patient was treated with hydration, antibiotics for C diff as well as initially for UTI , all supportive care for asthma and chronic conditions: Patient condition has not improved , family decided for comfort measures with no interventions except continuing with tube feeding, and comfort medications. Unable to go home with hospice at this time, no guardian. Has guardianship hearing next week, 22 May Quality Stroke Does the patient have a stroke diagnosis?: No VTE Prior VTE?: No VTE Risk Level:: Medical - moderate - high VTE Device Contraindication: N/A - Device Ordered VTE Drug Contraindication: N/A - Med Ordered
[2022-05-20 15:32] VITALS: RESP 18
[2022-05-20 16:00] VITALS: RESP 16
[2022-05-20] MEDS: Morphine Sulfate 4 MG/ML CARTRIDGE IVPUSH (17:39)
[2022-05-20] MEDS: Scopolamine 1.5 MG PATCH.TD.3 TRANSDERMA (21:18)
[2022-05-20 23:39] VITALS: RESP 16
[2022-05-21] MEDS: Morphine Sulfate 4 MG/ML CARTRIDGE IVPUSH ×3 (02:57→10:14)
[2022-05-21 08:00] VITALS: BP 186/84; PULSE 99; RESP 18; TEMP 37.8; O2SAT 95
--- NOTE | 2022-05-21 08:51 | P.PNIM_ITS ---
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 Resting in bed Physical Exam Vital Signs: Vital Signs: Last Vital Signs Temp 100.1 F 05/21/22 08:00 Pulse 99 05/21/22 08:00 Resp 18 05/21/22 08:00 BP 186/84 H 05/21/22 08:00 Pulse Ox 95 05/21/22 08:00 O2 Del Method 05/21/22 08:00 BMI result Body Mass Index 21.9 Moaning when moved Objective Data Active Medications Acetaminophen (Acetaminophen 325 Mg Tablet) 975 mg G-TUBE Q6H PRN PRN Reason: Pain, Mild (Pain Scale 1-3) Last Admin: 05/16/22 14:14 Dose: 975 mg Documented By: FAVIO Albuterol/Ipratropium (Albuterol/Iprat 2.5/0.5mg 3 Ml Ampul.Neb) 3 ml INHALE RQ4H PRN PRN Reason: Shortness of Breath/Wheezing Last Admin: 05/19/22 17:08 Dose: 3 ml Documented By: JACK Morphine Sulfate () 100 mg in 100 mls @ 0 mls/hr IVCONT .Q0M [facility]; Protocol Ondansetron HCl (Ondansetron Hcl 4 Mg/2 Ml Vial) 4 mg IVPUSH Q8H PRN PRN Reason: Nausea and Vomiting Pharmacy Consult (Consult Rx Perform Med Rec) 1 each MISCELLANE ONCE PRN PRN Reason: Consult order Scopolamine (Scopolamine 1.5 Mg Patch.Td.3) 1.5 mg TRANSDERMA Q72H [facility] Last Admin: 05/20/22 21:18 Dose: 1.5 mg Documented By: EDUARD Sodium Chloride (0.9 % Sodium Chloride Flush 3 Ml Syringe) 3 ml IVFLUSH QSHIFT [facility] Last Admin: 05/20/22 21:18 Dose: 3 ml Documented By: EDUARD Labs CBC & Chem 7: 05/14/22 08:06 05/14/22 08:06 Assessment and Plan (1) Toxic metabolic encephalopathy: Status: Acute (2) C. difficile diarrhea: Status: Acute Plan 86-year-old Vietnamese-speaking woman hx of cva and left sided hemiparesis,mostly bed bound , coccyx wound ,admitted Toxic metabolic encephalopathy-multifactorial (severe C diff infection , hyponatremia, pre renal azotemia),pyuria and hospital course also had asthma exacerbation: Patient was treated with hydration, antibiotics for C diff as well as initially for UTI , all supportive care for asthma and chronic conditions: Patient condition has not improved , family decided for comfort measures with no interventions except continuing with tube feeding, and comfort medications. Unable to go home with hospice at this time, no guardian. Has guardianship hearing next week, 22 May Started on Morphine drip for discomfort and pain, give Tylenol for fever Quality Stroke Does the patient have a stroke diagnosis?: No VTE Prior VTE?: No VTE Risk Level:: Medical - moderate - high VTE Device Contraindication: N/A - Device Ordered VTE Drug Contraindication: N/A - Med Ordered
[2022-05-21] MEDS: 0.9 % Sodium Chloride Flush 3 ML SYRINGE IVFLUSH (10:14)
[2022-05-21] MEDS: Morphine Sulfate/NS 100 MG/100 ML PLAST..BAG IVCONT (11:57)
--- NOTE | 2022-05-21 14:53 | PC.NURSE ---
Pt grimacing/restless in bed. Per protocol/order morphine DIRECTOR OF MAINTENANCE pump rate increased from mg/hr to 2.5 mg/hr. Witnessed by Darryl Bermeo RN. Will reassess in 30 minutes per protocol/order.
[2022-05-21 14:59] VITALS: TEMP 37.6
[2022-05-21 15:21] VITALS: TEMP 37.2
--- NOTE | 2022-05-21 15:39 | PC.NURSE ---
RIGGER CHIEF. Alert, non-verbal. Medicated with IV morphine x1 for pain with good effect. Started continuos morphine (REELING MACHINE SETUP OPERATOR) at 2mg/hr, increase as needed, max dose 10mg/hr. Currently running at 2.5mg/hr. PEG tube infusing well. Family at bedside. support provided.
--- NOTE | 2022-05-21 15:55 | PC.NURSE ---
Morphine dose inxcreased to 3mg/hr. Brenda bullock. will re-assess in 30min per protocol.
[2022-05-21] MEDS: Acetaminophen 325 MG TABLET 975 MG G-TUBE (16:10)
[2022-05-21 23:20] VITALS: TEMP 36.5
[2022-05-22 07:14] VITALS: TEMP 36.8
--- NOTE | 2022-05-22 08:27 | P.PNIM_ITS ---
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 SPECIAL AGENT SECRET SERVICE Resting in bed Physical Exam Vital Signs: Vital Signs: Last Vital Signs Temp 98.3 F 05/22/22 07:14 Pulse 99 05/21/22 08:00 Resp 18 05/21/22 08:00 BP 186/84 H 05/21/22 08:00 Pulse Ox 95 05/21/22 08:00 O2 Del Method 05/21/22 08:00 BMI result Body Mass Index 21.9 ocassional moaning Lungs normal expansion Objective Data Active Medications Acetaminophen (Acetaminophen 325 Mg Tablet) 975 mg G-TUBE Q6H PRN PRN Reason: Pain, Mild (Pain Scale 1-3) Last Admin: 05/21/22 16:10 Dose: 975 mg Documented By: EDGAR Albuterol/Ipratropium (Albuterol/Iprat 2.5/0.5mg 3 Ml Ampul.Neb) 3 ml INHALE RQ4H PRN PRN Reason: Shortness of Breath/Wheezing Last Admin: 05/19/22 17:08 Dose: 3 ml Documented By: JACK Morphine Sulfate () 100 mg in 100 mls @ 0 mls/hr IVCONT .Q0M [facility]; Protocol Last Infusion: 05/21/22 17:59 Dose: 4 mg/hr, 4 mls/hr Documented By: EDGAR Morphine Sulfate (Morphine Sulfate 4 Mg/Ml Cartridge) 4 mg IVPUSH ONCE PRN; Protocol PRN Reason: Pain, Mild (Pain Scale 1-3) Last Admin: 05/21/22 10:14 Dose: 4 mg Documented By: EDGAR Ondansetron HCl (Ondansetron Hcl 4 Mg/2 Ml Vial) 4 mg IVPUSH Q8H PRN PRN Reason: Nausea and Vomiting Pharmacy Consult (Consult Rx Perform Med Rec) 1 each MISCELLANE ONCE PRN PRN Reason: Consult order Scopolamine (Scopolamine 1.5 Mg Patch.Td.3) 1.5 mg TRANSDERMA Q72H [facility] Last Admin: 05/20/22 21:18 Dose: 1.5 mg Documented By: EDUARD Sodium Chloride (0.9 % Sodium Chloride Flush 3 Ml Syringe) 3 ml IVFLUSH QSHIFT [facility] Last Admin: 05/21/22 21:28 Dose: Not Given Documented By: LO Non-Admin Reason: IV Running Labs CBC & Chem 7: 05/14/22 08:06 05/14/22 08:06 Assessment and Plan (1) Toxic metabolic encephalopathy: Status: Acute (2) C. difficile diarrhea: Status: Acute Plan 86-year-old Azeri-speaking woman hx of cva and left sided hemiparesis,mostly bed bound , coccyx wound ,admitted Toxic metabolic encephalopathy- multifactorial(severe C diff infection , hyponatremia, pre renal azotem ia),pyuria and hospital course also had asthma exacerbation: Patient was treated with hydration, antibiotics for C diff as well as initially for UTI , all supportive care for asthma and chronic conditions: Patient condition has not improved , family decided for comfort measures with no interventions except continuing with tube feeding, and comfort medications. Unable to go home with hospice at this time, no guardian. Has guardianship hearing next week, 22 May Started on Morphine drip for discomfort and pain, give Tylenol for fever Hearing for guardian today via zoom with daughter Quality Stroke Does the patient have a stroke diagnosis?: No VTE Prior VTE?: No VTE Risk Level:: Medical - moderate - high VTE Device Contraindication: N/A - Device Ordered VTE Drug Contraindication: N/A - Med Ordered
[2022-05-22] MEDS: LORazepam 0.5 MG TABLET 0.25 MG PO (09:17)
[2022-05-22] MEDS: 0.9 % Sodium Chloride Flush 3 ML SYRINGE IVFLUSH (09:17)
--- NOTE | 2022-05-22 11:09 | MHC.CLN ---
F/U PATIENT REMAINS COMFORT MEASURES ONLY. CONTINUE TUBE FEEDING AND COMFORT MEDICATIONS PER FAMILY. PT RECEIVING TUBE FEEDING JEVITY 1.0 AT MAX GOAL RATE 70ML/HR AND 120ML FREE WATER FLUSHES Q SHIFT PROVIDES 1781 KCALS (33.8 KCALS/KG), 74 G PROTEIN (1.41 G/KG), 1763 ML TOTAL WATER FROM FORMULA AND FLUSHES (33 ML/KG). TOLERATING CURRENT TUBE FEEDING WITH LOW RESIDUALS. STAGE II PRESSURE INJURY TO BUTTOCK. TUBE FEEDING PROVIDING ADEQUATE PROTEIN (1.4 G/KG) FOR INCREASED PROTEIN NEEDS WITH WOUND. CONTINUE TO MONITOR TOLERANCE AND RESIDUALS. PRIMARY GOAL IS COMFORT.
[2022-05-22] MEDS: Morphine Sulfate/NS 100 MG/100 ML PLAST..BAG IVCONT (11:48)
[2022-05-22 15:40] VITALS: TEMP 37.6
[2022-05-22] MEDS: Albuterol/Iprat 2.5/0.5MG 3 ML AMPUL.NEB INHALE (20:53)
[2022-05-22 23:36] VITALS: TEMP 37.1
[2022-05-23] VITALS: RESP 12
--- NOTE | 2022-05-23 11:11 | P.PNIM_ITS ---
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 Resting in bed Physical Exam Vital Signs: Vital Signs: Last Vital Signs Temp 98.7 F 05/22/22 23:36 Pulse 99 05/21/22 08:00 Resp 12 05/23/22 00:00 BP 186/84 H 05/21/22 08:00 Pulse Ox 95 05/21/22 08:00 O2 Del Method 05/21/22 08:00 BMI result Body Mass Index 21.9 normal respirations Objective Data Active Medications Acetaminophen (Acetaminophen 325 Mg Tablet) 975 mg G-TUBE Q6H PRN PRN Reason: Pain, Mild (Pain Scale 1-3) Last Admin: 05/21/22 16:10 Dose: 975 mg Documented By: EDGAR Albuterol/Ipratropium (Albuterol/Iprat 2.5/0.5mg 3 Ml Ampul.Neb) 3 ml INHALE RQ4H PRN PRN Reason: Shortness of Breath/Wheezing Last Admin: 05/22/22 20:53 Dose: 3 ml Documented By: IMAN Morphine Sulfate () 100 mg in 100 mls @ 0 mls/hr IVCONT .Q0M [facility]; Protocol Last Admin: 05/22/22 11:48 Dose: 4 mg/hr, 4 mls/hr Documented By: DANIELA Lorazepam (Lorazepam 0.5 Mg Tablet) 0.25 mg PO Q4H PRN PRN Reason: anxiety Morphine Sulfate (Morphine Sulfate 4 Mg/Ml Cartridge) 4 mg IVPUSH ONCE PRN; Protocol PRN Reason: Pain, Mild (Pain Scale 1-3) Last Admin: 05/21/22 10:14 Dose: 4 mg Documented By: EDGAR Ondansetron HCl (Ondansetron Hcl 4 Mg/2 Ml Vial) 4 mg IVPUSH Q8H PRN PRN Reason: Nausea and Vomiting Pharmacy Consult (Consult Rx Perform Med Rec) 1 each MISCELLANE ONCE PRN PRN Reason: Consult order Scopolamine (Scopolamine 1.5 Mg Patch.Td.3) 1.5 mg TRANSDERMA Q72H [facility] Last Admin: 05/20/22 21:18 Dose: 1.5 mg Documented By: EDUARD Sodium Chloride (0.9 % Sodium Chloride Flush 3 Ml Syringe) 3 ml IVFLUSH QSHIFT [facility] Last Admin: 05/23/22 08:19 Dose: Not Given Documented By: RADHA Non-Admin Reason: IV Running Labs CBC & Chem 7: 05/14/22 08:06 05/14/22 08:06 Assessment and Plan (1) Toxic metabolic encephalopathy: Status: Acute (2) C. difficile diarrhea: Status: Acute Plan 86-year-old Setswana-speaking woman hx of cva and left sided hemiparesis,mostly bed bound , coccyx wound ,admitted Toxic metabolic encephalopathy-multifacto rial(severe C diff infection , hyponatremia, pre renal azotemia),pyuria and hospital course also had asthma exacerbation: Patient was treated with hydration, antibiotics for C diff as well as initially for UTI , all supportive care for asthma and chronic conditions: Patient condition has not improved , family decided for comfort measures with no interventions except continuing with tube feeding, and comfort medications. Unable to go home with hospice at this time, no guardian. Has guardianship hearing next week, 22 May Started on Morphine drip for discomfort and pain, give Tylenol for fever Hearing for guardian via zoom with daughter, dc pending guardian paperwork Quality Stroke Does the patient have a stroke diagnosis?: No VTE Prior VTE?: No VTE Risk Level:: Medical - moderate - high VTE Device Contraindication: N/A - Device Ordered VTE Drug Contraindication: N/A - Med Ordered
[2022-05-23] MEDS: Morphine Sulfate/NS 100 MG/100 ML PLAST..BAG IVCONT (12:34)
--- NOTE | 2022-05-23 13:21 | MHC.CM.PN ---
Addendum entered by Ashlee Khan 05/23/22 14:16: PLAN IS HOME SUNDAY [facility] ASK FOR EARLY DC. DAUGHTER (IN ROOM) AWARE OF PLAN. IMM 05/23 IN CHART Original Note: TEMPORARY GUARDIANSHIP RECEIVED AND UPLOADED INTO [employer] PLACED IN CHART PLAN IS HOME WITH HOSPICE SERVICES THROUGH [facility]
--- NOTE | 2022-05-23 14:54 | PM.DS ---
DS: Providers Provider Date of Service: 05/24/22 Date of admission: 05/08/22 18:18 Primary care physician: Anders Frey MD Consults: 05/09/22 10:20 Consult to Wound Care Routine Consulting Provider: [facility] Reason for consultation: back decubtii Has provider been notified: No 05/10/22 16:03 Consult to Infectious Diseases Routine Consulting Provider: Dotty Martinez Reason for consultation: uti/cdiff Has provider been notified: No Attending physician on discharge: Irineo Berg Discharging clinician: Arely Madden DS: Diagnosis Discharge Diagnosis (1) Toxic metabolic encephalopathy: Status: Acute (2) C. difficile diarrhea: Status: Acute DS: Summary Hospital Course Hospital Course: 86-year-old 86-year-old Urdu-speaking woman with history of dementia presents with continued fevers, diarrhea.? Was recently started on antibiotics for urinary tract infection but continues to have symptoms.? Apparently she has also been lethargic throughout the day and not sleeping well. ? Urine culture from May 04 showed Proteus mirabilis. ? white blood cell count elevated 28.8, sodium 128, other labs within acceptable limits, vital signs stable.? Started on Rocephin, given IV fluids. 86-year-old Urdu-speaking woman hx of cva and left sided hemiparesis,mostly bed bound , coccyx wound ,admitted Toxic metabolic encephalopathy-multifactorial(severe C diff infection , hyponatremia, pre renal azotemia),pyuria and hospital course also had asthma exacerbation: Patient was treated with hydration, antibiotics for C diff as well as initially for UTI , all supportive care for asthma and chronic conditions:? Patient condition has not improved, family decided for comfort measures with no interventions except continuing with tube feeding, and comfort medications. Unable to go home with hospice at this time, no guardian. Has guardianship hearing next week, 22 May. Started on Morphine drip for discomfort and pain, give Tylenol for fever. Hearing for guardian via zoom with daughter for temp guardian paperwork complete. Hospice care at home with family script for morphine and lorazepam for home hospice sent with patient Urinary tract infection. Failed outpatient treatment Asthma History of seizure disorder GERD Coccyx wound present on admission Hypertension Time Spent with Patient Time attestation: Total time spent providing and/or coordinating discharge services: Discharge coordination time: Greater than 30 minutes Quality: Safe Use of Opioids Does Pt have an Active Cancer Diagnosis on the Problem List?: No Quality: Stroke Does the patient have a stroke diagnosis?: No Physical Exam Vital Signs: Vital Signs: Last Vital Signs Temp 98.7 F 05/22/22 23:36 Pulse 99 05/21/22 08:00 Resp 12 05/23/22 00:00 BP 186/84 H 05/21/22 08:00 Pulse Ox 95 05/21/22 08:00 O2 Del Method 05/21/22 08:00 BMI result Body Mass Index 21.9 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 DS: Data Data Completed and Pending Completed studies during hospitalization [Text1]: Procedures Change Feeding Device in Upper Intestinal Tract, External Approach (02/20/22) Discharge Plan Discharge Anticipated Discharge Date/Time: 05/24/22 07:45 Patient Disposition: Hospice - Home Discharge Diagnosis: Comfort measures only UTI Asthma Referrals: Anders Frey MD [Primary Care Provider] - 1 Week Discharge Medications: New morphine concentrate 100 mg/5 mL (20 mg/mL) solution 20 mg PO Q1H Qty: 120 0RF Rx Instructions: Hospice lorazepam [Lorazepam Intensol] 2 mg/mL concentrate 1 mg buccal Q4H PRN (Reason: agitation) Qty: 30 0RF Rx Instructions: Hospice Discontinued cetirizine 10 mg Tablet 10 mg PO DAILY albuterol sulfate 90 mcg/actuation Hfa Aerosol Inhaler 2 puff INHALATION Q4-6H PRN (Reason: Shortness Of Breath) calcium carbonate-vitamin D3 [Oyster Shell Calcium-Vit D3] 500 mg(1,250mg) -200 unit Tablet 1 tab PO BID valsartan-hydrochlorothiazide 320-25 mg Tablet 1 tab PO DAILY amantadine HCl 50 mg/5 mL solution 10 ml G-tube DAILY albuterol sulfate 2.5 mg /3 mL (0.083 %) solution for nebulization 1 amp inhalation TID PRN (Reason: Shortness Of Breath) clopidogrel 75 mg tablet 1 tab BEDTIME modafinil 200 mg tablet 1 tab PO DAILY levetiracetam 100 mg/mL solution 5 ml G-tube BID duloxetine 30 mg capsule,delayed release(DR/EC) 1 cap PO DAILY melatonin 5 mg tablet 1 tab PO BEDTIME PRN (Reason: insomnia) aspirin 81 mg tablet,chewable 1 tab PO QPM fluticasone propionate [Flovent HFA] 110 mcg/actuation HFA aerosol inhaler 2 puff inhalation BID rosuvastatin 10 mg tablet 1 tab PO QPM quetiapine 25 mg Tablet 25 mg PO BID Qty: 60 0RF ferrous sulfate 300 mg (60 mg iron)/5 mL Liquid 300 mg PO BIDWM Qty: 300 0RF omeprazole 20 mg capsule,delayed release(DR/EC) 20 mg feeding tube BID Qty: 60 0RF cefdinir 300 mg capsule 300 mg PO Q12H 5 Days Qty: 10 0RF Discharge Orders: Discharge Order (Routine); Ordered 05/24/22 Ordered By: Arely Madden Diet: G-tube Activity on Discharge: As tolerated Stand Alone Forms: Patient Portal Discharge page Care Plan Goals: Hospice Health Concerns: Comfort measures only UTI Asthma Plan of Treatment: He will be sent home with hospice care for comfort measures only Assessment: See discharge summary
[2022-05-23] MEDS: LORazepam 0.5 MG TABLET 0.25 MG PO (15:56)
[2022-05-23 20:08] VITALS: RESP 12
[2022-05-23] MEDS: Scopolamine 1.5 MG PATCH.TD.3 TRANSDERMA (21:14)
[2022-05-24 03:56] VITALS: RESP 14
--- NOTE | 2022-05-24 10:11 | MHC.CM.PN ---
Met [facility] patient, niece, and guardian, Kathy. Plan for dc home this moring via ambulance. Hospice nurse to meet at patient's home at noon. Set up ambulance for 11am. MD and RN aware of dc time.
[2022-05-24] MEDS: LORazepam 0.5 MG TABLET 0.25 MG PO (10:30)
== END 2022-05-24 11:42 | disposition hospice, home (50) | DRG 372 ==
LOC: HO.ED 14:42 → HO.EDOVER 18:23 → HO.IMC 05-09 18:57 → HO.S3 05-19 12:32
PROVIDERS: Internal Medicine; Nurse Practitioner Family; Admitting Provider Nurse Practitioner Acute Care; Emergency Provider Emergency Medicine Emergency Medical Services; PCP Internal Medicine; Visit Provider Nurse Practitioner Acute Care
DX: A04.72 Enterocolitis due to Clostridium difficile, not specified as recurrent (principal); E87.1 Hypo-osmolality and hyponatremia; N39.0 Urinary tract infection, site not specified; I69.354 Hemiplegia and hemiparesis following cerebral infarction affecting left non-dominant side; J45.21 Mild intermittent asthma with (acute) exacerbation; B96.4 Proteus (mirabilis) (morganii) as the cause of diseases classified elsewhere; E86.0 Dehydration; L89.152 Pressure ulcer of sacral region, stage 2; G40.409 Other generalized epilepsy and epileptic syndromes, not intractable, without status epilepticus; I10 Essential (primary) hypertension; F03.90 Unspecified dementia, unspecified severity, without behavioral disturbance, psychotic disturbance, mood disturbance, and anxiety; K21.9 Gastro-esophageal reflux disease without esophagitis; Z20.822 Contact with and (suspected) exposure to COVID-19; Z51.5 Encounter for palliative care; Z74.01 Bed confinement status; Z87.442 Personal history of urinary calculi; Z88.5 Allergy status to narcotic agent; Z88.8 Allergy status to other drugs, medicaments and biological substances; Z79.899 Other long term (current) drug therapy
CPT/HCPCS: 36415; 70450; 71045; 73502; 73564; 74176; 80048; 80053; 81001; 83605; 83735; 85025; 85027; 87040; 87086; 87324; 87493; 87633; 87635; 89055; 94640; 96361; 96365; 97110; 97163; 99284; 99285; J0131; J0696; J1170; J1450; J1885; J2270; J2543